=== PATIENT | female | born 2000 | race Caucasian/White ===

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

== ENCOUNTER → 2021-01-27 | Outpatient (REF) | payer OTHER, MEDICAID | LOC: M SFHCWAGY 12:39 | PROVIDERS: ATTEND Nurse Practitioner Women's Health | DX: N93.0 Postcoital and contact bleeding (principal); Z11.3 Encounter for screening for infections with a predominantly sexual mode of transmission ==

== ENCOUNTER → 2021-04-07 | Outpatient (REF) | payer OTHER, MEDICAID ==
[~2021-04-07] MED LIST changes: +ARIP10TA32 PO; -ARIP1TAB PO; -ARIP1TAB2 PO; +ARIP1TAB43 PO
[2021-04-07 18:39] LABS: APPEARANCE, URINE HAZY (CLEAR); BACTERIA, URINE AUTO 1+ (NEGATIVE); BILIRUBIN, URINE AUTO NEGATIVE (NEGATIVE); BLOOD, URINE BLOOD 1+ (NEGATIVE); COLOR, URINE YELLOW (YELLOW); GLUCOSE, URINE (UA) AUTO NEGATIVE (NEGATIVE); KETONE, URINE AUTO NEGATIVE (NEGATIVE); LEUKOCYTE ESTERASE, URINE AUTO 1+ (NEGATIVE); MUCUS, URINE SMALL (NEGATIVE); NITRITE, URINE AUTO NEGATIVE (NEGATIVE); PROTEIN, URINE AUTO NEGATIVE (NEGATIVE); RBC, URINE AUTO 4 /HPF (0-3); SQUAMOUS EPITHELIAL CELL UR AU 3 /HPF (0-6); UROBILINOGEN, URINE AUTO 0.2 mg/dL (0.0-2.0); WBC, URINE AUTO 66 /HPF (0-3)
== END ==
LOC: M LAB REF 16:59
PROVIDERS: ATTEND Physician Assistant
DX: N39.0 Urinary tract infection, site not specified (principal)

== ENCOUNTER → 2021-05-14 | Outpatient (CLI) | payer OTHER, MEDICAID ==
--- NOTE | 2021-05-14 11:13 | REP ---
INDICATION: CHEST PAIN, UNSPECIFIED. COMPARISON: Comparison study July 03, 2018. TECHNIQUE: Two views.. FINDINGS: The lungs are well inflated and free of infiltrate. The pleural angles are sharp. The heart size is normal. Pulmonary vasculature is not increased. No significant bony abnormality is seen. IMPRESSION: Negative chest x-ray. <Electronically signed by Constantin Hopper > 05/14/21 [id number]
[2021-05-14 12:15] LABS: BASO % 0.6 % (0.0-1.0); EOS % 0.8 % (0.0-3.0); HEMATOCRIT 38.5 % (36.0-47.0); HEMOGLOBIN 12.3 g/dl (12.0-15.5); LYMPH # 1.8 10^3/uL (1.5-5.0); LYMPH % 34.9 % (24.0-44.0); MEAN CORPUSCULAR HEMOGLOBIN 28.7 pg (27.0-33.0); MEAN CORPUSCULAR HGB CONC 31.9 g/dl (32.0-36.5); MEAN CORPUSCULAR VOLUME 89.7 fl (80.0-96.0); MONO # 0.5 10^3/uL (0.0-0.8); MONO % 8.9 % (2.0-8.0); NEUTROPHILS # 2.8 10^3/uL (1.5-8.5); NEUTROPHILS % 54.6 % (36.0-66.0); PLATELET COUNT, AUTOMATED 286 10^3/uL (150-450); RED BLOOD COUNT 4.29 10^6/uL (4.00-5.40); WHITE BLOOD COUNT 5.1 10^3/uL (4.0-10.0)
[2021-05-14 12:48] LABS: ALT/SGPT 16 U/L (12-78); BILIRUBIN,TOTAL 0.2 MG/DL (0.2-1.0); BLOOD UREA NITROGEN 11 MG/DL (7-18); CALCIUM LEVEL 9.6 MG/DL (8.5-10.1); CARBON DIOXIDE LEVEL 28 MEQ/L (21-32); CHLORIDE LEVEL 108 MEQ/L (98-107); CREATININE FOR GFR 0.82 MG/DL (0.55-1.30); FERRITIN 6 NG/ML (8-252); FREE T4 0.93 NG/DL (0.78-1.33); GLUCOSE, FASTING 90 MG/DL (70-100); IRON (FE) 42 UG/DL (50-170); PERCENT SATURATION 10.6 % (13.2-45.0); SODIUM LEVEL 140 MEQ/L (136-145); TOTAL IRON BINDING CAPACITY 395 UG/DL (250-450); TOTAL PROTEIN 7.4 GM/DL (6.4-8.2)
== END ==
LOC: M RAD 10:46
PROVIDERS: ATTEND Physician Assistant
DX: R07.9 Chest pain, unspecified (principal)

== ENCOUNTER → 2021-06-04 | Outpatient (CLI) | payer OTHER ==
[~2021-06-04] MED LIST changes: +METHACHOLINE KIT (J7674) INH ONE
--- NOTE | 2021-06-04 10:20 | PFTRPT ---
Site: [facility], [address] [place], [address] ID: [id number] Name: RADHA CAMACHO Visit Date: 06/04/2021 Second ID: [id number] Referring Doctor: Apollo Jj Reviewing Doctor: Franklin Vega MD Multi Purpose Machine Operator: Tenisha Oliva RRT Age: 20 : 2000 Sex: Female Race: Height: 63.00 Inches Weight: 102.00 Lbs BSA: 1.45 Order IDs: [id number] Requested Test(s): <RESP-PFT.METH CHAL> Diagnosis: R06.02, R07.9 of albuterol for post bronchodilator. ALBUTEROL NEB GIVEN FOR POST BRONCHODILATOR. Review Status: Not Reviewed Pre-Bronch Post-Bronch Pred Actual %Pred Actual %Chng SPIROMETRY FVC (L) 3.66 2.46 67 2.65 7 FEV1 (L) 3.23 2.25 69 2.46 9 FEV1/FVC (%) 87 92 105 93 1 FEF 25% (L/sec) 5.84 3.02 51 3.33 10 FEF 50% (L/sec) 4.80 2.65 55 2.76 4 FEF 75% (L/sec) 2.14 2.15 100 2.14 FEF 25-75% (L/sec) 3.70 2.59 69 2.69 3 FEF Max (L/sec) 6.66 3.11 46 3.78 21 FIVC (L) 1.84 1.62 -12 FIF 50% (L/sec) 3.94 1.32 33 2.34 77 FIF Max (L/sec) 1.68 2.53 50 Expiratory Time (sec) 6.68 6.76 1 Back Extrap Vol (L) 0.04 0.05 25 Time To FEFmax (sec) 0.121 0.093 -23
== END ==
LOC: M CARPUL 09:07
PROVIDERS: ATTEND Physician Assistant
DX: R06.02 Shortness of breath (principal); R07.9 Chest pain, unspecified
CPT/HCPCS: 94070; 95070; J7674

== ENCOUNTER 2021-07-23 11:28 | Emergency (ER) | payer OTHER ==
[~2021-07-23] VITALS: Ht 157.5 cm; Wt 49.6 kg
[~2021-07-23 11:28] MED LIST changes: -METHACHOLINE KIT (J7674) INH ONE
--- OUTSIDE RECORDS SUMMARY | 2021-07-23 11:38 | CCD | Continuity of Care Document ---
Author Author Melonie MEADE MD Organization [place] [address] Phone [phone] Care Team Providers Care Assisted Living Coordinator Name Role Phone Delvin Huang M.D. AUTM [phone] [facility] [phone] Obstetrics & Gynecology @ [facility] AUT Problems Active Problems Provider Date Weight decreased WILLIAM Robert Onset: 05/18/2017 Anorexia nervosa, restricting type WILLIAM Robert Onset : 05/18/2017 Generalized anxiety disorder Ragini Meade MD Onset: 10/2017 Insomnia Ragini Meade MD Onset: 02/20/2018 Moderate recurrent major depression Ragini Meade MD Onse t: 02/20/2018 Acne Ragini Meade MD Onset: 03/07/2018 Epigastric pain Ragini Meade MD Onset: 11/01/2018 Gastroesophageal reflux disease Ragini Meade MD Onset: 0 05/05/2020 Dysmenorrhea Ragini Meade MD Onset: 05/14/2020 Morales's esophagus Onset: Anxiety state Ragini Meade MD Onset: 07/12/2021 Social History Type Date Description Comments Sex Unknown Cigarette Use No Smokers In The Home Tobacco Use Start: Unknown Patient has never smoked Smoking Status Reviewed: 04/07/21 Patient has never smoked Guns in Home No Smoke Alarms Yes Smoke Alarms Carbon Monoxide Detector: Yes Allergies and adverse reactions Active Allergies Criticality Reaction | Severity Comments Date NKDA Unable to assess criticality 11/28/2019 Inactive Allergies NKDA Unable to assess criticality 01/28/2010 Amoxicillin Unable to assess criticality urticaria 10/24/2019 Medications Active Medications SIG Qnty Indications Ordering Provide r Date Arnuity Ellipta 100mcg/Act Aerosol 2 PUFFs oncce daily 1units J45.909 Ragini Meade MD 06/15/2021 Ventolin HFA 108(90Base) mcg/Act A erosol 2 puffs inhaled every 4-6 hours as needed 8gm J45.909 Ernestine Meade MD 06/11/2021 Ferrous Sulfate 325(65Fe) mg Table ts take 1 tabs by mouth twice a day x 3 months 60tabs Ragini Meade MD 05/14/[address] 1 by mouth bid po qd x1 month 60caps K21.9 Ragini Meade MD 03/01/2021 Multivitamin Unknown Abilify 10mg Tablets 1 tab po q day Unknown Buspirone HCL 10mg Tablets 1 tab po bid Unknown Lamictal 100mg Tablets 1 Tab PO Q Day Unknown Propranolol HCL 20mg Tablets Unknown Lamotrigine 25mg Tablets Unknown Haloperidol 0.5mg Tablets Unknown Duloxetine HCL 20mg Caps DR Part Unknown History Medications Asmanex Twisthaler 30 Metered Doses 220mcg/Inh Aerosol 1 puff daily in the evening x 30 days 1units J45.909 Teja Gómez MD 06/11/2021 - 06/15/2021 Sulfamethoxazole/Trimethoprim DS 800-160mg Tablets take 1 tablet by mouth every 12 hours x 5 days 10tabs Ragini Meade MD 04/08/2021 - 06/08/2021 Immunizations CPT Code Status Date Vaccine Reaction Lot # [id number] Given 03/01/2021 Bexsero Meningoc occal Recombinant, Serogroup B, 2 Dose Schedule [id number] 10465 Given 03/01/2021 Gardasil 9-HPV 9 Valent 3 Dose Sched ule Im [id number] 48562 Given 11/28/2019 Gardasil 9-HPV, 3 Dose Schedule Im [id number] 13374 Given 11/28/2019 Bexsero Meningoc occal Recombinant, Serogroup B, 2 Dose Schedule [id number] 03097 Given 11/15/2018 [facility] Meningococcal Conj (Menveo) [id number] 00154 Given 07/18/2017 TB Intradermal Test 07/20/20 17 at 12:04 pm: 0 mm, Magdi Tucker, RN [id number] 15088 Given 03/05/2013 Menactra-Meningococcal Conjugate Vac cine Intramuscular [id number] 36073 Given 03/05/2013 Bgol-Zrfyir-2Nkb & Older [id number] 05613 Given 01/28/2010 Varicella Immunization 11 99y 74446 Given 05/29/2007 Hep A Vaccine-Vaqta, Intramuscular, 2 [place] [address] Given 04/25/2006 Poliomyelitis Immunization 29609 Given 04/25/2006 MMR Virus Immunization 37249 Given 04/25/2006 DTaP-Daptacel Immunization 53050 Given 04/25/2006 Hep A Vaccine-Vaqta, Intramuscular, 2 [place] [address] Given 12/03/2003 Prevnar(Pneumoco ccal Conjugate Vaccine,Polyvalent For Children) 69999 Given 12/06/2002 Poliomyelitis Immunization 17774 Given 12/06/2002 DTaP-Daptacel Immunization 40083 Given 12/06/2002 Prevnar(Pneumoco ccal Conjugate Vaccine, Polyvalent For Children) 29975 Given 12/06/2002 Haemophilus Infl uenza b Vaccine (Hib) Conjugate(4Dose Schedule 74850 Given 09/04/2002 MMR Virus Immunization 31633 Given 09/04/2002 Hepatitis B-Leonardo mbivax -Pediatric/Adolescent Dosage(3 Dose Sched) 13742 Given 09/04/2002 Varicella Immunization 40889 Given 06/04/2002 TB Intradermal Test 40317 Given 03/04/2002 Haemophilus Infl uenza b Vaccine (Hib) Conjugate(4Dose Schedule 72370 Given 03/04/2002 Prevnar(Pneumoco ccal Conjugate Vaccine, Polyvalent For Children) 32507 Given 03/04/2002 DTaP-Daptacel Immunization 93228 Given 2001 Hepatitis B-Leonardo mbivax -Pediatric/Adolescent Dosage(3 Dose Sched) 96712 Given 2001 Poliomyelitis Immunization 48631 Given 2001 DTaP-Daptacel Immunization 04493 Given 2001 Haemophilus Infl uenza b Vaccine (Hib) Conjugate(4Dose Schedule 63460 Given 2001 Hepatitis B And Haemophilusinfluenza B Vaccine, For Intramuscular 80347 Given 2001 Poliomyelitis Immunization 02402 Given 2001 DTaP-Daptacel Immunization 76720 Given 2001 Prevnar(Pneumoco ccal Conjugate Vaccine, Polyvalent For Children) 70533 Refused 11/28/2019 [facility] Flulaval 22004 Refused 11/15/2018 Bexsero Meningoc occal Recombinant, Serogroup B, 2 Dose Schedule 43801 Refused 11/15/2018 Gardasil 9-HPV, 3 [place] [address] Refused 11/15/2018 [facility] Flulaval Vital Signs Date Vital Result Comment 07/12/2021 1:25pm Height 61.81 inches 5'1.81" Height Percentile 16 % Height in cm's 157 cm Weight 107.00 lb Weight 48.535 kg Weight Percentile 11th BMI (Body Mass Index) 19.7 kg/m2 Body Mass Index Percentile 24 % Body Temperature 97.2 F Heart Rate 86 /min Respiratory Rate 16 /min O2 % BldC Oximetry 99 % BP Systolic 100 mmHg BP Diastolic 72 mmHg 06/11/2021 3:07pm Height 61.61 inches 5'1.61" Height Percentile 15 % Height in cm's 156.5 cm Weight 110.50 lb Weight 50.123 kg Weight Percentile 16th BMI (Body Mass Index) 20.5 kg/m2 Body Mass Index Percentile 34 % Body Temperature 98.4 F Heart Rate 78 /min Respiratory Rate 16 /min O2 % BldC Oximetry 97 % BP Systolic 118 mmHg BP Diastolic 74 mmHg Results Test Acquired Date Facility Test Result H/L Range Note CBC With Differential 05/14/[address] [address] [phone] White Blood Count 5.1 10 Normal 4.0-10.0 1 Red Blood Count 4.29 10 Normal 4.00-5.40 Hemoglobin 12.3 g/dL Normal 12.0-15.5 Hematocrit 38.5 % Normal 36.0-47.0 Mean Corpuscular Volume 89.7 fl Normal 80.0-96.0 Mean Corpuscular Hemoglobin 28.7 pg Normal 27.0-33.0 Mean Corpuscular HGB Conc 31.9 g/dL Low 32.0-36.5 Red Cell Distribution Width 13.7 % Normal 11.5-14.5 Platelet Count, Automated 286 10 Normal 150-450 Neutrophils % 54.6 % Normal 36.0-66.0 Lymph % 34.9 % Normal 24.0-44.0 [place] % 8.9 % High 2.0-8.0 Eos % 0.8 % Normal 0.0-3.0 Baso % 0.6 % Normal 0.0-1.0 Immature Granulocyte % 0.2 % Normal 0-3.0 Nucleated Red Blood Cell % 0.0 % Normal 0-0 Neutrophils # 2.8 10 Normal 1.5-8.5 Lymph # 1.8 10 Normal 1.5-5.0 [place] # 0.5 10 Normal 0.0-0.8 Eos # 0.0 10 Normal 0.0-0.5 Baso # 0.0 10 Normal 0.0-0.2 Comprehensive Metabolic Profil 05/14/[address] [address] [phone] Glucose, Fasting 90 mg/dL Normal 70-100 Blood Urea Nitrogen 11 mg/dL Normal 7-18 Creatinine For GFR 0.82 mg/dL Normal 0.55-1.30 Sodium Level 140 mEq/L Normal 136-145 Potassium Serum 4.0 mEq/L Normal 3.5-5.1 Chloride Level 108 mEq/L High 98-107 Carbon Dioxide Level 28 mEq/L Normal 21-32 Anion Gap 4 mEq/L Low 8-16 Calcium Level 9.6 mg/dL Normal 8.5-10.1 Ast/Sgot 17 U/L Normal 7-37 Alt/SGPT 16 U/L Normal 12-78 Alkaline Phosphatase 77 U/L Normal 45-117 Bilirubin,Total 0.2 mg/dL Normal 0.2-1.0 Total Protein 7.4 GM/DL Normal 6.4-8.2 Albumin 4.0 GM/DL Normal 3.2-5.2 Albumin/Globulin Ratio 1.2 Normal 1.2-2.2 Laboratory test finding 05/14/[address] [address] [phone] C Reactive Protein Quantitativ 0.30 mg/dL Normal 0 .00-0.30 Total Iron Binding Capacit 05/14/[address] [address] [phone] Iron (Fe) 42 g/dL Low 50-170 Total Iron Binding Capacity 395 g/dL Normal 250-450 Percent Saturation 10.6 % Low 13.2-45.0 Laboratory test finding 05/14/[address] [address] [phone] Ferritin 6 NG/ML Low 8-252 FT4&TSH Panel 05/14/2021 [facility] nter [address] [place] [address] [phone] Thyroid Stimulating Hormone 1.590 uIU/ML Normal 0. 463-3.98 Free T4 0.93 ng/dL Normal 0.78-1.33 Laboratory test finding 04/07/2021 [facility] Urine Test Beta HCG NEGATIVE Ua Routine 04/07/2021 [facility] nter [address] [place] [address] [phone] Appearance, Urine HAZY Normal Clear Color, Urine YELLOW Normal Yellow PH,Urine 5.0 units Normal 5.0-9.0 Specific [place] Urine Auto 1.010 Normal 1.002-1.035 Protein, Urine Auto NEGATIVE mg/dL Normal Negative Glucose, Urine (Ua) Auto NEGATIVE mg/dL Normal Negative Ketone, Urine Auto NEGATIVE mg/dL Normal Negative Urobilinogen, Urine Auto 0.2 mg/dL Normal 0.0-2.0 Bilirubin, Urine Auto NEGATIVE Normal Negative Nitrite, Urine Auto NEGATIVE Normal Negative Leukocyte Esterase, Urine Auto 1+ High Negative Blood, Urine Blood 1+ High Negative WBC, Urine Auto 66 /HPF High 0-3 RBC, Urine Auto 4 /HPF High 0-3 Bacteria, Urine Auto 1+ High Negative Squamous Epithelial Cell Ur AU 3 /HPF Normal 0-6 Mucus, Urine SMALL Normal Negative Hyaline Cast, Urine Auto 0 /LPF Normal 0-1 Laboratory test finding 04/07/[address] [address] [phone] Urine Culture FULL REPORT IN L <SEE NOTE> Normal 2 Urinalysis W/O Microscopy Auto 04/07/2021 [facility] Ua Leukocytes small Ua Nitrite n Ua Urobilinogen n Ua Protein n Ua PH 5.0 Ua Blood trace Ua Specific [place] 1.010 Ua Ketones n Ua Bilirubin n Ua Glucose n 1 See triage. AMT 2 FULL REPORT IN LAB NOTES (eC W and Medent). SPECIMEN APPEARS CONTAMINATED Procedures Date Code Description Status 07/12/2021 13301 Office/Outpatient Established Mo d MDM 30-39 Min Completed 06/11/2021 89133 Office/Outpatient Established Mo d MDM 30-39 Min Completed 05/14/2021 67081 Office/Outpatient Established Mo d MDM 30-39 Min Completed 04/07/2021 60577 Office/Outpatient Established Lo w MDM 20-29 Min Completed 03/01/2021 65499 Preventive Visit Est 18-39 Yrs C ompleted 03/01/2021 21552 Screening Test Of Visual Acuity, Quantitative, Bilateral Completed 03/01/2021 80755 Admin Patient Focused Health Ris k Assessment Instrument Completed 03/01/2021 08372 Brief Emotional/Beha v Assessment W/ Scoring Doc Per Standard Inst Completed 03/01/2021 53549 Brief Emotional/Beha v Assessment W/ Scoring Doc Per Standard Inst Completed 03/01/2021 26463 Pure Tone Audiometry, Air Comple garrett Medical Devices Description No Information Available Encounters Type Date Location Provider Dx Diagnosis Office Visit 07/12/2021 1:20p [facility] MD J45.909 Unspecified asthma, uncompli cated R07.9 Chest pain, unspecified F41.9 Anxiety disorder, unspecifie d Office Visit 06/11/2021 3:00p [facility] RPA-C J45.909 Unspecified asthma, uncompli cated E61.1 Iron deficiency Office Visit 05/14/2021 8:40a [facility] RPA-C R07.9 Chest pain, unspecified R06.02 Shortness of breath R00.2 Palpitations M54.6 Pain in thoracic spine Office Visit 04/07/2021 1:10p [facility] PA N39.0 Urinary tract infection, sit e not specified K59.00 Constipation, unspecified Office Visit 03/01/2021 11:20a [facility] PNP Z00.01 Encounter for general adult medical exam w abnormal findings K21.9 Gastro-esophageal reflux dis ease without esophagitis F33.1 Major depressive disorder, r ecurrent, moderate F50.01 Anorexia nervosa, restrictin g type K22.719 Morales's esophagus with dys plasia, unspecified Z23 Encounter for immunization Z00.121 Encounter for routine child health exam w abnormal findings Assessments Date Code Description Provider 07/12/2021 J45.909 Unspecified asthma, uncomplicate d Ragini Meade MD 07/12/2021 R07.9 Chest pain, unspecified Ernestine Meade MD 07/12/2021 F41.9 Anxiety disorder, unspecified [facility] Meade MD 06/11/2021 J45.909 Unspecified asthma, uncomplicate d Apollo Jj, [facility] 06/11/2021 E61.1 Iron deficiency Apollo Jj, [facility] 05/14/2021 R07.9 Chest pain, unspecified Apollo tracey, [facility] 05/14/2021 R06.02 Shortness of breath Apollo Jj, [facility] 05/14/2021 R00.2 Palpitations Apollo Jj, [facility] 05/14/2021 M54.6 Pain in thoracic spine Apollo machado, [facility] 04/07/2021 N39.0 Urinary tract infection, site no t specified NARGIS Hayes 04/07/2021 K59.00 Constipation, unspecified NARGIS River 03/01/2021 Z00.01 Encounter for genera l adult medical examination with abnormal findings WILLIAM Robert 03/01/2021 K21.9 Gastro-esophageal reflux disease without esophagitis WILLIAM Robert 03/01/2021 F33.1 Major depressive disorder, recur rent, moderate WILLIAM Robert 03/01/2021 F50.01 Anorexia nervosa, restricting ty pe WILLIAM Robert 03/01/2021 K22.719 Morales's esophagus with dysplas ia, unspecified WILLIAM Robert 03/01/2021 Z23 Encounter for immunization WILLIAM Michael 03/01/2021 Z00.121 Encounter for routin e child health examination with abnormal findings WILLIAM Robert Plan of Treatment Future Appointment(s):* 08/10/2021 1:20 pm - Ragini Meade MD at [facility] Functional Status Description No Information Available Mental Status Description No Information Available Referrals Description No Information Available
--- OUTSIDE RECORDS SUMMARY | 2021-07-23 11:38 | CCD | Continuity of Care Document ---
Author Author Melonie MEADE MD Organization [place] [address] Phone [phone] Care Team Providers Care Mail Handler Sorter Name Role Phone Delvin Huang M.D. AUTM [phone] [facility] Women's [facility] And Breast - Obstetrics & Gynecol [facility] AUTM [phone] Obstetrics & Gynecology @ [facility] AUT [phone] Problems Active Problems Provider Date Weight decreased [...] Code Status Date Vaccine Reaction Lot # [id number] Given 03/01/2021 Bexsero Meningoc occal Recombinant, Serogroup B, 2 Dose Schedule [id number] 91758 Given 03/01/2021 Gardasil 9-HPV 9 Valent 3 Dose Sched ule Im [id number] 70125 Given 11/28/2019 Gardasil 9-HPV, 3 Dose Schedule Im [id number] 99863 Given 11/28/2019 Bexsero Meningoc occal Recombinant, Serogroup B, 2 Dose Schedule [id number] 95248 Given 11/15/2018 [facility] Meningococcal Conj (Menveo) [id number] 92474 Given 07/18/2017 TB Intradermal Test 07/20/20 17 at 12:04 pm: 0 mm, Magdi Tucker, RN [id number] 92770 Given 03/05/2013 Menactra-Meningococcal Conjugate Vac cine Intramuscular [id number] 60705 Given 03/05/2013 Lcyt-Iwsxhx-8Ioc & Older [id number] 12479 Given 01/28/2010 Varicella Immunization 11 99y 16516 Given 05/29/2007 Hep A Vaccine-Vaqta, Intramuscular, 2 [place] [address] Given 04/25/2006 Poliomyelitis Immunization 26130 Given 04/25/2006 MMR Virus Immunization 12096 Given 04/25/2006 DTaP-Daptacel Immunization 64650 Given 04/25/2006 Hep A Vaccine-Vaqta, Intramuscular, 2 [place] [address] Given 12/03/2003 Prevnar(Pneumoco ccal Conjugate Vaccine,Polyvalent For Children) 54948 Given 12/06/2002 Poliomyelitis Immunization 19734 Given 12/06/2002 DTaP-Daptacel Immunization 00296 Given 12/06/2002 Prevnar(Pneumoco ccal Conjugate Vaccine, Polyvalent For Children) 65969 Given 12/06/2002 Haemophilus Infl uenza b Vaccine (Hib) Conjugate(4Dose Schedule 80695 Given 09/04/2002 MMR Virus Immunization 17680 Given 09/04/2002 Hepatitis B-Leonardo mbivax -Pediatric/Adolescent Dosage(3 Dose Sched) 71785 Given 09/04/2002 Varicella Immunization 08853 Given 06/04/2002 TB Intradermal Test 82525 Given 03/04/2002 Haemophilus Infl uenza b Vaccine (Hib) Conjugate(4Dose Schedule 67251 Given 03/04/2002 Prevnar(Pneumoco ccal Conjugate Vaccine, Polyvalent For Children) 10312 Given 03/04/2002 DTaP-Daptacel Immunization 61365 Given 2001 Hepatitis B-Leonardo mbivax -Pediatric/Adolescent Dosage(3 Dose Sched) 34528 Given 2001 Poliomyelitis Immunization 76119 Given 2001 DTaP-Daptacel Immunization 25571 Given 2001 Haemophilus Infl uenza b Vaccine (Hib) Conjugate(4Dose Schedule 56359 Given 2001 Hepatitis B And Haemophilusinfluenza B Vaccine, For Intramuscular 26515 Given 2001 Poliomyelitis Immunization 40148 Given 2001 DTaP-Daptacel Immunization 36297 Given 2001 Prevnar(Pneumoco ccal Conjugate Vaccine, Polyvalent For Children) 26821 Refused 11/28/2019 [facility] Flulaval 76396 Refused 11/15/2018 Bexsero Meningoc occal Recombinant, Serogroup B, 2 Dose Schedule 22196 Refused 11/15/2018 Gardasil 9-HPV, 3 [place] [address] Refused 11/15/2018 [facility] Flulaval Vital Signs Date Vital Result Comment [...] H/L Range Note CBC With Differential 05/14/[address] [address] [phone] White Blood Count 5.1 10 Normal 4.0-10.0 [...] 36.0-66.0 Lymph % 34.9 % Normal 24.0-44.0 [place] % 8.9 % High 2.0-8.0 Eos % 0.8 % Normal 0.0-3.0 Baso % 0.6 % Normal 0.0-1.0 Immature Granulocyte % 0.2 % Normal 0-3.0 Nucleated Red Blood Cell % 0.0 % Normal 0-0 Neutrophils # 2.8 10 Normal 1.5-8.5 Lymph # 1.8 10 Normal 1.5-5.0 [place] # 0.5 10 Normal 0.0-0.8 Eos # 0.0 10 Normal 0.0-0.5 Baso # 0.0 10 Normal 0.0-0.2 Comprehensive Metabolic Profil 05/14/[address] [address] [phone] Glucose, Fasting 90 mg/dL Normal 70-100 Blood [...] 1.2 Normal 1.2-2.2 Laboratory test finding 05/14/[address] [address] [phone] C Reactive Protein Quantitativ 0.30 mg/dL Normal 0 .00-0.30 Total Iron Binding Capacit 05/14/[address] [address] [phone] Iron (Fe) 42 g/dL Low 50-170 Total Iron Binding Capacity 395 g/dL Normal 250-450 Percent Saturation 10.6 % Low 13.2-45.0 Laboratory test finding 05/14/[address] [address] [phone] Ferritin 6 NG/ML Low 8-252 FT4&TSH Panel 05/14/2021 [facility] nter [address] [place] [address] [phone] Thyroid Stimulating Hormone 1.590 uIU/ML Normal 0. 463-3.98 Free T4 0.93 ng/dL Normal 0.78-1.33 Laboratory test finding 04/07/2021 [facility] Urine Test Beta HCG NEGATIVE Ua Routine 04/07/2021 [facility] nter [address] [place] [address] [phone] Appearance, Urine HAZY Normal Clear Color, Urine YELLOW Normal Yellow PH,Urine 5.0 units Normal 5.0-9.0 Specific [place] Urine Auto 1.010 Normal 1.002-1.035 Protein, Urine [...] /LPF Normal 0-1 Laboratory test finding 04/07/[address] [address] [phone] Urine Culture FULL REPORT IN L <SEE NOTE> Normal 2 Urinalysis W/O Microscopy Auto 04/07/2021 [facility] Ua Leukocytes small Ua Nitrite n Ua Urobilinogen n Ua Protein n Ua PH 5.0 Ua Blood trace Ua Specific [place] 1.010 Ua Ketones n Ua Bilirubin n Ua Glucose n 1 See triage. AMT 2 FULL REPORT IN LAB NOTES (eC W and Medent). SPECIMEN APPEARS CONTAMINATED Procedures Date Code Description Status 07/12/2021 32185 Office/Outpatient Established Mo d MDM 30-39 Min Completed 06/11/2021 92317 Office/Outpatient Established Mo d MDM 30-39 Min Completed 05/14/2021 14480 Office/Outpatient Established Mo d MDM 30-39 Min Completed 04/07/2021 82397 Office/Outpatient Established Lo w MDM 20-29 Min Completed 03/01/2021 88727 Preventive Visit Est 18-39 Yrs C ompleted 03/01/2021 63083 Screening Test Of Visual Acuity, Quantitative, Bilateral Completed 03/01/2021 95985 Admin Patient Focused Health Ris k Assessment Instrument Completed 03/01/2021 99126 Brief Emotional/Beha v Assessment W/ Scoring Doc Per Standard Inst Completed 03/01/2021 35579 Brief Emotional/Beha v Assessment W/ Scoring Doc Per Standard Inst Completed 03/01/2021 78706 Pure Tone Audiometry, Air Comple garrett Medical [...] J45.909 Unspecified asthma, uncomplicate d Apollo Jj, [facility] 06/11/2021 E61.1 Iron deficiency Apollo Jj, [facility] 05/14/2021 R07.9 Chest pain, unspecified Apollo tracey, [facility] 05/14/2021 R06.02 Shortness of breath Apollo Jj, [facility] 05/14/2021 R00.2 Palpitations Apollo Jj, [facility] 05/14/2021 M54.6 Pain in thoracic spine Apollo machado, [facility] 04/07/2021 N39.0 Urinary tract infection, site no t specified NARGIS Hayes 04/07/2021 K59.00 Constipation, unspecified NAGRIS [place] 03/01/2021 Z00.01 Encounter for genera l [...] - Ragini Meade MD at [facility] Functional Status Description No Information Available Mental Status Description No Information Available Referrals Description No Information Available
--- OUTSIDE RECORDS SUMMARY | 2021-07-23 11:38 | CCD | Continuity of Care Document ---
Author Author Melonie MEADE MD Organization Unknown Address [place] [address] Phone [phone] Care Team Providers Care Accounting Analyst Name Role Phone Delvin Huang M.D. AUTM [phone] [facility] Women's [facility] And Breast - Obstetrics & Gynecol [facility] AUTM [phone] Obstetrics & Gynecology @ [facility] AUT Problems Active Problems Provider Date Weight decreased WILLIAM Robert Onset: 05/18/2017 Anorexia nervosa, restricting type WILLIAM Robert Onset : 05/18/2017 Generalized anxiety disorder Ragini Meade MD Onset: 10/2017 Insomnia Ragini Meade MD Onset: 02/20/2018 Moderate recurrent major depression Ragini Meade MD Onse t: 02/20/2018 Acne Ragini Meade MD Onset: 03/07/2018 Epigastric pain Ragini Maede MD Onset: 11/01/2018 Gastroesophageal reflux disease Ragini [...] Code Status Date Vaccine Reaction Lot # 23722 Given 03/01/2021 Bexsero Meningoc occal Recombinant, Serogroup B, 2 Dose Schedule [id number] 09738 Given 03/01/2021 Gardasil 9-HPV 9 Valent 3 Dose Sched ule Im [id number] 13304 Given 11/28/2019 Gardasil 9-HPV, 3 Dose Schedule Im [id number] 21616 Given 11/28/2019 Bexsero Meningoc occal Recombinant, Serogroup B, 2 Dose Schedule [id number] 01309 Given 11/15/2018 [facility] Meningococcal Conj (Menveo) [id number] 64217 Given 07/18/2017 TB Intradermal Test 07/20/20 17 at 12:04 pm: 0 mm, Magdi Tucker, RN [id number] 21093 Given 03/05/2013 Menactra-Meningococcal Conjugate Vac cine Intramuscular [id number] 52584 Given 03/05/2013 Ldnh-Crbddz-8Vde & Older [id number] 23312 Given 01/28/2010 Varicella Immunization 11 99y 26894 Given 05/29/2007 Hep A Vaccine-Vaqta, Intramuscular, 2 [place] [address] Given 04/25/2006 Poliomyelitis Immunization 86076 Given 04/25/2006 MMR Virus Immunization 09353 Given 04/25/2006 DTaP-Daptacel Immunization 78238 Given 04/25/2006 Hep A Vaccine-Vaqta, Intramuscular, 2 [place] [address] Given 12/03/2003 Prevnar(Pneumoco ccal Conjugate Vaccine,Polyvalent For Children) 16723 Given 12/06/2002 Poliomyelitis Immunization 32282 Given 12/06/2002 DTaP-Daptacel Immunization 44939 Given 12/06/2002 Prevnar(Pneumoco ccal Conjugate Vaccine, Polyvalent For Children) 86249 Given 12/06/2002 Haemophilus Infl uenza b Vaccine (Hib) Conjugate(4Dose Schedule 62817 Given 09/04/2002 MMR Virus Immunization 55058 Given 09/04/2002 Hepatitis B-Leonardo mbivax -Pediatric/Adolescent Dosage(3 Dose Sched) 34026 Given 09/04/2002 Varicella Immunization 29115 Given 06/04/2002 TB Intradermal Test 83640 Given 03/04/2002 Haemophilus Infl uenza b Vaccine (Hib) Conjugate(4Dose Schedule 73593 Given 03/04/2002 Prevnar(Pneumoco ccal Conjugate Vaccine, Polyvalent For Children) 96279 Given 03/04/2002 DTaP-Daptacel Immunization 72355 Given 2001 Hepatitis B-Leonardo mbivax -Pediatric/Adolescent Dosage(3 Dose Sched) 60376 Given 2001 Poliomyelitis Immunization 67839 Given 2001 DTaP-Daptacel Immunization 78775 Given 2001 Haemophilus Infl uenza b Vaccine (Hib) Conjugate(4Dose Schedule 79133 Given 2001 Hepatitis B And Haemophilusinfluenza B Vaccine, For Intramuscular 56088 Given 2001 Poliomyelitis Immunization 60613 Given 2001 DTaP-Daptacel Immunization 04842 Given 2001 Prevnar(Pneumoco ccal Conjugate Vaccine, Polyvalent For Children) 22808 Refused 11/28/2019 [facility] Flulaval 55412 Refused 11/15/2018 Bexsero Meningoc occal Recombinant, Serogroup B, 2 Dose Schedule 20777 Refused 11/15/2018 Gardasil 9-HPV, 3 [place] [address] Refused 11/15/2018 [facility] Flulaval Vital Signs Date Vital Result Comment [...] H/L Range Note CBC With Differential 05/14/[address] [address] [phone] White Blood Count 5.1 10 Normal 4.0-10.0 [...] 36.0-66.0 Lymph % 34.9 % Normal 24.0-44.0 [place] % 8.9 % High 2.0-8.0 Eos % 0.8 % Normal 0.0-3.0 Baso % 0.6 % Normal 0.0-1.0 Immature Granulocyte % 0.2 % Normal 0-3.0 Nucleated Red Blood Cell % 0.0 % Normal 0-0 Neutrophils # 2.8 10 Normal 1.5-8.5 Lymph # 1.8 10 Normal 1.5-5.0 [place] # 0.5 10 Normal 0.0-0.8 Eos # 0.0 10 Normal 0.0-0.5 Baso # 0.0 10 Normal 0.0-0.2 Comprehensive Metabolic Profil 05/14/[address] [address] [phone] Glucose, Fasting 90 mg/dL Normal 70-100 Blood [...] 1.2 Normal 1.2-2.2 Laboratory test finding 05/14/[address] [address] [phone] C Reactive Protein Quantitativ 0.30 mg/dL Normal 0 .00-0.30 Total Iron Binding Capacit 05/14/[address] [address] [phone] Iron (Fe) 42 g/dL Low 50-170 Total Iron Binding Capacity 395 g/dL Normal 250-450 Percent Saturation 10.6 % Low 13.2-45.0 Laboratory test finding 05/14/[address] [address] [phone] Ferritin 6 NG/ML Low 8-252 FT4&TSH Panel 05/14/2021 [facility] nter [address] [place] [address] [phone] Thyroid Stimulating Hormone 1.590 uIU/ML Normal 0. 463-3.98 Free T4 0.93 ng/dL Normal 0.78-1.33 Laboratory test finding 04/07/2021 [facility] Urine Test Beta HCG NEGATIVE Ua Routine 04/07/2021 [facility] nter [address] [place] [address] [phone] Appearance, Urine HAZY Normal Clear Color, Urine YELLOW Normal Yellow PH,Urine 5.0 units Normal 5.0-9.0 Specific [place] Urine Auto 1.010 Normal 1.002-1.035 Protein, Urine [...] /LPF Normal 0-1 Laboratory test finding 04/07/[address] [address] [phone] Urine Culture FULL REPORT IN L <SEE NOTE> Normal 2 Urinalysis W/O Microscopy Auto 04/07/2021 [facility] Ua Leukocytes small Ua Nitrite n Ua Urobilinogen n Ua Protein n Ua PH 5.0 Ua Blood trace Ua Specific [place] 1.010 Ua Ketones n Ua Bilirubin n Ua Glucose n 1 See triage. AMT 2 FULL REPORT IN LAB NOTES (eC W and Medent). SPECIMEN APPEARS CONTAMINATED Procedures Date Code Description Status 07/12/2021 41681 Office/Outpatient Established Mo d MDM 30-39 Min Completed 06/11/2021 85607 Office/Outpatient Established Mo d MDM 30-39 Min Completed 05/14/2021 62879 Office/Outpatient Established Mo d MDM 30-39 Min Completed 04/07/2021 64266 Office/Outpatient Established Lo w MDM 20-29 Min Completed 03/01/2021 94759 Preventive Visit Est 18-39 Yrs C ompleted 03/01/2021 07810 Screening Test Of Visual Acuity, Quantitative, Bilateral Completed 03/01/2021 83924 Admin Patient Focused Health Ris k Assessment Instrument Completed 03/01/2021 00278 Brief Emotional/Beha v Assessment W/ Scoring Doc Per Standard Inst Completed 03/01/2021 46789 Brief Emotional/Beha v Assessment W/ Scoring Doc Per Standard Inst Completed 03/01/2021 03289 Pure Tone Audiometry, Air Comple garrett Medical [...] asthma, uncomplicate d Apollo Jj, [facility] 06/11/2021 E61.1 Iron deficiency Apollo Jj, [facility] 05/14/2021 R07.9 Chest pain, unspecified Apollo tracey, [facility] 05/14/2021 R06.02 Shortness of breath Apollo Jj, [facility] 05/14/2021 R00.2 Palpitations Apollo Jj, [facility] 05/14/2021 M54.6 Pain in thoracic spine Apollo machado, [facility] 04/07/2021 N39.0 Urinary tract infection, site [...] - Ragini [facility] MD at [facility] Functional Status Description No Information Available Mental Status Description No Information Available Referrals Description No Information Available
--- OUTSIDE RECORDS SUMMARY | 2021-07-23 11:38 | CCD ---
Author Author Melonie Smith Organization Unknown Address [address] [place] [address] Phone Care Team Providers Care Outsole Beveler Name Role Phone Svetlana Smith PCP Allergies, Adverse Reactions, Alerts No Data in Section Problem List Concept Problem Description Status Start Date Created Date Resolv ed Date Snomed Code F50.01 Anorexia Nervosa, Restricting type Active 07/14 F41.1 Generalized Anxiety Disorder Active 07/14/2021 F33.1 Major Depressive Disorder, Recurrent episode, Moderate Active 07/14/2021 F43.9 Unspecified Trauma- and Stressor-Related Disorder Active 07/14/2021 Medications Rx Norm Medication Route Route Concept Start Date Stop Date Dosage Eric quency Duration Formula Strength Dosage Form Dosage Form Code Dosage Description Medication Id Account Npid Author First Name Author Last Name Taxonomy Code Taxonomy Desc Phone Number [id number] propranolol by mouth [id number] 01/14/2021 twice a day 10 mg t ablet 98551 608077 [id number] Svetlana Smith [id number] Nurse Practitioner [phone] 146302 lamotrigine by mouth [id number] 06/03/2021 once a day 25 mg ta blet 52643 176011 [id number] Svetlana Smith [id number] Nurse Practitioner [phone] 580803 aripiprazole by mouth [id number] 07/05/2021 07/13/2021 once a day 30 5 mg tablet 78769 926002 [id number] Svetlana Smith [id number] Nurse Oracio johnson [phone] [id number] Latuda by mouth [id number] 07/13/2021 07/13/2021 at bedtime 30 20 m g tablet 52175 843337 [id number] Svetlana Smith [id number] Nurse Mahogany hoyt [phone] [id number] Latuda by mouth [id number] 07/13/2021 08/12/2021 at bedtime 30 20 m g tablet 98632 241956 [id number] Svetlana Smith [id number] Nurse Pra ctitioner [id number] Social History Social History Element Description Concept Effective Date Smoking Status Unknown if ever smoked [id number] Immunizations No Data in Section Vital Signs No Data in Section Procedures Date Concept Id Description Targeted Site Concept Targeted Site Concept Type 07/13/2021 13419 E/M Level 3 - Established Patient CPT Patient has no history of implantable de vices Encounters Encounter Start Date End Date Encounter Type Description Diagnosis Di agnosis Desc Location Author First Name Author Last Name Npid Taxonomy Cod e Taxonomy Desc Phone Number Location Addr1 Location Addr2 Location [facility] Location [facility] Location [facility] [id number] 07/13/2021 07/13/2021 22864 E/M Level 3 - Established Pa tient F50.01 Anorexia nervosa, restricting type [facility] Svetlana [phone] Nurse Practitioner [phone] [address] [address] Plan of Treatment No Data in Section Lab Results No Data in Section Instructions No Data in Section Functional Cognitive Status No Data in Section Insurance Providers Insurance Id Policy Effective Date Policy Thru Date Service Route Ryan flores [id number] 2019 [place]ERMA[place] - MEDICA ID MANAGED
--- OUTSIDE RECORDS SUMMARY | 2021-07-23 11:38 | CCD | Continuity of Care Document ---
Author Author Melonie MEADE MD Organization [place] [address] Phone [phone] Care Team Providers Care President Name Role Phone Delvin Huang M.D. AUTM [phone] [facility] And Breast - Obstetrics & Gynecol [facility] AUTM [phone] Obstetrics & Gynecology @ [facility] AUT [phone] Problems Active Problems Provider Date Weight decreased [...] Code Status Date Vaccine Reaction Lot # [id number] Given 03/01/2021 Bexsero Meningoc occal Recombinant, Serogroup B, 2 Dose Schedule [id number] 69006 Given 03/01/2021 Gardasil 9-HPV 9 Valent 3 Dose Sched ule Im [id number] 29574 Given 11/28/2019 Gardasil 9-HPV, 3 Dose Schedule Im [id number] 56944 Given 11/28/2019 Bexsero Meningoc occal Recombinant, Serogroup B, 2 Dose Schedule [id number] 09120 Given 11/15/2018 [facility] Meningococcal Conj (Menveo) [id number] 10302 Given 07/18/2017 TB Intradermal Test 07/20/20 17 at 12:04 pm: 0 mm, Magdi Tucker, RN [id number] 25162 Given 03/05/2013 Menactra-Meningococcal Conjugate Vac cine Intramuscular [id number] 66325 Given 03/05/2013 Rspi-Bxndgg-0Tfp & Older [id number] 28642 Given 01/28/2010 Varicella Immunization 11 99y 40734 Given 05/29/2007 Hep A Vaccine-Vaqta, Intramuscular, 2 [place] [address] Given 04/25/2006 Poliomyelitis Immunization 85715 Given 04/25/2006 MMR Virus Immunization 44627 Given 04/25/2006 DTaP-Daptacel Immunization 71528 Given 04/25/2006 Hep A Vaccine-Vaqta, Intramuscular, 2 [place] [address] Given 12/03/2003 Prevnar(Pneumoco ccal Conjugate Vaccine,Polyvalent For Children) 79714 Given 12/06/2002 Poliomyelitis Immunization 34550 Given 12/06/2002 DTaP-Daptacel Immunization 50826 Given 12/06/2002 Prevnar(Pneumoco ccal Conjugate Vaccine, Polyvalent For Children) 95892 Given 12/06/2002 Haemophilus Infl uenza b Vaccine (Hib) Conjugate(4Dose Schedule 88700 Given 09/04/2002 MMR Virus Immunization 66788 Given 09/04/2002 Hepatitis B-Leonardo mbivax -Pediatric/Adolescent Dosage(3 Dose Sched) 23331 Given 09/04/2002 Varicella Immunization 69783 Given 06/04/2002 TB Intradermal Test 17034 Given 03/04/2002 Haemophilus Infl uenza b Vaccine (Hib) Conjugate(4Dose Schedule 91678 Given 03/04/2002 Prevnar(Pneumoco ccal Conjugate Vaccine, Polyvalent For Children) 47357 Given 03/04/2002 DTaP-Daptacel Immunization 13090 Given 2001 Hepatitis B-Leonardo mbivax -Pediatric/Adolescent Dosage(3 Dose Sched) 35434 Given 2001 Poliomyelitis Immunization 32090 Given 2001 DTaP-Daptacel Immunization 92271 Given 2001 Haemophilus Infl uenza b Vaccine (Hib) Conjugate(4Dose Schedule 54008 Given 2001 Hepatitis B And Haemophilusinfluenza B Vaccine, For Intramuscular 27116 Given 2001 Poliomyelitis Immunization 07746 Given 2001 DTaP-Daptacel Immunization 29505 Given 2001 Prevnar(Pneumoco ccal Conjugate Vaccine, Polyvalent For Children) 49776 Refused 11/28/2019 [facility] Flulaval 46395 Refused 11/15/2018 Bexsero Meningoc occal Recombinant, Serogroup B, 2 Dose Schedule 86106 Refused 11/15/2018 Gardasil 9-HPV, 3 [place] [address] Refused 11/15/2018 [facility] Flulaval Vital Signs Date Vital Result [...] H/L Range Note CBC With Differential 05/14/[address] [address] [phone] White Blood Count 5.1 10 Normal 4.0-10.0 [...] 36.0-66.0 Lymph % 34.9 % Normal 24.0-44.0 [place] % 8.9 % High 2.0-8.0 Eos % 0.8 % Normal 0.0-3.0 Baso % 0.6 % Normal 0.0-1.0 Immature Granulocyte % 0.2 % Normal 0-3.0 Nucleated Red Blood Cell % 0.0 % Normal 0-0 Neutrophils # 2.8 10 Normal 1.5-8.5 Lymph # 1.8 10 Normal 1.5-5.0 [place] # 0.5 10 Normal 0.0-0.8 Eos # 0.0 10 Normal 0.0-0.5 Baso # 0.0 10 Normal 0.0-0.2 Comprehensive Metabolic Profil 05/14/[address] [address] [phone] Glucose, Fasting 90 mg/dL Normal 70-100 Blood [...] 1.2 Normal 1.2-2.2 Laboratory test finding 05/14/[address] [address] [phone] C Reactive Protein Quantitativ 0.30 mg/dL Normal 0 .00-0.30 Total Iron Binding Capacit 05/14/[address] [address] [phone] Iron (Fe) 42 g/dL Low 50-170 Total Iron Binding Capacity 395 g/dL Normal 250-450 Percent Saturation 10.6 % Low 13.2-45.0 Laboratory test finding 05/14/[address] [address] [phone] Ferritin 6 NG/ML Low 8-252 FT4&TSH Panel 05/14/2021 [facility] nter [address] [place] [address] [phone] Thyroid Stimulating Hormone 1.590 uIU/ML Normal 0. 463-3.98 Free T4 0.93 ng/dL Normal 0.78-1.33 Laboratory test finding 04/07/2021 [facility] Urine Test Beta HCG NEGATIVE Ua Routine 04/07/2021 [facility] nter [address] [place] [address] [phone] Appearance, Urine HAZY Normal Clear Color, Urine YELLOW Normal Yellow PH,Urine 5.0 units Normal 5.0-9.0 Specific Alpha Urine Auto 1.010 Normal 1.002-1.035 Protein, Urine [...] /LPF Normal 0-1 Laboratory test finding 04/07/[address] [address] [phone] Urine Culture FULL REPORT IN L <SEE NOTE> Normal 2 Urinalysis W/O Microscopy Auto 04/07/2021 [facility] Ua Leukocytes small Ua Nitrite n Ua Urobilinogen n Ua Protein n Ua PH 5.0 Ua Blood trace Ua Specific Alpha 1.010 Ua Ketones n Ua Bilirubin n Ua Glucose n 1 See triage. AMT 2 FULL REPORT IN LAB NOTES (eC W and Medent). SPECIMEN APPEARS CONTAMINATED Procedures Date Code Description Status 07/12/2021 57567 Office/Outpatient Established Mo d MDM 30-39 Min Completed 06/11/2021 39167 Office/Outpatient Established Mo d MDM 30-39 Min Completed 05/14/2021 42847 Office/Outpatient Established Mo d MDM 30-39 Min Completed 04/07/2021 74449 Office/Outpatient Established Lo w MDM 20-29 Min Completed 03/01/2021 15534 Preventive Visit Est 18-39 Yrs C ompleted 03/01/2021 68103 Screening Test Of Visual Acuity, Quantitative, Bilateral Completed 03/01/2021 13413 Admin Patient Focused Health Ris k Assessment Instrument Completed 03/01/2021 65601 Brief Emotional/Beha v Assessment W/ Scoring Doc Per Standard Inst Completed 03/01/2021 16654 Brief Emotional/Beha v Assessment W/ Scoring Doc Per Standard Inst Completed 03/01/2021 78226 Pure Tone Audiometry, Air Comple garrett Medical [...] asthma, uncomplicate d Apollo Jj, [facility] 06/11/2021 E61.1 Iron deficiency Apollo Jj, [facility] 05/14/2021 R07.9 Chest pain, unspecified Apollo tracey, [facility] 05/14/2021 R06.02 Shortness of breath Apollo Jj, [facility] 05/14/2021 R00.2 Palpitations Apollo Jj, [facility] 05/14/2021 M54.6 Pain in thoracic spine Apollo machado, [facility] 04/07/2021 N39.0 Urinary tract infection, site [...] - Ragini Meade MD at [facility] Functional Status Description No Information Available Mental Status Description No Information Available Referrals Description No Information Available
--- OUTSIDE RECORDS SUMMARY | 2021-07-23 11:38 | CCD ---
Author Author Melonie Barney Organization Unknown Address [address] [place] [address] Phone Care Team Providers Care Distribution Superintendent Name Role Phone Merna Barney PCP Allergies, Adverse Reactions, Alerts No Data in Section Problem List Concept Problem Description Status Start Date Created Date Resolv ed Date Snomed Code F50.01 Anorexia Nervosa, Restricting type Active 07/13 F41.1 Generalized Anxiety Disorder Active 07/13/2021 F33.1 Major Depressive Disorder, Recurrent episode, Moderate Active 07/13/2021 F43.9 Unspecified Trauma- and Stressor-Related Disorder Active 07/13/2021 Medications Rx Norm Medication Route Route Concept Start Date Stop Date Dosage Eric quency Duration Formula Strength Dosage Form Dosage Form Code Dosage Description Medication Id Account Npid Author First Name Author Last Name Taxonomy Code Taxonomy Desc Phone Number [phone] propranolol by mouth [id number] 01/14/2021 twice a day 10 mg t ablet 63378 [phone] Svetlana Smith [id number] Nurse Practitioner [phone] lamotrigine by mouth [id number] 06/03/2021 once a day 25 mg ta blet 64818 112827 [id number] Svetlana Smith [id number] Nurse Practitioner [phone] 230967 aripiprazole by mouth [id number] 07/05/2021 07/13/2021 once a day 30 5 mg tablet 81334 015767 [id number] Svetlana Smith [id number] Nurse Oracio johnson [phone] [id number] Latuda by mouth [id number] 07/13/2021 07/13/2021 at bedtime 30 20 m g tablet 94573 951151 [id number] Svetlana Smith [id number] Nurse Mahogany hoyt [phone] 4836350 Latuda by mouth [id number] 07/13/2021 08/12/2021 at bedtime 30 20 m g tablet 46843 842366 [id number] Svetlana Smith [id number] Nurse Pra ctitioner [id number] Social History Social History Element Description Concept Effective Date Smoking Status Unknown if ever smoked [id number] Immunizations No Data in Section Vital Signs No Data in Section Procedures Date Concept Id Description Targeted Site Concept Targeted Site Concept Type 07/13/2021 17928 Extended Individual Psychotherapy - 45 min CPT Patient has no history of implantable de vices Encounters Encounter Start Date End Date Encounter Type Description Diagnosis Di agnosis Desc Location Author First Name Author Last Name Npid Taxonomy Cod e Taxonomy Desc Phone Number Location Addr1 Location Addr2 Location City Location [facility] Location [facility] [id number] 07/13/2021 07/13/2021 91213 Extended Individual Psych otherapy - 45 min F50.01 Anorexia nervosa, restricting type [facility] Merna [id number] Electrical System Specialist [phone] [address] [address] Plan of Treatment No Data in Section Lab Results No Data in Section Instructions No Data in Section Insurance Providers Insurance Id Policy Effective Date Policy Thru Date Company N mark [id number] 2019 [employer] - MEDICA ID MANAGED
--- OUTSIDE RECORDS SUMMARY | 2021-07-23 11:38 | CCD ---
Author Author Melonie Barney Organization Unknown Address [address] [place] [address] Phone Care Team Providers Care Self Propelled Mining Machine Operator Name Role Phone Ector Merna PCP Allergies, Adverse Reactions, Alerts No Data in Section Problem List Concept Problem Description Status Start Date Created Date Resolv ed Date Snomed Code F50.01 Anorexia Nervosa, Restricting type Active 07/22 F41.1 Generalized Anxiety Disorder Active 07/22/2021 F33.1 Major Depressive Disorder, Recurrent episode, Moderate Active 07/22/2021 F43.9 Unspecified Trauma- and Stressor-Related Disorder Active 07/22/2021 Medications Rx Norm Medication Route Route Concept Start Date Stop Date Dosage Eric quency Duration Formula Strength Dosage Form Dosage Form Code Dosage Description Medication Id Account Npid Author First Name Author Last Name Taxonomy Code Taxonomy Desc Phone Number [phone] propranolol by mouth [id number] 01/14/2021 twice a day 10 mg t ablet 82631 893139 [phone] Svetlana Smith [id number] Nurse Practitioner [phone] lamotrigine by mouth S45108 06/03/2021 once a day 25 mg ta blet 61632 927378 [phone] Svetlana Smith [id number] Nurse Practitioner [phone] 6820807 Latuda by mouth [id number] 07/13/2021 08/12/2021 at bedtime 30 20 m g tablet 92297 576015 [id number] Svetlana Luis [id number] Nurse Pra ctitioner [id number] Social History Social History Element Description Concept Effective Date Smoking Status Unknown if ever smoked [id number] Immunizations No Data in Section Vital Signs No Data in Section Procedures Date Concept Id Description Targeted Site Concept Targeted Site Concept Type 07/20/2021 02221 Brief Individual Psychotherapy - 30 min CPT Patient has no history of implantable de vices Encounters Encounter Start Date End Date Encounter Type Description Diagnosis Di agnosis Desc Location Author First Name Author Last Name Npid Taxonomy Cod e Taxonomy Desc Phone Number Location Addr1 Location Addr2 Location [facility] Location Sta te Location [facility] [id number] 07/20/2021 07/20/2021 12190 Brief Individual Psychoth erapy - 30 min F50.01 Anorexia nervosa, restricting type [facility] [id number] Early Head Start Director [phone] [address] [address] Plan of Treatment No Data in Section Lab Results No Data in Section Instructions No Data in Section Insurance Providers Insurance Id Policy Effective Date Policy Thru Date Independa N mark [id number] 2019 [place] - MEDICA ID MANAGED
--- OUTSIDE RECORDS SUMMARY | 2021-07-23 11:38 | CCD | Continuity of Care Document ---
Author Author Melonie MEADE MD Organization [place] [address] Phone [phone] Care Team Providers Care Special Trackwork Blacksmith Name Role Phone Delvin Huang M.D. AUTM [phone] [facility] And Breast - Obstetrics & Gynecol [facility] AUTM [phone] Obstetrics & Gynecology @ [facility] AUT Problems Active Problems Provider Date [...] Code Status Date Vaccine Reaction Lot # [id number] Given 03/01/2021 Bexsero Meningoc occal Recombinant, Serogroup B, 2 Dose Schedule [id number] 49157 Given 03/01/2021 Gardasil 9-HPV 9 Valent 3 Dose Sched ule Im [id number] 67226 Given 11/28/2019 Gardasil 9-HPV, 3 Dose Schedule Im [id number] 46957 Given 11/28/2019 Bexsero Meningoc occal Recombinant, Serogroup B, 2 Dose Schedule [id number] 14937 Given 11/15/2018 [facility] Meningococcal Conj (Menveo) [id number] 86810 Given 07/18/2017 TB Intradermal Test 07/20/20 17 at 12:04 pm: 0 mm, Magdi Tucker, RN [id number] 98155 Given 03/05/2013 Menactra-Meningococcal Conjugate Vac cine Intramuscular [id number] 53596 Given 03/05/2013 Izmp-Gkstsm-8Ele & Older [id number] 34554 Given 01/28/2010 Varicella Immunization 11 99y 37189 Given 05/29/2007 Hep A Vaccine-Vaqta, Intramuscular, 2 [place] [address] Given 04/25/2006 Poliomyelitis Immunization 27487 Given 04/25/2006 MMR Virus Immunization 80944 Given 04/25/2006 DTaP-Daptacel Immunization 85643 Given 04/25/2006 Hep A Vaccine-Vaqta, Intramuscular, 2 [place] [address] Given 12/03/2003 Prevnar(Pneumoco ccal Conjugate Vaccine,Polyvalent For Children) 72804 Given 12/06/2002 Poliomyelitis Immunization 22575 Given 12/06/2002 DTaP-Daptacel Immunization 46473 Given 12/06/2002 Prevnar(Pneumoco ccal Conjugate Vaccine, Polyvalent For Children) 80794 Given 12/06/2002 Haemophilus Infl uenza b Vaccine (Hib) Conjugate(4Dose Schedule 84456 Given 09/04/2002 MMR Virus Immunization 93170 Given 09/04/2002 Hepatitis B-Leonardo mbivax -Pediatric/Adolescent Dosage(3 Dose Sched) 49569 Given 09/04/2002 Varicella Immunization 16786 Given 06/04/2002 TB Intradermal Test 47974 Given 03/04/2002 Haemophilus Infl uenza b Vaccine (Hib) Conjugate(4Dose Schedule 45998 Given 03/04/2002 Prevnar(Pneumoco ccal Conjugate Vaccine, Polyvalent For Children) 08856 Given 03/04/2002 DTaP-Daptacel Immunization 98641 Given 2001 Hepatitis B-Leonardo mbivax -Pediatric/Adolescent Dosage(3 Dose Sched) 43899 Given 2001 Poliomyelitis Immunization 25343 Given 2001 DTaP-Daptacel Immunization 00401 Given 2001 Haemophilus Infl uenza b Vaccine (Hib) Conjugate(4Dose Schedule 64263 Given 2001 Hepatitis B And Haemophilusinfluenza B Vaccine, For Intramuscular 21353 Given 2001 Poliomyelitis Immunization 78258 Given 2001 DTaP-Daptacel Immunization 23745 Given 2001 Prevnar(Pneumoco ccal Conjugate Vaccine, Polyvalent For Children) 76672 Refused 11/28/2019 [facility] Flulaval 10411 Refused 11/15/2018 Bexsero Meningoc occal Recombinant, Serogroup B, 2 Dose Schedule 67827 Refused 11/15/2018 Gardasil 9-HPV, 3 [place] [address] Refused 11/15/2018 [facility] Flulaval Vital Signs Date Vital Result [...] H/L Range Note CBC With Differential 05/14/[address] [address] [phone] White Blood Count 5.1 10 Normal 4.0-10.0 [...] 36.0-66.0 Lymph % 34.9 % Normal 24.0-44.0 [place] % 8.9 % High 2.0-8.0 Eos % 0.8 % Normal 0.0-3.0 Baso % 0.6 % Normal 0.0-1.0 Immature Granulocyte % 0.2 % Normal 0-3.0 Nucleated Red Blood Cell % 0.0 % Normal 0-0 Neutrophils # 2.8 10 Normal 1.5-8.5 Lymph # 1.8 10 Normal 1.5-5.0 [place] # 0.5 10 Normal 0.0-0.8 Eos # 0.0 10 Normal 0.0-0.5 Baso # 0.0 10 Normal 0.0-0.2 Comprehensive Metabolic Profil 05/14/[address] [address] [phone] Glucose, Fasting 90 mg/dL Normal 70-100 Blood [...] 1.2 Normal 1.2-2.2 Laboratory test finding 05/14/[address] [address] [phone] C Reactive Protein Quantitativ 0.30 mg/dL Normal 0 .00-0.30 Total Iron Binding Capacit 05/14/[address] [address] [phone] Iron (Fe) 42 g/dL Low 50-170 Total Iron Binding Capacity 395 g/dL Normal 250-450 Percent Saturation 10.6 % Low 13.2-45.0 Laboratory test finding 05/14/[address] [address] [phone] Ferritin 6 NG/ML Low 8-252 FT4&TSH Panel 05/14/2021 [facility] nter [address] [place] [address] [phone] Thyroid Stimulating Hormone 1.590 uIU/ML Normal 0. 463-3.98 Free T4 0.93 ng/dL Normal 0.78-1.33 Laboratory test finding 04/07/2021 [facility] Urine Test Beta HCG NEGATIVE Ua Routine 04/07/2021 [facility] nter [address] [place] [address] [phone] Appearance, Urine HAZY Normal Clear Color, Urine YELLOW Normal Yellow PH,Urine 5.0 units Normal 5.0-9.0 Specific [place] Urine Auto 1.010 Normal 1.002-1.035 Protein, Urine [...] /LPF Normal 0-1 Laboratory test finding 04/07/[address] [address] [phone] Urine Culture FULL REPORT IN L <SEE NOTE> Normal 2 Urinalysis W/O Microscopy Auto 04/07/2021 [facility] Ua Leukocytes small Ua Nitrite n Ua Urobilinogen n Ua Protein n Ua PH 5.0 Ua Blood trace Ua Specific [place] 1.010 Ua Ketones n Ua Bilirubin n Ua Glucose n 1 See triage. AMT 2 FULL REPORT IN LAB NOTES (eC W and Medent). SPECIMEN APPEARS CONTAMINATED Procedures Date Code Description Status 07/12/2021 67095 Office/Outpatient Established Mo d MDM 30-39 Min Completed 06/11/2021 02394 Office/Outpatient Established Mo d MDM 30-39 Min Completed 05/14/2021 48241 Office/Outpatient Established Mo d MDM 30-39 Min Completed 04/07/2021 76241 Office/Outpatient Established Lo w MDM 20-29 Min Completed 03/01/2021 50336 Preventive Visit Est 18-39 Yrs C ompleted 03/01/2021 11728 Screening Test Of Visual Acuity, Quantitative, Bilateral Completed 03/01/2021 76685 Admin Patient Focused Health Ris k Assessment Instrument Completed 03/01/2021 49253 Brief Emotional/Beha v Assessment W/ Scoring Doc Per Standard Inst Completed 03/01/2021 63978 Brief Emotional/Beha v Assessment W/ Scoring Doc Per Standard Inst Completed 03/01/2021 51914 Pure Tone Audiometry, Air Comple garrett Medical [...] J45.909 Unspecified asthma, uncomplicate d Apollo Jj, [facility] 06/11/2021 E61.1 Iron deficiency Apollo Jj, [facility] 05/14/2021 R07.9 Chest pain, unspecified Apollo tracey, [facility] 05/14/2021 R06.02 Shortness of breath Apollo Jj, [facility] 05/14/2021 R00.2 Palpitations Apollo Jj, [facility] 05/14/2021 M54.6 Pain in thoracic spine Apollo machado, [facility] 04/07/2021 N39.0 Urinary tract infection, site [...] - Ragini Meade MD at [facility] Functional Status Description No Information Available Mental Status Description No Information Available Referrals Description No Information Available
--- OUTSIDE RECORDS SUMMARY | 2021-07-23 11:39 | CCD | Continuity of Care Document ---
Author Melonie Sewell [facility] [place] [address] Phone [phone] Care Team Providers Care Clinical Therapist Name Role Phone Delvin Huang M.D. AUTM [phone] [facility] And Breast - Obstetrics & Gynecol [facility] [place] AUTM [phone] Obstetrics & Gynecology @ [facility] AUTM [phone] Problems Active Problems Provider Date Weight decreased WILLIAM Robert Onset: 05/18/2017 Anorexia nervosa, restricting type WILLIAM Robert Onset : 05/18/2017 Generalized anxiety disorder Ragini García MD Onset: 10/2017 Insomnia Ragini García MD Onset: 02/20/2018 Moderate recurrent major depression Ragini García MD Onse t: 02/20/2018 Acne Ragini García MD Onset: 03/07/2018 Epigastric pain Ragini García MD Onset: 11/01/2018 Gastroesophageal reflux disease Ragini García MD Onset: 0 05/05/2020 Dysmenorrhea Ragini García MD Onset: 05/14/2020 Morales's esophagus Onset: Social History Type Date Description Comments Sex [...] SIG Qnty Indications Ordering Provide r Date Asmanex Twisthaler 30 Metered Doses 220mcg/Inh Aerosol 1 puff daily in the evening x 30 days 1units J45.909 Ragini García MD 06/11/2021 Ventolin HFA 108(90Base) mcg/Act A erosol 2 puffs inhaled every 4-6 hours as needed 8gm J45.909 Ernestine García MD 06/11/2021 Ferrous Sulfate 325(65Fe) mg Table ts take 1 tabs by mouth twice a day x 3 months 60tabs Ragini García MD 05/14/[address] 1 by mouth bid po qd x1 month 60caps K21.9 Ragini García MD 03/01/2021 Multivitamin Unknown Abilify 10mg Tablets 1 tab po q day Unknown Buspirone HCL 10mg Tablets 1 tab po bid Unknown Lamictal 100mg Tablets 1 Tab PO Q Day Unknown Propranolol HCL 20mg Tablets Unknown Lamotrigine 25mg Tablets Unknown Haloperidol 0.5mg Tablets Unknown Duloxetine HCL 20mg Caps DR Part Unknown History Medications Sulfamethoxazole/Trimethoprim DS 800-160mg Tablets take 1 tablet by mouth every 12 hours x 5 days 10tabs Ragini García MD 04/08/2021 - 06/08/2021 Immunizations CPT Code Status Date Vaccine Reaction Lot # [id number] Given 03/01/2021 Bexsero Meningoc occal Recombinant, Serogroup B, 2 Dose Schedule [id number] 31691 Given 03/01/2021 Gardasil 9-HPV 9 Valent 3 Dose Sched ule Im [id number] 06079 Given 11/28/2019 Gardasil 9-HPV, 3 Dose Schedule Im [id number] 76491 Given 11/28/2019 Bexsero Meningoc occal Recombinant, Serogroup B, 2 Dose Schedule [id number] 31109 Given 11/15/2018 VFC Meningococcal Conj (Menveo) [id number] 02165 Given 07/18/2017 TB Intradermal Test 07/20/20 17 at 12:04 pm: 0 mmMagdi, RN [id number] 25769 Given 03/05/2013 Menactra-Meningococcal Conjugate Vac cine Intramuscular [id number] 93865 Given 03/05/2013 Kcpr-Azisuz-2Mak & Older [id number] 23237 Given 01/28/2010 Varicella Immunization 11 99y 82370 Given 05/29/2007 Hep A Vaccine-Vaqta, Intramuscular, 2 [place] [address] Given 04/25/2006 Poliomyelitis Immunization 73558 Given 04/25/2006 MMR Virus Immunization 34733 Given 04/25/2006 DTaP-Daptacel Immunization 13780 Given 04/25/2006 Hep A Vaccine-Vaqta, Intramuscular, 2 [place] [address] Given 12/03/2003 Prevnar(Pneumoco ccal Conjugate Vaccine,Polyvalent For Children) 59856 Given 12/06/2002 Poliomyelitis Immunization 38801 Given 12/06/2002 DTaP-Daptacel Immunization 80741 Given 12/06/2002 Prevnar(Pneumoco ccal Conjugate Vaccine, Polyvalent For Children) 73874 Given 12/06/2002 Haemophilus Infl uenza b Vaccine (Hib) Conjugate(4Dose Schedule 95811 Given 09/04/2002 MMR Virus Immunization 06964 Given 09/04/2002 Hepatitis B-Leonardo mbivax -Pediatric/Adolescent Dosage(3 Dose Sched) 55198 Given 09/04/2002 Varicella Immunization 16867 Given 06/04/2002 TB Intradermal Test 39583 Given 03/04/2002 Haemophilus Infl uenza b Vaccine (Hib) Conjugate(4Dose Schedule 34952 Given 03/04/2002 Prevnar(Pneumoco ccal Conjugate Vaccine, Polyvalent For Children) 22518 Given 03/04/2002 DTaP-Daptacel Immunization 41227 Given 2001 Hepatitis B-Leonardo mbivax -Pediatric/Adolescent Dosage(3 Dose Sched) 68819 Given 2001 Poliomyelitis Immunization 35838 Given 2001 DTaP-Daptacel Immunization 12727 Given 2001 Haemophilus Infl uenza b Vaccine (Hib) Conjugate(4Dose Schedule 52537 Given 2001 Hepatitis B And Haemophilusinfluenza B Vaccine, For Intramuscular 12826 Given 2001 Poliomyelitis Immunization 39387 Given 2001 DTaP-Daptacel Immunization 35177 Given 2001 Prevnar(Pneumoco ccal Conjugate Vaccine, Polyvalent For Children) 44708 Refused 11/28/2019 [facility] Flulaval 29506 Refused 11/15/2018 Bexsero Meningoc occal Recombinant, Serogroup B, 2 Dose Schedule 47157 Refused 11/15/2018 Gardasil 9-HPV, 3 [place] [address] Refused 11/15/2018 [facility] Flulaval Vital Signs Date Vital Result Comment 06/11/2021 3:07pm Height 61.61 inches 5'1.61" Height Percentile 15 % Height in cm's 156.5 cm Weight 110.50 lb Weight 50.123 kg Weight Percentile 16th BMI (Body Mass Index) 20.5 kg/m2 Body Mass Index Percentile 34 % Body Temperature 98.4 F Heart Rate 78 /min Respiratory Rate 16 /min O2 % BldC Oximetry 97 % BP Systolic 118 mmHg BP Diastolic 74 mmHg 05/14/2021 8:54am Height 61.61 inches 5'1.61" Height Percentile 15 % Height in cm's 156.5 cm Weight 109.00 lb Weight 49.442 kg Weight Percentile 14th BMI (Body Mass Index) 20.2 kg/m2 Body Mass Index Percentile 31 % Body Temperature 97.9 F Heart Rate 77 /min Respiratory Rate 16 /min O2 % BldC Oximetry 99 % BP Systolic 106 mmHg BP Diastolic 68 mmHg Results Test Acquired Date Facility Test Result H/L Range Note CBC With Differential 05/14/2021 [place] [id number] [phone] White Blood Count 5.1 10 Normal 4.0-10.0 [...] 36.0-66.0 Lymph % 34.9 % Normal 24.0-44.0 Brule % 8.9 % High 2.0-8.0 Eos % 0.8 % Normal 0.0-3.0 Baso % 0.6 % Normal 0.0-1.0 Immature Granulocyte % 0.2 % Normal 0-3.0 Nucleated Red Blood Cell % 0.0 % Normal 0-0 Neutrophils # 2.8 10 Normal 1.5-8.5 Lymph # 1.8 10 Normal 1.5-5.0 Brule # 0.5 10 Normal 0.0-0.8 Eos # 0.0 10 Normal 0.0-0.5 Baso # 0.0 10 Normal 0.0-0.2 Comprehensive Metabolic Profil 05/14/[address] [address] [phone] Glucose, Fasting 90 mg/dL Normal 70-100 Blood [...] 1.2 Normal 1.2-2.2 Laboratory test finding 05/14/[address] [address] [phone] C Reactive Protein Quantitativ 0.30 mg/dL Normal 0 .00-0.30 Total Iron Binding Capacit 05/14/[address] [id number] [phone] Iron (Fe) 42 g/dL Low 50-170 Total Iron Binding Capacity 395 g/dL Normal 250-450 Percent Saturation 10.6 % Low 13.2-45.0 Laboratory test finding 05/14/2021 [facility] [address] [place] [address] [phone] Ferritin 6 NG/ML Low 8-252 FT4&TSH Panel 05/14/2021 [facility] nt [address] [place] [address] [phone] Thyroid Stimulating Hormone 1.590 uIU/ML Normal 0. 463-3.98 Free T4 0.93 ng/dL Normal 0.78-1.33 Laboratory test finding 04/07/2021 [facility] Urine Test Beta HCG NEGATIVE Ua Routine 04/07/[address] [address] [phone] Appearance, Urine HAZY Normal Clear Color, Urine YELLOW Normal Yellow PH,Urine 5.0 units Normal 5.0-9.0 Specific [place] Urine Auto 1.010 Normal 1.002-1.035 Protein, Urine [...] /LPF Normal 0-1 Laboratory test finding 04/07/[address] [address] [phone] Urine Culture FULL REPORT IN L <SEE NOTE> Normal 2 Urinalysis W/O Microscopy Auto 04/07/2021 [facility] Ua Leukocytes small Ua Nitrite n Ua Urobilinogen n Ua Protein n Ua PH 5.0 Ua Blood trace Ua Specific [place] 1.010 Ua Ketones n Ua Bilirubin n Ua Glucose n 1 See triage. AMT 2 FULL REPORT IN LAB NOTES (eC W and Medent). SPECIMEN APPEARS CONTAMINATED Procedures Date Code Description Status 06/11/2021 54820 Office/Outpatient Established Lo w MDM 20-29 Min Completed 05/14/2021 13389 Office/Outpatient Established Mo d MDM 30-39 Min Completed 04/07/2021 04705 Office/Outpatient Established Lo w MDM 20-29 Min Completed 03/01/2021 72359 Preventive Visit Est 18-39 Yrs C ompleted 03/01/2021 10920 Screening Test Of Visual Acuity, Quantitative, Bilateral Completed 03/01/2021 72570 Admin Patient Focused Health Ris k Assessment Instrument Completed 03/01/2021 78664 Brief Emotional/Beha v Assessment W/ Scoring Doc Per Standard Inst Completed 03/01/2021 84125 Brief Emotional/Beha v Assessment W/ Scoring Doc Per Standard Inst Completed 03/01/2021 99110 Pure Tone Audiometry, Air Comple garrett Medical Devices Description No Information Available Encounters Type Date Location Provider Dx Diagnosis Office Visit 06/11/2021 3:00p [facility] J45.909 Unspecified asthma, uncompli cated E61.1 Iron deficiency Office Visit 05/14/2021 8:40a [facility] R07.9 Chest pain, unspecified R06.02 Shortness of breath R00.2 Palpitations M54.6 Pain in thoracic spine Office Visit 04/07/2021 1:10p [facility] PA N39.0 Urinary tract infection, sit e not specified K59.00 Constipation, unspecified Office Visit 03/01/2021 11:20a [facility] PNP Z00.01 Encounter for general adult medical exam w abnormal findings K21.9 Gastro-esophageal reflux dis ease without esophagitis F33.1 Major depressive disorder, r ecurrent, moderate F50.01 Anorexia nervosa, restrictin g type K22.719 Morales's esophagus with dys plasia, unspecified Z23 Encounter for immunization Z00.121 Encounter for routine child health exam w abnormal findings Assessments Date Code Description Provider 06/11/2021 J45.909 Unspecified asthma, uncomplicate d [facility] 06/11/2021 E61.1 Iron deficiency [facility]urlars, [facility] 05/14/2021 R07.9 Chest pain, unspecified Apollo Johanna uro, [facility] 05/14/2021 R06.02 Shortness of breath [facility] Parviz, [facility] 05/14/2021 R00.2 Palpitations Apollo Turo, [facility] 05/14/2021 M54.6 Pain in thoracic spine Apollo machado [facility] 04/07/2021 N39.0 Urinary tract infection, site no t specified NARGIS Hayes 04/07/2021 K59.00 Constipation, unspecified Rebecc NARGIS Smith 03/01/2021 Z00.01 Encounter for genera l adult [...] WILLIAM Robert Plan of Treatment Future Appointment(s):* 07/13/2021 3:00 pm - Ragini Garc[facility] MD at [facility] Functional Status Description No Information Available Mental Status Description No Information Available Referrals Description No Information Available
--- OUTSIDE RECORDS SUMMARY | 2021-07-23 11:39 | CCD | Continuity of Care Document ---
Author Author Melonie MEADE MD Organization Unknown [place] [address] Phone [phone] Care Team Providers Care Crochet Beader Name Role Phone Delvin Huang M.D. AUTM [phone] [facility] And Breast - [facility]stetrics [facility] [facility] [place]M [phone] Obstetrics & Gynecology @ [facility] AUT Problems Active Problems Provider Date [...] Code Status Date Vaccine Reaction Lot # [id number] Given 03/01/2021 Bexsero Meningoc occal Recombinant, Serogroup B, 2 Dose Schedule [id number] 97856 Given 03/01/2021 Gardasil 9-HPV 9 Valent 3 Dose Sched ule Im [id number] 02772 Given 11/28/2019 Gardasil 9-HPV, 3 Dose Schedule Im [id number] 41193 Given 11/28/2019 Bexsero Meningoc occal Recombinant, Serogroup B, 2 Dose Schedule [id number] 23071 Given 11/15/2018 [facility] Meningococcal Conj (Menveo) [id number] 70532 Given 07/18/2017 TB Intradermal Test 07/20/20 17 at 12:04 pm: 0 mm, Magdi Tucker, RN [id number] 67949 Given 03/05/2013 Menactra-Meningococcal Conjugate Vac cine Intramuscular [id number] 28105 Given 03/05/2013 Alrk-Uhhcai-0Mst & Older [id number] 19709 Given 01/28/2010 Varicella Immunization 11 99y 188[address] Given 05/29/2007 Hep A Vaccine-Vaqta, Intramuscular, 2 [place] [address] Given 04/25/2006 Poliomyelitis Immunization 01323 Given 04/25/2006 MMR Virus Immunization 93146 Given 04/25/2006 DTaP-Daptacel Immunization 92341 Given 04/25/2006 Hep A Vaccine-Vaqta, Intramuscular, 2 [place] [address] Given 12/03/2003 Prevnar(Pneumoco ccal Conjugate Vaccine,Polyvalent For Children) 26964 Given 12/06/2002 Poliomyelitis Immunization 51747 Given 12/06/2002 DTaP-Daptacel Immunization 24954 Given 12/06/2002 Prevnar(Pneumoco ccal Conjugate Vaccine, Polyvalent For Children) 51939 Given 12/06/2002 Haemophilus Infl uenza b Vaccine (Hib) Conjugate(4Dose Schedule 77912 Given 09/04/2002 MMR Virus Immunization 45011 Given 09/04/2002 Hepatitis B-Leonardo mbivax -Pediatric/Adolescent Dosage(3 Dose Sched) 18922 Given 09/04/2002 Varicella Immunization 45749 Given 06/04/2002 TB Intradermal Test 64742 Given 03/04/2002 Haemophilus Infl uenza b Vaccine (Hib) Conjugate(4Dose Schedule 52600 Given 03/04/2002 Prevnar(Pneumoco ccal Conjugate Vaccine, Polyvalent For Children) 46302 Given 03/04/2002 DTaP-Daptacel Immunization 51695 Given 2001 Hepatitis B-Leonardo mbivax -Pediatric/Adolescent Dosage(3 Dose Sched) 55659 Given 2001 Poliomyelitis Immunization 26217 Given 2001 DTaP-Daptacel Immunization 45251 Given 2001 Haemophilus Infl uenza b Vaccine (Hib) Conjugate(4Dose Schedule 37253 Given 2001 Hepatitis B And Haemophilusinfluenza B Vaccine, For Intramuscular 34950 Given 2001 Poliomyelitis Immunization 68027 Given 2001 DTaP-Daptacel Immunization 18369 Given 2001 Prevnar(Pneumoco ccal Conjugate Vaccine, Polyvalent For Children) 83156 Refused 11/28/2019 [facility] Flulaval 56060 Refused 11/15/2018 Bexsero Meningoc occal Recombinant, Serogroup B, 2 Dose Schedule 93451 Refused 11/15/2018 Gardasil 9-HPV, 3 [place] [address] Refused 11/15/2018 [facility] Flulaval Vital Signs Date Vital [...] H/L Range Note CBC With Differential 05/14/[address] [address] [phone] White Blood Count 5.1 10 Normal 4.0-10.0 [...] 36.0-66.0 Lymph % 34.9 % Normal 24.0-44.0 Power % 8.9 % High 2.0-8.0 Eos % 0.8 % Normal 0.0-3.0 Baso % 0.6 % Normal 0.0-1.0 Immature Granulocyte % 0.2 % Normal 0-3.0 Nucleated Red Blood Cell % 0.0 % Normal 0-0 Neutrophils # 2.8 10 Normal 1.5-8.5 Lymph # 1.8 10 Normal 1.5-5.0 Power # 0.5 10 Normal 0.0-0.8 Eos # 0.0 10 Normal 0.0-0.5 Baso # 0.0 10 Normal 0.0-0.2 Comprehensive Metabolic Profil 05/14/[address] [address] [phone] Glucose, Fasting 90 mg/dL Normal 70-100 Blood [...] 1.2 Normal 1.2-2.2 Laboratory test finding 05/14/[address] [address] [phone] C Reactive Protein Quantitativ 0.30 mg/dL Normal 0 .00-0.30 Total Iron Binding Capacit 05/14/[address] [address] [phone] Iron (Fe) 42 g/dL Low 50-170 Total Iron Binding Capacity 395 g/dL Normal 250-450 Percent Saturation 10.6 % Low 13.2-45.0 Laboratory test finding 05/14/[address] [address] [phone] Ferritin 6 NG/ML Low 8-252 FT4&TSH Panel 05/14/2021 [facility] nter [address] [place] [address] [phone] Thyroid Stimulating Hormone 1.590 uIU/ML Normal 0. 463-3.98 Free T4 0.93 ng/dL Normal 0.78-1.33 Laboratory test finding 04/07/2021 [facility] Urine Test Beta HCG NEGATIVE Ua Routine 04/07/2021 [facility] nter [address] [place] [address] [phone] Appearance, Urine HAZY Normal Clear Color, Urine YELLOW Normal Yellow PH,Urine 5.0 units Normal 5.0-9.0 Specific [place] Urine Auto 1.010 Normal 1.002-1.035 Protein, Urine [...] /LPF Normal 0-1 Laboratory test finding 04/07/[address] [address] [phone] Urine Culture FULL REPORT IN L <SEE NOTE> Normal 2 Urinalysis W/O Microscopy Auto 04/07/2021 [facility] Ua Leukocytes small Ua Nitrite n Ua Urobilinogen n Ua Protein n Ua PH 5.0 Ua Blood trace Ua Specific [place] 1.010 Ua Ketones n Ua Bilirubin n Ua Glucose n 1 See triage. AMT 2 FULL REPORT IN LAB NOTES (eC W and Medent). SPECIMEN APPEARS CONTAMINATED Procedures Date Code Description Status 07/12/2021 52833 Office/Outpatient Established Mo d MDM 30-39 Min Completed 06/11/2021 99851 Office/Outpatient Established Mo d MDM 30-39 Min Completed 05/14/2021 33990 Office/Outpatient Established Mo d MDM 30-39 Min Completed 04/07/2021 55113 Office/Outpatient Established Lo w MDM 20-29 Min Completed 03/01/2021 84989 Preventive Visit Est 18-39 Yrs C ompleted 03/01/2021 94842 Screening Test Of Visual Acuity, Quantitative, Bilateral Completed 03/01/2021 84842 Admin Patient Focused Health Ris k Assessment Instrument Completed 03/01/2021 32578 Brief Emotional/Beha v Assessment W/ Scoring Doc Per Standard Inst Completed 03/01/2021 74424 Brief Emotional/Beha v Assessment W/ Scoring Doc Per Standard Inst Completed 03/01/2021 76386 Pure Tone Audiometry, Air Comple garrett Medical [...] J45.909 Unspecified asthma, uncomplicate d Apollo Jj, [facility] 06/11/2021 E61.1 Iron deficiency Apollo Jj, [facility] 05/14/2021 R07.9 Chest pain, unspecified Apollo tracey, [facility] 05/14/2021 R06.02 Shortness of breath Apollo Jj, [facility] 05/14/2021 R00.2 Palpitations Apollo Jj, [facility] 05/14/2021 M54.6 Pain in thoracic spine Apollo machado, [facility] 04/07/2021 N39.0 Urinary tract infection, site [...] - Ragini Meade MD at [facility] Functional Status Description No Information Available Mental Status Description No Information Available Referrals Description No Information Available
--- OUTSIDE RECORDS SUMMARY | 2021-07-23 11:39 | CCD | Continuity of Care Document ---
Author Melonie Sewell [facility] [place] [address] Phone [phone] Care Team Providers Care Manager Retail Name Role Phone Delvin Huang M.D. AUTM [phone] [facility] Women's Wellness And Breast - Obstetrics & Gynecol [facility] [place] AUTM [phone] Obstetrics & Gynecology @ [facility] AUTM Problems Active Problems Provider Date Weight decreased [...] Code Status Date Vaccine Reaction Lot # [id number] Given 03/01/2021 Bexsero Meningoc occal Recombinant, Serogroup B, 2 Dose Schedule [id number] 75891 Given 03/01/2021 Gardasil 9-HPV 9 Valent 3 Dose Sched ule Im [id number] 24732 Given 11/28/2019 Gardasil 9-HPV, 3 Dose Schedule Im [id number] 46106 Given 11/28/2019 Bexsero Meningoc occal Recombinant, Serogroup B, 2 Dose Schedule [id number] 69140 Given 11/15/2018 VFC Meningococcal Conj (Menveo) [id number] 94499 Given 07/18/2017 TB Intradermal Test 07/20/20 17 at 12:04 pm: 0 mmMagdi, RN [id number] 91232 Given 03/05/2013 Menactra-Meningococcal Conjugate Vac cine Intramuscular [id number] 50509 Given 03/05/2013 Atrk-Znxayy-9Pws & Older [id number] 46642 Given 01/28/2010 Varicella Immunization 11 99y 68572 Given 05/29/2007 Hep A Vaccine-Vaqta, Intramuscular, 2 [place] [address] Given 04/25/2006 Poliomyelitis Immunization 83696 Given 04/25/2006 MMR Virus Immunization 80397 Given 04/25/2006 DTaP-Daptacel Immunization 49961 Given 04/25/2006 Hep A Vaccine-Vaqta, Intramuscular, 2 [place] [address] Given 12/03/2003 Prevnar(Pneumoco ccal Conjugate Vaccine,Polyvalent For Children) 04002 Given 12/06/2002 Poliomyelitis Immunization 56914 Given 12/06/2002 DTaP-Daptacel Immunization 52347 Given 12/06/2002 Prevnar(Pneumoco ccal Conjugate Vaccine, Polyvalent For Children) 50515 Given 12/06/2002 Haemophilus Infl uenza b Vaccine (Hib) Conjugate(4Dose Schedule 87028 Given 09/04/2002 MMR Virus Immunization 18599 Given 09/04/2002 Hepatitis B-Leonardo mbivax -Pediatric/Adolescent Dosage(3 Dose Sched) 97581 Given 09/04/2002 Varicella Immunization 95287 Given 06/04/2002 TB Intradermal Test 39853 Given 03/04/2002 Haemophilus Infl uenza b Vaccine (Hib) Conjugate(4Dose Schedule 07050 Given 03/04/2002 Prevnar(Pneumoco ccal Conjugate Vaccine, Polyvalent For Children) 18326 Given 03/04/2002 DTaP-Daptacel Immunization 06135 Given 2001 Hepatitis B-Leonardo mbivax -Pediatric/Adolescent Dosage(3 Dose Sched) 92050 Given 2001 Poliomyelitis Immunization 05955 Given 2001 DTaP-Daptacel Immunization 89402 Given 2001 Haemophilus Infl uenza b Vaccine (Hib) Conjugate(4Dose Schedule 58608 Given 2001 Hepatitis B And Haemophilusinfluenza B Vaccine, For Intramuscular 44844 Given 2001 Poliomyelitis Immunization 86553 Given 2001 DTaP-Daptacel Immunization 41752 Given 2001 Prevnar(Pneumoco ccal Conjugate Vaccine, Polyvalent For Children) 24311 Refused 11/28/2019 [facility] Flulaval 39423 Refused 11/15/2018 Bexsero Meningoc occal Recombinant, Serogroup B, 2 Dose Schedule 23891 Refused 11/15/2018 Gardasil 9-HPV, 3 [place] [address] Refused 11/15/2018 [facility] Flulaval Vital Signs Date Vital Result [...] H/L Range Note CBC With Differential 05/14/2021 [place] [id number] [phone] White Blood Count 5.1 10 Normal 4.0-10.0 [...] 36.0-66.0 Lymph % 34.9 % Normal 24.0-44.0 [place] % 8.9 % High 2.0-8.0 Eos % 0.8 % Normal 0.0-3.0 Baso % 0.6 % Normal 0.0-1.0 Immature Granulocyte % 0.2 % Normal 0-3.0 Nucleated Red Blood Cell % 0.0 % Normal 0-0 Neutrophils # 2.8 10 Normal 1.5-8.5 Lymph # 1.8 10 Normal 1.5-5.0 [place] # 0.5 10 Normal 0.0-0.8 Eos # 0.0 10 Normal 0.0-0.5 Baso # 0.0 10 Normal 0.0-0.2 Comprehensive Metabolic Profil 05/14/[address] [address] [phone] Glucose, Fasting 90 mg/dL Normal 70-100 Blood [...] 1.2 Normal 1.2-2.2 Laboratory test finding 05/14/[address] [address] [phone] C Reactive Protein Quantitativ 0.30 mg/dL Normal 0 .00-0.30 Total Iron Binding Capacit 05/14/[address] [id number] [phone] Iron (Fe) 42 g/dL Low 50-170 Total Iron Binding Capacity 395 g/dL Normal 250-450 Percent Saturation 10.6 % Low 13.2-45.0 Laboratory test finding 05/14/2021 [facility] [address] [place] [address] [phone] Ferritin 6 NG/ML Low 8-252 FT4&TSH Panel 05/14/2021 [facility] nt [address] [place] [address] [phone] Thyroid Stimulating Hormone 1.590 uIU/ML Normal 0. 463-3.98 Free T4 0.93 ng/dL Normal 0.78-1.33 Laboratory test finding 04/07/2021 [facility] Urine Test Beta HCG NEGATIVE Ua Routine 04/07/[address] [address] [phone] Appearance, Urine HAZY Normal Clear Color, Urine YELLOW Normal Yellow PH,Urine 5.0 units Normal 5.0-9.0 Specific [place] Urine Auto 1.010 Normal 1.002-1.035 Protein, Urine [...] /LPF Normal 0-1 Laboratory test finding 04/07/[address] [address] [phone] Urine Culture FULL REPORT IN L <SEE NOTE> Normal 2 Urinalysis W/O Microscopy Auto 04/07/2021 [facility] Ua Leukocytes small Ua Nitrite n Ua Urobilinogen n Ua Protein n Ua PH 5.0 Ua Blood trace Ua Specific [place] 1.010 Ua Ketones n Ua Bilirubin n Ua Glucose n 1 See triage. AMT 2 FULL REPORT IN LAB NOTES (eC W and Medent). SPECIMEN APPEARS CONTAMINATED Procedures Date Code Description Status 06/11/2021 97233 Office/Outpatient Established Lo w MDM 20-29 Min Completed 05/14/2021 27747 Office/Outpatient Established Mo d MDM 30-39 Min Completed 04/07/2021 31242 Office/Outpatient Established Lo w MDM 20-29 Min Completed 03/01/2021 87117 Preventive Visit Est 18-39 Yrs C ompleted 03/01/2021 80284 Screening Test Of Visual Acuity, Quantitative, Bilateral Completed 03/01/2021 73949 Admin Patient Focused Health Ris k Assessment Instrument Completed 03/01/2021 73139 Brief Emotional/Beha v Assessment W/ Scoring Doc Per Standard Inst Completed 03/01/2021 22350 Brief Emotional/Beha v Assessment W/ Scoring Doc Per Standard Inst Completed 03/01/2021 08969 Pure Tone Audiometry, Air Comple garrett Medical Devices Description No Information Available Encounters Type Date Location Provider Dx Diagnosis Office Visit 06/11/2021 3:00p [facility] J45.909 Unspecified asthma, uncompli cated E61.1 Iron deficiency Office Visit 05/14/2021 8:40a [facility] R07.9 Chest pain, unspecified R06.02 Shortness of breath R00.2 Palpitations M54.6 Pain in thoracic spine Office Visit 04/07/2021 1:10p [facility] N39.0 Urinary tract infection, sit e [...] J45.909 Unspecified asthma, uncomplicate d [facility] 06/11/2021 E61.1 Iron deficiency [facility]urlars[facility] 05/14/2021 R07.9 Chest pain, unspecified Apollo Johanna [facility]ro, [facility] 05/14/2021 R06.02 Shortness of breath [facility] Parviz, [facility] 05/14/2021 R00.2 Palpitations Apollo Turo, [facility] 05/14/2021 M54.6 Pain in thoracic spine Apollo machado [facility] 04/07/2021 N39.0 Urinary tract infection, site no t specified NARGIS Haeys 04/07/2021 K59.00 Constipation, unspecified Rebecc NARGIS Smith [...] - Ragini García MD at [facility] Functional Status Description No Information Available Mental Status Description No Information Available Referrals Description No Information Available
--- OUTSIDE RECORDS SUMMARY | 2021-07-23 11:39 | CCD | Continuity of Care Document ---
Author Author Melonie MEADE MD Organization [place] [address] Phone [phone] Care Team Providers Care Smoking Tobacco Packer Hand Name Role Phone Delvin Huang M.D. AUTM [phone] [facility] Women's [facility] And Breast - Obstetrics & Gynecol [facility] AUTM [phone] Obstetrics & Gynecology @ [facility] AUT Problems Active Problems Provider Date Weight [...] Code Status Date Vaccine Reaction Lot # [id number] Given 03/01/2021 Bexsero Meningoc occal Recombinant, Serogroup B, 2 Dose Schedule [id number] 73096 Given 03/01/2021 Gardasil 9-HPV 9 Valent 3 Dose Sched ule Im [id number] 91106 Given 11/28/2019 Gardasil 9-HPV, 3 Dose Schedule Im [id number] 78358 Given 11/28/2019 Bexsero Meningoc occal Recombinant, Serogroup B, 2 Dose Schedule [id number] 33855 Given 11/15/2018 [facility] Meningococcal Conj (Menveo) [id number] 44811 Given 07/18/2017 TB Intradermal Test 07/20/20 17 at 12:04 pm: 0 mm, Magdi Tucker, RN [id number] 16715 Given 03/05/2013 Menactra-Meningococcal Conjugate Vac cine Intramuscular [id number] 67899 Given 03/05/2013 Zngm-Eqwmkq-4Woc & Older [id number] 30806 Given 01/28/2010 Varicella Immunization 11 99y 91432 Given 05/29/2007 Hep A Vaccine-Vaqta, Intramuscular, 2 [place] [address] Given 04/25/2006 Poliomyelitis Immunization 10224 Given 04/25/2006 MMR Virus Immunization 31952 Given 04/25/2006 DTaP-Daptacel Immunization 80246 Given 04/25/2006 Hep A Vaccine-Vaqta, Intramuscular, 2 [place] [address] Given 12/03/2003 Prevnar(Pneumoco ccal Conjugate Vaccine,Polyvalent For Children) 36909 Given 12/06/2002 Poliomyelitis Immunization 75709 Given 12/06/2002 DTaP-Daptacel Immunization 04205 Given 12/06/2002 Prevnar(Pneumoco ccal Conjugate Vaccine, Polyvalent For Children) 81753 Given 12/06/2002 Haemophilus Infl uenza b Vaccine (Hib) Conjugate(4Dose Schedule 49371 Given 09/04/2002 MMR Virus Immunization 15291 Given 09/04/2002 Hepatitis B-Leonardo mbivax -Pediatric/Adolescent Dosage(3 Dose Sched) 35062 Given 09/04/2002 Varicella Immunization 11718 Given 06/04/2002 TB Intradermal Test 36361 Given 03/04/2002 Haemophilus Infl uenza b Vaccine (Hib) Conjugate(4Dose Schedule 67485 Given 03/04/2002 Prevnar(Pneumoco ccal Conjugate Vaccine, Polyvalent For Children) 81982 Given 03/04/2002 DTaP-Daptacel Immunization 25800 Given 2001 Hepatitis B-Leonardo mbivax -Pediatric/Adolescent Dosage(3 Dose Sched) 81353 Given 2001 Poliomyelitis Immunization 50028 Given 2001 DTaP-Daptacel Immunization 18406 Given 2001 Haemophilus Infl uenza b Vaccine (Hib) Conjugate(4Dose Schedule 07644 Given 2001 Hepatitis B And Haemophilusinfluenza B Vaccine, For Intramuscular 91397 Given 2001 Poliomyelitis Immunization 86769 Given 2001 DTaP-Daptacel Immunization 58647 Given 2001 Prevnar(Pneumoco ccal Conjugate Vaccine, Polyvalent For Children) 88973 Refused 11/28/2019 [facility] Flulaval 77779 Refused 11/15/2018 Bexsero Meningoc occal Recombinant, Serogroup B, 2 Dose Schedule 63409 Refused 11/15/2018 Gardasil 9-HPV, 3 [place] [address] Refused 11/15/2018 [facility] Flulaval Vital Signs Date Vital Result [...] H/L Range Note CBC With Differential 05/14/[address] [address] [phone] White Blood Count 5.1 10 Normal 4.0-10.0 [...] 36.0-66.0 Lymph % 34.9 % Normal 24.0-44.0 [place] % 8.9 % High 2.0-8.0 Eos % 0.8 % Normal 0.0-3.0 Baso % 0.6 % Normal 0.0-1.0 Immature Granulocyte % 0.2 % Normal 0-3.0 Nucleated Red Blood Cell % 0.0 % Normal 0-0 Neutrophils # 2.8 10 Normal 1.5-8.5 Lymph # 1.8 10 Normal 1.5-5.0 [place] # 0.5 10 Normal 0.0-0.8 Eos # 0.0 10 Normal 0.0-0.5 Baso # 0.0 10 Normal 0.0-0.2 Comprehensive Metabolic Profil 05/14/[address] [address] [phone] Glucose, Fasting 90 mg/dL Normal 70-100 Blood [...] 1.2 Normal 1.2-2.2 Laboratory test finding 05/14/[address] [address] [phone] C Reactive Protein Quantitativ 0.30 mg/dL Normal 0 .00-0.30 Total Iron Binding Capacit 05/14/[address] [address] [phone] Iron (Fe) 42 g/dL Low 50-170 Total Iron Binding Capacity 395 g/dL Normal 250-450 Percent Saturation 10.6 % Low 13.2-45.0 Laboratory test finding 05/14/[address] [address] [phone] Ferritin 6 NG/ML Low 8-252 FT4&TSH Panel 05/14/2021 [facility] nter [address] [place] [address] [phone] Thyroid Stimulating Hormone 1.590 uIU/ML Normal 0. 463-3.98 Free T4 0.93 ng/dL Normal 0.78-1.33 Laboratory test finding 04/07/2021 [facility] Urine Test Beta HCG NEGATIVE Ua Routine 04/07/2021 [facility] nter [address] [place] [address] [phone] Appearance, Urine HAZY Normal Clear Color, Urine YELLOW Normal Yellow PH,Urine 5.0 units Normal 5.0-9.0 Specific [place] Urine Auto 1.010 Normal 1.002-1.035 Protein, Urine [...] /LPF Normal 0-1 Laboratory test finding 04/07/[address] [address] [phone] Urine Culture FULL REPORT IN L <SEE NOTE> Normal 2 Urinalysis W/O Microscopy Auto 04/07/2021 [facility] Ua Leukocytes small Ua Nitrite n Ua Urobilinogen n Ua Protein n Ua PH 5.0 Ua Blood trace Ua Specific [place] 1.010 Ua Ketones n Ua Bilirubin n Ua Glucose n 1 See triage. AMT 2 FULL REPORT IN LAB NOTES (eC W and Medent). SPECIMEN APPEARS CONTAMINATED Procedures Date Code Description Status 07/12/2021 78884 Office/Outpatient Established Mo d MDM 30-39 Min Completed 06/11/2021 80505 Office/Outpatient Established Mo d MDM 30-39 Min Completed 05/14/2021 68498 Office/Outpatient Established Mo d MDM 30-39 Min Completed 04/07/2021 86737 Office/Outpatient Established Lo w MDM 20-29 Min Completed 03/01/2021 74714 Preventive Visit Est 18-39 Yrs C ompleted 03/01/2021 22546 Screening Test Of Visual Acuity, Quantitative, Bilateral Completed 03/01/2021 00640 Admin Patient Focused Health Ris k Assessment Instrument Completed 03/01/2021 00031 Brief Emotional/Beha v Assessment W/ Scoring Doc Per Standard Inst Completed 03/01/2021 45969 Brief Emotional/Beha v Assessment W/ Scoring Doc Per Standard Inst Completed 03/01/2021 42839 Pure Tone Audiometry, Air Comple garrett Medical [...] J45.909 Unspecified asthma, uncomplicate d Apollo Jj, [facility] 06/11/2021 E61.1 Iron deficiency Apollo Jj, [facility] 05/14/2021 R07.9 Chest pain, unspecified Apollo tracey, [facility] 05/14/2021 R06.02 Shortness of breath Apollo Jj, [facility] 05/14/2021 R00.2 Palpitations Apollo Jj, [facility] 05/14/2021 M54.6 Pain in thoracic spine Apollo machado, [facility] 04/07/2021 N39.0 Urinary tract infection, site [...] Morales's esophagus with dysplas ia, unspecified WILLIAM Robetr 03/01/2021 Z23 Encounter for immunization WILLIAM Michael 03/01/2021 Z00.121 Encounter for routin e child health examination with abnormal findings WILLIAM Robert Plan of Treatment Future Appointment(s):* 08/10/2021 1:20 pm - Ragini Meade MD at [facility] Functional Status Description No Information Available Mental Status Description No Information Available Referrals Description No Information Available
--- OUTSIDE RECORDS SUMMARY | 2021-07-23 11:39 | CCD | Continuity of Care Document ---
Author Melonie Sewell [facility] [place] [address] Phone [phone] Care Team Providers Care Magnetic Tape Winder Name Role Phone Delvin Huang M.D. AUTM [phone] [facility] Women's Wellness And Breast - Obstetrics & Gynecol [facility] AUTM [phone] Obstetrics & Gynecology @ [facility] AUTM Problems Active Problems Provider Date Weight [...] Code Status Date Vaccine Reaction Lot # [id number] Given 03/01/2021 Bexsero Meningoc occal Recombinant, Serogroup B, 2 Dose Schedule [id number] 83437 Given 03/01/2021 Gardasil 9-HPV 9 Valent 3 Dose Sched ule Im [id number] 09474 Given 11/28/2019 Gardasil 9-HPV, 3 Dose Schedule Im [id number] 58247 Given 11/28/2019 Bexsero Meningoc occal Recombinant, Serogroup B, 2 Dose Schedule [id number] 32598 Given 11/15/2018 VFC Meningococcal Conj (Menveo) [id number] 15122 Given 07/18/2017 TB Intradermal Test 07/20/20 17 at 12:04 pm: 0 mmMagdi, RN [id number] 94388 Given 03/05/2013 Menactra-Meningococcal Conjugate Vac cine Intramuscular [id number] 32541 Given 03/05/2013 Huxx-Xzwknu-1Apv & Older [id number] 77647 Given 01/28/2010 Varicella Immunization 11 99y 57268 Given 05/29/2007 Hep A Vaccine-Vaqta, Intramuscular, 2 [place] [address] Given 04/25/2006 Poliomyelitis Immunization 34538 Given 04/25/2006 MMR Virus Immunization 02095 Given 04/25/2006 DTaP-Daptacel Immunization 47722 Given 04/25/2006 Hep A Vaccine-Vaqta, Intramuscular, 2 [place] [address] Given 12/03/2003 Prevnar(Pneumoco ccal Conjugate Vaccine,Polyvalent For Children) 20557 Given 12/06/2002 Poliomyelitis Immunization 96730 Given 12/06/2002 DTaP-Daptacel Immunization 19069 Given 12/06/2002 Prevnar(Pneumoco ccal Conjugate Vaccine, Polyvalent For Children) 89166 Given 12/06/2002 Haemophilus Infl uenza b Vaccine (Hib) Conjugate(4Dose Schedule 44235 Given 09/04/2002 MMR Virus Immunization 19490 Given 09/04/2002 Hepatitis B-Leonardo mbivax -Pediatric/Adolescent Dosage(3 Dose Sched) 17092 Given 09/04/2002 Varicella Immunization 88963 Given 06/04/2002 TB Intradermal Test 51645 Given 03/04/2002 Haemophilus Infl uenza b Vaccine (Hib) Conjugate(4Dose Schedule 93267 Given 03/04/2002 Prevnar(Pneumoco ccal Conjugate Vaccine, Polyvalent For Children) 38777 Given 03/04/2002 DTaP-Daptacel Immunization 34623 Given 2001 Hepatitis B-Leonardo mbivax -Pediatric/Adolescent Dosage(3 Dose Sched) 55652 Given 2001 Poliomyelitis Immunization 49090 Given 2001 DTaP-Daptacel Immunization 81655 Given 2001 Haemophilus Infl uenza b Vaccine (Hib) Conjugate(4Dose Schedule 16017 Given 2001 Hepatitis B And Haemophilusinfluenza B Vaccine, For Intramuscular 45963 Given 2001 Poliomyelitis Immunization 72130 Given 2001 DTaP-Daptacel Immunization 95587 Given 2001 Prevnar(Pneumoco ccal Conjugate Vaccine, Polyvalent For Children) 68207 Refused 11/28/2019 [facility] Flulaval 43193 Refused 11/15/2018 Bexsero Meningoc occal Recombinant, Serogroup B, 2 Dose Schedule 24170 Refused 11/15/2018 Gardasil 9-HPV, 3 [place] [address] Refused 11/15/2018 [facility] Flulaval Vital Signs Date Vital Result [...] H/L Range Note CBC With Differential 05/14/2021 [place] [id number] [phone] White Blood Count 5.1 10 Normal 4.0-10.0 [...] 36.0-66.0 Lymph % 34.9 % Normal 24.0-44.0 [place] % 8.9 % High 2.0-8.0 Eos % 0.8 % Normal 0.0-3.0 Baso % 0.6 % Normal 0.0-1.0 Immature Granulocyte % 0.2 % Normal 0-3.0 Nucleated Red Blood Cell % 0.0 % Normal 0-0 Neutrophils # 2.8 10 Normal 1.5-8.5 Lymph # 1.8 10 Normal 1.5-5.0 [place] # 0.5 10 Normal 0.0-0.8 Eos # 0.0 10 Normal 0.0-0.5 Baso # 0.0 10 Normal 0.0-0.2 Comprehensive Metabolic Profil 05/14/[address] [address] [phone] Glucose, Fasting 90 mg/dL Normal 70-100 Blood [...] 1.2 Normal 1.2-2.2 Laboratory test finding 05/14/[address] [address] [phone] C Reactive Protein Quantitativ 0.30 mg/dL Normal 0 .00-0.30 Total Iron Binding Capacit 05/14/[address] 1392951 [phone] Iron (Fe) 42 g/dL Low 50-170 Total Iron Binding Capacity 395 g/dL Normal 250-450 Percent Saturation 10.6 % Low 13.2-45.0 Laboratory test finding 05/14/2021 [facility] [address] [place] [address] [phone] Ferritin 6 NG/ML Low 8-252 FT4&TSH Panel 05/14/2021 [facility] nt [address] [place] [address] [phone] Thyroid Stimulating Hormone 1.590 uIU/ML Normal 0. 463-3.98 Free T4 0.93 ng/dL Normal 0.78-1.33 Laboratory test finding 04/07/2021 [facility] Urine Test Beta HCG NEGATIVE Ua Routine 04/07/[address] [address] [phone] Appearance, Urine HAZY Normal Clear Color, Urine YELLOW Normal Yellow PH,Urine 5.0 units Normal 5.0-9.0 Specific [place] Urine Auto 1.010 Normal 1.002-1.035 Protein, Urine [...] /LPF Normal 0-1 Laboratory test finding 04/07/[address] [address] [phone] Urine Culture FULL REPORT IN L <SEE NOTE> Normal 2 Urinalysis W/O Microscopy Auto 04/07/2021 [facility] Ua Leukocytes small Ua Nitrite n Ua Urobilinogen n Ua Protein n Ua PH 5.0 Ua Blood trace Ua Specific [place] 1.010 Ua Ketones n Ua Bilirubin n Ua Glucose n 1 See triage. AMT 2 FULL REPORT IN LAB NOTES (eC W and Medent). SPECIMEN APPEARS CONTAMINATED Procedures Date Code Description Status 06/11/2021 34846 Office/Outpatient Established Lo w MDM 20-29 Min Completed 05/14/2021 06091 Office/Outpatient Established Mo d MDM 30-39 Min Completed 04/07/2021 92458 Office/Outpatient Established Lo w MDM 20-29 Min Completed 03/01/2021 85865 Preventive Visit Est 18-39 Yrs C ompleted 03/01/2021 40290 Screening Test Of Visual Acuity, Quantitative, Bilateral Completed 03/01/2021 72251 Admin Patient Focused Health Ris k Assessment Instrument Completed 03/01/2021 68386 Brief Emotional/Beha v Assessment W/ Scoring Doc Per Standard Inst Completed 03/01/2021 81757 Brief Emotional/Beha v Assessment W/ Scoring Doc Per Standard Inst Completed 03/01/2021 09590 Pure Tone Audiometry, Air Comple garrett Medical [...] J45.909 Unspecified asthma, uncomplicate d Apollo Parviz, [facility] 06/11/2021 E61.1 Iron deficiency [facility] Turlars, [facility] 05/14/2021 R07.9 Chest pain, unspecified Apollo Johanna uro, [facility] 05/14/2021 R06.02 Shortness of breath Apollo Parviz, [facility] 05/14/2021 R00.2 Palpitations Apollo Turo, [facility] 05/14/2021 M54.6 Pain in thoracic spine Apollo machado [facility] 04/07/2021 N39.0 Urinary tract infection, site no [...] - Ragini García MD at [facility] Functional Status Description No Information Available Mental Status Description No Information Available Referrals Description No Information Available
--- OUTSIDE RECORDS SUMMARY | 2021-07-23 11:39 | CCD | Continuity of Care Document ---
Author Melonie Sewell [facility] [place] [address] Phone [phone] Care Team Providers Care Tariff Counsel Name Role Phone Delvin Huang M.D. AUTM [phone] [facility] Breast - [place] [facility] [place]M [phone] Obstetrics & Gynecology @ [facility] AUTM Problems Active Problems Provider Date [...] Code Status Date Vaccine Reaction Lot # 25616 Given 03/01/2021 Bexsero Meningoc occal Recombinant, Serogroup B, 2 Dose Schedule [id number] 67075 Given 03/01/2021 Gardasil 9-HPV 9 Valent 3 Dose Sched ule Im [id number] 08292 Given 11/28/2019 Gardasil 9-HPV, 3 Dose Schedule Im [id number] 57965 Given 11/28/2019 Bexsero Meningoc occal Recombinant, Serogroup B, 2 Dose Schedule [id number] 59047 Given 11/15/2018 VFC Meningococcal Conj (Menveo) [id number] 25510 Given 07/18/2017 TB Intradermal Test 07/20/20 17 at 12:04 pm: 0 mmMagdi, RN [id number] 28418 Given 03/05/2013 Menactra-Meningococcal Conjugate Vac cine Intramuscular [id number] 68384 Given 03/05/2013 Xcbj-Yuwltp-7Sfb & Older [id number] 38722 Given 01/28/2010 Varicella Immunization 11 99y 08410 Given 05/29/2007 Hep A Vaccine-Vaqta, Intramuscular, 2 [place] [address] Given 04/25/2006 Poliomyelitis Immunization 99983 Given 04/25/2006 MMR Virus Immunization 62440 Given 04/25/2006 DTaP-Daptacel Immunization 64968 Given 04/25/2006 Hep A Vaccine-Vaqta, Intramuscular, 2 [place] [address] Given 12/03/2003 Prevnar(Pneumoco ccal Conjugate Vaccine,Polyvalent For Children) 38077 Given 12/06/2002 Poliomyelitis Immunization 98389 Given 12/06/2002 DTaP-Daptacel Immunization 75131 Given 12/06/2002 Prevnar(Pneumoco ccal Conjugate Vaccine, Polyvalent For Children) 96441 Given 12/06/2002 Haemophilus Infl uenza b Vaccine (Hib) Conjugate(4Dose Schedule 17030 Given 09/04/2002 MMR Virus Immunization 87600 Given 09/04/2002 Hepatitis B-Leonardo mbivax -Pediatric/Adolescent Dosage(3 Dose Sched) 84093 Given 09/04/2002 Varicella Immunization 20229 Given 06/04/2002 TB Intradermal Test 67258 Given 03/04/2002 Haemophilus Infl uenza b Vaccine (Hib) Conjugate(4Dose Schedule 53917 Given 03/04/2002 Prevnar(Pneumoco ccal Conjugate Vaccine, Polyvalent For Children) 53467 Given 03/04/2002 DTaP-Daptacel Immunization 79235 Given 2001 Hepatitis B-Leonardo mbivax -Pediatric/Adolescent Dosage(3 Dose Sched) 53487 Given 2001 Poliomyelitis Immunization 61220 Given 2001 DTaP-Daptacel Immunization 27035 Given 2001 Haemophilus Infl uenza b Vaccine (Hib) Conjugate(4Dose Schedule 77303 Given 2001 Hepatitis B And Haemophilusinfluenza B Vaccine, For Intramuscular 07758 Given 2001 Poliomyelitis Immunization 91294 Given 2001 DTaP-Daptacel Immunization 66708 Given 2001 Prevnar(Pneumoco ccal Conjugate Vaccine, Polyvalent For Children) 12639 Refused 11/28/2019 [facility] Flulaval 17258 Refused 11/15/2018 Bexsero Meningoc occal Recombinant, Serogroup B, 2 Dose Schedule 83255 Refused 11/15/2018 Gardasil 9-HPV, 3 [place] [address] Refused 11/15/2018 [facility] Flulaval Vital Signs Date Vital Result [...] H/L Range Note CBC With Differential 05/14/2021 [place] [id number] [phone] White Blood Count 5.1 10 Normal 4.0-10.0 [...] 36.0-66.0 Lymph % 34.9 % Normal 24.0-44.0 [place] % 8.9 % High 2.0-8.0 Eos % 0.8 % Normal 0.0-3.0 Baso % 0.6 % Normal 0.0-1.0 Immature Granulocyte % 0.2 % Normal 0-3.0 Nucleated Red Blood Cell % 0.0 % Normal 0-0 Neutrophils # 2.8 10 Normal 1.5-8.5 Lymph # 1.8 10 Normal 1.5-5.0 [place] # 0.5 10 Normal 0.0-0.8 Eos # 0.0 10 Normal 0.0-0.5 Baso # 0.0 10 Normal 0.0-0.2 Comprehensive Metabolic Profil 05/14/[address] [address] [phone] Glucose, Fasting 90 mg/dL Normal 70-100 Blood [...] 1.2 Normal 1.2-2.2 Laboratory test finding 05/14/[address] [address] [phone] C Reactive Protein Quantitativ 0.30 mg/dL Normal 0 .00-0.30 Total Iron Binding Capacit 05/14/[address] [id number] [phone] Iron (Fe) 42 g/dL Low 50-170 Total Iron Binding Capacity 395 g/dL Normal 250-450 Percent Saturation 10.6 % Low 13.2-45.0 Laboratory test finding 05/14/2021 [facility] [address] [place] [address] [phone] Ferritin 6 NG/ML Low 8-252 FT4&TSH Panel 05/14/2021 [facility] nt [address] [place] [address] [phone] Thyroid Stimulating Hormone 1.590 uIU/ML Normal 0. 463-3.98 Free T4 0.93 ng/dL Normal 0.78-1.33 Laboratory test finding 04/07/2021 [facility] Urine Test Beta HCG NEGATIVE Ua Routine 04/07/[address] [address] [phone] Appearance, Urine HAZY Normal Clear Color, Urine YELLOW Normal Yellow PH,Urine 5.0 units Normal 5.0-9.0 Specific [place] Urine Auto 1.010 Normal 1.002-1.035 Protein, Urine [...] /LPF Normal 0-1 Laboratory test finding 04/07/[address] [address] [phone] Urine Culture FULL REPORT IN L <SEE NOTE> Normal 2 Urinalysis W/O Microscopy Auto 04/07/2021 [facility] Ua Leukocytes small Ua Nitrite n Ua Urobilinogen n Ua Protein n Ua PH 5.0 Ua Blood trace Ua Specific [place] 1.010 Ua Ketones n Ua Bilirubin n Ua Glucose n 1 See triage. AMT 2 FULL REPORT IN LAB NOTES (eC W and Medent). SPECIMEN APPEARS CONTAMINATED Procedures Date Code Description Status 06/11/2021 62999 Office/Outpatient Established Lo w MDM 20-29 Min Completed 05/14/2021 06822 Office/Outpatient Established Mo d MDM 30-39 Min Completed 04/07/2021 99584 Office/Outpatient Established Lo w MDM 20-29 Min Completed 03/01/2021 99103 Preventive Visit Est 18-39 Yrs C ompleted 03/01/2021 50826 Screening Test Of Visual Acuity, Quantitative, Bilateral Completed 03/01/2021 66647 Admin Patient Focused Health Ris k Assessment Instrument Completed 03/01/2021 37207 Brief Emotional/Beha v Assessment W/ Scoring Doc Per Standard Inst Completed 03/01/2021 75754 Brief Emotional/Beha v Assessment W/ Scoring Doc Per Standard Inst Completed 03/01/2021 02391 Pure Tone Audiometry, Air Comple garrett Medical [...] J45.909 Unspecified asthma, uncomplicate d Apollo Parviz, [facility] 06/11/2021 E61.1 Iron deficiency [facility]urlars, [facility] 05/14/2021 R07.9 Chest pain, unspecified Apollo Johanna uro, [facility] 05/14/2021 R06.02 Shortness of breath Apollo Parviz, [facility] 05/14/2021 R00.2 Palpitations Apollo Turo, [facility] 05/14/2021 M54.6 Pain in thoracic spine Apollo machado [facility] 04/07/2021 N39.0 Urinary tract infection, site no [...] - Ragini García MD at [facility] Functional Status Description No Information Available Mental Status Description No Information Available Referrals Description No Information Available
--- OUTSIDE RECORDS SUMMARY | 2021-07-23 11:39 | CCD | Continuity of Care Document ---
Author Melonie Sewell [facility] Organization [place] [address] Phone [phone] Care Team Providers Care Physical Fitness Teacher Name Role Phone Delvin Huang M.D. AUTM [phone] [facility] Women's Wellness And Breast - Obstetrics & Gynecol [facility] [place] AUTM [phone] Obstetrics & Gynecology @ [facility] AUTM Problems Active Problems Provider Date Weight [...] Ellipta 100mcg/Act Aerosol 2 PUFFs oncce daily 30units J45.909 Teja Gómez MD 06/15/2021 Ventolin HFA 108(90Base) mcg/Act A [...] Code Status Date Vaccine Reaction Lot # 31813 Given 03/01/2021 Bexsero Meningoc occal Recombinant, Serogroup B, 2 Dose Schedule [id number] 02685 Given 03/01/2021 Gardasil 9-HPV 9 Valent 3 Dose Sched ule Im [id number] 92574 Given 11/28/2019 Gardasil 9-HPV, 3 Dose Schedule Im [id number] 17591 Given 11/28/2019 Bexsero Meningoc occal Recombinant, Serogroup B, 2 Dose Schedule [id number] 05433 Given 11/15/2018 [facility] Meningococcal Conj (Menveo) [id number] 67917 Given 07/18/2017 TB Intradermal Test 07/20/20 17 at 12:04 pm: 0 mm, Magdi Tucker, RN [id number] 87971 Given 03/05/2013 Menactra-Meningococcal Conjugate Vac cine Intramuscular [id number] 27513 Given 03/05/2013 Csyj-Ztqsgy-8Dsl & Older [id number] 03783 Given 01/28/2010 Varicella Immunization 11 99y 95079 Given 05/29/2007 Hep A Vaccine-Vaqta, Intramuscular, 2 [place] [address] Given 04/25/2006 Poliomyelitis Immunization 02122 Given 04/25/2006 MMR Virus Immunization 37575 Given 04/25/2006 DTaP-Daptacel Immunization 54394 Given 04/25/2006 Hep A Vaccine-Vaqta, Intramuscular, 2 [place] [address] Given 12/03/2003 Prevnar(Pneumoco ccal Conjugate Vaccine,Polyvalent For Children) 68298 Given 12/06/2002 Poliomyelitis Immunization 24308 Given 12/06/2002 DTaP-Daptacel Immunization 54338 Given 12/06/2002 Prevnar(Pneumoco ccal Conjugate Vaccine, Polyvalent For Children) 00254 Given 12/06/2002 Haemophilus Infl uenza b Vaccine (Hib) Conjugate(4Dose Schedule 47647 Given 09/04/2002 MMR Virus Immunization 53654 Given 09/04/2002 Hepatitis B-Leonardo mbivax -Pediatric/Adolescent Dosage(3 Dose Sched) 08791 Given 09/04/2002 Varicella Immunization 45503 Given 06/04/2002 TB Intradermal Test 47811 Given 03/04/2002 Haemophilus Infl uenza b Vaccine (Hib) Conjugate(4Dose Schedule 80205 Given 03/04/2002 Prevnar(Pneumoco ccal Conjugate Vaccine, Polyvalent For Children) 19518 Given 03/04/2002 DTaP-Daptacel Immunization 83632 Given 2001 Hepatitis B-Leonardo mbivax -Pediatric/Adolescent Dosage(3 Dose Sched) 87935 Given 2001 Poliomyelitis Immunization 12756 Given 2001 DTaP-Daptacel Immunization 25066 Given 2001 Haemophilus Infl uenza b Vaccine (Hib) Conjugate(4Dose Schedule 33300 Given 2001 Hepatitis B And Haemophilusinfluenza B Vaccine, For Intramuscular 47536 Given 2001 Poliomyelitis Immunization 54490 Given 2001 DTaP-Daptacel Immunization 97521 Given 2001 Prevnar(Pneumoco ccal Conjugate Vaccine, Polyvalent For Children) 50795 Refused 11/28/2019 [facility] Flulaval 16349 Refused 11/15/2018 Bexsero Meningoc occal Recombinant, Serogroup B, 2 Dose Schedule 32900 Refused 11/15/2018 Gardasil 9-HPV, 3 [place] [address] Refused 11/15/2018 [facility] Flulaval Vital Signs Date Vital Result [...] H/L Range Note CBC With Differential 05/14/[address] [address] [phone] White Blood Count 5.1 10 Normal 4.0-10.0 [...] 36.0-66.0 Lymph % 34.9 % Normal 24.0-44.0 [place] % 8.9 % High 2.0-8.0 Eos % 0.8 % Normal 0.0-3.0 Baso % 0.6 % Normal 0.0-1.0 Immature Granulocyte % 0.2 % Normal 0-3.0 Nucleated Red Blood Cell % 0.0 % Normal 0-0 Neutrophils # 2.8 10 Normal 1.5-8.5 Lymph # 1.8 10 Normal 1.5-5.0 [place] # 0.5 10 Normal 0.0-0.8 Eos # 0.0 10 Normal 0.0-0.5 Baso # 0.0 10 Normal 0.0-0.2 Comprehensive Metabolic Profil 05/14/[address] [address] [phone] Glucose, Fasting 90 mg/dL Normal 70-100 Blood [...] 1.2 Normal 1.2-2.2 Laboratory test finding 05/14/[address] [address] [phone] C Reactive Protein Quantitativ 0.30 mg/dL Normal 0 .00-0.30 Total Iron Binding Capacit 05/14/[address] [address] [phone] Iron (Fe) 42 g/dL Low 50-170 Total Iron Binding Capacity 395 g/dL Normal 250-450 Percent Saturation 10.6 % Low 13.2-45.0 Laboratory test finding 05/14/[address] [address] [phone] Ferritin 6 NG/ML Low 8-252 FT4&TSH Panel 05/14/2021 [facility] nter [address] [place] [address] [phone] Thyroid Stimulating Hormone 1.590 uIU/ML Normal 0. 463-3.98 Free T4 0.93 ng/dL Normal 0.78-1.33 Laboratory test finding 04/07/2021 [facility] Urine Test Beta HCG NEGATIVE Ua Routine 04/07/2021 [facility] nter [address] [place] [address] [phone] Appearance, Urine HAZY Normal Clear Color, Urine YELLOW Normal Yellow PH,Urine 5.0 units Normal 5.0-9.0 Specific [place] Urine Auto 1.010 Normal 1.002-1.035 Protein, Urine [...] /LPF Normal 0-1 Laboratory test finding 04/07/[address] [address] [phone] Urine Culture FULL REPORT IN L <SEE NOTE> Normal 2 Urinalysis W/O Microscopy Auto 04/07/2021 [facility] Ua Leukocytes small Ua Nitrite n Ua Urobilinogen n Ua Protein n Ua PH 5.0 Ua Blood trace Ua Specific [place] 1.010 Ua Ketones n Ua Bilirubin n Ua Glucose n 1 See triage. AMT 2 FULL REPORT IN LAB NOTES (eC W and Medent). SPECIMEN APPEARS CONTAMINATED Procedures Date Code Description Status 06/11/2021 88858 Office/Outpatient Established Mo d MDM 30-39 Min Completed 05/14/2021 52787 Office/Outpatient Established Mo d MDM 30-39 Min Completed 04/07/2021 94487 Office/Outpatient Established Lo w MDM 20-29 Min Completed 03/01/2021 78590 Preventive Visit Est 18-39 Yrs C ompleted 03/01/2021 36128 Screening Test Of Visual Acuity, Quantitative, Bilateral Completed 03/01/2021 91606 Admin Patient Focused Health Ris k Assessment Instrument Completed 03/01/2021 74563 Brief Emotional/Beha v Assessment W/ Scoring Doc Per Standard Inst Completed 03/01/2021 27141 Brief Emotional/Beha v Assessment W/ Scoring Doc Per Standard Inst Completed 03/01/2021 36708 Pure Tone Audiometry, Air Comple garrett Medical Devices Description No Information Available Encounters Type Date Location Provider Dx Diagnosis Office Visit 06/11/2021 [facility] [...] d [facility], [facility] 06/11/2021 E61.1 Iron deficiency Apollo Jj, [facility] 05/14/2021 R07.9 Chest pain, unspecified Apollo tracey, [facility] 05/14/2021 R06.02 Shortness of breath Apollo Jj, [facility] 05/14/2021 R00.2 Palpitations [facility] Jj, [facility] 05/14/2021 M54.6 Pain in thoracic spine Apollo machado, [facility] 04/07/2021 N39.0 Urinary tract infection, site no t specified NARGIS Hayes 04/07/2021 K59.00 Constipation, unspecified Rebecc NARGIS Smith 03/01/2021 Z00.01 Encounter for genera l adult medical examination with abnormal findings WILLIAM Robert 03/01/2021 K21.9 Gastro-esophageal reflux disease without esophagitis WILLIAM Robert 03/01/2021 F33.1 Major depressive disorder, recur rent, moderate Gill Lang, WILLIAM 03/01/2021 F50.01 Anorexia nervosa, restricting ty pe WILLIAM Robert 03/01/2021 K22.719 Morales's esophagus with dysplas ia, unspecified WILLIAM Robert 03/01/2021 Z23 Encounter for immunization WILLIAM Michael 03/01/2021 Z00.121 Encounter for routin e child health examination with abnormal findings WILLIAM Robert Plan of Treatment Future Appointment(s):* 07/13/2021 3:00 pm - Ragini García MD at [facility] Functional Status Description No Information Available Mental Status Description No Information Available Referrals Description No Information Available
--- OUTSIDE RECORDS SUMMARY | 2021-07-23 11:39 | CCD | Continuity of Care Document ---
Author Melonie Sewell [facility] [place] [address] Phone [phone] Care Team Providers Care Drug Room Clerk Name Role Phone Delvin Huang M.D. AUTM [phone] [facility] Women's Wellness And Breast - [place]st[place]s & [place] [facility] [place]M [phone] Obstetrics & Gynecology @ [facility] AUTM [phone] Problems Active Problems Provider Date Weight decreased [...] Code Status Date Vaccine Reaction Lot # 63235 Given 03/01/2021 Bexsero Meningoc occal Recombinant, Serogroup B, 2 Dose Schedule [id number] 72666 Given 03/01/2021 Gardasil 9-HPV 9 Valent 3 Dose Sched ule Im [id number] 98660 Given 11/28/2019 Gardasil 9-HPV, 3 Dose Schedule Im [id number] 82521 Given 11/28/2019 Bexsero Meningoc occal Recombinant, Serogroup B, 2 Dose Schedule [id number] 45311 Given 11/15/2018 VFC Meningococcal Conj (Menveo) [id number] 01642 Given 07/18/2017 TB Intradermal Test 07/20/20 17 at 12:04 pm: 0 mmMagdi, RN [id number] 01809 Given 03/05/2013 Menactra-Meningococcal Conjugate Vac cine Intramuscular [id number] 37411 Given 03/05/2013 Icpj-Xikxxb-8Dqs & Older [id number] 63971 Given 01/28/2010 Varicella Immunization 11 99y 88445 Given 05/29/2007 Hep A Vaccine-Vaqta, Intramuscular, 2 [place] [address] Given 04/25/2006 Poliomyelitis Immunization 27672 Given 04/25/2006 MMR Virus Immunization 58314 Given 04/25/2006 DTaP-Daptacel Immunization 63632 Given 04/25/2006 Hep A Vaccine-Vaqta, Intramuscular, 2 [place] [address] Given 12/03/2003 Prevnar(Pneumoco ccal Conjugate Vaccine,Polyvalent For Children) 69996 Given 12/06/2002 Poliomyelitis Immunization 00571 Given 12/06/2002 DTaP-Daptacel Immunization 78610 Given 12/06/2002 Prevnar(Pneumoco ccal Conjugate Vaccine, Polyvalent For Children) 07426 Given 12/06/2002 Haemophilus Infl uenza b Vaccine (Hib) Conjugate(4Dose Schedule 54016 Given 09/04/2002 MMR Virus Immunization 98189 Given 09/04/2002 Hepatitis B-Leonardo mbivax -Pediatric/Adolescent Dosage(3 Dose Sched) 10836 Given 09/04/2002 Varicella Immunization 76980 Given 06/04/2002 TB Intradermal Test 41345 Given 03/04/2002 Haemophilus Infl uenza b Vaccine (Hib) Conjugate(4Dose Schedule 17516 Given 03/04/2002 Prevnar(Pneumoco ccal Conjugate Vaccine, Polyvalent For Children) 01619 Given 03/04/2002 DTaP-Daptacel Immunization 78720 Given 2001 Hepatitis B-Leonardo mbivax -Pediatric/Adolescent Dosage(3 Dose Sched) 68063 Given 2001 Poliomyelitis Immunization 73963 Given 2001 DTaP-Daptacel Immunization 18196 Given 2001 Haemophilus Infl uenza b Vaccine (Hib) Conjugate(4Dose Schedule 35239 Given 2001 Hepatitis B And Haemophilusinfluenza B Vaccine, For Intramuscular 55255 Given 2001 Poliomyelitis Immunization 48364 Given 2001 DTaP-Daptacel Immunization 87098 Given 2001 Prevnar(Pneumoco ccal Conjugate Vaccine, Polyvalent For Children) 25434 Refused 11/28/2019 [facility] Flulaval 19614 Refused 11/15/2018 Bexsero Meningoc occal Recombinant, Serogroup B, 2 Dose Schedule 11738 Refused 11/15/2018 Gardasil 9-HPV, 3 [place] [address] Refused 11/15/2018 [facility] Flulaval Vital Signs Date Vital [...] H/L Range Note CBC With Differential 05/14/2021 [place] [id number] [phone] White Blood Count 5.1 10 Normal 4.0-10.0 [...] 36.0-66.0 Lymph % 34.9 % Normal 24.0-44.0 [place] % 8.9 % High 2.0-8.0 Eos % 0.8 % Normal 0.0-3.0 Baso % 0.6 % Normal 0.0-1.0 Immature Granulocyte % 0.2 % Normal 0-3.0 Nucleated Red Blood Cell % 0.0 % Normal 0-0 Neutrophils # 2.8 10 Normal 1.5-8.5 Lymph # 1.8 10 Normal 1.5-5.0 [place] # 0.5 10 Normal 0.0-0.8 Eos # 0.0 10 Normal 0.0-0.5 Baso # 0.0 10 Normal 0.0-0.2 Comprehensive Metabolic Profil 05/14/[address] [address] [phone] Glucose, Fasting 90 mg/dL Normal 70-100 Blood [...] 1.2 Normal 1.2-2.2 Laboratory test finding 05/14/[address] [address] [phone] C Reactive Protein Quantitativ 0.30 mg/dL Normal 0 .00-0.30 Total Iron Binding Capacit 05/14/[address] 4505979 [phone] Iron (Fe) 42 g/dL Low 50-170 Total Iron Binding Capacity 395 g/dL Normal 250-450 Percent Saturation 10.6 % Low 13.2-45.0 Laboratory test finding 05/14/2021 [facility] [address] [place] [address] [phone] Ferritin 6 NG/ML Low 8-252 FT4&TSH Panel 05/14/2021 [facility] nt [address] [place] [address] [phone] Thyroid Stimulating Hormone 1.590 uIU/ML Normal 0. 463-3.98 Free T4 0.93 ng/dL Normal 0.78-1.33 Laboratory test finding 04/07/2021 [facility] Urine Test Beta HCG NEGATIVE Ua Routine 04/07/[address] [address] [phone] Appearance, Urine HAZY Normal Clear Color, Urine YELLOW Normal Yellow PH,Urine 5.0 units Normal 5.0-9.0 Specific [place] Urine Auto 1.010 Normal 1.002-1.035 Protein, Urine [...] /LPF Normal 0-1 Laboratory test finding 04/07/[address] [address] [phone] Urine Culture FULL REPORT IN L <SEE NOTE> Normal 2 Urinalysis W/O Microscopy Auto 04/07/2021 [facility] Ua Leukocytes small Ua Nitrite n Ua Urobilinogen n Ua Protein n Ua PH 5.0 Ua Blood trace Ua Specific [place] 1.010 Ua Ketones n Ua Bilirubin n Ua Glucose n 1 See triage. AMT 2 FULL REPORT IN LAB NOTES (eC W and Medent). SPECIMEN APPEARS CONTAMINATED Procedures Date Code Description Status 06/11/2021 55904 Office/Outpatient Established Lo w MDM 20-29 Min Completed 05/14/2021 56997 Office/Outpatient Established Mo d MDM 30-39 Min Completed 04/07/2021 17200 Office/Outpatient Established Lo w MDM 20-29 Min Completed 03/01/2021 46167 Preventive Visit Est 18-39 Yrs C ompleted 03/01/2021 02131 Screening Test Of Visual Acuity, Quantitative, Bilateral Completed 03/01/2021 59974 Admin Patient Focused Health Ris k Assessment Instrument Completed 03/01/2021 51078 Brief Emotional/Beha v Assessment W/ Scoring Doc Per Standard Inst Completed 03/01/2021 97671 Brief Emotional/Beha v Assessment W/ Scoring Doc Per Standard Inst Completed 03/01/2021 48731 Pure Tone Audiometry, Air Comple garrett Medical [...] asthma, uncomplicate d Apollo Parviz, [facility] 06/11/2021 E61.1 Iron deficiency [facility] Turlars, [facility] 05/14/2021 R07.9 Chest pain, unspecified Apollo Johanna uro, [facility] 05/14/2021 R06.02 Shortness of breath Apollo Parviz, [facility] 05/14/2021 R00.2 Palpitations Apollo Turo, [facility] 05/14/2021 M54.6 Pain in thoracic spine Apollo machado [facility] 04/07/2021 N39.0 Urinary tract infection, site [...] - Ragini García MD at [facility] Functional Status Description No Information Available Mental Status Description No Information Available Referrals Description No Information Available
--- OUTSIDE RECORDS SUMMARY | 2021-07-23 11:39 | CCD ---
Author Author Melonie Barney Organization Unknown Address [address] [place] [address] Phone Care Team Providers Care Group Activities Aide Name Role Phone Merna Barney PCP Allergies, Adverse Reactions, Alerts No Data in Section Problem List Concept Problem Description Status Start Date Created Date Resolv ed Date Snomed Code F50.01 Anorexia Nervosa, Restricting type Active 06/04 F41.1 Generalized Anxiety Disorder Active 06/04/2021 F33.1 Major Depressive Disorder, Recurrent episode, Moderate Active 06/04/2021 F43.9 Unspecified Trauma- and Stressor-Related Disorder Active 06/04/2021 Medications Rx Norm Medication Route Route Concept Start Date Stop Date Dosage Eric quency Duration Formula Strength Dosage Form Dosage Form Code Dosage Description Medication Id Account Npid Author First Name Author Last Name Taxonomy Code Taxonomy Desc Phone Number [phone] lamotrigine by mouth [id number] 01/05/2021 once a day 25 mg ta blet 38821 [phone] Svetlana Smith [id number] Nurse Practitioner [phone] propranolol by mouth W12789 01/14/2021 twice a day 10 mg t ablet 00370 167725 [phone] Svetlana Smith [id number] Nurse Practitioner [phone] [id number] aripiprazole by mouth [id number] 03/31/2021 06/18/2021 once a day 30 10 mg tablet 29106 487243 [id number] Svetlana Smith [id number] Nurse Oracio johnson [phone] olanzapine by mouth [id number] 05/20/2021 07/19/2021 at bedtime 30 2.5 mg tablet 47498 424732 [id number] Svetlana Smith [id number] Nurse Oracio johnson [id number] Social History Social History Element Description Concept Effective Date Smoking Status Unknown if ever smoked [id number] Immunizations No Data in Section Vital Signs No Data in Section Procedures Date Concept Id Description Targeted Site Concept Targeted Site Concept Type 06/03/2021 42014 Extended Individual Psychotherapy - 45 min CPT Patient has no history of implantable de vices Encounters Encounter Start Date End Date Encounter Type Description Diagnosis Di agnosis Desc Location Author First Name Author Last Name Npid Taxonomy Cod e Taxonomy Desc Phone Number Location Addr1 Location Addr2 [address] [facility] Location Sta te Location [facility] [id number] 06/03/2021 06/03/2021 04197 Extended Individual Psych otherapy - 45 min F50.01 Anorexia nervosa, restricting type [facility] [id number] Mortgage Loan Computation Clerk [id number] [address] [address] Plan of Treatment No Data in Section Lab Results No Data in Section Instructions No Data in Section Insurance Providers Insurance Id Policy Effective Date Policy Thru Date Company N mark [id number] 2019 [place] - MEDICA ID MANAGED
--- OUTSIDE RECORDS SUMMARY | 2021-07-23 11:39 | CCD ---
Author Author Melonie Smith Organization Unknown Address [address] [place] [address] Phone Care Team Providers Care Brine Mixer Operator Name Role Phone Svetlana Smith PCP Allergies, [...] Name Taxonomy Code Taxonomy Desc Phone Number [phone] lamotrigine by mouth [id number] 01/05/2021 once a day 25 mg ta blet 30012 [phone] Svetlana Smith [id number] Nurse Practitioner [phone] propranolol by mouth [id number] 01/14/2021 twice a day 10 mg t ablet 17070 216014 [phone] Svetlana Smith [id number] Nurse Practitioner [phone] aripiprazole by mouth [id number] 03/31/2021 06/18/2021 once a day 30 10 mg tablet 14501 708408 [phone] Svetlana Smith [id number] Nurse Oracio johnson [phone] 617101 olanzapine by mouth [id number] 05/20/2021 07/19/2021 at bedtime 30 2.5 mg tablet 04944 659140 [phone] Svetlana Smith [id number] Nurse Oracio johnson [phone] Social History Social History Element Description Concept Effective Date Smoking Status Unknown if ever smoked [id number] Immunizations No Data in Section Vital Signs No Data in Section Procedures Date Concept Id Description Targeted Site Concept Targeted Site Concept Type 06/03/2021 06531 E/M Level 3 - Established Patient CPT Patient has no history of implantable de vices Encounters Encounter Start Date End Date Encounter Type Description Diagnosis Di agnosis Desc Location Author First Name Author Last Name Npid Taxonomy Cod e Taxonomy Desc Phone Number Location Addr1 Location Addr2 Location [facility] Location Sta te Location [facility] [id number] 06/03/2021 06/03/2021 18160 E/M Level 3 - Established Pa tient F50.01 Anorexia nervosa, restricting type [facility] Svetlana [phone] [id number] Nurse Practitioner [phone] [address] [address] Plan of Treatment No Data in Section Lab Results No Data in Section Instructions No Data in Section Functional Cognitive Status No Data in Section Insurance Providers Insurance Id Policy Effective Date Policy Thru Date MDdatacor Ryan flores [id number] 2019 [place] - MEDICA ID MANAGED
--- OUTSIDE RECORDS SUMMARY | 2021-07-23 11:40 | CCD ---
Author Author Melonie Barney Organization Unknown Address [address] [place] [address] Phone Care Team Providers Care Glass Technician Name Role Phone Merna Barney PCP Allergies, Adverse Reactions, Alerts No Data in Section Problem List Concept Problem Description Status Start Date Created Date Resolv ed Date Snomed Code F50.01 Anorexia Nervosa, Restricting type Active 05/21 F41.1 Generalized Anxiety Disorder Active 05/21/2021 F33.1 Major Depressive Disorder, Recurrent episode, Moderate Active 05/21/2021 F43.9 Unspecified Trauma- and Stressor-Related Disorder Active 05/21/2021 Medications Rx Norm Medication Route Route Concept Start Date Stop Date Dosage Eric quency Duration Formula Strength Dosage Form Dosage Form Code Dosage Description Medication Id Account Npid Author First Name Author Last Name Taxonomy Code Taxonomy Desc Phone Number [phone] lamotrigine by mouth [id number] 01/05/2021 once a day 25 mg ta blet 98359 [phone] Svetlana Smith [id number] Nurse Practitioner [phone] propranolol by mouth G92084 01/14/2021 twice a day 10 mg t ablet 26122 706344 [id number] Svetlana Smith [id number] Nurse Practitioner [phone] olanzapine by mouth P63710 05/20/2021 at bedtime 30 2.5 mg ta blet 92742 742577 [id number] Svetlana Smith [id number] Nurse Practitioner [phone] 797109 aripiprazole by mouth [id number] 03/31/2021 06/18/2021 once a day 30 10 mg tablet 27526 [id number] [id number] Svetlana Smith [id number] Nurse Oracio johnson [id number] Social History Social History Element Description Concept Effective Date Smoking Status Unknown if ever smoked [id number] Immunizations No Data in Section Vital Signs No Data in Section Procedures Date Concept Id Description Targeted Site Concept Targeted Site Concept Type 05/20/2021 83605 Extended Individual Psychotherapy - 45 min CPT Patient has no history of implantable de vices Encounters Encounter Start Date End Date Encounter Type Description Diagnosis Di agnosis Desc Location Author First Name Author Last Name Npid Taxonomy Cod e Taxonomy Desc Phone Number Location Addr1 Location Addr2 Location [facility] Location [facility] Location [facility] [id number] 05/20/2021 05/20/2021 16428 Extended Individual Psych otherapy - 45 min F50.01 Anorexia nervosa, restricting type [facility] Merna [id number] [id number] Leisure Studies Professor [phone] [address] [address] Plan of Treatment No Data in Section Lab Results No Data in Section Instructions No Data in Section Insurance Providers Insurance Id Policy Effective Date Policy Thru Date Company N mark [id number] 2019 J[employer]MAINE - MEDICA ID MANAGED
--- OUTSIDE RECORDS SUMMARY | 2021-07-23 11:40 | CCD | Continuity of Care Document ---
Author Melonie Sewell [facility] Organization [place] [address] Phone [phone] Care Team Providers Care Fishing Gear Mechanic Name Role Phone Delvin Huang M.D. AUTM [phone] [facility] Women's Wellness And Breast - Obstetrics & Gynecol [facility] AUTM [phone] Obstetrics & Gynecology @ [facility] AUTM [phone] Problems Active Problems Provider Date Weight decreased [...] 05/05/2020 Dysmenorrhea Ragini García MD Onset: 05/14/2020 Moraels's esophagus Onset: Social History Type Date Description Comments Sex Unknown Cigarette Use No Smokers In The Home Tobacco Use Start: Unknown Patient has never smoked Smoking Status Reviewed: 04/07/21 Patient has never smoked Guns in Home No Smoke Alarms Yes Smoke Alarms Carbon Monoxide Detector: Yes Allergies, Adverse Reactions, Alerts Active Allergies Criticality Reaction | Severity Comments Date NKDA Unable to assess criticality 11/28/2019 Inactive Allergies NKDA Unable to assess criticality 01/28/2010 Amoxicillin Unable to assess criticality urticaria 10/24/2019 Medications Active Medications SIG Qnty Indications Ordering Provide r Date Sulfamethoxazole/Trimethoprim DS 800-160mg Tablets take 1 tablet by mouth every 12 hours x 5 days 10tabs Ragini García MD 04/08/[address] 1 by mouth bid po qd x1 month 60caps K21.9 Ragini García MD 03/01/2021 Multivitamin Unknown Abilify 10mg Tablets 1 tab po q day Unknown Buspirone HCL 10mg Tablets 1 tab po bid Unknown Lamictal 100mg Tablets 1 Tab PO Q Day Unknown Propranolol HCL 20mg Tablets Unknown Immunizations CPT Code Status Date Vaccine Reaction Lot # [id number] Given 03/01/2021 Bexsero Meningoc occal Recombinant, Serogroup B, 2 Dose Schedule [id number] 28639 Given 03/01/2021 Gardasil 9-HPV 9 Valent 3 Dose Sched ule Im [id number] 64744 Given 11/28/2019 Gardasil 9-HPV, 3 Dose Schedule Im [id number] 78467 Given 11/28/2019 Bexsero Meningoc occal Recombinant, Serogroup B, 2 Dose Schedule [id number] 31299 Given 11/15/2018 VFC Meningococcal Conj (Menveo) [id number] 11026 Given 07/18/2017 TB Intradermal Test 07/20/20 17 at 12:04 pm: 0 mm, Magdi Tucker RN [id number] 01479 Given 03/05/2013 Menactra-Meningococcal Conjugate Vac cine Intramuscular [id number] 00653 Given 03/05/2013 [id number] & Older [id number] 32020 Given 01/28/2010 Varicella Immunization 11 99y 20731 Given 05/29/2007 Hep A Vaccine-Vaqta, Intramuscular, 2 [place] [address] Given 04/25/2006 Poliomyelitis Immunization 69541 Given 04/25/2006 MMR Virus Immunization 94701 Given 04/25/2006 DTaP-Daptacel Immunization 34002 Given 04/25/2006 Hep A Vaccine-Vaqta, Intramuscular, 2 [place] [address] Given 12/03/2003 Prevnar(Pneumoco ccal Conjugate Vaccine,Polyvalent For Children) 75672 Given 12/06/2002 Poliomyelitis Immunization 48712 Given 12/06/2002 DTaP-Daptacel Immunization 66080 Given 12/06/2002 Prevnar(Pneumoco ccal Conjugate Vaccine, Polyvalent For Children) 18799 Given 12/06/2002 Haemophilus Infl uenza b Vaccine (Hib) Conjugate(4Dose Schedule 32180 Given 09/04/2002 MMR Virus Immunization 88719 Given 09/04/2002 Hepatitis B-Leonardo mbivax -Pediatric/Adolescent Dosage(3 Dose Sched) 68996 Given 09/04/2002 Varicella Immunization 27180 Given 06/04/2002 TB Intradermal Test 31249 Given 03/04/2002 Haemophilus Infl uenza b Vaccine (Hib) Conjugate(4Dose Schedule 60703 Given 03/04/2002 Prevnar(Pneumoco ccal Conjugate Vaccine, Polyvalent For Children) 64919 Given 03/04/2002 DTaP-Daptacel Immunization 58044 Given 2001 Hepatitis B-Leonardo mbivax -Pediatric/Adolescent Dosage(3 Dose Sched) 95991 Given 2001 Poliomyelitis Immunization 55608 Given 2001 DTaP-Daptacel Immunization 12965 Given 2001 Haemophilus Infl uenza b Vaccine (Hib) Conjugate(4Dose Schedule 03021 Given 2001 Hepatitis B And Haemophilusinfluenza B Vaccine, For Intramuscular 53901 Given 2001 Poliomyelitis Immunization 99003 Given 2001 DTaP-Daptacel Immunization 09034 Given 2001 Prevnar(Pneumoco ccal Conjugate Vaccine, Polyvalent For Children) 82886 Refused 11/28/2019 [facility] Flulaval 79785 Refused 11/15/2018 Bexsero Meningoc occal Recombinant, Serogroup B, 2 Dose Schedule 43979 Refused 11/15/2018 Gardasil 9-HPV, 3 [place] [address] Refused 11/15/2018 [facility] Flulaval Vital Signs Date Vital Result Comment 05/14/2021 8:54am Height 61.61 inches 5'1.61" Height Percentile 15 % Height in cm's 156.5 cm Weight 109.00 lb Weight 49.442 kg Weight Percentile 14th BMI (Body Mass Index) 20.2 kg/m2 Body Mass Index Percentile 31 % Body Temperature 97.9 F Heart Rate 77 /min Respiratory Rate 16 /min O2 % BldC Oximetry 99 % BP Systolic 106 mmHg BP Diastolic 68 mmHg 04/07/2021 1:25pm Height 62.99 inches 5'2.99" Height Percentile 30 % Height in cm's 160 cm Weight 106.00 lb Weight 48.082 kg Weight Percentile 10th BMI (Body Mass Index) 18.8 kg/m2 Body Mass Index Percentile 13 % Body Temperature 98.9 F Heart Rate 91 /min Respiratory Rate 18 /min O2 % BldC Oximetry 100 % BP Systolic 108 mmHg BP Diastolic 66 mmHg Results Test Acquired Date Facility Test Result H/L Range Note Laboratory test finding 04/07/2021 [facility] Urine Test Beta HCG NEGATIVE Ua Routine 04/07/2021 [facility] nter [address] [place] [address] [phone] Appearance, Urine HAZY Normal Clear Color, Urine YELLOW Normal Yellow PH,Urine 5.0 units Normal 5.0-9.0 Specific [place] Urine Auto 1.010 Normal 1.002-1.035 Protein, Urine [...] /LPF Normal 0-1 Laboratory test finding 04/07/2021 [facility] [address] [place] [address] [phone] Urine Culture FULL REPORT IN L <SEE NOTE> Normal 1 Urinalysis W/O Microscopy Auto 04/07/2021 [facility] Ua Leukocytes small Ua Nitrite n Ua Urobilinogen n Ua Protein n Ua PH 5.0 Ua Blood trace Ua Specific [place] 1.010 Ua Ketones n Ua Bilirubin n Ua Glucose n 1 FULL REPORT IN LAB NOTES (eC W and Medent). SPECIMEN APPEARS CONTAMINATED Procedures Date Code Description Status 04/07/2021 14858 Office/Outpatient Established Lo w MDM 20-29 Min Completed 03/01/2021 96810 Preventive Visit Est 18-39 Yrs C ompleted 03/01/2021 47681 Screening Test Of Visual Acuity, Quantitative, Bilateral Completed 03/01/2021 19102 Admin Patient Focused Health Ris k Assessment Instrument Completed 03/01/2021 70153 Brief Emotional/Beha v Assessment W/ Scoring Doc Per Standard Inst Completed 03/01/2021 27410 Brief Emotional/Beha v Assessment W/ Scoring Doc Per Standard Inst Completed 03/01/2021 02828 Pure Tone Audiometry, Air Comple garrett Medical Devices Description No Information Available Encounters Type Date Location Provider Dx Diagnosis Office Visit 04/07/2021 [facility] [...] abnormal findings Assessments Date Code Description Provider 05/14/2021 R07.9 Chest pain, unspecified Apollo T alexy RPA-C 05/14/2021 R06.02 Shortness of breath Apollo Jj RPA-C 04/07/2021 N39.0 Urinary tract infection, site no [...] abnormal findings WILLIAM Robert Plan of Treatment 05/14/2021 - Apollo Jj, RPA-C* R07.9 Chest pain, unspecified* New Labs:* CBC With Differential, Ordered: 05/14/21 * Comprehensive Metabolic Profil, Ordered: 05/14/21 * High Sensitivity C-Reactive Protein, Ordered: 05/14/21 * Total Iron Binding Capacit, Ordered: 05/14/21 * Ferritin, Ordered: 05/14/21 * FT4&TSH Panel, Ordered: 05/14/21 * New Xrays:* Chest, 2 Views, Ordered: 05/14/21 * R06.02 Shortness of breath Functional Status Description No Information Available Mental Status Description No Information Available Referrals Description No Information Available
--- OUTSIDE RECORDS SUMMARY | 2021-07-23 11:40 | CCD | Continuity of Care Document ---
Author Melonie Sewell [facility] [place] [address] Phone [phone] Care Team Providers Care Business Process Analyst Name Role Phone Delvin Huang M.D. AUTM [phone] [facility] Women's Wellness And Breast - Obstetrics & Gynecol [facility] AUTM [phone] Obstetrics & Gynecology @ [facility] AUTM Problems Active Problems Provider Date [...] SIG Qnty Indications Ordering Provide r Date Ferrous Sulfate 325(65Fe) mg Table ts take 1 tabs by mouth twice a day x 3 months 60tabs Ragini García MD 05/14/2021 Sulfamethoxazole/Trimethoprim DS 800-160mg Tablets take 1 tablet [...] Code Status Date Vaccine Reaction Lot # 11065 Given 03/01/2021 Bexsero Meningoc occal Recombinant, Serogroup B, 2 Dose Schedule [id number] 57780 Given 03/01/2021 Gardasil 9-HPV 9 Valent 3 Dose Sched ule Im [id number] 01037 Given 11/28/2019 Gardasil 9-HPV, 3 Dose Schedule Im [id number] 42503 Given 11/28/2019 Bexsero Meningoc occal Recombinant, Serogroup B, 2 Dose Schedule [id number] 92580 Given 11/15/2018 VFC Meningococcal Conj (Menveo) [id number] 30037 Given 07/18/2017 TB Intradermal Test 07/20/20 17 at 12:04 pm: 0 mm, Magdi Tucker, RN [id number] 52475 Given 03/05/2013 Menactra-Meningococcal Conjugate Vac cine Intramuscular [id number] 72398 Given 03/05/2013 Tswz-Irndpf-6Vxj & Older [id number] 62487 Given 01/28/2010 Varicella Immunization 11 99y 45824 Given 05/29/2007 Hep A Vaccine-Vaqta, Intramuscular, 2 [place] [address] Given 04/25/2006 Poliomyelitis Immunization 75037 Given 04/25/2006 MMR Virus Immunization 70942 Given 04/25/2006 DTaP-Daptacel Immunization 90266 Given 04/25/2006 Hep A Vaccine-Vaqta, Intramuscular, 2 [place] [address] Given 12/03/2003 Prevnar(Pneumoco ccal Conjugate Vaccine,Polyvalent For Children) 47062 Given 12/06/2002 Poliomyelitis Immunization 07023 Given 12/06/2002 DTaP-Daptacel Immunization 14742 Given 12/06/2002 Prevnar(Pneumoco ccal Conjugate Vaccine, Polyvalent For Children) 24442 Given 12/06/2002 Haemophilus Infl uenza b Vaccine (Hib) Conjugate(4Dose Schedule 45625 Given 09/04/2002 MMR Virus Immunization 56899 Given 09/04/2002 Hepatitis B-Leonardo mbivax -Pediatric/Adolescent Dosage(3 Dose Sched) 76917 Given 09/04/2002 Varicella Immunization 62296 Given 06/04/2002 TB Intradermal Test 47749 Given 03/04/2002 Haemophilus Infl uenza b Vaccine (Hib) Conjugate(4Dose Schedule 28955 Given 03/04/2002 Prevnar(Pneumoco ccal Conjugate Vaccine, Polyvalent For Children) 93227 Given 03/04/2002 DTaP-Daptacel Immunization 06910 Given 2001 Hepatitis B-Leonardo mbivax -Pediatric/Adolescent Dosage(3 Dose Sched) 80196 Given 2001 Poliomyelitis Immunization 14958 Given 2001 DTaP-Daptacel Immunization 52227 Given 2001 Haemophilus Infl uenza b Vaccine (Hib) Conjugate(4Dose Schedule 95135 Given 2001 Hepatitis B And Haemophilusinfluenza B Vaccine, For Intramuscular 14026 Given 2001 Poliomyelitis Immunization 32788 Given 2001 DTaP-Daptacel Immunization 54387 Given 2001 Prevnar(Pneumoco ccal Conjugate Vaccine, Polyvalent For Children) 85626 Refused 11/28/2019 [facility] Flulaval 57575 Refused 11/15/2018 Bexsero Meningoc occal Recombinant, Serogroup B, 2 Dose Schedule 44000 Refused 11/15/2018 Gardasil 9-HPV, [address] [place] [address] Refused 11/15/2018 [facility] Flulaval Vital Signs Date Vital [...] H/L Range Note CBC With Differential 05/14/2021 [place] [id number] [phone] White Blood Count 5.1 10 Normal 4.0-10.0 [...] 36.0-66.0 Lymph % 34.9 % Normal 24.0-44.0 [place] % 8.9 % High 2.0-8.0 Eos % 0.8 % Normal 0.0-3.0 Baso % 0.6 % Normal 0.0-1.0 Immature Granulocyte % 0.2 % Normal 0-3.0 Nucleated Red Blood Cell % 0.0 % Normal 0-0 Neutrophils # 2.8 10 Normal 1.5-8.5 Lymph # 1.8 10 Normal 1.5-5.0 [place] # 0.5 10 Normal 0.0-0.8 Eos # 0.0 10 Normal 0.0-0.5 Baso # 0.0 10 Normal 0.0-0.2 Comprehensive Metabolic Profil 05/14/2021 [facility] [address] [place] [address] [phone] Glucose, Fasting 90 mg/dL Normal 70-100 Blood [...] 1.2 Normal 1.2-2.2 Laboratory test finding 05/14/2021 [facility] [address] [place] [address] [phone] C Reactive Protein Quantitativ 0.30 mg/dL Normal 0 .00-0.30 Total Iron Binding Capacit 05/14/[address] [address] [phone] Iron (Fe) 42 g/dL Low 50-170 Total Iron Binding Capacity 395 g/dL Normal 250-450 Percent Saturation 10.6 % Low 13.2-45.0 Laboratory test finding 05/14/2021 [facility] [address] [place] [address] [phone] Ferritin 6 NG/ML Low 8-252 FT4&TSH Panel 05/14/2021 [facility] nter [address] [place] [address] [phone] Thyroid Stimulating Hormone 1.590 uIU/ML Normal 0. 463-3.98 Free T4 0.93 ng/dL Normal 0.78-1.33 Laboratory test finding 04/07/2021 [facility] Urine Test Beta HCG NEGATIVE Ua Routine 04/07/2021 [facility] nter [address] [place] [address] [phone] Appearance, Urine HAZY Normal Clear Color, Urine YELLOW Normal Yellow PH,Urine 5.0 units Normal 5.0-9.0 Specific [place] Urine Auto 1.010 Normal 1.002-1.035 Protein, Urine [...] /LPF Normal 0-1 Laboratory test finding 04/07/2021 [facility] [address] [place] [address] [phone] Urine Culture FULL REPORT IN L <SEE NOTE> Normal 2 Urinalysis W/O Microscopy Auto 04/07/2021 [facility] Ua Leukocytes small Ua Nitrite n Ua Urobilinogen n Ua Protein n Ua PH 5.0 Ua Blood trace Ua Specific [place] 1.010 Ua Ketones n Ua Bilirubin n Ua Glucose n 1 See triage. AMT 2 FULL REPORT IN LAB NOTES (eC W and Medent). SPECIMEN APPEARS CONTAMINATED Procedures Date Code Description Status 05/14/2021 11019 Office/Outpatient Established Mo d MDM 30-39 Min Completed 04/07/2021 91516 Office/Outpatient Established Lo w MDM 20-29 Min Completed 03/01/2021 55530 Preventive Visit Est 18-39 Yrs C ompleted 03/01/2021 01448 Screening Test Of Visual Acuity, Quantitative, Bilateral Completed 03/01/2021 17735 Admin Patient Focused Health Ris k Assessment Instrument Completed 03/01/2021 06068 Brief Emotional/Beha v Assessment W/ Scoring Doc Per Standard Inst Completed 03/01/2021 12328 Brief Emotional/Beha v Assessment W/ Scoring Doc Per Standard Inst Completed 03/01/2021 00374 Pure Tone Audiometry, Air Comple garrett Medical Devices Description No Information Available Encounters Type Date Location Provider Dx Diagnosis Office Visit 05/14/2021 8:40a [facility] RPA-C R07.9 Chest pain, unspecified R06.02 Shortness [...] Description Provider 05/14/2021 R07.9 Chest pain, unspecified SOFIA HernándezC 05/14/2021 R06.02 Shortness of breath SETH Chong 05/14/2021 R00.2 Palpitations TONI ChongC 05/14/2021 M54.6 Pain in thoracic spine SOFIA SandovalC 04/07/2021 N39.0 Urinary tract infection, site no [...] abnormal findings WILLIAM Robert Plan of Treatment No Information Available Functional Status Description No Information Available Mental Status Description No Information Available Referrals Description No Information Available
--- OUTSIDE RECORDS SUMMARY | 2021-07-23 11:40 | CCD ---
Author Author Melonie Barney Organization Unknown Address [address] [place] [address] Phone Care Team Providers Care Racing Secretary And Handicapper Name Role Phone Ector Merna PCP Allergies, Adverse Reactions, Alerts No Data in Section Problem List Concept Problem Description Status Start Date Created Date Resolv ed Date Snomed Code F50.01 Anorexia Nervosa, Restricting type Active 05/07 F41.1 Generalized Anxiety Disorder Active 05/07/2021 F33.1 Major Depressive Disorder, Recurrent episode, Moderate Active 05/07/2021 F43.9 Unspecified Trauma- and Stressor-Related Disorder Active 05/07/2021 Medications Rx Norm Medication Route Route Concept Start Date Stop Date Dosage Eric quency Duration Formula Strength Dosage Form Dosage Form Code Dosage Description Medication Id Account Npid Author First Name Author Last Name Taxonomy Code Taxonomy Desc Phone Number [id number] lamotrigine by mouth [id number] 01/05/2021 once a day 25 mg ta blet [id number] [phone] Svetlana Smith [id number] Nurse Practitioner [phone] [id number] propranolol by mouth [id number] 01/14/2021 twice a day 10 mg t ablet [id number] [phone] Svetlana Smith [id number] Nurse Practitioner [phone] [id number] aripiprazole by mouth [id number] 03/31/2021 05/21/2021 once a day 30 10 mg tablet 11675 [id number] [phone] Svetlana Smith [id number] Nurse Oracio johnson [id number] Social History Social History Element Description Concept Effective Date Smoking Status Unknown if ever smoked [id number] Immunizations No Data in Section Vital Signs No Data in Section Procedures Date Concept Id Description Targeted Site Concept Targeted Site Concept Type 05/06/2021 25026 Extended Individual Psychotherapy - 45 min CPT Patient has no history of implantable de vices Encounters Encounter Start Date End Date Encounter Type Description Diagnosis Di agnosis Desc Location Author First Name Author Last Name Npid Taxonomy Cod e Taxonomy Desc Phone Number Location Addr1 Location Addr2 Location [facility] Location Sta te Location [facility] [id number] 05/06/2021 05/06/2021 [id number] Extended Individual Psych otherapy - 45 min F50.01 Anorexia nervosa, restricting type [facility] Merna [phone] [id number] Clinical Nutritionist [phone] [address] [address] Plan of Treatment No Data in Section Lab Results No Data in Section Instructions No Data in Section Insurance Providers Insurance Id Policy Effective Date Policy Thru Date Company N mark [id number] 2019 [employer] - MEDICA ID MANAGED
--- OUTSIDE RECORDS SUMMARY | 2021-07-23 11:41 | CCD ---
Author Author [facility] Organization [facility] Address Unknown Phone Unavailable Care Team Providers Care Transition Of Care Specialist Name Role Phone Ted Phillips DO Unavailable Unavailable Sun, Ted DO Unavailable Unavailable Sun, Ted DO Unavailable Unavailable Sun, Ted DO Unavailable Unavailable Sun, Ted DO Unavailable Unavailable Sun, Ted DO Unavailable Unavailable Sun, Ted DO Unavailable Unavailable Sun, Ted DO Unavailable Unavailable Sun, Ted DO Unavailable Unavailable Sun, Ted DO Unavailable Unavailable Sun, Ted DO Unavailable Unavailable Sun, Ted DO Unavailable Unavailable Sun, Ted DO Unavailable Unavailable Sun, Ted DO Unavailable Unavailable Sun, Ted DO Unavailable Unavailable Sun, Ted DO Unavailable Unavailable Sun, Ted DO Unavailable Unavailable Sun, Ted DO Unavailable Unavailable Sun, Ted DO Unavailable Unavailable Sun, Ted DO Unavailable Unavailable Sun, Ted DO Unavailable Unavailable Sun, Ted DO Unavailable Unavailable Sun, Ted DO Unavailable Unavailable Sun, Ted DO Unavailable Unavailable Sun, Ted DO Unavailable Unavailable Sun, Ted DO Unavailable Unavailable Sun, Ted DO Unavailable Unavailable Sun, Ted DO Unavailable Unavailable Sun, Ted DO Unavailable Unavailable Sun, Ted DO Unavailable Unavailable Sun, Ted DO Unavailable Unavailable Sun, Ted DO Unavailable Unavailable Sun, Ted DO Unavailable Unavailable Sun, Ted DO Unavailable Unavailable Sun, Ted DO Unavailable Unavailable Sun, Ted DO Unavailable Unavailable Sun, Ted DO Unavailable Unavailable Sun, Ted DO Unavailable Unavailable Sun, Ted DO Unavailable Unavailable Sun, Ted DO Unavailable Unavailable Sun, Ted DO Unavailable Unavailable Sun, Ted DO Unavailable Unavailable Sun, Ted DO Unavailable Unavailable Sun, Ted DO Unavailable Unavailable Sun, Ted DO Unavailable Unavailable Sun, Ted DO Unavailable Unavailable Sun, Ted DO Unavailable Unavailable Sun, Ted DO Unavailable Unavailable Sun, Ted DO Unavailable Unavailable Sun, Ted DO Unavailable Unavailable Sun, Ted DO Unavailable Unavailable Sun, Ted DO Unavailable Unavailable Sun, Ted DO Unavailable Unavailable Sun, Ted DO Unavailable Unavailable Sun, Ted DO Unavailable Unavailable Sun, Ted DO Unavailable Unavailable Sun, Ted DO Unavailable Unavailable Sun, Ted DO Unavailable Unavailable Sun, Ted DO Unavailable Unavailable Sun, Ted DO Unavailable Unavailable Sun, Ted DO Unavailable Unavailable Sun, Ted DO Unavailable Unavailable Sun, Ted DO Unavailable Unavailable Sun, Ted DO Unavailable Unavailable Sun, Ted DO Unavailable Unavailable Sun, Ted DO Unavailable Unavailable LAROCK, J LATISHA PLANT ECOLOGIST Unavailable Unavailable LAROCK, J LATISHA PLANT ECOLOGIST Unavailable Unavailable LAROCK, J LATISHA PLANT ECOLOGIST Unavailable Unavailable LAROCK, J LATISHA PLANT ECOLOGIST Unavailable Unavailable LAROCK, J LATISHA PLANT ECOLOGIST Unavailable Unavailable LAROCK, J LATISHA PLANT ECOLOGIST Unavailable Unavailable LAROCK, J LATISHA PLANT ECOLOGIST Unavailable Unavailable LAROCK, J LATISHA PLANT ECOLOGIST Unavailable Unavailable LAROCK, J LATISHA PLANT ECOLOGIST Unavailable Unavailable LAROCK, J LATISHA PLANT ECOLOGIST Unavailable Unavailable LAROCK, J LATISHA PLANT ECOLOGIST Unavailable Unavailable LAROCK, J LATISHA PLANT ECOLOGIST Unavailable Unavailable LAROCK, J LATISHA PLANT ECOLOGIST Unavailable Unavailable LAROCK, J LATISHA PLANT ECOLOGIST Unavailable Unavailable LAROCK, J LATISHA PLANT ECOLOGIST Unavailable Unavailable LAROCK, J LATISHA PLANT ECOLOGIST Unavailable Unavailable LAROCK, J LATISHA PLANT ECOLOGIST Unavailable Unavailable LAROCK, J LATISHA PLANT ECOLOGIST Unavailable Unavailable LAROCK, J LATISHA PLANT ECOLOGIST Unavailable Unavailable LAROCK, J LATISHA PLANT ECOLOGIST Unavailable Unavailable LAROCK, J LATISHA PLANT ECOLOGIST Unavailable Unavailable LAROCK, J LATISHA PLANT ECOLOGIST Unavailable Unavailable China García MD Unavailable Unavailable China García MD Unavailable Unavailable China García MD Unavailable Unavailable China García MD Unavailable Unavailable China García MD Unavailable Unavailable China García MD Unavailable Unavailable China García MD Unavailable Unavailable China García MD Unavailable Unavailable China García MD Unavailable Unavailable China García MD Unavailable Unavailable China García MD Unavailable Unavailable China García MD Unavailable Unavailable China García MD Unavailable Unavailable China García MD Unavailable Unavailable China García MD Unavailable Unavailable China García MD Unavailable Unavailable China García MD Unavailable Unavailable GarcíaChina corey MD Unavailable Unavailable GarcíaChina corey MD Unavailable Unavailable GarcíaChina corey MD Unavailable Unavailable GarcíaChina corey MD Unavailable Unavailable GarcíaChina corey MD Unavailable Unavailable GarcíaChina corey MD Unavailable Unavailable GarcíaChina corey MD Unavailable Unavailable GarcíaChina corey MD Unavailable Unavailable GarcíaChina corey MD Unavailable Unavailable GarcíaChina corey MD Unavailable Unavailable GarcíaChina corey MD Unavailable Unavailable GarcíaChina corey MD Unavailable Unavailable GarcíaChina corey MD Unavailable Unavailable GarcíaChina corey MD Unavailable Unavailable GarcíaChina corey MD Unavailable Unavailable GarcíaChina corey MD Unavailable Unavailable García, China Eid MD Unavailable Unavailable GarcíaChina corey MD Unavailable Unavailable GarcíaChina corey MD Unavailable Unavailable GarcíaChina corey MD Unavailable Unavailable GarcíaChina corey MD Unavailable Unavailable GarcíaChina corey MD Unavailable Unavailable GarcíaChina corey MD Unavailable Unavailable GarcíaChina corey MD Unavailable Unavailable China García MD Unavailable Unavailable China García MD Unavailable Unavailable GarcíaChina corey MD Unavailable Unavailable China García MD Unavailable Unavailable LANI, L KOURTNEY PA Unavailable Unavailable LANI, L KOURTNEY PA Unavailable Unavailable LANI, L KOURTNEY PA Unavailable Unavailable LANI, L KOURTNEY PA Unavailable Unavailable LANI, L KOURTNEY PA Unavailable Unavailable LANI, L KOURTNEY PA Unavailable Unavailable LANI, L KOURTNEY PA Unavailable Unavailable LANI, L KOURTNEY PA Unavailable Unavailable LANI, L KOURTNEY PA Unavailable Unavailable LANI, L KOURTNEY PA Unavailable Unavailable LANI, L KOURTNEY PA Unavailable Unavailable LANI, L KOURTNEY PA Unavailable Unavailable LANI, L KOURTNEY PA Unavailable Unavailable LANI, L KOURTNEY PA Unavailable Unavailable LANI, L KOURTNEY PA Unavailable Unavailable LANI, L KOURTNEY PA Unavailable Unavailable LANI, L KOURTNEY PA Unavailable Unavailable LANI, L KOURTNEY PA Unavailable Unavailable LUIS, H OC PLANT ECOLOGIST Unavailable Unavailable LUIS, H OC PLANT ECOLOGIST Unavailable Unavailable LUIS, H OC PLANT ECOLOGIST Unavailable Unavailable LUIS, H OC PLANT ECOLOGIST Unavailable Unavailable LUIS, H OC PLANT ECOLOGIST Unavailable Unavailable LUIS, H OC PLANT ECOLOGIST Unavailable Unavailable LUIS, H OC PLANT ECOLOGIST Unavailable Unavailable LUIS, H OC PLANT ECOLOGIST Unavailable Unavailable LUIS, H OC PLANT ECOLOGIST Unavailable Unavailable Turo, M Apollo RPA-C Unavailable Unavailable Turo, M Apollo RPA-C Unavailable Unavailable Turo, M Apollo RPA-C Unavailable Unavailable Turo, M Apollo RPA-C Unavailable Unavailable Turo, M Apollo RPA-C Unavailable Unavailable Turo, M Apollo RPA-C Unavailable Unavailable Turo, M Apollo RPA-C Unavailable Unavailable Turo, M Apollo RPA-C Unavailable Unavailable Turo, M Apollo RPA-C Unavailable Unavailable Turo, M Apollo RPA-C Unavailable Unavailable Turo, M Apollo RPA-C Unavailable Unavailable Turo, M Apollo RPA-C Unavailable Unavailable Turo, M Apollo RPA-C Unavailable Unavailable Turo, M Apollo RPA-C Unavailable Unavailable Turo, M Apollo RPA-C Unavailable Unavailable Turo, M Apollo RPA-C Unavailable Unavailable Turo, M Apollo RPA-C Unavailable Unavailable Turo, M Apollo RPA-C Unavailable Unavailable Turo, M Apollo RPA-C Unavailable Unavailable Turo, M Apollo RPA-C Unavailable Unavailable Turo, M Apollo RPA-C Unavailable Unavailable Turo, M Apollo RPA-C Unavailable Unavailable Turo, M Apollo RPA-C Unavailable Unavailable Turo, M Apollo RPA-C Unavailable Unavailable Turo, M Apollo RPA-C Unavailable Unavailable Turo, M Apollo RPA-C Unavailable Unavailable Turo, M Apollo RPA-C Unavailable Unavailable Merna Barney Unavailable Yaw CHURCH MD Unavailable Unavailable Yaw CHURCH MD Unavailable Unavailable Yaw CHURCH MD Unavailable Unavailable Yaw CHURCH MD Unavailable Unavailable Yaw CHURCH MD Unavailable Unavailable Yaw CHURCH MD Unavailable Unavailable Yaw CHURCH MD Unavailable Unavailable Yaw CHURCH MD Unavailable Unavailable Yaw CHURCH MD Unavailable Unavailable Yaw CHURCH MD Unavailable Unavailable Yaw CHURCH MD Unavailable Unavailable Yaw CHURCH MD Unavailable Unavailable Yaw CHURCH MD Unavailable Unavailable Yaw CHURCH MD Unavailable Unavailable Yaw CHURCH MD Unavailable Unavailable Yaw CHURCH MD Unavailable Unavailable Yaw CHURCH MD Unavailable Unavailable Yaw CHURCH MD Unavailable Unavailable Yaw CHURCH MD Unavailable Unavailable Yaw CHURCH MD Unavailable Unavailable Yaw CHURCH MD Unavailable Unavailable Yaw CHURCH MD Unavailable Unavailable Yaw CHURCH MD Unavailable Unavailable Yaw CHURCH MD Unavailable Unavailable Yaw CHURCH MD Unavailable Unavailable Yaw CHURCH MD Unavailable Unavailable Yaw CHURCH MD Unavailable Unavailable Yaw CHURCH MD Unavailable Unavailable Yaw CHURCH MD Unavailable Unavailable Yaw CHURCH MD Unavailable Unavailable Yaw CHURCH MD Unavailable Unavailable Yaw CHURCH MD Unavailable Unavailable Yaw CHURCH MD Unavailable Unavailable Lang, Gill PLANT ECOLOGIST Unavailable Unavailable Lang, Gill PLANT ECOLOGIST Unavailable Unavailable Lang, Gill PLANT ECOLOGIST Unavailable Unavailable Lang, Gill PLANT ECOLOGIST Unavailable Unavailable Lang, Gill PLANT ECOLOGIST Unavailable Unavailable Lang, Gill PLANT ECOLOGIST Unavailable Unavailable Lang, Gill PLANT ECOLOGIST Unavailable Unavailable Lang, Gill PLANT ECOLOGIST Unavailable Unavailable Lang, Gill PLANT ECOLOGIST Unavailable Unavailable Lang, Gill PLANT ECOLOGIST Unavailable Unavailable Lang, Gill PLANT ECOLOGIST Unavailable Unavailable Lang, Gill PLANT ECOLOGIST Unavailable Unavailable Lang, Gill PLANT ECOLOGIST Unavailable Unavailable Lang, Gill PLANT ECOLOGIST Unavailable Unavailable Lang, Gill PLANT ECOLOGIST Unavailable Unavailable Lang, Gill PLANT ECOLOGIST Unavailable Unavailable Lang, Gill PLANT ECOLOGIST Unavailable Unavailable Lang, Gill PLANT ECOLOGIST Unavailable Unavailable Lang, Gill PLANT ECOLOGIST Unavailable Unavailable Lang, Gill PLANT ECOLOGIST Unavailable Unavailable Lang, Gill PLANT ECOLOGIST Unavailable Unavailable Lang, Gill PLANT ECOLOGIST Unavailable Unavailable Lang, Gill PLANT ECOLOGIST Unavailable Unavailable Lang, Gill PLANT ECOLOGIST Unavailable Unavailable Lang, Gill PLANT ECOLOGIST Unavailable Unavailable Lang, Gill PLANT ECOLOGIST Unavailable Unavailable Yaw Rendon PMH-PLANT ECOLOGIST Unavailable Unavailable Yaw Rendon PMH-PLANT ECOLOGIST Unavailable Unavailable Yaw Rendon PMH-PLANT ECOLOGIST Unavailable Unavailable Yaw Rendon PMH-PLANT ECOLOGIST Unavailable Unavailable Yaw Rendon PMH-PLANT ECOLOGIST Unavailable Unavailable Yaw Rendon PMH-PLANT ECOLOGIST Unavailable Unavailable Justice, Yaw Cuellar PMH-PLANT ECOLOGIST Unavailable Unavailable Justice, Yaw Cuellar PMH-PLANT ECOLOGIST Unavailable Unavailable Justiec, Yaw Cuellar PMH-PLANT ECOLOGIST Unavailable Unavailable Justice, Yaw Cuellar PMH-PLANT ECOLOGIST Unavailable Unavailable Re-disclosure Warning The records that [...] is protected by Article 27-F of the [place] Public [employer] law. If you continue you may have access to information: Regarding HIV / AIDS; Provided by facilities licensed or operated by the [employer] Office of Mental Health; or Provided by the [employer] Office for People With Developmental Disabilities. If such information is present, then the following [employer] mandated warning applies: This information has been [...] law may result in a fine or mcfp sentence or both. A general authorization for the release of medical or other information is NOT sufficient authorization for further disc losure. Allergies and Adverse Reactions Type Description Substance Reaction Status Data Source(s ) Propensity to adverse reactions NO KNOWN ALLERGIES NO KNOWN ALLERGIES [facility] Family History Family Member Name Family Member Gender Family Member Status Date o f Status Description Data Source(s) Unknown Unknown Problem [facility] [place]ters Encounter Providers Location Date Indications Data Source(s ) Attender: Merna Barney 07/22/2021 12:00:00 AM EST [facility] ([facility]) Brief Individual Psychotherapy - 30 min Attender: Merna longoria [facility] 07/20/2021 04:45:00 AM EST - 07/20/2021 04:45:00 AM EST [facility] ([facility]) Outpatient Attender: OC TUTTLE NP [facility] oliva 07/13/2021 04:30:00 AM EST - 07/13/2021 04:30:00 AM EST [facility] ([facility]) Extended Individual Psychotherapy - 45 min Attender: Merna Barney [facility] 07/13/2021 03:30:00 AM EST - 07/13/2021 03:30:00 AM EST [facility] ([facility]) Attender: Merna Barney 07/13/2021 12:00:00 AM EST [facility] ([facility]) Attender: OC TUTTLE NP 07/13/2021 12:00:00 AM EST [facility] ([facility]) Outpatient Attender: Ragini García MD [employer] [facility] 07/12/2021 12:20:00 PM EST [facility] ([employer] [facility]) Outpatient Attender: Apollo [facility] 06/11/2021 03:00:00 PM EDT [facility] ([employer] [facility]) Attender: Merna Barney 06/04/2021 12:00:00 AM EDT [facility] ([facility]) Outpatient Attender: OC TUTTLE NP [facility] 06/03/2021 05:00:00 AM EDT - 06/03/2021 05:00:00 AM EDT [facility] ([facility]) Extended Individual Psychotherapy - 45 min Attender: Merna Barney [facility] 06/03/2021 04:00:00 AM EDT - 06/03/2021 04:00:00 AM EDT [facility] ([facility]) Attender: OC TUTTLE NP 06/03/2021 12:00:00 AM EDT [facility] ([facility]) Attender: Merna Barney 05/21/2021 12:00:00 AM EDT [facility] ([facility]) Extended Individual Psychotherapy - 45 min Attender: Merna Barney [facility] 05/20/2021 04:00:00 AM EDT - 05/20/2021 04:00:00 AM EDT [facility] ([facility]) Outpatient Attender: Apollo ANN [facility] 05/14/2021 08:40:00 AM EDT [facility] ([employer] [facility]) Attender: Merna Barney 05/07/2021 12:00:00 AM EDT [facility] ([facility]) Outpatient Attender: Ted Phillips DOAdmitter: Ted Phillips DO ES1-S J.EU 05/06/2021 10:52:25 AM EDT [facility] Extended Individual Psychotherapy - 45 min Attender: Merna Barney [facility] 05/06/2021 04:00:00 AM EDT - 05/06/2021 04:00:00 AM EDT [facility] ([facility]) Extended Individual Psychotherapy - 45 min Attender: Merna Barney [facility] 04/22/2021 04:00:00 AM EDT - 04/22/2021 04:00:00 AM EDT [facility] ([facility]) Attender: Merna Barney 04/22/2021 12:00:00 AM EDT [facility] ([facility]) Unknown [address] [facility] [address] 04/15/2021 12:00:00 AM EDT eCW1 (Critical [facility] hospital) Extended Individual Psychotherapy - 45 min Attender: Merna Barney [facility] 04/12/2021 02:00:00 AM EDT - 04/12/2021 02:00:00 AM EDT [facility] ([facility]) Attender: Merna Barney 04/12/2021 12:00:00 AM EDT [facility] ([facility]) Outpatient Attender: EDITH De Los Santos/Eufemia/Kashif ibarra/Reina 04/09/2021 01:30:00 PM EDT [facility] ([facility] Outpatient Attender: KOURTNEY BARILLAS [facility] 04/07/2021 01:10:00 PM EDT [facility] ([facility]) Extended Individual Psychotherapy - 45 min Attender: Merna Barney [facility] 04/05/2021 02:00:00 AM EDT - 04/05/2021 02:00:00 AM EDT [facility] ([facility]) Attender: Meran Bareny 04/05/2021 12:00:00 AM EDT [facility] ([facility]) Outpatient Attender: OC TUTTLE NP [facility] Mian baptiste 03/31/2021 04:00:00 AM EDT - 03/31/2021 04:00:00 AM EDT [facility] ([facility]) Attender: OC TUTTLE NP 03/31/2021 12:00:00 AM EDT [facility] ([facility]) Extended Individual Psychotherapy - 45 min Att[facility]: [facility] 03/29/2021 02:00:00 AM EDT - 03/29/2021 02:00:00 AM EDT [facility] ([facility]) Attender: Merna Barney 03/29/2021 12:00:00 AM EDT [facility] ([facility]) Outpatient Attender: OC TUTTLE NP [facility] Mian baptiste 03/16/2021 02:00:00 AM EDT - 03/16/2021 02:00:00 AM EDT [facility] ([facility]) Attender: OC TUTTLE NP 03/16/2021 12:00:00 AM EDT [facility] ([facility]) Attender: Merna Barney 03/09/2021 12:00:00 AM EDT [facility] ([facility]) Extended Individual Psychotherapy - 45 min Attender: Merna Barney [facility] 03/08/2021 02:00:00 AM EDT - 03/08/2021 02:00:00 AM EDT [facility] ([facility]) Outpatient Attender: Gill Lang NP [facility] 03/01/2021 11:20:00 AM EDT [facility] ([employer] [facility]) Extended Individual Psychotherapy - 45 min Attender: Merna Barney [facility] 03/01/2021 02:00:00 AM EDT - 03/01/2021 02:00:00 AM EDT [facility] ([facility]) Attender: Merna Barney 03/01/2021 12:00:00 AM EDT [facility] ([facility]) Outpatient Attender: LATISHA WEBBER NP 08/2020 05:15:22 PM EDT - 02/18/2021 05:37:20 PM EDT [facility] ([facility] ) Extended Individual Psychotherapy - 45 min Attender: Merna Barney [facility] 02/15/2021 02:00:00 AM EDT - 02/15/2021 02:00:00 AM EDT [facility] ([facility]) Attender: Merna Barney 02/15/2021 12:00:00 AM EDT [facility] ([facility]) Attender: Merna Barney 02/02/2021 12:00:00 AM EDT [facility] ([facility]) Extended Individual Psychotherapy - 45 min Attender: Merna Barney [facility] 02/01/2021 01:45:00 AM EDT - 02/01/2021 01:45:00 AM EDT [facility] ([facility]) Outpatient [address] [facility] [address] 01/27/2021 12:00:00 AM EDT eC1 (Critical access hospital) Outpatient Attender: Alisa LOPEZ [facility] 01/14/2021 11:00:00 AM EDT - 01/14/2021 11:00:00 AM EDT [facility] ([facility]) Attender: Alisa LOPEZ 01/14/2021 12: 00:00 AM EDT [facility] ([facility]) Extended Individual Psychotherapy - 45 min Attender: Merna Barney [facility] 01/11/2021 02:00:00 AM EDT - 01/11/2021 02:00:00 AM EDT [facility] ([facility]) Attender: Merna Barney 01/11/2021 12:00:00 AM EDT [facility] ([facility]) Attender: Merna Barney 01/05/2021 12:00:00 AM EDT [facility] ([facility]) Extended Individual Psychotherapy - 45 min Attender: Merna Barney [facility] 01/04/2021 02:00:00 AM EDT - 01/04/2021 02:00:00 AM EDT [facility] ([facility]) Attender: Merna Barney 12/29/2020 12:00:00 AM EDT [facility] ([facility]) Extended Individual Psychotherapy - 45 min Attender: Merna [facility] 12/28/2020 02:00:00 AM EDT - 12/28/2020 02:00:00 AM EDT [facility] ([facility]) Outpatient [address] [facility] [address] 12/24/2020 12:00:00 AM EDT eCW1 (Critical access hospital) Outpatient Attender: Alisa LOPEZ [facility] 12/10/2020 11:00:00 AM EDT - 12/10/2020 11:00:00 AM EDT [facility] ([facility]) Attender: Alisa LOPEZ 12/10/2020 12: 00:00 AM EDT [facility] ([facility]) Extended Individual Psychotherapy - 45 min Attender: Merna Ector [facility] 11/30/2020 01:00:00 AM EDT - 11/30/2020 01:00:00 AM EDT [facility] ([facility]) Attender: Merna Barney 11/30/2020 12:00:00 AM EDT [facility] ([facility]) Extended Individual Psychotherapy - 45 min Attender: Merna Ector [facility] 11/23/2020 01:00:00 AM EDT - 11/23/2020 01:00:00 AM EDT [facility] ([facility]) Attender: Merna Barney 11/23/2020 12:00:00 AM EDT [facility] ([facility]) ([facility]) [facility] Procedure [address] [place] [address] 11/19/2020 12:00:00 AM EDT eC1 ([facility]) Attender: Merna Barney 11/18/2020 12:00:00 AM EDT [facility] ([facility]) Extended Individual Psychotherapy - 45 min Attender: Merna Barney [facility] 11/17/2020 11:45:00 AM EDT - 11/17/2020 11:45:00 AM EDT [facility] ([facility]) Extended Individual Psychotherapy - 45 min Attender: Merna Barney [facility] 11/10/2020 11:00:00 AM EDT - 11/10/2020 11:00:00 AM EDT [facility] ([facility]) Outpatient Attender: Alisa Rendon [facility] Rickey [facility] 11/10/2020 01:30:00 AM EDT - 11/10/2020 01:30:00 AM EDT [facility] ([facility]) Attender: Alisa LOPEZ 11/10/2020 12: 00:00 AM EDT [facility] ([facility]) Attender: Merna Barney 11/10/2020 12:00:00 AM EDT [facility] ([facility]) Outpatient [address] [facility] [address] 11/03/2020 12:00:00 AM EDT eCW1 (Critical access hospital) Attender: Merna Barney 10/28/2020 12:00:00 AM EST [facility] ([facility]) Extended Individual Psychotherapy - 45 min Attender: Merna Barney [facility] 10/27/2020 11:00:00 AM EST - 10/27/2020 11:00:00 AM EST [facility] ([facility]) Extended Individual Psychotherapy - 45 min Attender: Merna Barney [facility] 10/19/2020 01:00:00 AM EST - 10/19/2020 01:00:00 AM EST [facility] ([facility]) Attender: Merna Barney 10/19/2020 12:00:00 AM EST [facility] ([facility]) Extended Individual Psychotherapy - 45 min Attender: Merna Barney [facility] 10/14/2020 01:00:00 AM EST - 10/14/2020 01:00:00 AM EST [facility] ([facility]) Attender: Merna Barney 10/14/2020 12:00:00 AM EST [facility] ([facility]) [facility] 10/12/2020 11:00:00 AM EST - 10/12/2020 11:00:00 AM EST [facility] ([facility]) Attender: Alisa DIXONJULIANO 10/12/2020 12: 00:00 AM EST [facility] ([facility]) Extended Individual Psychotherapy - 45 min Attender: Merna Barney [facility] 10/07/2020 12:00:00 PM EST - 10/07/2020 12:00:00 PM EST [facility] ([facility]) Attender: Merna Barney 10/07/2020 12:00:00 AM EST [facility] ([facility]) Extended Individual Psychotherapy - 45 min Attender: Merna Barney [facility] 09/30/2020 01:00:00 AM EST - 09/30/2020 01:00:00 AM EST [facility] ([facility]) Attender: Merna Barney 09/30/2020 12:00:00 AM EST [facility] ([facility]) Attender: Merna Barney 09/25/2020 12:00:00 AM EST [facility] ([facility]) Extended Individual Psychotherapy - 45 min Attender: Merna Barney [facility] 09/23/2020 12:00:00 PM EST - 09/23/2020 12:00:00 PM EST [facility] ([facility]) Extended Individual Psychotherapy - 45 min Attender: Merna Barney [facility] 09/02/2020 12:00:00 PM EST - 09/02/2020 12:00:00 PM EST [facility] ([facility]) Outpatient Attender: Alisa Rendon [facility] 09/02/2020 11:30:00 AM EST - 09/02/2020 11:30:00 AM EST [facility] ([facility]) Attender: Merna Barney 09/02/2020 12:00:00 AM EST [facility] ([facility]) Attender: Alisa DIXONJULIANO 09/02/2020 12: 00:00 AM EST [facility] ([facility]) Extended Individual Psychotherapy - 45 min Attender: Merna Barney [facility] 08/26/2020 12:00:00 PM EST - 08/26/2020 12:00:00 PM EST [facility] ([facility]) Attender: Merna Barney 08/26/2020 12:00:00 AM EST [facility] ([facility]) Attender: Merna Barney 08/20/2020 12:00:00 AM EST [facility] ([facility]) Extended Individual Psychotherapy - 45 min Attender: Merna Barney [facility] 08/19/2020 12:00:00 PM EST - 08/19/2020 12:00:00 PM EST [facility] ([facility]) Extended Individual Psychotherapy - 45 min Attender: Merna Barney [facility] 08/05/2020 12:00:00 PM EST - 08/05/2020 12:00:00 PM EST [facility] ([facility]) Attender: Merna Barney 08/05/2020 12:00:00 AM EST [facility] ([facility]) Extended Individual Psychotherapy - 45 min Attender: Merna Barney [facility] 07/30/2020 11:00:00 AM EST - 07/30/2020 11:00:00 AM EST [facility] ([facility]) Attender: Merna Barney 07/30/2020 12:00:00 AM EST [facility] ([facility]) Extended Individual Psychotherapy - 45 min Attender: Merna Barney [facility] 07/01/2020 12:00:00 PM EST - 07/01/2020 12:00:00 PM EST [facility] ([facility]) Attender: Merna Barney 07/01/2020 12:00:00 AM EST [facility] ([facility]) Extended Individual Psychotherapy - 45 min Attender: Merna Barney [facility] 06/23/2020 11:00:00 AM EST - 06/23/2020 11:00:00 AM EST [facility] ([facility]) Attender: Merna Barney 06/23/2020 12:00:00 AM EST [facility] ([facility]) Outpatient Attender: Alisa Rendon [facility] 06/22/2020 01:30:00 AM EST - 06/22/2020 01:30:00 AM EST [facility] ([facility]) Attender: Alisa LOPEZ 06/22/2020 12: 00:00 AM EST [facility] ([facility]) TEMPMHCTelemed 30" Psychotherapy Attender: Merna Barney [facility] 06/18/2020 10:00:00 AM EDT - 06/18/2020 10:00:00 AM EDT [facility] ([facility]) Attender: Merna Barney 06/18/2020 12:00:00 AM EDT [facility] ([facility]) Attender: Merna Barney 06/04/2020 12:00:00 AM EDT [facility] ([facility]) Extended Individual Psychotherapy - 45 min Attender: Merna Barney [facility] 06/03/2020 12:15:00 PM EDT - 06/03/2020 12:15:00 PM EDT [facility] ([facility]) Extended Individual Psychotherapy - 45 min Attender: Merna Barney [facility] 05/27/2020 02:00:00 AM EDT - 05/27/2020 02:00:00 AM EDT [facility] ([facility]) Attender: Merna Barney 05/27/2020 12:00:00 AM EDT [facility] ([facility]) Outpatient Attender: Alisa Rendon [facility] 05/26/2020 03:00:00 AM EDT - 05/26/2020 03:00:00 AM EDT [facility] ([facility]) Attender: Alisa DIXONJULIANO 05/26/2020 12: 00:00 AM EDT [facility] ([facility]) Functional Status Immunizations Vaccine Date Status Description Data Source(s) HPV9 03/01/2021 12:12:00 PM EDT completed [facility] ([facility]) meningococcal B, OMV 03/01/2021 12:11:00 PM EDT completed [facility] ([facility]) meningococcal B, OMV 03/01/2021 08:12:00 AM EDT completed [facility] ([facility]) HPV9 03/01/2021 08:11:00 AM EDT completed [facility] ([facility]) COVID-19 VACC, MRNA(PFIZER)/PF 01/26/2021 12:00:00 AM EDT completed [facility] COVID-19 VACCINE Pfizer 01/26/2021 12:00:00 AM EDT completed [facility] Vaccine Series Complete: YESThis Data wa s Submitted to [facility] Via [employer]. COVID-19 VACC, MRNA(Associated Content)/PF 01/05/2021 12:00:00 AM EDT completed [facility] COVID-19 VACCINE Pfizer 01/05/2021 12:00:00 AM EDT completed [facility] Vaccine Series Complete: NOThis Data was Submitted to [facility] [employer]. Medications Medication Brand Name Start Date Product Form Dose Route Admi nistrative Instructions Pharmacy Instructions Status Indications Reaction Description Data Source(s) Lurasidone Hydrochloride 20 MG Oral Tablet [Latuda] Latuda 07/13/2021 12:00:00 AM EST 20 mg by mouth completed <td ID="MedicationRxNorm_5">9783623</td><td ID="MedicationMedication_5">Latuda</td><td ID="MedicationRoute_5">by mouth</td><td ID="MedicationRouteConcept_5">J38100</td><td ID="MedicationStartDate_5">07/13/2021</td><td ID="MedicationStopDate_5">08/12/2021</td><td ID="MedicationDosageFrequency_5">at bedtime</td><td ID="MedicationDuration_5">30</td><td ID="MedicationFormulaStrength_5">20 mg</td><td ID="MedicationDosageForm_5">tablet</td><td ID="MedicationDosageFormCode_5"></td><td ID="MedicationDosageDescription_5"></td><td ID="MedicationMedicationId_5">[id number]</td><td ID="MedicationAccount_5">[id number]</td><td ID="MedicationNpid_5">[id number]</td><td ID="MedicationAuthorFirstName_5">Oc</td><td ID="MedicationAuthorLastName_5">Luis</td><td ID="MedicationTaxonomyCode_5">[id number]</td><td ID="MedicationTaxonomyDesc_5">Nurse Practitioner</td><td ID="MedicationPhoneNumber_5">[phone]</td> [facility] ([facility]) Lurasidone Hydrochloride 20 MG Oral Tablet [Latuda] Latuda 07/13/2021 12:00:00 AM EST 20 mg by mouth completed <td ID="MedicationRxNorm_3">3953458</td><td ID="MedicationMedication_3">Latuda</td><td ID="MedicationRoute_3">by mouth</td><td ID="MedicationRouteConcept_3">K45322</td><td ID="MedicationStartDate_3">07/13/2021</td><td ID="MedicationStopDate_3">08/12/2021</td><td ID="MedicationDosageFrequency_3">at bedtime</td><td ID="MedicationDuration_3">30</td><td ID="MedicationFormulaStrength_3">20 mg</td><td ID="MedicationDosageForm_3">tablet</td><td ID="MedicationDosageFormCode_3"></td><td ID="MedicationDosageDescription_3"></td><td ID="MedicationMedicationId_3">[id number]</td><td ID="MedicationAccount_3">[id number]</td><td ID="MedicationNpid_3">[id number]</td><td ID="MedicationAuthorFirstName_3">Oc</td><td ID="MedicationAuthorLastName_3">Luis</td><td ID="MedicationTaxonomyCode_3">[id number]</td><td ID="MedicationTaxonomyDesc_3">Nurse Practitioner</td><td ID="MedicationPhoneNumber_3">[phone]</td> [facility] ([facility]) Lurasidone Hydrochloride 20 MG Oral Tablet [Latuda] Latuda 07/13/2021 12:00:00 AM EST 20 mg by mouth completed <td ID="MedicationRxNorm_4">1915125</td><td ID="MedicationMedication_4">Latuda</td><td ID="MedicationRoute_4">by mouth</td><td ID="MedicationRouteConcept_4">M28882</td><td ID="MedicationStartDate_4">07/13/2021</td><td ID="MedicationStopDate_4">07/13/2021</td><td ID="MedicationDosageFrequency_4">at bedtime</td><td ID="MedicationDuration_4">30</td><td ID="MedicationFormulaStrength_4">20 mg</td><td ID="MedicationDosageForm_4">tablet</td><td ID="MedicationDosageFormCode_4"></td><td ID="MedicationDosageDescription_4"></td><td ID="MedicationMedicationId_4">[id number]</td><td ID="MedicationAccount_4">[id number]</td><td ID="MedicationNpid_4">[id number]</td><td ID="MedicationAuthorFirstName_4">Oc</td><td ID="MedicationAuthorLastName_4">Luis</td><td ID="MedicationTaxonomyCode_4">[id number]</td><td ID="MedicationTaxonomyDesc_4">Nurse Practitioner</td><td ID="MedicationPhoneNumber_4">[phone]</td> [facility] ([facility]) aripiprazole 5 MG Oral Tablet aripiprazole 07/05/2021 12:00:00 AM EST 5 mg by mouth completed <td ID="Medica tionRxNorm_3">815549</td><td ID="MedicationMedication_3">aripiprazole</td><td ID="MedicationRoute_3">by mouth</td><td ID="MedicationRouteConcept_3">S56767</td><td ID="MedicationStartDate_3">07/05/2021</td><td ID="MedicationStopDate_3">07/13/2021</td><td ID="MedicationDosageFrequency_3">once a day</td><td ID="MedicationDuration_3">30</td><td ID="MedicationFormulaStrength_3">5 mg</td><td ID="MedicationDosageForm_3">tablet</td><td ID="MedicationDosageFormCode_3"></td><td ID="MedicationDosageDescription_3"></td><td ID="MedicationMedicationId_3">[id number]</td><td ID="MedicationAccount_3">[id number]</td><td ID="MedicationNpid_3">[id number]</td><td ID="MedicationAuthorFirstName_3">Oc</td><td ID="MedicationAuthorLastName_3">Luis</td><td ID="MedicationTaxonomyCode_3">[id number]</td><td ID="MedicationTaxonomyDesc_3">Nurse Practitioner</td><td ID="MedicationPhoneNumber_3">[phone]</td> [facility] ([facility]) 14 ACTUAT fluticasone furoate 0.1 MG/ACTUAT Dry Powder Inhaler [Arnuity] Arnuity Ellipta 06/15/2021 12:00:00 AM EDT RESPIRATORY active [facility] ([facility]) 30 ACTUAT mometasone furoate 0.2 MG/ACTUAT Dry Powder Inhaler [Asmanex] Asmanex Twisthaler 30 Metered Doses 06/11/2021 12:00:00 AM EDT RESPI RATORY completed [facility] ([facility] 200 ACTUAT Albuterol 0.09 MG/ACTUAT Metered Dose Inhal er [Ventolin] Ventolin HFA 06/11/2021 12:00:00 AM EDT RESPIRATORY active [facility] ([facility]) lamotrigine 25 MG Oral Tablet lamotrigine 06/03/2021 12:00:00 AM EDT 25 mg by mouth completed <td ID="Medica tionRxNorm_2">798178</td><td ID="MedicationMedication_2">lamotrigine</td><td ID="MedicationRoute_2">by mouth</td><td ID="MedicationRouteConcept_2">K41210</td><td ID="MedicationStartDate_2">06/03/2021</td><td ID="MedicationStopDate_2"></td><td ID="MedicationDosageFrequency_2">once a day</td><td ID="MedicationDuration_2"></td><td ID="MedicationFormulaStrength_2">25 mg</td><td ID="MedicationDosageForm_2">tablet</td><td ID="MedicationDosageFormCode_2"></td><td ID="MedicationDosageDescription_2"></td><td ID="MedicationMedicationId_2">[id number]</td><td ID="MedicationAccount_2">[id number]</td><td ID="MedicationNpid_2">[id number]</td><td ID="MedicationAuthorFirstName_2">Oc</td><td ID="MedicationAuthorLastName_2">Luis</td><td ID="MedicationTaxonomyCode_2">[id number]</td><td ID="MedicationTaxonomyDesc_2">Nurse Practitioner</td><td ID="MedicationPhoneNumber_2">[phone]</td> [facility] ([facility]) olanzapine 2.5 MG Oral Tablet olanzapine 05/20/2021 12:00:00 AM EDT 2.5 mg by mouth completed <td ID="Medica tionRxNorm_4">187833</td><td ID="MedicationMedication_4">olanzapine</td><td ID="MedicationRoute_4">by mouth</td><td ID="MedicationRouteConcept_4">C37507</td><td ID="MedicationStartDate_4">05/20/2021</td><td ID="MedicationStopDate_4">07/19/2021</td><td ID="MedicationDosageFrequency_4">at bedtime</td><td ID="MedicationDuration_4">30</td><td ID="MedicationFormulaStrength_4">2.5 mg</td><td ID="MedicationDosageForm_4">tablet</td><td ID="MedicationDosageFormCode_4"></td><td ID="MedicationDosageDescription_4"></td><td ID="MedicationMedicationId_4">[id number]</td><td ID="MedicationAccount_4">[id number]</td><td ID="MedicationNpid_4">[id number]</td><td ID="MedicationAuthorFirstName_4">Oc</td><td ID="MedicationAuthorLastName_4">Luis</td><td ID="MedicationTaxonomyCode_4">[id number]</td><td ID="MedicationTaxonomyDesc_4">Nurse Practitioner</td><td ID="MedicationPhoneNumber_4">[phone]</td> [facility] ([facility]) olanzapine 2.5 MG Oral Tablet olanzapine 05/20/2021 12:00:00 AM EDT 2.5 mg by mouth completed <td ID="Medica tionRxNorm_3">359761</td><td ID="MedicationMedication_3">olanzapine</td><td ID="MedicationRoute_3">by mouth</td><td ID="MedicationRouteConcept_3">R82678</td><td ID="MedicationStartDate_3">05/20/2021</td><td ID="MedicationStopDate_3"></td><td ID="MedicationDosageFrequency_3">at bedtime</td><td ID="MedicationDuration_3">30</td><td ID="MedicationFormulaStrength_3">2.5 mg</td><td ID="MedicationDosageForm_3">tablet</td><td ID="MedicationDosageFormCode_3"></td><td ID="MedicationDosageDescription_3"></td><td ID="MedicationMedicationId_3">[id number]</td><td ID="MedicationAccount_3">[id number]</td><td ID="MedicationNpid_3">[id number]</td><td ID="MedicationAuthorFirstName_3">Oc</td><td ID="MedicationAuthorLastName_3">Luis</td><td ID="MedicationTaxonomyCode_3">[id number]</td><td ID="MedicationTaxonomyDesc_3">Nurse Practitioner</td><td ID="MedicationPhoneNumber_3">[phone]</td> [facility] ([facility]) ferrous sulfate 325 MG Oral Tablet Ferrous Sulfate 05/14/2021 12:00 :00 AM EDT ORAL active [facility] ([facility]) Sulfamethoxazole 800 MG / Trimethoprim 160 MG Oral Tab let Sulfamethoxazole/Trimethoprim DS 04/08/2021 12:00:00 AM EDT ORAL completed [facility] ([facility]) aripiprazole 10 MG Oral Tablet aripiprazole 03/31/2021 12:00:00 AM ED T 10 mg by mouth completed <td ID="Medica tionRxNorm_4">249235</td><td ID="MedicationMedication_4">aripiprazole</td><td ID="MedicationRoute_4">by mouth</td><td ID="MedicationRouteConcept_4">N34752</td><td ID="MedicationStartDate_4">03/31/2021</td><td ID="MedicationStopDate_4">06/18/2021</td><td ID="MedicationDosageFrequency_4">once a day</td><td ID="MedicationDuration_4">30</td><td ID="MedicationFormulaStrength_4">10 mg</td><td ID="MedicationDosageForm_4">tablet</td><td ID="MedicationDosageFormCode_4"></td><td ID="MedicationDosageDescription_4"></td><td ID="MedicationMedicationId_4">[id number]</td><td ID="MedicationAccount_4">[id number]</td><td ID="MedicationNpid_4">[id number]</td><td ID="MedicationAuthorFirstName_4">Oc</td><td ID="MedicationAuthorLastName_4">Luis</td><td ID="MedicationTaxonomyCode_4">[id number]</td><td ID="MedicationTaxonomyDesc_4">Nurse Practitioner</td><td ID="MedicationPhoneNumber_4">[phone]</td> [facility]) aripiprazole 15 MG Oral Tablet aripiprazole 03/16/2021 12:00:00 AM ED T 15 mg by mouth completed <td ID="Medica tionRxNorm_5">346665</td><td ID="MedicationMedication_5">aripiprazole</td><td ID="MedicationRoute_5">by mouth</td><td ID="MedicationRouteConcept_5">C98493</td><td ID="MedicationStartDate_5">03/16/2021</td><td ID="MedicationStopDate_5">04/15/2021</td><td ID="MedicationDosageFrequency_5">once a day</td><td ID="MedicationDuration_5">30</td><td ID="MedicationFormulaStrength_5">15 mg</td><td ID="MedicationDosageForm_5">tablet</td><td ID="MedicationDosageFormCode_5"></td><td ID="MedicationDosageDescription_5"></td><td ID="MedicationMedicationId_5">[id number]</td><td ID="MedicationAccount_5">[id number]</td><td ID="MedicationNpid_5">[id number]</td><td ID="MedicationAuthorFirstName_5">Oc</td><td ID="MedicationAuthorLastName_5">Luis</td><td ID="MedicationTaxonomyCode_5">[id number]</td><td ID="MedicationTaxonomyDesc_5">Nurse Practitioner</td><td ID="MedicationPhoneNumber_5">[phone]</td> [facility] ([facility]) Omeprazole 20 MG Delayed Release Oral Capsule Omeprazole 03/01/2021 12:00:00 AM EDT ORAL active [facility] ([facility]) Propranolol Hydrochloride 10 MG Oral Tablet propranolol 01/14/2021 12:00:00 AM EDT 10 mg by mouth completed <td ID="MedicationRxNorm_1">493874</td><td ID="MedicationMedication_1">propranolol</td><td ID="MedicationRoute_1">by mouth</td><td ID="MedicationRouteConcept_1">Z15914</td><td ID="MedicationStartDate_1">01/14/2021</td><td ID="MedicationStopDate_1"></td><td ID="MedicationDosageFrequency_1">twice a day</td><td ID="MedicationDuration_1"></td><td ID="MedicationFormulaStrength_1">10 mg</td><td ID="MedicationDosageForm_1">tablet</td><td ID="MedicationDosageFormCode_1"></td><td ID="MedicationDosageDescription_1"></td><td ID="MedicationMedicationId_1">[id number]</td><td ID="MedicationAccount_1">[id number]</td><td ID="MedicationNpid_1">[id number]</td><td ID="MedicationAuthorFirstName_1">Oc</td><td ID="MedicationAuthorLastName_1">Luis</td><td ID="MedicationTaxonomyCode_1">[id number]</td><td ID="MedicationTaxonomyDesc_1">Nurse Practitioner</td><td ID="MedicationPhoneNumber_1">[phone]</td> [facility] ([facility]) Propranolol Hydrochloride 10 MG Oral Tablet propranolol 01/14/2021 12:00:00 AM EDT 10 mg by mouth completed <td ID="MedicationRxNorm_3">349756</td><td ID="MedicationMedication_3">propranolol</td><td ID="MedicationRoute_3">by mouth</td><td ID="MedicationRouteConcept_3">L40463</td><td ID="MedicationStartDate_3">01/14/2021</td><td ID="MedicationStopDate_3"></td><td ID="MedicationDosageFrequency_3">twice a day</td><td ID="MedicationDuration_3"></td><td ID="MedicationFormulaStrength_3">10 mg</td><td ID="MedicationDosageForm_3">tablet</td><td ID="MedicationDosageFormCode_3"></td><td ID="MedicationDosageDescription_3"></td><td ID="MedicationMedicationId_3">[id number]</td><td ID="MedicationAccount_3">[id number]</td><td ID="MedicationNpid_3">[id number]</td><td ID="MedicationAuthorFirstName_3">Alisa</td><td ID="MedicationAuthorLastName_3">Justice</td><td ID="MedicationTaxonomyCode_3">[id number]</td><td ID="MedicationTaxonomyDesc_3">Psychiatric/Mental Health</td><td ID="MedicationPhoneNumber_3">[phone]</td> [facility] ([facility]) Propranolol Hydrochloride 10 MG Oral Tablet propranolol 01/14/2021 12:00:00 AM EDT 10 mg by mouth completed <td ID="MedicationRxNorm_2">455540</td><td ID="MedicationMedication_2">propranolol</td><td ID="MedicationRoute_2">by mouth</td><td ID="MedicationRouteConcept_2">O56373</td><td ID="MedicationStartDate_2">01/14/2021</td><td ID="MedicationStopDate_2"></td><td ID="MedicationDosageFrequency_2">twice a day</td><td ID="MedicationDuration_2"></td><td ID="MedicationFormulaStrength_2">10 mg</td><td ID="MedicationDosageForm_2">tablet</td><td ID="MedicationDosageFormCode_2"></td><td ID="MedicationDosageDescription_2"></td><td ID="MedicationMedicationId_2">86603</td><td ID="MedicationAccount_2">[id number]</td><td ID="MedicationNpid_2">[id number]</td><td ID="MedicationAuthorFirstName_2">Oc</td><td ID="MedicationAuthorLastName_2">Luis</td><td ID="MedicationTaxonomyCode_2">[id number]</td><td ID="MedicationTaxonomyDesc_2">Nurse Practitioner</td><td ID="MedicationPhoneNumber_2">[phone]</td> [facility] ([facility]) lamotrigine 25 MG Oral Tablet lamotrigine 01/05/2021 12:00:00 AM EDT 25 mg by mouth completed <td ID="Medica tionRxNorm_1">519263</td><td ID="MedicationMedication_1">lamotrigine</td><td ID="MedicationRoute_1">by mouth</td><td ID="MedicationRouteConcept_1">M90145</td><td ID="MedicationStartDate_1">01/05/2021</td><td ID="MedicationStopDate_1"></td><td ID="MedicationDosageFrequency_1">once a day</td><td ID="MedicationDuration_1"></td><td ID="MedicationFormulaStrength_1">25 mg</td><td ID="MedicationDosageForm_1">tablet</td><td ID="MedicationDosageFormCode_1"></td><td ID="MedicationDosageDescription_1"></td><td ID="MedicationMedicationId_1">66356</td><td ID="MedicationAccount_1">[id number]</td><td ID="MedicationNpid_1">[id number]</td><td ID="MedicationAuthorFirstName_1">Oc</td><td ID="MedicationAuthorLastName_1">Luis</td><td ID="MedicationTaxonomyCode_1">[id number]</td><td ID="MedicationTaxonomyDesc_1">Nurse Practitioner</td><td ID="MedicationPhoneNumber_1">[phone]</td> [facility] ([facility]) lamotrigine 25 MG Oral Tablet lamotrigine 01/05/2021 12:00:00 AM EDT 25 mg by mouth completed <td ID="Medica tionRxNorm_3">513578</td><td ID="MedicationMedication_3">lamotrigine</td><td ID="MedicationRoute_3">by mouth</td><td ID="MedicationRouteConcept_3">D93473</td><td ID="MedicationStartDate_3">01/05/2021</td><td ID="MedicationStopDate_3"></td><td ID="MedicationDosageFrequency_3">once a day</td><td ID="MedicationDuration_3"></td><td ID="MedicationFormulaStrength_3">25 mg</td><td ID="MedicationDosageForm_3">tablet</td><td ID="MedicationDosageFormCode_3"></td><td ID="MedicationDosageDescription_3"></td><td ID="MedicationMedicationId_3">72052</td><td ID="MedicationAccount_3">[id number]</td><td ID="MedicationNpid_3">[id number]</td><td ID="MedicationAuthorFirstName_3">Alisa</td><td ID="MedicationAuthorLastName_3">Justice</td><td ID="MedicationTaxonomyCode_3">[id number]</td><td ID="MedicationTaxonomyDesc_3">Psychiatric/Mental Health</td><td ID="MedicationPhoneNumber_3">[phone]</td> [facility] ([facility]) Hydroxyzine Hydrochloride 10 MG Oral Tablet hydroxyzine HCl 07/22/2020 12:00:00 AM EST 10 mg by mouth completed <td ID="MedicationRxNorm_3">705432</td><td ID="MedicationMedication_3">hydroxyzine HCl</td><td ID="MedicationRoute_3">by mouth</td><td ID="MedicationRouteConcept_3">Z51521</td><td ID="MedicationStartDate_3">07/22/2020</td><td ID="MedicationStopDate_3"></td><td ID="MedicationDosageFrequency_3">three times a day</td><td ID="MedicationDuration_3"></td><td ID="MedicationFormulaStrength_3">10 mg</td><td ID="MedicationDosageForm_3">tablet</td><td ID="MedicationDosageFormCode_3"></td><td ID="MedicationDosageDescription_3">as needed</td><td ID="MedicationMedicationId_3">11794</td><td ID="MedicationAccount_3">[id number]</td><td ID="MedicationNpid_3">[id number]</td><td ID="MedicationAuthorFirstName_3">Alisa</td><td ID="MedicationAuthorLastName_3">[place]</td><td ID="MedicationTaxonomyCode_3">[id number]</td><td ID="MedicationTaxonomyDesc_3">Psychiatric/Mental Health</td><td ID="MedicationPhoneNumber_3">[phone]</td> [facility] ([facility]) Hydroxyzine Hydrochloride 10 MG Oral Tablet hydroxyzine HCl 07/22/2020 12:00:00 AM EST 10 mg by mouth completed <td ID="MedicationRxNorm_2">087924</td><td ID="MedicationMedication_2">hydroxyzine HCl</td><td ID="MedicationRoute_2">by mouth</td><td ID="MedicationRouteConcept_2">J43231</td><td ID="MedicationStartDate_2">07/22/2020</td><td ID="MedicationStopDate_2"></td><td ID="MedicationDosageFrequency_2">three times a day</td><td ID="MedicationDuration_2"></td><td ID="MedicationFormulaStrength_2">10 mg</td><td ID="MedicationDosageForm_2">tablet</td><td ID="MedicationDosageFormCode_2"></td><td ID="MedicationDosageDescription_2">as needed</td><td ID="MedicationMedicationId_2">08362</td><td ID="MedicationAccount_2">[id number]</td><td ID="MedicationNpid_2">[id number]</td><td ID="MedicationAuthorFirstName_2">Alisa</td><td ID="MedicationAuthorLastName_2">Justice</td><td ID="MedicationTaxonomyCode_2">[id number]</td><td ID="MedicationTaxonomyDesc_2">Psychiatric/Mental Health</td><td ID="MedicationPhoneNumber_2">[phone]</td> [facility] ([facility]) Omeprazole 40 MG Delayed Release Oral Capsule Omeprazole 07/20/2020 12:00:00 AM EST active [facility] ([facility] ) Hydroxyzine Hydrochloride 10 MG Oral Tablet hydroxyzine HCl 06/22/2020 12:00:00 AM EST 10 mg by mouth completed <td ID="MedicationRxNorm_4">189645</td><td ID="MedicationMedication_4">hydroxyzine HCl</td><td ID="MedicationRoute_4">by mouth</td><td ID="MedicationRouteConcept_4">K85302</td><td ID="MedicationStartDate_4">06/22/2020</td><td ID="MedicationStopDate_4"></td><td ID="MedicationDosageFrequency_4">twice a day</td><td ID="MedicationDuration_4"></td><td ID="MedicationFormulaStrength_4">10 mg</td><td ID="MedicationDosageForm_4">tablet</td><td ID="MedicationDosageFormCode_4"></td><td ID="MedicationDosageDescription_4">as needed</td><td ID="MedicationMedicationId_4">[id number]</td><td ID="MedicationAccount_4">[id number]</td><td ID="MedicationNpid_4">[id number]</td><td ID="MedicationAuthorFirstName_4">Alisa</td><td ID="MedicationAuthorLastName_4">[place]</td><td ID="MedicationTaxonomyCode_4">[id number]</td><td ID="MedicationTaxonomyDesc_4">Psychiatric/Mental Health</td><td ID="MedicationPhoneNumber_4">[phone]</td> [facility] ([facility]) lamotrigine 25 MG Oral Tablet lamotrigine 05/26/2020 12:00:00 AM EDT 25 mg by mouth completed <td ID="Medica tionRxNorm_5">809874</td><td ID="MedicationMedication_5">lamotrigine</td><td ID="MedicationRoute_5">by mouth</td><td ID="MedicationRouteConcept_5">S67319</td><td ID="MedicationStartDate_5">05/26/2020</td><td ID="MedicationStopDate_5">06/22/2020</td><td ID="MedicationDosageFrequency_5">once a day</td><td ID="MedicationDuration_5"></td><td ID="MedicationFormulaStrength_5">25 mg</td><td ID="MedicationDosageForm_5">tablet</td><td ID="MedicationDosageFormCode_5"></td><td ID="MedicationDosageDescription_5"></td><td ID="MedicationMedicationId_5">[id number]</td><td ID="MedicationAccount_5">[id number]</td><td ID="MedicationNpid_5">[id number]</td><td ID="MedicationAuthorFirstName_5">Alisa</td><td ID="MedicationAuthorLastName_5">[place]</td><td ID="MedicationTaxonomyCode_5">[id number]</td><td ID="MedicationTaxonomyDesc_5">Psychiatric/Mental Health</td><td ID="MedicationPhoneNumber_5">[phone]</td> [facility] ([facility]) buspirone hydrochloride 10 MG Oral Tablet buspirone 2019 12:00:00 AM EDT 10 mg by mouth completed <td ID="Medic ationRxNorm_2">520639</td><td ID="MedicationMedication_2">buspirone</td><td ID="MedicationRoute_2">by mouth</td><td ID="MedicationRouteConcept_2">M43145</td><td ID="MedicationStartDate_2">05/26/2020</td><td ID="MedicationStopDate_2"></td><td ID="MedicationDosageFrequency_2">three times a day</td><td ID="MedicationDuration_2"></td><td ID="MedicationFormulaStrength_2">10 mg</td><td ID="MedicationDosageForm_2">tablet</td><td ID="MedicationDosageFormCode_2"></td><td ID="MedicationDosageDescription_2"></td><td ID="MedicationMedicationId_2">[id number]</td><td ID="MedicationAccount_2">[id number]</td><td ID="MedicationNpid_2">[id number]</td><td ID="MedicationAuthorFirstName_2">Alisa</td><td ID="MedicationAuthorLastName_2">[place]</td><td ID="MedicationTaxonomyCode_2">[id number]</td><td ID="MedicationTaxonomyDesc_2">Psychiatric/Mental Health</td><td ID="MedicationPhoneNumber_2">[phone]</td> [facility] ([facility]) buspirone hydrochloride 10 MG Oral Tablet buspirone 2019 12:00:00 AM EDT 10 mg by mouth completed <td ID="Medic ationRxNorm_3">134279</td><td ID="MedicationMedication_3">buspirone</td><td ID="MedicationRoute_3">by mouth</td><td ID="MedicationRouteConcept_3">Q56285</td><td ID="MedicationStartDate_3">05/26/2020</td><td ID="MedicationStopDate_3"></td><td ID="MedicationDosageFrequency_3">three times a day</td><td ID="MedicationDuration_3"></td><td ID="MedicationFormulaStrength_3">10 mg</td><td ID="MedicationDosageForm_3">tablet</td><td ID="MedicationDosageFormCode_3"></td><td ID="MedicationDosageDescription_3"></td><td ID="MedicationMedicationId_3">70696</td><td ID="MedicationAccount_3">[id number]</td><td ID="MedicationNpid_3">[id number]</td><td ID="MedicationAuthorFirstName_3">Alisa</td><td ID="MedicationAuthorLastName_3">[place]</td><td ID="MedicationTaxonomyCode_3">[id number]</td><td ID="MedicationTaxonomyDesc_3">Psychiatric/Mental Health</td><td ID="MedicationPhoneNumber_3">[phone]</td> [facility] ([facility]) buspirone hydrochloride 10 MG Oral Tablet buspirone 2019 12:00:00 AM EDT 10 mg by mouth completed <td ID="Medic ationRxNorm_5">619889</td><td ID="MedicationMedication_5">buspirone</td><td ID="MedicationRoute_5">by mouth</td><td ID="MedicationRouteConcept_5">D50734</td><td ID="MedicationStartDate_5">04/23/2020</td><td ID="MedicationStopDate_5">05/26/2020</td><td ID="MedicationDosageFrequency_5">twice a day</td><td ID="MedicationDuration_5"></td><td ID="MedicationFormulaStrength_5">10 mg</td><td ID="MedicationDosageForm_5">tablet</td><td ID="MedicationDosageFormCode_5"></td><td ID="MedicationDosageDescription_5"></td><td ID="MedicationMedicationId_5">89513</td><td ID="MedicationAccount_5">[id number]</td><td ID="MedicationNpid_5">[id number]</td><td ID="MedicationAuthorFirstName_5">Alisa</td><td ID="MedicationAuthorLastName_5">[place]</td><td ID="MedicationTaxonomyCode_5">[id number]</td><td ID="MedicationTaxonomyDesc_5">Psychiatric/Mental Health</td><td ID="MedicationPhoneNumber_5">[phone]</td> [facility] ([facility]) lamotrigine 100 MG Oral Tablet lamotrigine 03/18/2020 12:00:00 AM EDT 100 mg by mouth completed <td ID="Medica tionRxNorm_4">495376</td><td ID="MedicationMedication_4">lamotrigine</td><td ID="MedicationRoute_4">by mouth</td><td ID="MedicationRouteConcept_4">L11527</td><td ID="MedicationStartDate_4">03/18/2020</td><td ID="MedicationStopDate_4">05/26/2020</td><td ID="MedicationDosageFrequency_4">once a day</td><td ID="MedicationDuration_4"></td><td ID="MedicationFormulaStrength_4">100 mg</td><td ID="MedicationDosageForm_4">tablet</td><td ID="MedicationDosageFormCode_4"></td><td ID="MedicationDosageDescription_4"></td><td ID="MedicationMedicationId_4">17391</td><td ID="MedicationAccount_4">[id number]</td><td ID="MedicationNpid_4">[id number]</td><td ID="MedicationAuthorFirstName_4">Alisa</td><td ID="MedicationAuthorLastName_4">[place]</td><td ID="MedicationTaxonomyCode_4">[id number]</td><td ID="MedicationTaxonomyDesc_4">Psychiatric/Mental Health</td><td ID="MedicationPhoneNumber_4">[phone]</td> [facility] ([facility]) Insurance Providers Payer name Policy type / Coverage type Policy ID Covered republican ID Covered republican's relationship to hedrick Policy Hedrick Plan Information [employer] [id number] [id number] 3.3.227.99.4877.9437.14860 Family Dependent [id number] [employer] [id number] 2.16840.1.31412 3.3.227.99.4877.9437.69387 Family Dependent [id number] [employer] [id number] 2.16840.1.57983 3.3.227.99.4877.9437.93556 Family Dependent [id number] [employer] [id number] 2.16840.1.78219 3.3.227.99.4877.9437.13933 Family Dependent [id number] [employer] [id number] 2.16840.1.91776 3.3.227.99.4877.9437.73087 Family Dependent [id number] [employer] [id number] 2.16840.1.35047 3.3.227.99.4877.9437.69211 Family Dependent [id number] [employer] [id number] 2.16840.1.99321 3.3.227.99.4877.9437.25677 Family Dependent [id number] [employer] [id number] 2.16840.1.40371 3.3.227.99.4877.9437.12595 Family Dependent [id number] [employer] [id number] ..1.00856 3.3.227.99.4877.9437.41512 Family Dependent [id number] [employer] [id number] ..1.66022 3.3.227.99.4877.9437.80905 Family Dependent [id number] [employer] [id number] ..1.89972 3.3.227.99.4877.9437.30944 Family Dependent [id number] [employer] [id number] ..1.57403 3.3.227.99.4877.9437.23606 Family Dependent [id number] [employer] [id number] ..1.99336 3.3.227.99.4877.9437.72155 Family Dependent [id number] [employer] [id number] ..1.34407 3.3.227.99.4877.9437.12102 Family Dependent [id number] [employer] [id number] ..1.64067 3.3.227.99.4877.9437.51834 Family Dependent [id number] [employer] [id number] ..1.82776 3.3.227.99.4877.9437.38107 Family Dependent [id number] [employer] [id number] ..1.66554 3.3.227.99.4877.9437.74753 Family Dependent [id number] [employer] [id number] ..1.55504 3.3.227.99.4877.9437.97719 Family Dependent [id number] [employer] [id number] ..1.85730 3.3.227.99.4877.9437.54128 Family Dependent [id number] [employer] [id number] ..1.69542 3.3.227.99.4877.9437.48474 Family Dependent [id number] [employer] [id number] ..1.12525 3.3.227.99.4877.9437.37632 Family Dependent [id number] [employer] [id number] ..1.94427 3.3.227.99.4877.9437.00960 Family Dependent [id number] [employer] [id number] ..1.89090 3.3.227.99.4877.9437.20737 Family Dependent [id number] [employer] [id number] .1.41089 3.3.227.99.4877.9437.43699 Family Dependent [id number] [employer] [id number] ..1.89909 3.3.227.99.4877.9437.06047 Family Dependent [id number] [employer] [id number] .1.80378 3.3.227.99.4877.9437.04124 Family Dependent [id number] [employer] [id number] .1.92964 3.3.227.99.4877.9437.03003 Family Dependent [id number] [employer] [id number] .1.86364 3.3.227.99.4877.9437.93449 Family Dependent [id number] [employer] [id number] .1.01833 3.3.227.99.4877.9437.47573 Family Dependent [id number] [employer] [id number] .1.318620.3.227.99.4 877.9437.40635 Family Dependent [id number] [employer] [id number] .1.935347.3.227.99.4 877.9437.06737 Family Dependent [id number] [employer] [id number] .1.120971.3.227.99.4 877.9437.11922 Family Dependent [id number] [employer] [id number] .1.172816.3.227.99.4 877.9437.83783 Family Dependent [id number] [employer] [id number] ..998847.3.227.99.4 877.9437.60866 Family Dependent [id number] [employer] [id number] .1.430148.3.227.99.4 877.9437.87281 Family Dependent [id number] [employer] [id number] .1.645755.3.227.99.4 877.9437.66924 Family Dependent [id number] [employer] [id number] .1.583789.3.227.99.4 877.9437.83677 Family Dependent [id number] [employer] [id number] .1.644247.3.227.99.4 877.9437.42490 Family Dependent [id number] [employer] [id number] .1.872795.3.227.99.4 877.9437.44317 Family Dependent [id number] [employer] [id number] .1.481709.3.227.99.4 877.9437.99570 Family Dependent [id number] [employer] [id number] .1.996838.3.227.99.4 877.9437.44584 Family Dependent [id number] [employer] [id number] 10.06.830.1.068936.3.227.99.4 877.9437.03543 Family Dependent [id number] [employer] [id number] 10.06.830.1.366275.3.227.99.4 877.9437.61922 Family Dependent [id number] [employer] [id number] .1.620773.3.227.99.4 877.9437.28991 Family Dependent [id number] [employer] [id number] .1.937846.3.227.99.4 877.9437.58598 Family Dependent [id number] [employer] [id number] .1.237854.3.227.99.4 877.9437.26722 Family Dependent [id number] [employer] [id number] 10.06.830.1.339110.3.227.99.4 877.9437.84827 Family Dependent [id number] [employer] [id number] .1.188551.3.227.99.4 877.9437.46819 Family Dependent [id number] [employer] [id number] .1.168050.3.227.99.4 877.9437.69959 Family Dependent [id number] [employer] [id number] 10.06.830.1.414255.3.227.99.4 877.9437.40768 Family Dependent [id number] [employer] [id number] .1.010997.3.227.99.4 877.9437.03977 Family Dependent [id number] [employer] [id number] .1.945662.3.227.99.4 877.9437.77379 Family Dependent [id number] [employer] [id number] ..746327.3.227.99.4 877.9437.80440 Family Dependent [id number] [employer] [id number] ..007940.3.227.99.4 877.9437.42923 Family Dependent [id number] [employer] [id number] ..763568.3.227.99.4 877.9437.36051 Family Dependent [id number] [employer] [id number] ..485589.3.227.99.4 877.9437.75236 Family Dependent [id number] [employer] [id number] ..759296.3.227.99.4 877.9437.61837 Family Dependent [id number] [employer] [id number] ..290735.3.227.99.4 877.9437.55007 Family Dependent [id number] [employer] [id number] .1.332928.3.227.99.4877.9437.96826 Family Dependent [id number] [employer] Commercial [id number] .1.077990.3.227.99.4877.9437.11250 Family Dependent [id number] [employer] Commercial [id number] .1.021925.3.227.99.4877.9437.37742 Family Dependent [id number] [facility] BC/BS Commercial [id number] 2.0.1.409897.3.227.99.4877.9437.71549 Family Dependent [id number] [facility] BC/BS Commercial [id number] 2.0.1.943037.3.227.99.4877.9437.33662 Family Dependent [id number] [facility] BC/BS Commercial [id number] .0.1.102566.3.227.99.4877.9437.05003 Family Dependent [id number] [facility] BC/BS Commercial [id number] 2.0.1.192789.3.227.99.4877.9437.56630 Family Dependent [id number] [facility] BC/BS Commercial [id number] .0.1.539135.3.227.99.4877.9437.78871 Family Dependent [id number] [facility] BC/BS Commercial [id number] ..1.808019.3.227.99.4877.9437.65763 Family Dependent [id number] [facility] BC/BS Commercial [id number] .0.1.587606.3.227.99.4877.9437.63284 Family Dependent [id number] [facility] BC/BS Commercial [id number] ..1.213122.3.227.99.4877.9437.62374 Family Dependent [id number] [facility] BC/BS Commercial [id number] 2.0.1.867128.3.227.99.4877.9437.92204 Family Dependent [id number] [facility] BC/BS Commercial [id number] .0.1.562581.3.227.99.4877.9437.62933 Family Dependent [id number] [facility]/BS Commercial [id number] .0.1.451049.3.227.99.4877.9437.04703 Family Dependent [id number] [facility] BC/BS Commercial [id number] .0.1.633884.3.227.99.4877.9437.14368 Family Dependent [id number] [facility] BC/BS Commercial [id number] .0.1.164735.3.227.99.4877.9437.38409 Family Dependent [id number] [facility] BC/BS Commercial [id number] ..1.544174.3.227.99.4877.9437.79028 Family Dependent [id number] [facility] BC/BS Commercial [id number] ..1.053541.3.227.99.4877.9437.62644 Family Dependent [id number] [facility]/BS Commercial [id number] .0.1.018094.3.227.99.4877.9437.77847 Family Dependent [id number] [facility]/BS Commercial [id number] .0.1.421487.3.227.99.4877.9437.60275 Family Dependent [id number] [facility] BC/BS Commercial [id number] ..1.299414.3.227.99.4877.9437.63932 Family Dependent [id number] [facility] BC/BS Commercial [id number] .0.1.418529.3.227.99.4877.9437.24937 Family Dependent [id number] [employer] BC/BS Commercial [id number] ..1.893828.3.227.99.4877.9437.15725 Family Dependent [id number] [facility] [id number] ..1.265581.3.227.99.4877.9437.17626 Family Dependent [id number] [facility] [id number] ..1.283936.3.227.99.4877.9437.30654 Family Dependent [id number] BCBS GENERIC C [id number] Child B [id number] [facility] BC/BS Commercial [id number] ..1.008019.3.227.99.4877.9437.29734 Family Dependent [id number] [facility] BC/BS Commercial [id number] ..1.026007.3.227.99.4877.9437.59674 Family Dependent [id number] [facility] BC/BS Commercial [id number] ..1.010125.3.227.99.4877.9437.51120 Family Dependent [id number] [facility] BC/BS Commercial [id number] .1.642612.3.227.99.4877.9437.47090 Family Dependent [id number] [employer] [id number] .1.434133.3.227.99.4877.9437.40278 Self [id number] [employer] [id number] SP [id number] 300 [employer] [id number] SP [id number] [employer] [id number] 10.06.830.1.808016.3.227.99.4877.9437.96450 Self [id number] [employer] I [id number] Self [id number] [employer] [id number] .1.084276.3.227.99.4877.9437.58286 Self [id number] [place] [id number] .1.338576.3.227.99.4877.9437.56242 Self [id number] [employer] [id number] .1.650793.3.227.99.4877.9437.72963 Self [id number] [employer] [id number] ..340508.3.227.99.4877.9437.57059 Self [id number] [employer] [id number] ..624315.3.227.99.4877.9437.01570 Self [id number] [employer] [id number] ..338135.3.227.99.4877.9437.03539 Self [id number] [place] [employer] [id number] ..743183.3.227.99.4877.9437.19434 Self [id number] [place] [employer] [id number] .1.287459.3.227.99.4877.9437.24996 Self [id number] [employer] [id number] .1.723764.3.227.99.4877.9437.74719 Self [id number] [employer] [id number] [employer] [id number] .1.957547.3.227.99.4877.9437.64357 Self [id number] [place] [employer] [id number] .1.667109.3.227.99.4877.9437.89683 Self [id number] [place] MEDICAID [id number] [facility] 7 [id number] [place] [employer] [id number] 10.06.830.1.319982.3.227.99.4877.9437.51699 Self [id number] [place] [employer] [id number] 10.06.830.1.042355.3.227.99.4877.9437.52381 Self [id number] [place] [employer] [id number] 10.06.830.1.796955.3.227.99.4877.9437.02549 Self [id number] [employer] [id number] .1.640560.3.227.99.4877.9437.23899 Self [id number] [employer] [id number] .1.417330.3.227.99.4877.9437.81880 Self [id number] [employer] [id number] .1.518066.3.227.99.4877.9437.12349 Self [id number] [employer] [id number] .1.404984.3.227.99.4877.9437.60220 Self [id number] [employer] [id number] .1.550418.3.227.99.4877.9437.04273 Self [id number] Medicaid-Pcap Medicaid [id number] 2.0.1.767977.3.227.99.4877.9 437.32629 Self [id number] Medicaid-Pcap Medicaid [id number] 2.0.1.715396.3.227.99.4877.9 437.52872 Self [id number] Medicaid-Pcap Medicaid [id number] 2.0.1.062017.3.227.99.4877.9 437.00522 Self [id number] Medicaid-Pcap Medicaid [id number] 2.0.1.177356.3.227.99.4877.9 437.13605 Self [id number] [place] [employer] Health Maintenance Organization (O) [id number] 2.840.1.919910.3.227.99.4877.9437.43717 Self [id number] [facility] Care Health Maintenance Organization (O) [id number] 2.0.1.451837.3.227.99.4877.9437.69336 Self [id number] [facility] Care Health Maintenance Organization (O) [id number] 2.0.1.114204.3.227.99.4877.9437.35184 Self [id number] MEDICAID M [id number] Self [id number] [facility] MEDICAID [id number] K[place] 7 [id number] [place] I [id number] Self [id number] [place] [employer] [id number] Self [id number] [place] [employer] [id number] Self [id number] Medicaid-Pcap Medicaid [id number] 2.0.1.125975.3.227.99. 4877.9437.60893 Family Dependent [id number] Medicaid-Pcap Medicaid [id number] 2.0.1.680175.3.227.99. 4877.9437.67722 Family Dependent [id number] [facility] [id number] SP [id number] Medicaid-Pcap Medicaid [id number] 2.0.1.833921.3.227.99. 4877.9437.27297 Family Dependent [id number] [facility] P [id number] S [id number] Medicaid-Pcap Medicaid [id number] 2.0.1.827486.3.227.99. 4877.9437.68118 Family Dependent [id number] Medicaid-Pcap Medicaid [id number] 2.0.1.246848.3.227.99. 4877.9437.65912 Family Dependent [id number] Medicaid-Pcap Medicaid [id number] 2.16840.1.249906.3.227.99. 4877.9437.57771 Family Dependent [id number] Medicaid-Pcap Medicaid [id number] 2.16840.1.462323.3.227.99. 4877.9437.63800 Family Dependent [id number] Medicaid-Pcap Medicaid [id number] 2.840.1.031369.3.227.99. 4877.9437.10999 Family Dependent [id number] Medicaid-Pcap Medicaid [id number] 2.840.1.443368.3.227.99. 4877.9437.38984 Family Dependent [id number] Medicaid-Pcap Medicaid [id number] 2.840.1.673678.3.227.99. 4877.9437.27918 Family Dependent [id number] Medicaid-Pcap Medicaid [id number] 2.840.1.049683.3.227.99. 4877.9437.06520 Family Dependent [id number] Medicaid-Pcap Medicaid [id number] 2.840.1.005936.3.227.99. 4877.9437.54840 Family Dependent [id number] [facility] 280/780 [id number] [id number] Medicaid-Pcap Medicaid [id number] 2.840.1.709439.3.227.99. 4877.9437.78292 Family Dependent [id number] Medicaid-Pcap Medicaid [id number] 2.840.1.460917.3.227.99. 4877.9437.28291 Family Dependent [id number] Medicaid-Pcap Medicaid [id number] 2.840.1.591023.3.227.99. 4877.9437.91145 Family Dependent [id number] MEDICAID [id number] [employer] BCBS B [id number] C B [id number] Medicaid-Pcap Medicaid [id number]. [id number] Family Dependent [id number] Medicaid-Pcap Medicaid [id number]. [id number] Family Dependent [id number] Medicaid-Pcap Medicaid [id number]. [id number] Family Dependent [id number] EMEDNY [id number] SP [id number] BCBS/Blue Card Commercial [id number] Family Dependent [id number] Medicaid-Pcap Medicaid [id number]. [id number] Family Dependent [id number] Medicaid-Pcap Medicaid [id number] [id number]. [id number] Family Dependent [id number] Medicaid-Pcap Medicaid [id number] 2.840.1.884364.3.227.99. [id number] Family Dependent [id number] Medicaid-Pcap Medicaid [id number] 2.840.1.214321.3.227.99. [id number] Family Dependent [id number] Medicaid-Pcap Medicaid [id number] 2.840.1.157003.3.227.99. [id number] Family Dependent [id number] Medicaid-Pcap Medicaid [id number] 2.840.1.780434.3.227.99. [id number] Family Dependent [id number] [facility] MEDICAID [id number] [place] 280/780 [id number] Medicaid-Pcap Medicaid [id number]. [id number] Family Dependent [id number] [place] MEDICAID PI PI Medicaid-Pcap Medicaid [id number]. [id number] Family Dependent [id number] [facility] 280/780 [id number] [id number] [facility] Community Plan Health Maintenance Organization (HMO) [id number] Self Medicaid-Pcap Medicaid [id number] Family Dependent [id number] SELF PAY ONLY [id number] [id number] Medicaid-Pcap Medicaid [id number] Family Dependent [id number] Medicaid-Pcap Medicaid 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 Condition 07/22/2021 12:00:00 AM EST [facility] ( e [facility]) F33.1 Major depressive disorder, recurrent, mo derate Major Depressive Disorder, Recurrent episode, Moderate Condition 07/22/2021 12:00:00 AM EST [facility] ([facility]) F41.1 Generalized anxiety disorder Generalized Anxiety Disor idalia Condition 07/22/2021 12:00:00 AM EST [facility] ([facility]) F50.01 Anorexia nervosa, restricting type Anorexia Nerv ty, Restricting type Condition 07/22/2021 12:00:00 AM EST [facility] ([facility]) F41.9 Anxiety state Anxiety state Problem 07/12/2021 12:00:00 AM EST [facility] ([facility]) F32.9 Major depressive disorder, single episod e, unspecified Unspecified depressive Disorder Condition 03/09/2021 12:00:00 AM EDT [facility] ([facility]) F41.9 Anxiety disorder, unspecified Unspecified Anxiety Diso rder Condition 03/09/2021 12:00:00 AM EDT [facility] ([facility]) N93.0 [id number] Postcoital bleeding Problem 01/27/2021 12:00 :00 AM EDT [email or web address] ([facility]) Surgeries/Procedures Procedure Description Date Indications Data Source(s) Brief Individual Psychotherapy - 30 min 07/22/2021 12:00:00 AM EST - 07/22/2021 12:00:00 AM EST [facility] ([facility]) Brief Individual Psychotherapy - 30 min 07/20/2021 12: 00:00 AM EST [facility] ([facility]) OFFICE OUTPATIENT VISIT 15 MINUTES 07/13 12:00:00 AM EST - 07/13/2021 12:00:00 AM EST [facility] ([facility]) OFFICE OUTPATIENT VISIT 15 MINUTES 07/13/2021 12:00:00 AM EST [facility] ([facility]) Extended Individual Psychotherapy - 45 min 07/13/2021 12:00:00 AM EST - 07/13/2021 12:00:00 AM EST [facility] ([facility]) Extended Individual Psychotherapy - 45 min 12:00:00 AM EST [facility] ([facility]) OFFICE OUTPATIENT VISIT 25 MINUTES 07/12/2021 12:00:00 AM EST [facility] ([facility]) OFFICE OUTPATIENT VISIT 25 MINUTES 06/11/2021 12:00:00 AM EDT [facility] ([facility]) OFFICE OUTPATIENT VISIT 15 MINUTES 06/11/2021 12:00:00 AM EDT [facility] ([facility]) Extended Individual Psychotherapy - 45 min 06/04/2021 12:00:00 AM EDT - 06/04/2021 12:00:00 AM EDT [facility] ([facility]) OFFICE OUTPATIENT VISIT 15 MINUTES 06/03 12:00:00 AM EDT - 06/03/2021 12:00:00 AM EDT [facility] ([facility]) OFFICE OUTPATIENT VISIT 15 MINUTES 06/03/2021 12:00:00 AM EDT [facility] ([facility]) Extended Individual Psychotherapy - 45 min 12:00:00 AM EDT [facility] ([facility]) Extended Individual Psychotherapy - 45 min 05/21/2021 12:00:00 AM EDT - 05/21/2021 12:00:00 AM EDT [facility] ([facility]) Extended Individual Psychotherapy - 45 min 12:00:00 AM EDT [facility] ([facility]) OFFICE OUTPATIENT VISIT 25 MINUTES 05/14/2021 12:00:00 AM EDT MED[facility] ([facility]) Extended Individual Psychotherapy - 45 min 05/07/2021 12:00:00 AM EDT - 05/07/2021 12:00:00 AM EDT [facility] ([facility]) Extended Individual Psychotherapy - 45 min 12:00:00 AM EDT [facility] ([facility]) Extended Individual Psychotherapy - 45 min 04/22/2021 12:00:00 AM EDT - 04/22/2021 12:00:00 AM EDT [facility] ([facility]) Extended Individual Psychotherapy - 45 min 12:00:00 AM EDT [facility] ([facility]) Extended Individual Psychotherapy - 45 min 04/12/2021 12:00:00 AM EDT - 04/12/2021 12:00:00 AM EDT [facility] ([facility]) Extended Individual Psychotherapy - 45 min 12:00:00 AM EDT [facility] ([facility]) OFFICE OUTPATIENT VISIT 25 MINUTES 04/09/2021 12:00:00 AM EDT [facility] ([facility], ) OFFICE OUTPATIENT VISIT 15 MINUTES 04/07/2021 12:00:00 AM EDT [facility] ([facility]) Extended Individual Psychotherapy - 45 min 04/05/2021 12:00:00 AM EDT - 04/05/2021 12:00:00 AM EDT [facility] ([facility]) Extended Individual Psychotherapy - 45 min 12:00:00 AM EDT [facility] ([facility]) OFFICE OUTPATIENT VISIT 15 MINUTES 03/31 12:00:00 AM EDT - 03/31/2021 12:00:00 AM EDT [facility] ([facility]) OFFICE OUTPATIENT VISIT 15 MINUTES 03/31/2021 12:00:00 AM EDT [facility] ([facility]) Extended Individual Psychotherapy - 45 min 03/29/2021 12:00:00 AM EDT - 03/29/2021 12:00:00 AM EDT [facility] ([facility]) Extended Individual Psychotherapy - 45 min 12:00:00 AM EDT [facility] ([facility]) OFFICE OUTPATIENT VISIT 15 MINUTES 03/16 12:00:00 AM EDT - 03/16/2021 12:00:00 AM EDT [facility] ([facility]) OFFICE OUTPATIENT VISIT 15 MINUTES 03/16/2021 12:00:00 AM EDT [facility] ([facility]) Extended Individual Psychotherapy - 45 min 03/09/2021 12:00:00 AM EDT - 03/09/2021 12:00:00 AM EDT [facility] ([facility]) Extended Individual Psychotherapy - 45 min 12:00:00 AM EDT [facility] ([facility]) PURE TONE AUDIOMETRY AIR ONLY 03/01/2021 12:00:00 AM E DT MEDENT ([facility]) Brief Emotional/Behav Assessment W/ Scoring Doc Per Standard Inst 03/01/2021 12:00:00 AM EDT [facility] ([facility]) Brief Emotional/Behav Assessment W/ Scoring Doc Per Standard Inst 03/01/2021 12:00:00 AM EDT [facility] ([facility]) Admin Patient Focused Health Risk Assessment Instrument 03/01/2021 12:00:00 AM EDT [facility] ([facility]) SCREENING TEST VISUAL ACUITY QUANTITATIVE BILAT 2020 12:00:00 AM EDT [facility] ([facility]) PERIODIC PREVENTIVE MED EST PATIENT 18-39 YRS 03/01/20 12:00:00 AM EDT [facility] ([facility]) Extended Individual Psychotherapy - 45 min 03/01/2021 12:00:00 AM EDT - 03/01/2021 12:00:00 AM EDT [facility] ([facility]) Extended Individual Psychotherapy - 45 min 12:00:00 AM EDT [facility] ([facility]) Extended Individual Psychotherapy - 45 min 02/15/2021 12:00:00 AM EDT - 02/15/2021 12:00:00 AM EDT [facility] ([facility]) Extended Individual Psychotherapy - 45 min 12:00:00 AM EDT [facility] ([facility]) Extended Individual Psychotherapy - 45 min 02/02/2021 12:00:00 AM EDT - 02/02/2021 12:00:00 AM EDT [facility] ([facility]) Extended Individual Psychotherapy - 45 min 12:00:00 AM EDT [facility] ([facility]) OFFICE OUTPATIENT VISIT 25 MINUTES 01/14 12:00:00 AM EDT - 01/14/2021 12:00:00 AM EDT [facility] ([facility]) OFFICE OUTPATIENT VISIT 25 MINUTES 01/14/2021 12:00:00 AM EDT [facility] ([facility]) Extended Individual Psychotherapy - 45 min 01/11/2021 12:00:00 AM EDT - 01/11/2021 12:00:00 AM EDT [facility] ([facility]) Extended Individual Psychotherapy - 45 min 12:00:00 AM EDT [facility] ([facility]) Extended Individual Psychotherapy - 45 min 01/05/2021 12:00:00 AM EDT - 01/05/2021 12:00:00 AM EDT [facility] ([facility]) Extended Individual Psychotherapy - 45 min 12:00:00 AM EDT [facility] ([facility]) Extended Individual Psychotherapy - 45 min 12/29/2020 12:00:00 AM EDT - 12/29/2020 12:00:00 AM EDT [facility] ([facility]) Extended Individual Psychotherapy - 45 min 12:00:00 AM EDT [facility] ([facility]) OFFICE OUTPATIENT VISIT 15 MINUTES 12/10 12:00:00 AM EDT - 12/10/2020 12:00:00 AM EDT [facility] ([facility]) OFFICE OUTPATIENT VISIT 15 MINUTES 12/10/2020 12:00:00 AM EDT [facility] ([facility]) Extended Individual Psychotherapy - 45 min 11/30/2020 12:00:00 AM EDT - 11/30/2020 12:00:00 AM EDT [facility] ([facility]) Extended Individual Psychotherapy - 45 min 12:00:00 AM EDT [facility] ([facility]) Extended Individual Psychotherapy - 45 min 11/23/2020 12:00:00 AM EDT - 11/23/2020 12:00:00 AM EDT [facility] ([facility]) Extended Individual Psychotherapy - 45 min 12:00:00 AM EDT [facility] ([facility]) Extended Individual Psychotherapy - 45 min 11/18/2020 12:00:00 AM EDT - 11/18/2020 12:00:00 AM EDT [facility] ([facility]) Extended Individual Psychotherapy - 45 min 12:00:00 AM EDT [facility] ([facility]) MHC Telemed E/M Lvl 3--Est pt 11/10/2020 12:00:00 AM EDT - 11/10/2020 12:00:00 AM EDT [facility] ([facility]) Telemed A/O 30" 11/10/2020 12:00:00 AM EDT [facility] ([facility]) MHC Telemed E/M Lvl 3--Est pt 11/10/2020 12:00:00 AM E DT [facility] ([facility]) Extended Individual Psychotherapy - 45 min 11/10/2020 12:00:00 AM EDT - 11/10/2020 12:00:00 AM EDT [facility] ([facility]) Extended Individual Psychotherapy - 45 min 12:00:00 AM EDT [facility] ([facility]) Extended Individual Psychotherapy - 45 min 10/28/2020 12:00:00 AM EST - 10/28/2020 12:00:00 AM EST [facility] ([facility]) Extended Individual Psychotherapy - 45 min 12:00:00 AM EST [facility] ([facility]) Extended Individual Psychotherapy - 45 min 10/19/2020 12:00:00 AM EST - 10/19/2020 12:00:00 AM EST [facility] ([facility]) Extended Individual Psychotherapy - 45 min 12:00:00 AM EST [facility] ([facility]) Extended Individual Psychotherapy - 45 min 10/14/2020 12:00:00 AM EST - 10/14/2020 12:00:00 AM EST [facility] ([facility]) Extended Individual Psychotherapy - 45 min 12:00:00 AM EST [facility] ([facility]) MHC Telemed E/M Lvl 3--Est pt 10/12/2020 12:00:00 AM EST - 10/12/2020 12:00:00 AM EST [facility] ([facility]) Telemed A/O 30" 10/12/2020 12:00:00 AM EST [facility] ([facility]) [facility] Lvl 3--Est pt 10/12/2020 12:00:[address] [facility] ([facility]) Extended Individual Psychotherapy - 45 min 10/07/2020 12:00:00 AM EST - 10/07/2020 12:00:00 AM EST [facility] ([facility]) Extended Individual Psychotherapy - 45 min 12:00:00 AM EST [facility] ([facility]) Extended Individual Psychotherapy - 45 min 09/30/2020 12:00:00 AM EST - 09/30/2020 12:00:00 AM EST [facility] ([facility]) Extended Individual Psychotherapy - 45 min 12:00:00 AM EST [facility] ([facility]) Extended Individual Psychotherapy - 45 min 09/25/2020 12:00:00 AM EST - 09/25/2020 12:00:00 AM EST [facility] ([facility]) Extended Individual Psychotherapy - 45 min 12:00:00 AM EST [facility] ([facility]) Extended Individual Psychotherapy - 45 min 09/02/2020 12:00:00 AM EST - 09/02/2020 12:00:00 AM EST [facility] ([facility]) Extended Individual Psychotherapy - 45 min 12:00:00 AM EST [facility] ([facility]) OFFICE OUTPATIENT VISIT 15 MINUTES 09/02 12:00:00 AM EST - 09/02/2020 12:00:00 AM EST [facility] ([facility]) Psychotherapy ADD ON - 30 Minutes 09/02/2020 12:00:00 AM EST [facility] ([facility]) OFFICE OUTPATIENT VISIT 15 MINUTES 09/02/2020 12:00:00 AM EST [facility] ([facility]) Extended Individual Psychotherapy - 45 min 08/26/2020 12:00:00 AM EST - 08/26/2020 12:00:00 AM EST [facility] ([facility]) Extended Individual Psychotherapy - 45 min 1 12:00:00 AM EST [facility] ([facility]) Extended Individual Psychotherapy - 45 min 08/20/2020 12:00:00 AM EST - 08/20/2020 12:00:00 AM EST [facility] ([facility]) Extended Individual Psychotherapy - 45 min 0 12:00:00 AM EST [facility] ([facility]) Extended Individual Psychotherapy - 45 min 08/05/2020 12:00:00 AM EST - 08/05/2020 12:00:00 AM EST [facility] ([facility]) Extended Individual Psychotherapy - 45 min 0 12:00:00 AM EST [facility] ([facility]) Extended Individual Psychotherapy - 45 min 07/30/2020 12:00:00 AM EST - 07/30/2020 12:00:00 AM EST [facility] ([facility]) Extended Individual Psychotherapy - 45 min 0 12:00:00 AM EST [facility] ([facility]) Extended Individual Psychotherapy - 45 min 07/01/2020 12:00:00 AM EST - 07/01/2020 12:00:00 AM EST [facility] ([facility]) Extended Individual Psychotherapy - 45 min 0 12:00:00 AM EST [facility] ([facility]) Extended Individual Psychotherapy - 45 min 06/23/2020 12:00:00 AM EST - 06/23/2020 12:00:00 AM EST [facility] ([facility]) Extended Individual Psychotherapy - 45 min 0 12:00:00 AM EST [facility] ([facility]) [facility] [place] E/M Lvl 3--Est pt 06/22/2020 12:00:00 AM EST - 06/22/2020 12:00:00 AM EST [facility] ([facility]) Telemed A/O 30" 06/22/2020 12:00:00 AM EST [facility] ([facility]) MHC Telemed E/M Lvl 3--Est pt 06/22/2020 12:00:[address] [facility] ([facility]) TEMPMHCTelemed 30" Psychotherapy 020 12:00:00 AM EDT - 06/18/2020 12:00:00 AM EDT [facility] ([facility]) TEMPMHCTelemed 30" Psychotherapy 06/18/2020 12:00:00 A M EDT [facility] ([facility]) Extended Individual Psychotherapy - 45 min 06/04/2020 12:00:00 AM EDT - 06/04/2020 12:00:00 AM EDT [facility] ([facility]) Extended Individual Psychotherapy - 45 min 0 12:00:00 AM EDT [facility] ([facility]) Extended Individual Psychotherapy - 45 min 05/27/2020 12:00:00 AM EDT - 05/27/2020 12:00:00 AM EDT [facility] ([facility]) Extended Individual Psychotherapy - 45 min 0 12:00:00 AM EDT [facility] ([facility]) MHC Telemed E/M Lvl 3--Est pt 05/26/2020 12:00:00 AM EDT - 05/26/2020 12:00:00 AM EDT [facility] ([facility]) Telemed A/O 30" 05/26/2020 12:00:00 AM EDT [facility] ([facility]) MHC Telemed E/M Lvl 3--Est pt 05/26/2020 12:00:00 AM E DT [facility] ([facility]) Results ID Date Data Source [id number] 05/14/2021 11:41:00 AM EDT [facility] ([facility]) Name Value Range Interpretation Code Description Data Mariangel rce(s) Supporting Document(s) Blood Urea Nitrogen 11 mg/dL 7-18 MEDEN T ([facility]) See triage. AMT Glucose, Fasting 90 mg/dL 70-100 [facility] ([facility] See triage. AMT Potassium Serum 4.0 meq/L 3.5-5.1 [facility] ( [facility]) See triage. AMT Creatinine For GFR 0.82 mg/dL 0.55-1.30 [facility] ([facility]) See triage. AMT Sodium Level 140 meq/L 136-145 [facility] ([facility]) See triage. AMT Anion Gap 4 meq/L 8-16 [facility] ([facility]) See triage. AMT Carbon Dioxide Level 28 meq/L 21-32 MEDE NT ([facility]) See triage. AMT Chloride Level 108 meq/L 98-107 [facility] ([facility]) See triage. AMT Ast/Sgot 17 U/L 7-37 [facility] ([facility]) See triage. AMT Calcium Level 9.6 mg/dL 8.5-10.1 [facility] ([facility]) See triage. AMT Alt/SGPT 16 U/L 12-78 [facility] ([facility]) See triage. AMT Bilirubin,Total 0.2 mg/dL 0.2-1.0 [facility] See [facility]. AMT Alkaline Phosphatase 77 U/L 45-117 MEDE NT ([facility]) See triage. AMT Albumin 4.0 GM/DL 3.2-5.2 [facility] ([facility]) See triage. AMT Total Protein 7.4 GM/DL 6.4-8.2 [facility] ([facility]) See triage. AMT Albumin/Globulin Ratio 1.2 1.2-2.2 [place] [facility]ENT ([facility]) See triage. AMT ID Date Data Source [id number] 05/14/2021 11:41:00 AM EDT MED[facility] ([facility]) Name Value Range Interpretation Code Description Data Mariangel rce(s) Supporting Document(s) White Blood Count 5.1 10 4.0-10.0 [facility] ([facility]) See triage. AMT Red Blood Count 4.29 10 4.00-5.40 [facility] ([facility]) See triage. AMT Hematocrit 38.5 % 36.0-47.0 [facility] See [facility]. AMT Hemoglobin 12.3 g/dL 12.0-15.5 [facility] ([facility]) See triage. AMT Mean Corpuscular Hemoglobin 28.7 pg 27.0-33.0 [facility] ([facility]) See triage. AMT Mean Corpuscular Volume 89.7 fl 80.0-96.0 M EDENT ([facility]) See triage. AMT Platelet Count, Automated 286 10 150-450 [facility] ([facility]) See triage. AMT Mean Corpuscular HGB Conc 31.9 g/dL 32.0-36.5 [facility] ([facility]) See triage. AMT Red Cell Distribution Width 13.7 % 11.5-14.5 [facility] ([facility]) See triage. AMT Neutrophils % 54.6 % 36.0-66.0 [facility] ([facility]) See triage. AMT Lymph % 34.9 % 24.0-44.0 [facility] ([facility]) See triage. AMT Eos % 0.8 % 0.0-3.0 [facility] ([facility]) See triage. AMT Borden % 8.9 % 2.0-8.0 [facility] ([facility]) See triage. AMT Baso % 0.6 % 0.0-1.0 [facility] ([facility]) See triage. AMT Nucleated Red Blood Cell % 0.0 % 0-0 [facility] ([facility]) See triage. AMT Immature Granulocyte % 0.2 % 0-3.0 [place] DENT ([facility]) See triage. AMT Neutrophils # 2.8 10 1.5-8.5 [facility] ([facility]) See triage. AMT Lymph # 1.8 10 1.5-5.0 [facility]. AMT Borden # 0.5 10 0.0-0.8 [facility] ([facility]) See triage. AMT Eos # 0.0 10 0.0-0.5 [facility] ([facility]) See triage. AMT Baso # 0.0 10 0.0-0.2 [facility] ([facility]) See triage. AMT ID Date Data Source [id number] 05/14/2021 11:41:00 AM EDT [facility] ([facility]) Name Value Range Interpretation Code Description Data Mariangel rce(s) Supporting Document(s) Free T4 0.93 ng/dL 0.78-1.33 [facility] See [facility]. AMT Thyroid Stimulating Hormone 1.590 uIU/ML 0.463-3.98 [facility] ([facility]) See triage. AMT ID Date Data Source [id number] 05/14/2021 11:41:00 AM EDT [facility] ([facility]) Name Value Range Interpretation Code Description Data Mariangel rce(s) Supporting Document(s) Ferritin [Mass/volume] in Serum or Plasma 6 ng/mL 8-252 [facility] ([facility]) See triage. AMT ID Date Data Source [id number] 05/14/2021 11:41:00 AM EDT [facility] ([facility] Name Value Range Interpretation Code Description Data Mariangel rce(s) Supporting Document(s) Total Iron Binding Capacity 395 ug/dL 250-450 [facility] ([facility]) See triage. AMT Iron (Fe) 42 ug/dL 50-170 [facility] ([facility]) See triage. AMT Percent Saturation 10.6 % 13.2-45.0 [facility] ([facility]) See triage. AMT ID Date Data Source [id number] 05/14/2021 11:41:00 AM EDT [facility] ([facility]) Name Value Range Interpretation Code Description Data Mariangel rce(s) Supporting Document(s) C reactive protein [Mass/volume] in Serum or Plasma by High sensitivity method 0.30 mg/dL 0.00-0.30 MED[facility] ([facility]) See triage. AMT ID Date Data Source [id number] 04/07/2021 01:46:00 PM EDT [facility] ([facility]) Name Value Range Interpretation Code Description Data Mariangel rce(s) Supporting Document(s) Choriogonadotropin.beta subunit ( test) [Pres ence] in Urine Laboratory test result [facility] ([facility]) ID Date Data Source [id number] 04/07/2021 01:35:00 PM EDT [facility] ([facility]) Name Value Range Interpretation Code Description Data Mariangel rce(s) Supporting Document(s) Bacteria identified in Urine by Culture Laboratory test result [facility] ([facility]) FULL REPORT IN LAB NOTES (eCW and [facility] ). SPECIMEN APPEARS CONTAMINATED ID Date Data Source [id number] 04/07/2021 01:35:00 PM EDT [facility] ([facility]) Name Value Range Interpretation Code Description Data Mariangel rce(s) Supporting Document(s) Color, Urine Laboratory test result [facility] ([facility]) Appearance, Urine Laboratory test result [facility] ([facility]) Specific [place] Urine Auto 1.010 1.002-1.035 [facility] ([facility]) PH,Urine 5.0 units 5.0-9.0 MED[facility] ([facility]) Protein, Urine Auto Laboratory test result [facility] ([facility]) Glucose, Urine (Ua) Auto Laboratory test result [facility] ([facility]) Urobilinogen, Urine Auto 0.2 mg/dL 0.0-2.0 [facility] ([facility]) Ketone, Urine Auto Laboratory test result [facility] ([facility]) Nitrite, Urine Auto Laboratory test result [facility] ([facility]) Bilirubin, Urine Auto Laboratory test result [facility] ([facility]) Leukocyte Esterase, Urine Auto Laboratory test result [facility] ([facility]) WBC, Urine Auto 66 /HPF 0-3 [facility] [place] Blood, Urine Blood Laboratory test result [facility] ([facility]) Bacteria, Urine Auto Laboratory test result [facility] ([facility]) RBC, Urine Auto 4 /HPF 0-3 [facility] [place] Squamous Epithelial Cell Ur AU 3 /HPF 0-6 [facility] ([facility]) Hyaline Cast, Urine Auto 0 /LPF 0-1 [facility] ([facility]) Mucus, Urine Laboratory test result [facility] ([facility]) ID Date Data Source [id number] 04/07/2021 01:25:00 PM EDT [facility] ([facility]) Name Value Range Interpretation Code Description Data Mariangel rce(s) Supporting Document(s) Nitrite [Presence] in Urine by Test strip Laboratory test result [facility] ([facility]) Leukocytes [#/volume] in Urine by Manual count Laboratory test result [facility] ([facility]) pH of Urine by Test strip 5.0 MEDE NT ([facility]) Protein [Presence] in Urine by Test strip Laboratory test result [facility] ([facility]) Urobilinogen [Mass/volume] in Urine by Test strip Laboratory test res ult [facility] ([facility]) Blood [Presence] in Urine by Visual Laboratory test result [facility] ([facility]) Specific gravity of Urine 1.010 [facility] ([facility]) Ketones [Presence] in Urine by Test strip Laboratory test result [facility] ([facility]) Bilirubin.total [Presence] in Urine by Test strip Laboratory test res ult [facility] ([facility]) Glucose [Presence] in Urine Laboratory test result [facility] ([facility]) ID Date Data Source [id number] 09/16/2020 12:00:00 PM EST [facility] Name Value Range Interpretation Code Description Data Mariangel rce(s) Supporting Document(s) SARS coronavirus 2 RNA Not Detected [facility] [place] This lab was ordered by [facility] and reported by [facility]. ID Date Data Source [id number] 08/27/2020 12:00:00 PM EST [facility] Name Value Range Interpretation Code Description Data Mariangel rce(s) Supporting Document(s) SARS coronavirus 2 RNA Not Detected [facility] [place] This lab was ordered by [facility] and reported by [facility]. Procedure Social History Code Duration Value Status Description Data Source(s ) Smoking 07/22/2021 12:00:00 AM EST Unknown if ever smoked comp leted Unknown if ever smoked [facility] Sm[facility] 07/13/2021 12:00:00 AM EST Unknown if ever smoked comp leted Unknown if ever smoked [facility] ([facility]) Smoking 06/04/2021 12:00:00 AM EDT Unknown if ever smoked comp leted Unknown if ever smoked [facility] ([facility]) Smoking 06/03/2021 12:00:00 AM EDT Unknown if ever smoked comp leted Unknown if ever smoked [facility] ([facility]) Smoking 05/21/2021 12:00:00 AM EDT Unknown if ever smoked comp leted Unknown if ever smoked [facility] ([facility]) Smoking 05/07/2021 12:00:00 AM EDT Unknown if ever smoked comp leted Unknown if ever smoked [facility] ([facility]) Smoking 04/22/2021 12:00:00 AM EDT Unknown if ever smoked comp leted Unknown if ever smoked [facility] ([facility]) Smoking 04/12/2021 12:00:00 AM EDT Unknown if ever smoked comp leted Unknown if ever smoked [facility] ([facility]) Smoking 04/07/2021 12:00:00 AM EDT Patient has never smoked co mpleted Patient has never smoked [facility] ([facility]) Smoking 04/05/2021 12:00:00 AM EDT Unknown if ever smoked comp leted Unknown if ever smoked [facility] ([facility]) Smoking 03/31/2021 12:00:00 AM EDT Unknown if ever smoked comp leted Unknown if ever smoked [facility] ([facility]) Smoking 03/29/2021 12:00:00 AM EDT Unknown if ever smoked comp leted Unknown if ever smoked [facility] ([facility]) Smoking 03/16/2021 12:00:00 AM EDT Unknown if ever smoked comp leted Unknown if ever smoked [facility] ([facility]) Smoking 03/09/2021 12:00:00 AM EDT Unknown if ever smoked comp leted Unknown if ever smoked [facility] ([facility]) Smoking 03/01/2021 12:00:00 AM EDT Unknown if ever smoked comp leted Unknown if ever smoked [facility] ([facility]) Smoking 02/15/2021 12:00:00 AM EDT Unknown if ever smoked comp leted Unknown if ever smoked [facility] ([facility]) Smoking 02/02/2021 12:00:00 AM EDT Unknown if ever smoked comp leted Unknown if ever smoked [facility] ([facility]) Smoking 01/27/2021 12:00:00 AM EDT Never Smoker completed Never S moker eCW1 ([facility]) Smoking 01/27/2021 12:00:00 AM EDT Never Smoker completed Never S moker eCW1 ([facility]) Smoking 01/14/2021 12:00:00 AM EDT Unknown if ever smoked comp leted Unknown if ever smoked [facility] ([facility]) Smoking 01/11/2021 12:00:00 AM EDT Unknown if ever smoked comp leted Unknown if ever smoked [facility] ([facility]) Smoking 01/05/2021 12:00:00 AM EDT Unknown if ever smoked comp leted Unknown if ever smoked [facility] ([facility]) Smoking 12/29/2020 12:00:00 AM EDT Unknown if ever smoked comp leted Unknown if ever smoked [facility] ([facility]) Smoking 12/24/2020 12:00:00 AM EDT Never Smoker completed Never S moker eCW1 ([facility]) Smoking 12/10/2020 12:00:00 AM EDT Unknown if ever smoked comp leted Unknown if ever smoked [facility] ([facility]) Smoking 11/30/2020 12:00:00 AM EDT Unknown if ever smoked comp leted Unknown if ever smoked [facility] ([facility]) Smoking 11/23/2020 12:00:00 AM EDT Unknown if ever smoked comp leted Unknown if ever smoked [facility] ([facility]) Smoking 11/19/2020 12:00:00 AM EDT Never Smoker completed Never S gilbertoker eCW1 ([facility]) Smoking 11/18/2020 12:00:00 AM EDT Unknown if ever smoked comp leted Unknown if ever smoked [facility] ([facility]) Smoking 11/10/2020 12:00:00 AM EDT Unknown if ever smoked comp leted Unknown if ever smoked [facility] ([facility]) Smoking 11/03/2020 12:00:00 AM EDT Never Smoker completed Never S jose eCW1 ([facility]) Smoking 10/28/2020 12:00:00 AM EST Unknown if ever smoked comp leted Unknown if ever smoked [facility] ([facility]) Smoking 10/19/2020 12:00:00 AM EST Unknown if ever smoked comp leted Unknown if ever smoked [facility] ([facility]) Smoking 10/14/2020 12:00:00 AM EST Unknown if ever smoked comp leted Unknown if ever smoked [facility] ([facility]) Smoking 10/12/2020 12:00:00 AM EST Unknown if ever smoked comp leted Unknown if ever smoked [facility] ([facility]) Smoking 10/07/2020 12:00:00 AM EST Unknown if ever smoked comp leted Unknown if ever smoked [facility] ([facility]) Smoking 09/30/2020 12:00:00 AM EST Unknown if ever smoked comp leted Unknown if ever smoked [facility] ([facility]) Smoking 09/25/2020 12:00:00 AM EST Unknown if ever smoked comp leted Unknown if ever smoked [facility] ([facility]) Smoking 09/02/2020 12:00:00 AM EST Unknown if ever smoked comp leted Unknown if ever smoked [facility] ([facility]) Smoking 08/26/2020 12:00:00 AM EST Unknown if ever smoked comp leted Unknown if ever smoked [facility] ([facility]) Smoking 08/20/2020 12:00:00 AM EST Unknown if ever smoked comp leted Unknown if ever smoked [facility] ([facility]) Smoking 08/05/2020 12:00:00 AM EST Unknown if ever smoked comp leted Unknown if ever smoked [facility] ([facility]) Smoking 07/30/2020 12:00:00 AM EST Unknown if ever smoked comp leted Unknown if ever smoked [facility] ([facility]) Smoking 07/01/2020 12:00:00 AM EST Unknown if ever smoked comp leted Unknown if ever smoked [facility] ([facility]) Smoking 06/23/2020 12:00:00 AM EST Unknown if ever smoked comp leted Unknown if ever smoked [facility] ([facility]) Smoking 06/22/2020 12:00:00 AM EST Unknown if ever smoked comp leted Unknown if ever smoked [facility] ([facility]) Smoking 06/18/2020 12:00:00 AM EDT Unknown if ever smoked comp leted Unknown if ever smoked [facility] ([facility]) Smoking 06/04/2020 12:00:00 AM EDT Unknown if ever smoked comp leted Unknown if ever smoked [facility] ([facility]) Smoking 05/27/2020 12:00:00 AM EDT Unknown if ever smoked comp leted Unknown if ever smoked [facility] ([facility]) Smoking 05/26/2020 12:00:00 AM EDT Unknown if ever smoked comp leted Unknown if ever smoked [facility] ([facility] [place] [facility]) Vital Signs ID Date Data Source UNK Name Value Range Interpretation Code Description Data Source(s) Body height 61.81 [in_i] 61.81 [in_i] [facility] ([facility] 5'1.81" Body height [Percentile] 16 % 16 % [facility] ([facility]) Body height 157 cm 157 cm [facility] ([facility]) Body weight 107.00 [lb_av] 107.00 [lb_av] [facility] T ([facility]) Body mass index (BMI) [Ratio] 19.7 kg/m2 19.7 k g/m2 [facility] ([facility]) Body mass index (BMI) [Percentile] 24 % 2 4 % [facility] ([facility]) Body temperature 97.2 [degF] 97.2 [degF] [facility] ([facility]) Heart rate 86 /min 86 /min [facility] ([facility]) Respiratory rate 16 /min 16 /min [facility] Oxygen saturation in Arterial blood by Pulse oximetry 99 % 99 % [facility] ([facility]) Systolic blood pressure 100 mm[Hg] 100 mm[Hg] M [facility]ENT ([facility]) Diastolic blood pressure 72 mm[Hg] 72 mm[Hg] [facility] ([facility]) Body weight 48.535 kg 48.535 kg [facility] ([facility]) Heart rate 78 /min 78 /min [facility] ([facility]) Respiratory rate 16 /min 16 /min [facility] ( [facility]) Oxygen saturation in Arterial blood by Pulse oximetry 97 % 97 % [facility] ([facility]) Systolic blood pressure 118 mm[Hg] 118 mm[Hg] M [facility]ENT ([facility]) Diastolic blood pressure 74 mm[Hg] 74 mm[Hg] [facility] ([facility]) Body height 61.61 [in_i] 61.61 [in_i] [facility] ([facility]) '" Body height [Percentile] 15 % 15 % [facility] Body height 156.5 cm 156.5 cm [facility] ([facility]) Body weight 110.50 [lb_av] 110.50 [lb_av] [facility] T ([facility]) Body weight 50.123 kg 50.123 kg [facility] ([facility]) Body mass index (BMI) [Ratio] 20.5 kg/m2 20.5 k g/m2 [facility] ([facility]) Body mass index (BMI) [Percentile] 34 % 3 4 % [facility] ([facility]) Body temperature 98.4 [degF] 98.4 [degF] [facility] ([facility]) Diastolic blood pressure 68 mm[Hg] 68 mm[Hg] [facility] ([facility]) Body temperature 97.9 [degF] 97.9 [degF] [facility] ([facility]) Heart rate 77 /min 77 /min [facility] ([facility]) Respiratory rate 16 /min 16 /min [facility] ( [facility]) Oxygen saturation in Arterial blood by Pulse oximetry 99 % 99 % [facility] ([facility]) Systolic blood pressure 106 mm[Hg] 106 mm[Hg] M [facility] ([facility]) Body weight 109.00 [lb_av] 109.00 [lb_av] [facility] T ([facility]) Body weight 49.442 kg 49.442 kg [facility] ([facility]) Body mass index (BMI) [Ratio] 20.2 kg/m2 20.2 k g/m2 [facility] ([facility]) Body mass index (BMI) [Percentile] 31 % 3 1 % [facility] ([facility]) Body height 61.61 [in_i] 61.61 [in_i] [facility] ([facility]) 5" Body height [Percentile] 15 % 15 % [facility] ([facility]) Body height 156.5 cm 156.5 cm [facility] ([facility]) Body weight 51.257 kg 51.257 kg [facility] ([facility]) Body height [Percentile] 18 % 18 % [facility] ([facility]) Body surface area Derived from formula 1.50 m2 1.50 m2 [facility] ([facility]) Systolic blood pressure 112 mm[Hg] 112 mm[Hg] M [facility] ([facility]) Diastolic blood pressure 58 mm[Hg] 58 mm[Hg] [facility] ([facility]) Body height 62 [in_i] 62 [in_i] [facility] ([facility]) 5'2" Body weight 113.00 [lb_av] 113.00 [lb_av] [facility] T ([facility]) Body mass index (BMI) [Ratio] 20.7 kg/m2 20.7 k g/m2 [facility] ([facility]) [place] body weight 110 [lb_av] 110 [lb_av] [facility] T ([facility]) Heart rate 91 /min 91 /min [facility] Body weight 48.082 kg 48.082 kg [facility] ([facility]) Body mass index (BMI) [Ratio] 18.8 kg/m2 18.8 k g/m2 [facility] ([facility]) Body mass index (BMI) [Percentile] 13 % 1 3 % [facility] ([facility]) Body temperature 98.9 [degF] 98.9 [degF] [facility] ([facility]) Respiratory rate 18 /min 18 /min [facility] ( [facility]) Oxygen saturation in Arterial blood by Pulse oximetry 100 % 100 % [facility] ([facility]) Systolic blood pressure 108 mm[Hg] 108 mm[Hg] [facility] Diastolic blood pressure 66 mm[Hg] 66 mm[Hg] [facility] ([facility]) Body height 62.99 [in_i] 62.99 [in_i] [facility] ([facility]) 5'2.99" Body height [Percentile] 30 % 30 % [facility] ([facility]) Body height 160 cm 160 cm [facility] ([facility]) Body weight 106.00 [lb_av] 106.00 [lb_av] [facility] T ([facility]) Body weight 46.267 kg 46.267 kg [facility] ([facility]) Body mass index (BMI) [Ratio] 18.1 kg/m2 18.1 k g/m2 [facility] ([facility]) Body mass index (BMI) [Percentile] 7 % 7 % [facility] ([facility]) Heart rate 78 /min 78 /min [facility] ([facility]) Respiratory rate 16 /min 16 /min [facility] ( [facility]) Oxygen saturation in Arterial blood by Pulse oximetry 99 % 99 % [facility] ([facility]) Systolic blood pressure 102 mm[Hg] 102 mm[Hg] M EDENT ([facility]) Diastolic blood pressure 64 mm[Hg] 64 mm[Hg] [facility] ([facility]) Body height 62.99 [in_i] 62.99 [in_i] [facility] ([facility]) 5'2.99" Body height [Percentile] 31 % 31 % [facility] ([facility]) Body height 160 cm 160 cm [facility] ([facility]) Body weight 102.00 [lb_av] 102.00 [lb_av] MEDEN T ([facility]) checked x2 Body weight 112 [lb_av] 112 [lb_av] eCW1 ([facility]) Body weight 50.8 kg 50.8 kg eCW1 ([facility]) Body height 62 [in_i] 62 [in_i] eCW1 ([facility]) Body mass index (BMI) [Ratio] 20.48 kg/m2 20.48 kg/m2 [facility] ([facility]) Systolic blood pressure 108 mm[Hg] 108 mm[Hg] e CW1 ([facility]) Diastolic blood pressure 62 mm[Hg] 62 mm[Hg] eCW1 ([facility]) Body height 0.00 in Normal (applies to non-numeric resu lts) 0.00 in [facility] ([facility]) Body weight Measured 0.00 lbs Normal (applies to n on-numeric results) 0.00 lbs [facility] ([facility]) Body mass index (BMI) [Ratio] 0.00 kg/m2 No rmal (applies to non-numeric results) 0.00 kg[facility] Systolic blood pressure 107 mm[Hg] Normal (applies t o non-numeric results) 107 mm[Hg] [facility] ([facility]) Diastolic blood pressure 65 mm[Hg] Normal (applies to non-numeric results) 65 mm[Hg] [facility] ([facility]) Body height --lying 76 min Normal (applies to non-nume aris results) 76 min [facility] ([facility]) Body weight 113 [lb_av] 113 [lb_av] eCW1 ([facility]) Body weight 51.26 kg 51.26 kg [facility] ([facility]) Body height 62 [in_i] 62 [in_i] eCW1 ([facility]) Body mass index (BMI) [Ratio] 20.67 kg/m2 20.67 kg/m2 W1 ([facility]) Systolic blood pressure 116 mm[Hg] 116 mm[Hg] e CW1 ([facility]) Diastolic blood pressure 70 mm[Hg] 70 mm[Hg] eCW1 ([facility]) Body height 0.00 in Normal (applies to non-numeric resu lts) 0.00 in [facility] ([facility]) Body weight Measured 0.00 lbs Normal (applies to n on-numeric results) 0.00 lbs [facility]) Body mass index (BMI) [Ratio] 0.00 kg/m2 No rmal (applies to non-numeric results) 0.00 kg/m2 [facility] ([facility]) Systolic blood pressure 0 mm[Hg] Normal (applies t o non-numeric results) 0 mm[Hg] [facility] ([facility]) Diastolic blood pressure 0 mm[Hg] Normal (applies to non-numeric results) 0 mm[Hg] [facility] ([facility]) Body weight 113 [lb_av] 113 [lb_av] eCW1 ([facility]) Body weight 51.26 kg 51.26 kg eCW1 ([facility]) Body height 62 [in_i] 62 [in_i] eCW1 ([facility]) Body mass index (BMI) [Ratio] 20.67 kg/m2 20.67 kg/m2 eCW1 ([facility]) Systolic blood pressure 117 mm[Hg] 117 mm[Hg] e CW1 ([facility]) Diastolic blood pressure 73 mm[Hg] 73 mm[Hg] eCW1 ([facility]) Body height 0.00 in Normal (applies to non-numeric resu lts) 0.00 in [facility] ([facility]) Body weight Measured 0.00 lbs Normal (applies to n on-numeric results) 0.00 lbs [facility] ([facility]) Body mass index (BMI) [Ratio] 0.00 kg/m2 No rmal (applies to non-numeric results) 0.00 kg/m2 [facility] ([facility]) Systolic blood pressure 0 mm[Hg] Normal (applies t o non-numeric results) 0 mm[Hg] [facility] Diastolic blood pressure 0 mm[Hg] Normal (applies to non-numeric results) 0 mm[Hg] [facility] ([facility]) Diastolic blood pressure 64 mm[Hg] 64 mm[Hg] eCW1 ([facility]) Systolic blood pressure 116 mm[Hg] 116 mm[Hg] e CW1 ([facility]) Body mass index (BMI) [Ratio] 21.76 kg/m2 21.76 kg/m2 eCW1 ([facility]) Body height 62 [in_i] 62 [in_i] eCW1 ([facility]) Body weight 53.98 kg 53.98 kg eCW1 ([facility]) Body weight 119 [lb_av] 119 [lb_av] eCW1 ([facility]) Body height 0.00 in Normal (applies to non-numeric resu lts) 0.00 in [facility] Body weight Measured 0.00 lbs Normal (applies to n on-numeric results) 0.00 lbs [facility] ([facility]) Body mass index (BMI) [Ratio] 0.00 kg/m2 No rmal (applies to non-numeric results) 0.00 kg/m2 [facility] ([facility]) Systolic blood pressure 0 mm[Hg] Normal (applies t o non-numeric results) 0 mm[Hg] [facility]) Diastolic blood pressure 0 mm[Hg] Normal (applies to non-numeric results) 0 mm[Hg] [facility] ([facility]) Body height 0.00 in Normal (applies to non-numeric resu lts) 0.00 in [facility] ([facility]) Body weight Measured 0.00 lbs Normal (applies to n on-numeric results) 0.00 lbs [facility] ([facility]) Body mass index (BMI) [Ratio] 0.00 kg/m2 No rmal (applies to non-numeric results) 0.00 kg/m2 [facility] ([facility]) Systolic blood pressure 0 mm[Hg] Normal (applies t o non-numeric results) 0 mm[Hg] [facility] ([facility]) Diastolic blood pressure 0 mm[Hg] Normal (applies to non-numeric results) 0 mm[Hg] [facility] ([facility]) Diastolic blood pressure 60 mm[Hg] 60 mm[Hg] [facility] ([facility]) Body height 62 [in_i] 62 [in_i] [facility] ([facility]) 5'2" Body weight 110.00 [lb_av] 110.00 [lb_av] MEDEN T ([facility]) Systolic blood pressure 112 mm[Hg] 112 mm[Hg] M EDENT ([facility]) Body mass index (BMI) [Ratio] 20.1 kg/m2 20.1 k g/m2 [facility]) [place] body weight 110 [lb_av] 110 [lb_av] [facility] T ([facility]) Body weight 49.896 kg 49.896 kg [facility] ([facility]) Body height [Percentile] 19 % 19 % [facility] ([facility]) Body surface area Derived from formula 1.48 m2 1.48 m2 [facility] ([facility]) Body height 0.00 in Normal (applies to non-numeric resu lts) 0.00 in [facility] ([facility]) Body weight Measured 0.00 lbs Normal (applies to n on-numeric results) 0.00 lbs [facility] ([facility]) Body mass index (BMI) [Ratio] 0.00 kg/m2 No rmal (applies to non-numeric results) 0.00 kg/m2 [facility] ([facility]) Systolic blood pressure 0 mm[Hg] Normal (applies t o non-numeric results) 0 mm[Hg] [facility] ([facility]) Diastolic blood pressure 0 mm[Hg] Normal (applies to non-numeric results) 0 mm[Hg] [facility] ([facility]) Body height 0.00 in Normal (applies to non-numeric resu lts) 0.00 in [facility] ([facility]) Body weight Measured 0.00 lbs Normal (applies to n on-numeric results) 0.00 lbs [facility] ([facility]) Body mass index (BMI) [Ratio] 0.00 kg/m2 No rmal (applies to non-numeric results) 0.00 kg/m2 [facility] ([facility]) Systolic blood pressure 0 mm[Hg] Normal (applies t o non-numeric results) 0 mm[Hg] [facility] ([facility]) Diastolic blood pressure 0 mm[Hg] Normal (applies to non-numeric results) 0 mm[Hg] [facility] ([facility])
[2021-07-23] MEDS ORDERED: ONDANSETRON 4 MG ORAL DISINTEGRATING TAB PO ONE (16:50)
[2021-07-23 17:59] LABS: BASO % 0.5 % (0.0-1.0); EOS # 0.7 10^3/uL (0.0-0.5); EOS % 8.6 % (0.0-3.0); HEMATOCRIT 42.6 % (36.0-47.0); LYMPH # 2.3 10^3/uL (1.5-5.0); LYMPH % 29.7 % (24.0-44.0); MEAN CORPUSCULAR HEMOGLOBIN 29.4 pg (27.0-33.0); MEAN CORPUSCULAR HGB CONC 32.9 g/dl (32.0-36.5); MEAN CORPUSCULAR VOLUME 89.3 fl (80.0-96.0); MONO # 0.5 10^3/uL (0.0-0.8); MONO % 6.8 % (2.0-8.0); NEUTROPHILS # 4.2 10^3/uL (1.5-8.5); NEUTROPHILS % 54.1 % (36.0-66.0); PLATELET COUNT, AUTOMATED 254 10^3/uL (150-450); RED BLOOD COUNT 4.77 10^6/uL (4.00-5.40); WHITE BLOOD COUNT 7.8 10^3/uL (4.0-10.0)
[2021-07-23 18:24] LABS: ALBUMIN 4.4 GM/DL (3.2-5.2); ALT/SGPT 17 U/L (12-78); BILIRUBIN,DIRECT 0.1 MG/DL (0.0-0.2); BILIRUBIN,TOTAL 0.4 MG/DL (0.2-1.0); BLOOD UREA NITROGEN 11 MG/DL (7-18); CALCIUM LEVEL 9.4 MG/DL (8.5-10.1); CARBON DIOXIDE LEVEL 25 MEQ/L (21-32); CHLORIDE LEVEL 106 MEQ/L (98-107); CREATININE FOR GFR 0.82 MG/DL (0.55-1.30); GLUCOSE, FASTING 79 MG/DL (70-100); POTASSIUM SERUM 3.8 MEQ/L (3.5-5.1); SODIUM LEVEL 139 MEQ/L (136-145); TOTAL PROTEIN 7.6 GM/DL (6.4-8.2)
[2021-07-23] MEDS ORDERED: ONDA4TAB6 PO (18:51)
--- OUTSIDE RECORDS SUMMARY | 2021-07-23 18:54 | CCD ---
Author Author [facility] Organization [facility] Address Unknown Phone Unavailable Care Team Providers Care Cloth Colorer Name Role Phone Ted Phillips DO Unavailable [...] Ted DO Unavailable Unavailable LAROCK, J LATISHA SURGICAL NURSE Unavailable Unavailable LAROCK, J LATISHA SURGICAL NURSE Unavailable Unavailable LAROCK, J LATISHA SURGICAL NURSE Unavailable Unavailable LAROCK, J LATISHA SURGICAL NURSE Unavailable Unavailable LAROCK, J LATISHA SURGICAL NURSE Unavailable Unavailable LAROCK, J LATISHA SURGICAL NURSE Unavailable Unavailable LAROCK, J LATISHA SURGICAL NURSE Unavailable Unavailable LAROCK, J LATISHA SURGICAL NURSE Unavailable Unavailable LAROCK, J LATISHA SURGICAL NURSE Unavailable Unavailable LAROCK, J LATISHA SURGICAL NURSE Unavailable Unavailable LAROCK, J LATISHA SURGICAL NURSE Unavailable Unavailable LAROCK, J LATISHA SURGICAL NURSE Unavailable Unavailable LAROCK, J LATISHA SURGICAL NURSE Unavailable Unavailable LAROCK, J LATISHA SURGICAL NURSE Unavailable Unavailable LAROCK, J LATISHA SURGICAL NURSE Unavailable Unavailable LAROCK, J LATISHA SURGICAL NURSE Unavailable Unavailable LAROCK, J LATISHA SURGICAL NURSE Unavailable Unavailable LAROCK, J LATISHA SURGICAL NURSE Unavailable Unavailable LAROCK, J LATISHA SURGICAL NURSE Unavailable Unavailable LAROCK, J LATISHA SURGICAL NURSE Unavailable Unavailable LAROCK, J LATISHA SURGICAL NURSE Unavailable Unavailable LAROCK, J LATISHA SURGICAL NURSE Unavailable Unavailable China García MD Unavailable Unavailable [...] KOURTNEY PA Unavailable Unavailable LUIS, H OC SURGICAL NURSE Unavailable Unavailable LUIS, H OC SURGICAL NURSE Unavailable Unavailable LUIS, H OC SURGICAL NURSE Unavailable Unavailable LUIS, H OC SURGICAL NURSE Unavailable Unavailable LUIS, H OC SURGICAL NURSE Unavailable Unavailable LUIS, H OC SURGICAL NURSE Unavailable Unavailable LUIS, H OC SURGICAL NURSE Unavailable Unavailable LUIS, H OC SURGICAL NURSE Unavailable Unavailable LUIS, H OC SURGICAL NURSE Unavailable Unavailable Turo, M Apollo RPA-C Unavailable [...] Unavailable Unavailable Yaw CHURCH MD Unavailable Unavailable aYw CHURCH MD Unavailable Unavailable Yaw CHURCH MD Unavailable Unavailable Yaw CHURCH MD Unavailable Unavailable Yaw CHURCH MD Unavailable Unavailable Lang, Gill SURGICAL NURSE Unavailable Unavailable Lang, Gill SURGICAL NURSE Unavailable Unavailable Lang, Gill SURGICAL NURSE Unavailable Unavailable Lang, Gill SURGICAL NURSE Unavailable Unavailable Lang, Gill SURGICAL NURSE Unavailable Unavailable Lang, Gill SURGICAL NURSE Unavailable Unavailable Lang, Gill SURGICAL NURSE Unavailable Unavailable Lang, Gill SURGICAL NURSE Unavailable Unavailable Lang, Gill SURGICAL NURSE Unavailable Unavailable Lang, Gill SURGICAL NURSE Unavailable Unavailable Lang, Gill SURGICAL NURSE Unavailable Unavailable Lang, Gill SURGICAL NURSE Unavailable Unavailable Lang, Gill SURGICAL NURSE Unavailable Unavailable Lang, Gill SURGICAL NURSE Unavailable Unavailable Lang, Gill SURGICAL NURSE Unavailable Unavailable Lang, Gill SURGICAL NURSE Unavailable Unavailable Lang, Gill SURGICAL NURSE Unavailable Unavailable Lang, Gill SURGICAL NURSE Unavailable Unavailable Lang, Gill SURGICAL NURSE Unavailable Unavailable Lang, Gill SURGICAL NURSE Unavailable Unavailable Lang, Gill SURGICAL NURSE Unavailable Unavailable Lang, Gill SURGICAL NURSE Unavailable Unavailable Lang, Gill SURGICAL NURSE Unavailable Unavailable Lang, Gill SURGICAL NURSE Unavailable Unavailable Lang, Gill SURGICAL NURSE Unavailable Unavailable Lang, Gill SURGICAL NURSE Unavailable Unavailable Yaw Rendon PMH-SURGICAL NURSE Unavailable Unavailable Yaw Rendon PMH-SURGICAL NURSE Unavailable Unavailable Yaw Rendon PMH-SURGICAL NURSE Unavailable Unavailable Yaw Rendon PMH-SURGICAL NURSE Unavailable Unavailable Yaw Rendon PMH-SURGICAL NURSE Unavailable Unavailable Yaw Rendon PMH-SURGICAL NURSE Unavailable Unavailable Justice, Yaw Cuellar PMH-SURGICAL NURSE Unavailable Unavailable Justice, Yaw Cuellar PMH-SURGICAL NURSE Unavailable Unavailable Justice, Yaw Cuellar PMH-SURGICAL NURSE Unavailable Unavailable Justice, Yaw Cuellar PMH-SURGICAL NURSE Unavailable Unavailable Re-disclosure Warning The records that [...] is protected by Article 27-F of the [facility] Public Health law. If you continue you may have access to information: Regarding HIV / AIDS; Provided by facilities licensed or operated by the [facility] Office of Mental Health; or Provided by the [facility] Office for People With Developmental Disabilities. If such information is present, then the following [facility] mandated warning applies: This information has [...] law may result in a fine or nursing home sentence or both. A general authorization for the release of medical or other information is NOT sufficient authorization for further disc losure. Allergies and Adverse Reactions Type Description Substance Reaction Status Data Source(s ) Propensity to adverse reactions NO KNOWN ALLERGIES NO KNOWN ALLERGIES [facility] Family History Family Member Name Family Member Gender Family Member Status Date o f Status Description Data Source(s) Unknown Unknown Problem [facility] [place]ters Encounter Providers Location Date Indications Data Source(s ) Attender: Merna Barney 07/22/2021 12:00:00 AM EST [facility]) Brief Individual Psychotherapy - 30 min Attender: Merna longoria [facility] 07/20/2021 04:45:00 AM EST - 07/20/2021 04:45:00 AM EST [facility] ([facility]) Outpatient Attender: OC TUTTLE NP [facility] oliva 07/13/2021 04:30:00 AM EST - 07/13/2021 04:30:00 AM EST [facility] ([facility]) Extended Individual Psychotherapy - 45 min Attender: Merna Barney [facility] 07/13/2021 03:30:00 AM EST - 07/13/2021 03:30:00 AM EST [facility] ([facility]) Attender: Merna Barney 07/13/2021 12:00:00 AM EST [facility] ([facility]) Attender: OC TUTTLE NP 07/13/2021 12:00:00 AM EST [facility] ([facility]) Outpatient Attender: Ragini García MD [employer] [facility] 07/12/2021 12:20:00 PM EST [facility] ([employer] [facility]) Outpatient Attender: Apollo ANN [facility] 06/11/2021 03:00:00 PM EDT [facility] ([employer] [facility]) Attender: Merna Barney 06/04/2021 12:00:00 AM EDT [facility] ([facility]) Outpatient Attender: OC TUTTLE NP [facility] 06/03/2021 05:00:00 AM EDT - 06/03/2021 05:00:00 AM EDT [facility] ([facility]) Extended Individual Psychotherapy - 45 min Attender: Merna Barney [facility] 06/03/2021 04:00:00 AM EDT - 06/03/2021 04:00:00 AM EDT [facility] ([facility]) Attender: OC TUTTLE NP 06/03/2021 12:00:00 AM EDT [facility] ([facility]) Attender: Merna Barney 05/21/2021 12:00:00 AM EDT [facility] ([facility]) Extended Individual Psychotherapy - 45 min Attender: Merna Barney [facility] 05/20/2021 04:00:00 AM EDT - 05/20/2021 04:00:00 AM EDT [facility] ([facility]) Outpatient Attender: Apollo ANN [facility] 05/14/2021 08:40:00 AM EDT [facility] ([employer] [facility]) Attender: Merna Barney 05/07/2021 12:00:00 AM EDT [facility] ([facility]) Outpatient Attender: Ted Phillips DOAdmitter: Ted Phillips DO ES1-S J.EU 05/06/2021 10:52:25 AM EDT [facility] Extended Individual Psychotherapy - 45 min Attender: Merna Barney [facility] 05/06/2021 04:00:00 AM EDT - 05/06/2021 04:00:00 AM EDT [facility] ([facility]) Extended Individual Psychotherapy - 45 min Attender: Merna Barney [facility] 04/22/2021 04:00:00 AM EDT - 04/22/2021 04:00:00 AM EDT [facility] ([facility]) Attender: Merna Barney 04/22/2021 12:00:00 AM EDT [facility] ([facility]) Unknown [address] [facility] [address] 04/15/2021 12:00:00 AM EDT eCW1 ([facility]) Extended Individual Psychotherapy - 45 min Attender: Merna Barney [facility] 04/12/2021 02:00:00 AM EDT - 04/12/2021 02:00:00 AM EDT [facility] ([facility]) Attender: Merna Barney 04/12/2021 12:00:00 AM EDT [facility] ([facility]) Outpatient Attender: EDITH De Los Santos/Eufemia/Kashif ibarra/Reina 04/09/2021 01:30:00 PM EDT [facility] ([facility] Outpatient Attender: KOURTNEY BARILLAS [facility] 04/07/2021 01:10:00 PM EDT [facility] ([facility]) Extended Individual Psychotherapy - 45 min Attender: Merna Barney [facility] 04/05/2021 02:00:00 AM EDT - 04/05/2021 02:00:00 AM EDT [facility] ([facility]) Attender: Merna Barney 04/05/2021 12:00:00 AM EDT [facility] ([facility]) Outpatient Attender: OC TUTTLE NP [facility] Mian baptiste 03/31/2021 04:00:00 AM EDT - 03/31/2021 04:00:00 AM EDT [facility] ([facility]) Attender: OC TUTTLE NP 03/31/2021 12:00:00 AM EDT [facility] ([facility]) Extended Individual Psychotherapy - 45 min [facility] 03/29/2021 02:00:00 AM EDT - 03/29/2021 02:00:00 AM EDT [facility] ([facility]) Attender: Merna Barney 03/29/2021 12:00:00 AM EDT [facility] ([facility]) Outpatient Attender: OC TUTTLE NP [facility] Mian baptiste 03/16/2021 02:00:00 AM EDT - 03/16/2021 02:00:00 AM EDT [facility] ([facility]) Attender: OC TUTTLE NP 03/16/2021 12:00:00 AM EDT [facility] ([facility]) Attender: Merna Barney 03/09/2021 12:00:00 AM EDT [facility] ([facility]) Extended Individual Psychotherapy - 45 min Attender: Merna Barney [facility] 03/08/2021 02:00:00 AM EDT - 03/08/2021 02:00:00 AM EDT [facility] ([facility]) Outpatient Attender: Gill Lang NP [facility] 03/01/2021 11:20:00 AM EDT [facility] ([employer] [facility]) Extended Individual Psychotherapy - 45 min Attender: Merna Barney [facility] 03/01/2021 02:00:00 AM EDT - 03/01/2021 02:00:00 AM EDT [facility] ([facility]) Attender: Merna Barney 03/01/2021 12:00:00 AM EDT [facility] ([facility]) Outpatient Attender: LATISHA WEBBER NP 08/2020 05:15:22 PM EDT - 02/18/2021 05:37:20 PM EDT [facility] ([facility] ) Extended Individual Psychotherapy - 45 min Attender: Merna Barney [facility] 02/15/2021 02:00:00 AM EDT - 02/15/2021 02:00:00 AM EDT [facility] ([facility]) Attender: Merna Barney 02/15/2021 12:00:00 AM EDT [facility] ([facility]) Attender: Merna Barney 02/02/2021 12:00:00 AM EDT [facility] ([facility]) Extended Individual Psychotherapy - 45 min Attender: Merna Barney [facility] 02/01/2021 01:45:00 AM EDT - 02/01/2021 01:45:00 AM EDT [facility] ([facility]) Outpatient [address] [facility] [address] 01/27/2021 12:00:00 AM EDT eC1 ([facility]) Outpatient Attender: Alisa LOPEZ Rickey de[facility] 01/14/2021 11:00:00 AM EDT - 01/14/2021 11:00:00 AM EDT [facility] ([facility]) Attender: Alisa LOPEZ 01/14/2021 12: 00:00 AM EDT [facility] ([facility]) Extended Individual Psychotherapy - 45 min Attender: Merna Barney [facility] 01/11/2021 02:00:00 AM EDT - 01/11/2021 02:00:00 AM EDT [facility] ([facility]) Attender: Merna Barney 01/11/2021 12:00:00 AM EDT [facility] ([facility]) Attender: Merna Barney 01/05/2021 12:00:00 AM EDT [facility] ([facility]) Extended Individual Psychotherapy - 45 min Attender: Merna Barney [facility] 01/04/2021 02:00:00 AM EDT - 01/04/2021 02:00:00 AM EDT [facility] ([facility]) Attender: Merna Barney 12/29/2020 12:00:00 AM EDT [facility] ([facility]) Extended Individual Psychotherapy - 45 min Attender: Merna [facility] 12/28/2020 02:00:00 AM EDT - 12/28/2020 02:00:00 AM EDT [facility] ([facility]) Outpatient [address] [facility] [address] 12/24/2020 12:00:00 AM EDT eCW1 ([facility]) Outpatient Attender: Alisa LOPEZ Rickey dey Longterm 12/10/2020 11:00:00 AM EDT - 12/10/2020 11:00:00 AM EDT [facility] ([facility]) Attender: Alisa LOPEZ 12/10/2020 12: 00:00 AM EDT [facility] ([facility]) Extended Individual Psychotherapy - 45 min Attender: Merna Ector [facility] 11/30/2020 01:00:00 AM EDT - 11/30/2020 01:00:00 AM EDT [facility] ([facility]) Attender: Merna Barney 11/30/2020 12:00:00 AM EDT [facility] ([facility]) Extended Individual Psychotherapy - 45 min Attender: Merna Ector [facility] 11/23/2020 01:00:00 AM EDT - 11/23/2020 01:00:00 AM EDT [facility] ([facility]) Attender: Merna Barney 11/23/2020 12:00:00 AM EDT [facility] ([facility]) ([facility] Procedure [address] [place] [address] 11/19/2020 12:00:00 AM EDT eC1 ([facility]) Attender: Merna Barney 11/18/2020 12:00:00 AM EDT [facility] ([facility]) Extended Individual Psychotherapy - 45 min Attender: Merna Barney [facility] 11/17/2020 11:45:00 AM EDT - 11/17/2020 11:45:00 AM EDT [facility] ([facility]) Extended Individual Psychotherapy - 45 min Attender: Merna Barney [facility] 11/10/2020 11:00:00 AM EDT - 11/10/2020 11:00:00 AM EDT [facility] ([facility]) Outpatient Attender: Alisa Rendon [facility] 11/10/2020 01:30:00 AM EDT - 11/10/2020 01:30:00 AM EDT [facility] ([facility]) Attender: Alisa LOPEZ 11/10/2020 12: 00:00 AM EDT [facility] ([facility]) Attender: Merna Barney 11/10/2020 12:00:00 AM EDT [facility] ([facility]) Outpatient [address] [facility] [address] 11/03/2020 12:00:00 AM EDT eCW1 ([facility]) Attender: Merna Barney 10/28/2020 12:00:00 AM EST [facility] ([facility]) Extended Individual Psychotherapy - 45 min Attender: Merna Barney [facility] 10/27/2020 11:00:00 AM EST - 10/27/2020 11:00:00 AM EST [facility] ([facility]) Extended Individual Psychotherapy - 45 min Attender: Merna Barney [facility] 10/19/2020 01:00:00 AM EST - 10/19/2020 01:00:00 AM EST [facility] ([facility]) Attender: Merna Barney 10/19/2020 12:00:00 AM EST [facility] ([facility]) Extended Individual Psychotherapy - 45 min Attender: Merna Barney [facility] 10/14/2020 01:00:00 AM EST - 10/14/2020 01:00:00 AM EST [facility] ([facility]) Attender: Merna Barney 10/14/2020 12:00:00 AM EST [facility] ([facility]) Outpatient Att[facility]: [facility] 10/12/2020 11:00:00 AM EST - 10/12/2020 11:00:00 AM EST [facility] ([facility]) Attender: Alisa DIXONJULIANO 10/12/2020 12: 00:00 AM EST [facility] ([facility]) Extended Individual Psychotherapy - 45 min Attender: Merna Barney [facility] 10/07/2020 12:00:00 PM EST - 10/07/2020 12:00:00 PM EST [facility] ([facility]) Attender: Merna Barney 10/07/2020 12:00:00 AM EST [facility] ([facility]) Extended Individual Psychotherapy - 45 min Attender: Merna Barney [facility] 09/30/2020 01:00:00 AM EST - 09/30/2020 01:00:00 AM EST [facility] ([facility]) Attender: Merna Barney 09/30/2020 12:00:00 AM EST [facility] ([facility]) Attender: Merna Barney 09/25/2020 12:00:00 AM EST [facility] ([facility]) Extended Individual Psychotherapy - 45 min Attender: Merna Barney [facility] 09/23/2020 12:00:00 PM EST - 09/23/2020 12:00:00 PM EST [facility] ([facility]) Extended Individual Psychotherapy - 45 min Attender: Merna Barney [facility] 09/02/2020 12:00:00 PM EST - 09/02/2020 12:00:00 PM EST [facility] ([facility]) Outpatient Attender: Alisa Rendon [facility] 09/02/2020 11:30:00 AM EST - 09/02/2020 11:30:00 AM EST [facility] ([facility]) Attender: Merna Barney 09/02/2020 12:00:00 AM EST [facility] ([facility]) Attender: Alisa DIXONJULIANO 09/02/2020 12: 00:00 AM EST [facility] ([facility]) Extended Individual Psychotherapy - 45 min Attender: Merna Barney [facility] 08/26/2020 12:00:00 PM EST - 08/26/2020 12:00:00 PM EST [facility] ([facility]) Attender: Merna Barney 08/26/2020 12:00:00 AM EST [facility] ([facility]) Attender: Merna Barney 08/20/2020 12:00:00 AM EST [facility] ([facility]) Extended Individual Psychotherapy - 45 min Attender: Merna Barney [facility] 08/19/2020 12:00:00 PM EST - 08/19/2020 12:00:00 PM EST [facility] ([facility]) Extended Individual Psychotherapy - 45 min Attender: Merna Barney [facility] 08/05/2020 12:00:00 PM EST - 08/05/2020 12:00:00 PM EST [facility] ([facility]) Attender: Merna Barney 08/05/2020 12:00:00 AM EST [facility] ([facility]) Extended Individual Psychotherapy - 45 min Attender: Merna Barney [facility] 07/30/2020 11:00:00 AM EST - 07/30/2020 11:00:00 AM EST [facility] ([facility]) Attender: Merna Barney 07/30/2020 12:00:00 AM EST [facility] ([facility]) Extended Individual Psychotherapy - 45 min Attender: Merna Barney [facility] 07/01/2020 12:00:00 PM EST - 07/01/2020 12:00:00 PM EST [facility] ([facility]) Attender: Merna Barney 07/01/2020 12:00:00 AM EST [facility] ([facility]) Extended Individual Psychotherapy - 45 min Attender: Merna Barney [facility] 06/23/2020 11:00:00 AM EST - 06/23/2020 11:00:00 AM EST [facility] ([facility]) Attender: Merna Barney 06/23/2020 12:00:00 AM EST [facility] ([facility]) Outpatient Attender: Alisa Rendon [facility] 06/22/2020 01:30:00 AM EST - 06/22/2020 01:30:00 AM EST [facility] ([facility]) Attender: Alisa LOPEZ 06/22/2020 12: 00:00 AM EST [facility] ([facility]) TEMPMHCTelemed 30" Psychotherapy Attender: Merna Barney [facility] 06/18/2020 10:00:00 AM EDT - 06/18/2020 10:00:00 AM EDT [facility] ([facility]) Attender: Merna Barney 06/18/2020 12:00:00 AM EDT [facility] ([facility]) Attender: Merna Barney 06/04/2020 12:00:00 AM EDT [facility] ([facility]) Extended Individual Psychotherapy - 45 min Attender: Merna Barney [facility] 06/03/2020 12:15:00 PM EDT - 06/03/2020 12:15:00 PM EDT [facility] ([facility]) Extended Individual Psychotherapy - 45 min Attender: Merna Barney [facility] 05/27/2020 02:00:00 AM EDT - 05/27/2020 02:00:00 AM EDT [facility] ([facility]) Attender: Merna Barney 05/27/2020 12:00:00 AM EDT [facility] ([facility]) Outpatient Attender: Alisa Rendon [facility] 05/26/2020 03:00:00 AM EDT - 05/26/2020 03:00:00 AM EDT [facility] ([facility]) Attender: Alisa DIXONJULIANO 05/26/2020 12: 00:00 AM EDT [facility] ([facility]) Functional Status Immunizations Vaccine Date Status Description Data Source(s) HPV9 03/01/2021 12:12:00 PM EDT completed M EDENT ([facility]) meningococcal B, OMV 03/01/2021 12:11:00 PM EDT completed MEDENT ([facility]) meningococcal B, OMV 03/01/2021 08:12:00 AM EDT completed [facility] ([facility]) HPV9 03/01/2021 08:11:00 AM EDT completed M EDENT ([facility]) COVID-19 VACC, MRNA(PFIZER)/PF 01/26/2021 12:00:00 AM EDT completed [facility] COVID-19 VACCINE Pfizer 01/26/2021 12:00:00 AM EDT completed [facility] Vaccine Series Complete: YESThis Data wa s Submitted to [facility] Via [employer]. COVID-19 VACC, MRNA([employer])/PF 01/05/2021 12:00:00 AM EDT completed [facility] COVID-19 VACCINE Pfizer 01/05/2021 12:00:00 AM EDT completed [facility] Vaccine Series Complete: NOThis Data was Submitted to [facility] [employer]. Medications Medication Brand Name Start Date Product Form Dose Route Admi nistrative Instructions Pharmacy Instructions Status Indications Reaction Description Data Source(s) Lurasidone Hydrochloride 20 MG Oral Tablet [Latuda] Latuda 07/13/2021 12:00:00 AM EST 20 mg by mouth completed <td ID="MedicationRxNorm_5">[id number]</td><td ID="MedicationMedication_5">Latuda</td><td ID="MedicationRoute_5">by mouth</td><td ID="MedicationRouteConcept_5">[id number]</td><td ID="MedicationStartDate_5">07/13/2021</td><td ID="MedicationStopDate_5">08/12/2021</td><td ID="MedicationDosageFrequency_5">at bedtime</td><td ID="MedicationDuration_5">30</td><td ID="MedicationFormulaStrength_5">20 mg</td><td ID="MedicationDosageForm_5">tablet</td><td ID="MedicationDosageFormCode_5"></td><td ID="MedicationDosageDescription_5"></td><td ID="MedicationMedicationId_5">[id number]</td><td ID="MedicationAccount_5">[id number]</td><td ID="MedicationNpid_5">[id number]</td><td ID="MedicationAuthorFirstName_5">Oc</td><td ID="MedicationAuthorLastName_5">Luis</td><td ID="MedicationTaxonomyCode_5">[id number]</td><td ID="MedicationTaxonomyDesc_5">Nurse Practitioner</td><td ID="MedicationPhoneNumber_5">[phone]</td> [facility] ([facility]) Lurasidone Hydrochloride 20 MG Oral Tablet [Latuda] Latuda 07/13/2021 12:00:00 AM EST 20 mg by mouth completed <td ID="MedicationRxNorm_3">[id number]</td><td ID="MedicationMedication_3">Latuda</td><td ID="MedicationRoute_3">by mouth</td><td ID="MedicationRouteConcept_3">M58903</td><td ID="MedicationStartDate_3">07/13/2021</td><td ID="MedicationStopDate_3">08/12/2021</td><td ID="MedicationDosageFrequency_3">at bedtime</td><td ID="MedicationDuration_3">30</td><td ID="MedicationFormulaStrength_3">20 mg</td><td ID="MedicationDosageForm_3">tablet</td><td ID="MedicationDosageFormCode_3"></td><td ID="MedicationDosageDescription_3"></td><td ID="MedicationMedicationId_3">[id number]</td><td ID="MedicationAccount_3">[id number]</td><td ID="MedicationNpid_3">[id number]</td><td ID="MedicationAuthorFirstName_3">Oc</td><td ID="MedicationAuthorLastName_3">Luis</td><td ID="MedicationTaxonomyCode_3">[id number]</td><td ID="MedicationTaxonomyDesc_3">Nurse Practitioner</td><td ID="MedicationPhoneNumber_3">[phone]</td> [facility] ([facility]) Lurasidone Hydrochloride 20 MG Oral Tablet [Latuda] Latuda 07/13/2021 12:00:00 AM EST 20 mg by mouth completed <td ID="MedicationRxNorm_4">3246097</td><td ID="MedicationMedication_4">Latuda</td><td ID="MedicationRoute_4">by mouth</td><td ID="MedicationRouteConcept_4">G02178</td><td ID="MedicationStartDate_4">07/13/2021</td><td ID="MedicationStopDate_4">07/13/2021</td><td ID="MedicationDosageFrequency_4">at bedtime</td><td ID="MedicationDuration_4">30</td><td ID="MedicationFormulaStrength_4">20 mg</td><td ID="MedicationDosageForm_4">tablet</td><td ID="MedicationDosageFormCode_4"></td><td ID="MedicationDosageDescription_4"></td><td ID="MedicationMedicationId_4">[id number]</td><td ID="MedicationAccount_4">[id number]</td><td ID="MedicationNpid_4">[id number]</td><td ID="MedicationAuthorFirstName_4">Oc</td><td ID="MedicationAuthorLastName_4">Luis</td><td ID="MedicationTaxonomyCode_4">[id number]</td><td ID="MedicationTaxonomyDesc_4">Nurse Practitioner</td><td ID="MedicationPhoneNumber_4">[phone]</td> [facility] ([facility]) aripiprazole 5 MG Oral Tablet aripiprazole 07/05/2021 12:00:00 AM EST 5 mg by mouth completed <td ID="Medica tionRxNorm_3">005840</td><td ID="MedicationMedication_3">aripiprazole</td><td ID="MedicationRoute_3">by mouth</td><td ID="MedicationRouteConcept_3">F32387</td><td ID="MedicationStartDate_3">07/05/2021</td><td ID="MedicationStopDate_3">07/13/2021</td><td ID="MedicationDosageFrequency_3">once a day</td><td ID="MedicationDuration_3">30</td><td ID="MedicationFormulaStrength_3">5 mg</td><td ID="MedicationDosageForm_3">tablet</td><td ID="MedicationDosageFormCode_3"></td><td ID="MedicationDosageDescription_3"></td><td ID="MedicationMedicationId_3">[id number]</td><td ID="MedicationAccount_3">[id number]</td><td ID="MedicationNpid_3">[id number]</td><td ID="MedicationAuthorFirstName_3">Oc</td><td ID="MedicationAuthorLastName_3">Luis</td><td ID="MedicationTaxonomyCode_3">[id number]</td><td ID="MedicationTaxonomyDesc_3">Nurse Practitioner</td><td ID="MedicationPhoneNumber_3">[phone]</td> [facility] ([facility]) 14 ACTUAT fluticasone furoate 0.1 MG/ACTUAT Dry Powder Inhaler [Arnuity] Arnuity Ellipta 06/15/2021 12:00:00 AM EDT RESPIRATORY active [facility] ([facility]) 30 ACTUAT mometasone furoate 0.2 MG/ACTUAT Dry Powder Inhaler [Asmanex] Asmanex Twisthaler 30 Metered Doses 06/11/2021 12:00:00 AM EDT RESPI RATORY completed [facility] ([facility] 200 ACTUAT Albuterol 0.09 MG/ACTUAT Metered Dose Inhal er [Ventolin] Ventolin HFA 06/11/2021 12:00:00 AM EDT RESPIRATORY active [facility] ([facility]) lamotrigine 25 MG Oral Tablet lamotrigine 06/03/2021 12:00:00 AM EDT 25 mg by mouth completed <td ID="Medica tionRxNorm_2">997646</td><td ID="MedicationMedication_2">lamotrigine</td><td ID="MedicationRoute_2">by mouth</td><td ID="MedicationRouteConcept_2">D77972</td><td ID="MedicationStartDate_2">06/03/2021</td><td ID="MedicationStopDate_2"></td><td ID="MedicationDosageFrequency_2">once a day</td><td ID="MedicationDuration_2"></td><td ID="MedicationFormulaStrength_2">25 mg</td><td ID="MedicationDosageForm_2">tablet</td><td ID="MedicationDosageFormCode_2"></td><td ID="MedicationDosageDescription_2"></td><td ID="MedicationMedicationId_2">[id number]</td><td ID="MedicationAccount_2">[id number]</td><td ID="MedicationNpid_2">[id number]</td><td ID="MedicationAuthorFirstName_2">Oc</td><td ID="MedicationAuthorLastName_2">Luis</td><td ID="MedicationTaxonomyCode_2">[id number]</td><td ID="MedicationTaxonomyDesc_2">Nurse Practitioner</td><td ID="MedicationPhoneNumber_2">[phone]</td> [facility] ([facility]) olanzapine 2.5 MG Oral Tablet olanzapine 05/20/2021 12:00:00 AM EDT 2.5 mg by mouth completed <td ID="Medica tionRxNorm_4">295735</td><td ID="MedicationMedication_4">olanzapine</td><td ID="MedicationRoute_4">by mouth</td><td ID="MedicationRouteConcept_4">M86509</td><td ID="MedicationStartDate_4">05/20/2021</td><td ID="MedicationStopDate_4">07/19/2021</td><td ID="MedicationDosageFrequency_4">at bedtime</td><td ID="MedicationDuration_4">30</td><td ID="MedicationFormulaStrength_4">2.5 mg</td><td ID="MedicationDosageForm_4">tablet</td><td ID="MedicationDosageFormCode_4"></td><td ID="MedicationDosageDescription_4"></td><td ID="MedicationMedicationId_4">70877</td><td ID="MedicationAccount_4">[id number]</td><td ID="MedicationNpid_4">[id number]</td><td ID="MedicationAuthorFirstName_4">Oc</td><td ID="MedicationAuthorLastName_4">Luis</td><td ID="MedicationTaxonomyCode_4">[id number]</td><td ID="MedicationTaxonomyDesc_4">Nurse Practitioner</td><td ID="MedicationPhoneNumber_4">[phone]</td> [facility] ([facility]) olanzapine 2.5 MG Oral Tablet olanzapine 05/20/2021 12:00:00 AM EDT 2.5 mg by mouth completed <td ID="Medica tionRxNorm_3">987487</td><td ID="MedicationMedication_3">olanzapine</td><td ID="MedicationRoute_3">by mouth</td><td ID="MedicationRouteConcept_3">J14967</td><td ID="MedicationStartDate_3">05/20/2021</td><td ID="MedicationStopDate_3"></td><td ID="MedicationDosageFrequency_3">at bedtime</td><td ID="MedicationDuration_3">30</td><td ID="MedicationFormulaStrength_3">2.5 mg</td><td ID="MedicationDosageForm_3">tablet</td><td ID="MedicationDosageFormCode_3"></td><td ID="MedicationDosageDescription_3"></td><td ID="MedicationMedicationId_3">07510</td><td ID="MedicationAccount_3">[id number]</td><td ID="MedicationNpid_3">[id number]</td><td ID="MedicationAuthorFirstName_3">Oc</td><td ID="MedicationAuthorLastName_3">Luis</td><td ID="MedicationTaxonomyCode_3">[id number]</td><td ID="MedicationTaxonomyDesc_3">Nurse Practitioner</td><td ID="MedicationPhoneNumber_3">[phone]</td> [facility] ([facility]) ferrous sulfate 325 MG Oral Tablet Ferrous Sulfate 05/14/2021 12:00 :00 AM EDT ORAL active [facility] ([facility]) Sulfamethoxazole 800 MG / Trimethoprim 160 MG Oral Tab let Sulfamethoxazole/Trimethoprim DS 04/08/2021 12:00:00 AM EDT ORAL completed [facility] ([facility]) aripiprazole 10 MG Oral Tablet aripiprazole 03/31/2021 12:00:00 AM ED T 10 mg by mouth completed <td ID="Medica tionRxNorm_4">855330</td><td ID="MedicationMedication_4">aripiprazole</td><td ID="MedicationRoute_4">by mouth</td><td ID="MedicationRouteConcept_4">X33055</td><td ID="MedicationStartDate_4">03/31/2021</td><td ID="MedicationStopDate_4">06/18/2021</td><td ID="MedicationDosageFrequency_4">once a day</td><td ID="MedicationDuration_4">30</td><td ID="MedicationFormulaStrength_4">10 mg</td><td ID="MedicationDosageForm_4">tablet</td><td ID="MedicationDosageFormCode_4"></td><td ID="MedicationDosageDescription_4"></td><td ID="MedicationMedicationId_4">24487</td><td ID="MedicationAccount_4">[id number]</td><td ID="MedicationNpid_4">[id number]</td><td ID="MedicationAuthorFirstName_4">Oc</td><td ID="MedicationAuthorLastName_4">Luis</td><td ID="MedicationTaxonomyCode_4">[id number]</td><td ID="MedicationTaxonomyDesc_4">Nurse Practitioner</td><td ID="MedicationPhoneNumber_4">[phone]</td> [facility] ([facility]) aripiprazole 15 MG Oral Tablet aripiprazole 03/16/2021 12:00:00 AM ED T 15 mg by mouth completed <td ID="Medica tionRxNorm_5">038655</td><td ID="MedicationMedication_5">aripiprazole</td><td ID="MedicationRoute_5">by mouth</td><td ID="MedicationRouteConcept_5">A09826</td><td ID="MedicationStartDate_5">03/16/2021</td><td ID="MedicationStopDate_5">04/15/2021</td><td ID="MedicationDosageFrequency_5">once a day</td><td ID="MedicationDuration_5">30</td><td ID="MedicationFormulaStrength_5">15 mg</td><td ID="MedicationDosageForm_5">tablet</td><td ID="MedicationDosageFormCode_5"></td><td ID="MedicationDosageDescription_5"></td><td ID="MedicationMedicationId_5">[id number]</td><td ID="MedicationAccount_5">[id number]</td><td ID="MedicationNpid_5">[id number]</td><td ID="MedicationAuthorFirstName_5">Oc</td><td ID="MedicationAuthorLastName_5">Luis</td><td ID="MedicationTaxonomyCode_5">[id number]</td><td ID="MedicationTaxonomyDesc_5">Nurse Practitioner</td><td ID="MedicationPhoneNumber_5">[phone]</td> [facility] ([facility]) Omeprazole 20 MG Delayed Release Oral Capsule Omeprazole 03/01/2021 12:00:00 AM EDT ORAL active [facility] ([facility]) Propranolol Hydrochloride 10 MG Oral Tablet propranolol 01/14/2021 12:00:00 AM EDT 10 mg by mouth completed <td ID="MedicationRxNorm_1">882741</td><td ID="MedicationMedication_1">propranolol</td><td ID="MedicationRoute_1">by mouth</td><td ID="MedicationRouteConcept_1">P18610</td><td ID="MedicationStartDate_1">01/14/2021</td><td ID="MedicationStopDate_1"></td><td ID="MedicationDosageFrequency_1">twice a day</td><td ID="MedicationDuration_1"></td><td ID="MedicationFormulaStrength_1">10 mg</td><td ID="MedicationDosageForm_1">tablet</td><td ID="MedicationDosageFormCode_1"></td><td ID="MedicationDosageDescription_1"></td><td ID="MedicationMedicationId_1">83777</td><td ID="MedicationAccount_1">[id number]</td><td ID="MedicationNpid_1">[id number]</td><td ID="MedicationAuthorFirstName_1">Oc</td><td ID="MedicationAuthorLastName_1">Luis</td><td ID="MedicationTaxonomyCode_1">[id number]</td><td ID="MedicationTaxonomyDesc_1">Nurse Practitioner</td><td ID="MedicationPhoneNumber_1">[phone]</td> [facility] ([facility]) Propranolol Hydrochloride 10 MG Oral Tablet propranolol 01/14/2021 12:00:00 AM EDT 10 mg by mouth completed <td ID="MedicationRxNorm_3">405405</td><td ID="MedicationMedication_3">propranolol</td><td ID="MedicationRoute_3">by mouth</td><td ID="MedicationRouteConcept_3">J61884</td><td ID="MedicationStartDate_3">01/14/2021</td><td ID="MedicationStopDate_3"></td><td ID="MedicationDosageFrequency_3">twice a day</td><td ID="MedicationDuration_3"></td><td ID="MedicationFormulaStrength_3">10 mg</td><td ID="MedicationDosageForm_3">tablet</td><td ID="MedicationDosageFormCode_3"></td><td ID="MedicationDosageDescription_3"></td><td ID="MedicationMedicationId_3">17269</td><td ID="MedicationAccount_3">[id number]</td><td ID="MedicationNpid_3">[id number]</td><td ID="MedicationAuthorFirstName_3">Alisa</td><td ID="MedicationAuthorLastName_3">Justice</td><td ID="MedicationTaxonomyCode_3">[id number]</td><td ID="MedicationTaxonomyDesc_3">Psychiatric/Mental Health</td><td ID="MedicationPhoneNumber_3">[phone]</td> [facility] ([facility]) Propranolol Hydrochloride 10 MG Oral Tablet propranolol 01/14/2021 12:00:00 AM EDT 10 mg by mouth completed <td ID="MedicationRxNorm_2">917224</td><td ID="MedicationMedication_2">propranolol</td><td ID="MedicationRoute_2">by mouth</td><td ID="MedicationRouteConcept_2">S09396</td><td ID="MedicationStartDate_2">01/14/2021</td><td ID="MedicationStopDate_2"></td><td ID="MedicationDosageFrequency_2">twice a day</td><td ID="MedicationDuration_2"></td><td ID="MedicationFormulaStrength_2">10 mg</td><td ID="MedicationDosageForm_2">tablet</td><td ID="MedicationDosageFormCode_2"></td><td ID="MedicationDosageDescription_2"></td><td ID="MedicationMedicationId_2">57882</td><td ID="MedicationAccount_2">[id number]</td><td ID="MedicationNpid_2">[id number]</td><td ID="MedicationAuthorFirstName_2">Oc</td><td ID="MedicationAuthorLastName_2">Luis</td><td ID="MedicationTaxonomyCode_2">[id number]</td><td ID="MedicationTaxonomyDesc_2">Nurse Practitioner</td><td ID="MedicationPhoneNumber_2">[phone]</td> [facility] ([facility]) lamotrigine 25 MG Oral Tablet lamotrigine 01/05/2021 12:00:00 AM EDT 25 mg by mouth completed <td ID="Medica tionRxNorm_1">496673</td><td ID="MedicationMedication_1">lamotrigine</td><td ID="MedicationRoute_1">by mouth</td><td ID="MedicationRouteConcept_1">K79995</td><td ID="MedicationStartDate_1">01/05/2021</td><td ID="MedicationStopDate_1"></td><td ID="MedicationDosageFrequency_1">once a day</td><td ID="MedicationDuration_1"></td><td ID="MedicationFormulaStrength_1">25 mg</td><td ID="MedicationDosageForm_1">tablet</td><td ID="MedicationDosageFormCode_1"></td><td ID="MedicationDosageDescription_1"></td><td ID="MedicationMedicationId_1">93607</td><td ID="MedicationAccount_1">[id number]</td><td ID="MedicationNpid_1">[id number]</td><td ID="MedicationAuthorFirstName_1">Oc</td><td ID="MedicationAuthorLastName_1">Luis</td><td ID="MedicationTaxonomyCode_1">[id number]</td><td ID="MedicationTaxonomyDesc_1">Nurse Practitioner</td><td ID="MedicationPhoneNumber_1">[phone]</td> [facility] ([facility]) lamotrigine 25 MG Oral Tablet lamotrigine 01/05/2021 12:00:00 AM EDT 25 mg by mouth completed <td ID="Medica tionRxNorm_3">281566</td><td ID="MedicationMedication_3">lamotrigine</td><td ID="MedicationRoute_3">by mouth</td><td ID="MedicationRouteConcept_3">N65193</td><td ID="MedicationStartDate_3">01/05/2021</td><td ID="MedicationStopDate_3"></td><td ID="MedicationDosageFrequency_3">once a day</td><td ID="MedicationDuration_3"></td><td ID="MedicationFormulaStrength_3">25 mg</td><td ID="MedicationDosageForm_3">tablet</td><td ID="MedicationDosageFormCode_3"></td><td ID="MedicationDosageDescription_3"></td><td ID="MedicationMedicationId_3">86913</td><td ID="MedicationAccount_3">[id number]</td><td ID="MedicationNpid_3">[id number]</td><td ID="MedicationAuthorFirstName_3">Alisa</td><td ID="MedicationAuthorLastName_3">Justice</td><td ID="MedicationTaxonomyCode_3">[id number]</td><td ID="MedicationTaxonomyDesc_3">Psychiatric/Mental Health</td><td ID="MedicationPhoneNumber_3">[phone]</td> [facility] ([facility]) Hydroxyzine Hydrochloride 10 MG Oral Tablet hydroxyzine HCl 07/22/2020 12:00:00 AM EST 10 mg by mouth completed <td ID="MedicationRxNorm_3">768538</td><td ID="MedicationMedication_3">hydroxyzine HCl</td><td ID="MedicationRoute_3">by mouth</td><td ID="MedicationRouteConcept_3">L00855</td><td ID="MedicationStartDate_3">07/22/2020</td><td ID="MedicationStopDate_3"></td><td ID="MedicationDosageFrequency_3">three times a day</td><td ID="MedicationDuration_3"></td><td ID="MedicationFormulaStrength_3">10 mg</td><td ID="MedicationDosageForm_3">tablet</td><td ID="MedicationDosageFormCode_3"></td><td ID="MedicationDosageDescription_3">as needed</td><td ID="MedicationMedicationId_3">66784</td><td ID="MedicationAccount_3">[id number]</td><td ID="MedicationNpid_3">[id number]</td><td ID="MedicationAuthorFirstName_3">Alisa</td><td ID="MedicationAuthorLastName_3">[place]</td><td ID="MedicationTaxonomyCode_3">[id number]</td><td ID="MedicationTaxonomyDesc_3">Psychiatric/Mental Health</td><td ID="MedicationPhoneNumber_3">[phone]</td> [facility] ([facility]) Hydroxyzine Hydrochloride 10 MG Oral Tablet hydroxyzine HCl 07/22/2020 12:00:00 AM EST 10 mg by mouth completed <td ID="MedicationRxNorm_2">287273</td><td ID="MedicationMedication_2">hydroxyzine HCl</td><td ID="MedicationRoute_2">by mouth</td><td ID="MedicationRouteConcept_2">R49450</td><td ID="MedicationStartDate_2">07/22/2020</td><td ID="MedicationStopDate_2"></td><td ID="MedicationDosageFrequency_2">three times a day</td><td ID="MedicationDuration_2"></td><td ID="MedicationFormulaStrength_2">10 mg</td><td ID="MedicationDosageForm_2">tablet</td><td ID="MedicationDosageFormCode_2"></td><td ID="MedicationDosageDescription_2">as needed</td><td ID="MedicationMedicationId_2">37008</td><td ID="MedicationAccount_2">[id number]</td><td ID="MedicationNpid_2">[id number]</td><td ID="MedicationAuthorFirstName_2">Alisa</td><td ID="MedicationAuthorLastName_2">Justice</td><td ID="MedicationTaxonomyCode_2">[id number]</td><td ID="MedicationTaxonomyDesc_2">Psychiatric/Mental Health</td><td ID="MedicationPhoneNumber_2">[phone]</td> [facility] ([facility]) Omeprazole 40 MG Delayed Release Oral Capsule Omeprazole 07/20/2020 12:00:00 AM EST active [facility] ([facility] ) Hydroxyzine Hydrochloride 10 MG Oral Tablet hydroxyzine HCl 06/22/2020 12:00:00 AM EST 10 mg by mouth completed <td ID="MedicationRxNorm_4">877732</td><td ID="MedicationMedication_4">hydroxyzine HCl</td><td ID="MedicationRoute_4">by mouth</td><td ID="MedicationRouteConcept_4">I24626</td><td ID="MedicationStartDate_4">06/22/2020</td><td ID="MedicationStopDate_4"></td><td ID="MedicationDosageFrequency_4">twice a day</td><td ID="MedicationDuration_4"></td><td ID="MedicationFormulaStrength_4">10 mg</td><td ID="MedicationDosageForm_4">tablet</td><td ID="MedicationDosageFormCode_4"></td><td ID="MedicationDosageDescription_4">as needed</td><td ID="MedicationMedicationId_4">80795</td><td ID="MedicationAccount_4">[id number]</td><td ID="MedicationNpid_4">[id number]</td><td ID="MedicationAuthorFirstName_4">Alisa</td><td ID="MedicationAuthorLastName_4">[place]</td><td ID="MedicationTaxonomyCode_4">[id number]</td><td ID="MedicationTaxonomyDesc_4">Psychiatric/Mental Health</td><td ID="MedicationPhoneNumber_4">[phone]</td> [facility] ([facility]) lamotrigine 25 MG Oral Tablet lamotrigine 05/26/2020 12:00:00 AM EDT 25 mg by mouth completed <td ID="Medica tionRxNorm_5">066346</td><td ID="MedicationMedication_5">lamotrigine</td><td ID="MedicationRoute_5">by mouth</td><td ID="MedicationRouteConcept_5">S31622</td><td ID="MedicationStartDate_5">05/26/2020</td><td ID="MedicationStopDate_5">06/22/2020</td><td ID="MedicationDosageFrequency_5">once a day</td><td ID="MedicationDuration_5"></td><td ID="MedicationFormulaStrength_5">25 mg</td><td ID="MedicationDosageForm_5">tablet</td><td ID="MedicationDosageFormCode_5"></td><td ID="MedicationDosageDescription_5"></td><td ID="MedicationMedicationId_5">24902</td><td ID="MedicationAccount_5">[id number]</td><td ID="MedicationNpid_5">[id number]</td><td ID="MedicationAuthorFirstName_5">Alisa</td><td ID="MedicationAuthorLastName_5">Justice</td><td ID="MedicationTaxonomyCode_5">[id number]</td><td ID="MedicationTaxonomyDesc_5">Psychiatric/Mental Health</td><td ID="MedicationPhoneNumber_5">[phone]</td> [facility] ([facility]) buspirone hydrochloride 10 MG Oral Tablet buspirone 2019 12:00:00 AM EDT 10 mg by mouth completed <td ID="Medic ationRxNorm_2">533202</td><td ID="MedicationMedication_2">buspirone</td><td ID="MedicationRoute_2">by mouth</td><td ID="MedicationRouteConcept_2">C00313</td><td ID="MedicationStartDate_2">05/26/2020</td><td ID="MedicationStopDate_2"></td><td ID="MedicationDosageFrequency_2">three times a day</td><td ID="MedicationDuration_2"></td><td ID="MedicationFormulaStrength_2">10 mg</td><td ID="MedicationDosageForm_2">tablet</td><td ID="MedicationDosageFormCode_2"></td><td ID="MedicationDosageDescription_2"></td><td ID="MedicationMedicationId_2">85104</td><td ID="MedicationAccount_2">[id number]</td><td ID="MedicationNpid_2">[id number]</td><td ID="MedicationAuthorFirstName_2">Alisa</td><td ID="MedicationAuthorLastName_2">[place]</td><td ID="MedicationTaxonomyCode_2">[id number]</td><td ID="MedicationTaxonomyDesc_2">Psychiatric/Mental Health</td><td ID="MedicationPhoneNumber_2">[phone]</td> [facility] ([facility]) buspirone hydrochloride 10 MG Oral Tablet buspirone 2019 12:00:00 AM EDT 10 mg by mouth completed <td ID="Medic ationRxNorm_3">174511</td><td ID="MedicationMedication_3">buspirone</td><td ID="MedicationRoute_3">by mouth</td><td ID="MedicationRouteConcept_3">J82419</td><td ID="MedicationStartDate_3">05/26/2020</td><td ID="MedicationStopDate_3"></td><td ID="MedicationDosageFrequency_3">three times a day</td><td ID="MedicationDuration_3"></td><td ID="MedicationFormulaStrength_3">10 mg</td><td ID="MedicationDosageForm_3">tablet</td><td ID="MedicationDosageFormCode_3"></td><td ID="MedicationDosageDescription_3"></td><td ID="MedicationMedicationId_3">30638</td><td ID="MedicationAccount_3">[id number]</td><td ID="MedicationNpid_3">[id number]</td><td ID="MedicationAuthorFirstName_3">Alisa</td><td ID="MedicationAuthorLastName_3">Justice</td><td ID="MedicationTaxonomyCode_3">[id number]</td><td ID="MedicationTaxonomyDesc_3">Psychiatric/Mental Health</td><td ID="MedicationPhoneNumber_3">[phone]</td> [facility] ([facility]) buspirone hydrochloride 10 MG Oral Tablet buspirone 2019 12:00:00 AM EDT 10 mg by mouth completed <td ID="Medic ationRxNorm_5">839887</td><td ID="MedicationMedication_5">buspirone</td><td ID="MedicationRoute_5">by mouth</td><td ID="MedicationRouteConcept_5">Q26636</td><td ID="MedicationStartDate_5">04/23/2020</td><td ID="MedicationStopDate_5">05/26/2020</td><td ID="MedicationDosageFrequency_5">twice a day</td><td ID="MedicationDuration_5"></td><td ID="MedicationFormulaStrength_5">10 mg</td><td ID="MedicationDosageForm_5">tablet</td><td ID="MedicationDosageFormCode_5"></td><td ID="MedicationDosageDescription_5"></td><td ID="MedicationMedicationId_5">54895</td><td ID="MedicationAccount_5">[id number]</td><td ID="MedicationNpid_5">[id number]</td><td ID="MedicationAuthorFirstName_5">Alisa</td><td ID="MedicationAuthorLastName_5">Justice</td><td ID="MedicationTaxonomyCode_5">[id number]</td><td ID="MedicationTaxonomyDesc_5">Psychiatric/Mental Health</td><td ID="MedicationPhoneNumber_5">[phone]</td> [facility] ([facility]) lamotrigine 100 MG Oral Tablet lamotrigine 03/18/2020 12:00:00 AM EDT 100 mg by mouth completed <td ID="Medica tionRxNorm_4">460143</td><td ID="MedicationMedication_4">lamotrigine</td><td ID="MedicationRoute_4">by mouth</td><td ID="MedicationRouteConcept_4">U26646</td><td ID="MedicationStartDate_4">03/18/2020</td><td ID="MedicationStopDate_4">05/26/2020</td><td ID="MedicationDosageFrequency_4">once a day</td><td ID="MedicationDuration_4"></td><td ID="MedicationFormulaStrength_4">100 mg</td><td ID="MedicationDosageForm_4">tablet</td><td ID="MedicationDosageFormCode_4"></td><td ID="MedicationDosageDescription_4"></td><td ID="MedicationMedicationId_4">[id number]</td><td ID="MedicationAccount_4">[id number]</td><td ID="MedicationNpid_4">[id number]</td><td ID="MedicationAuthorFirstName_4">Alisa</td><td ID="MedicationAuthorLastName_4">Justice</td><td ID="MedicationTaxonomyCode_4">[id number]</td><td ID="MedicationTaxonomyDesc_4">Psychiatric/Mental Health</td><td ID="MedicationPhoneNumber_4">[phone]</td> [facility] ([facility] Insurance Providers Payer name Policy type / Coverage type Policy ID Covered alliance party ID Covered alliance party's relationship to hedrick Policy Hedrick Plan Information [employer] [place] [employer] [id number] Family Dependent [id number] [employer] [place] [employer] [id number] Family Dependent [id number] [employer] [place] [employer] [id number] Family Dependent [id number] [employer] [place] [employer] [id number] 3.3.227.99.4877.9437.03861 Family Dependent [id number] [facility] [place] [employer] [id number] 2.16840.1.08949 3.3.227.99.4877.9437.92538 Family Dependent [id number] [facility] [place] [employer] [id number] 2.16840.1.45538 3.3.227.99.4877.9437.08982 Family Dependent [id number] [facility] [place] [employer] [id number] 2.16840.1.46040 3.3.227.99.4877.9437.53630 Family Dependent [id number] [facility] [place] [employer] [id number] 2.16840.1.66090 3.3.227.99.4877.9437.49970 Family Dependent [id number] [facility] [place] [employer] [id number] ..1.42930 3.3.227.99.4877.9437.90172 Family Dependent [id number] [facility] [place] [employer] [id number] ..1.02371 3.3.227.99.4877.9437.67885 Family Dependent [id number] [facility] [place] [employer] [id number] ..1.61777 3.3.227.99.4877.9437.67733 Family Dependent [id number] [facility] [place] [employer] [id number] ..1.47635 3.3.227.99.4877.9437.24222 Family Dependent [id number] [facility] [place] [employer] [id number] ..1.90704 3.3.227.99.4877.9437.12946 Family Dependent [id number] [facility] [place] [employer] [id number] ..1.25896 3.3.227.99.4877.9437.45193 Family Dependent [id number] [facility] [place] [employer] [id number] ..1.81647 3.3.227.99.4877.9437.53833 Family Dependent [id number] [facility] [place] [employer] [id number] ..1.14440 3.3.227.99.4877.9437.30712 Family Dependent [id number] [facility] [place] [employer] [id number] ..1.49744 3.3.227.99.4877.9437.24144 Family Dependent [id number] [facility] [place] [employer] [id number] ..1.89738 3.3.227.99.4877.9437.41928 Family Dependent [id number] [facility] [place] [employer] [id number] ..1.63401 3.3.227.99.4877.9437.04043 Family Dependent [id number] [facility] [place] [employer] [id number] ..1.58410 3.3.227.99.4877.9437.22296 Family Dependent [id number] [facility] [place] [employer] [id number] ..1.03879 3.3.227.99.4877.9437.73444 Family Dependent [id number] [facility] [place] [employer] [id number] ..1.30912 3.3.227.99.4877.9437.14618 Family Dependent [id number] [facility] [place] [employer] [id number] ..1.68912 3.3.227.99.4877.9437.90865 Family Dependent [id number] [facility] [place] [employer] [id number] .1.95873 3.3.227.99.4877.9437.93246 Family Dependent [id number] [facility] [place] [employer] [id number] ..1.39007 3.3.227.99.4877.9437.42940 Family Dependent [id number] [facility] [place] [facility] [employer] [id number] .1.17652 3.3.227.99.4877.9437.70501 Family Dependent [id number] [facility] [place] [employer] [id number] .1.86976 3.3.227.99.4877.9437.06804 Family Dependent [id number] [facility] [place] [employer] [id number] .1.96864 3.3.227.99.4877.9437.89515 Family Dependent [id number] [facility] [place] [employer] [id number] .1.13239 3.3.227.99.4877.9437.60113 Family Dependent [id number] [facility] [place] [employer] [id number] .1.627929.3.227.99.4 877.9437.15556 Family Dependent [id number] [facility] [place] [facility] [employer] [id number] .1.682452.3.227.99.4 877.9437.97344 Family Dependent [id number] [facility] [place] [employer] [id number] .1.396003.3.227.99.4 877.9437.51801 Family Dependent [id number] [facility] [place] [facility] [employer] [id number] .1.030185.3.227.99.4 877.9437.48274 Family Dependent [id number] [facility] [place] [facility] [employer] [id number] ..812591.3.227.99.4 877.9437.02987 Family Dependent [id number] [facility] [place] [facility] [employer] [id number] .1.384116.3.227.99.4 877.9437.14747 Family Dependent [id number] [facility] [place] [facility] [employer] [id number] .1.238624.3.227.99.4 877.9437.81185 Family Dependent [id number] [facility] [place] [employer] [id number] .1.381289.3.227.99.4 877.9437.82341 Family Dependent [id number] [facility] [place] [facility] [employer] [id number] .1.189165.3.227.99.4 877.9437.80630 Family Dependent [id number] [facility] [place] [facility] [employer] [id number] .1.905064.3.227.99.4 877.9437.44887 Family Dependent [id number] [facility] [place] [employer] [id number] .1.165912.3.227.99.4 877.9437.99472 Family Dependent [id number] [facility] [place] [employer] [id number] .1.234286.3.227.99.4 877.9437.16365 Family Dependent [id number] [facility] [place] [facility] [employer] [id number] 10.06.830.1.306713.3.227.99.4 877.9437.42121 Family Dependent [id number] [facility] [place] [employer] [employer] [id number] 10.06.830.1.754965.3.227.99.4 877.9437.20996 Family Dependent [id number] [facility] [place] [employer] [id number] .1.791468.3.227.99.4 877.9437.51742 Family Dependent [id number] [facility] [place] [employer] [id number] .1.827471.3.227.99.4 877.9437.25933 Family Dependent [id number] [facility] [place] [employer] [id number] .1.839867.3.227.99.4 877.9437.42675 Family Dependent [id number] [facility] [place] [employer] [id number] 10.06.830.1.563273.3.227.99.4 877.9437.63007 Family Dependent [id number] [facility] [place] [facility] [employer] [id number] .1.435454.3.227.99.4 877.9437.60492 Family Dependent [id number] [facility] [place] [employer] [employer] [id number] .1.716546.3.227.99.4 877.9437.36436 Family Dependent [id number] [facility] [place] [employer] [id number] 10.06.830.1.616024.3.227.99.4 877.9437.57127 Family Dependent [id number] [facility] [place] [employer] [id number] .1.225598.3.227.99.4 877.9437.62635 Family Dependent [id number] [facility] [place] [employer] [id number] .1.233646.3.227.99.4 877.9437.97764 Family Dependent [id number] [facility] [place] [employer] [id number] ..032358.3.227.99.4 877.9437.16477 Family Dependent [id number] [facility] [place] [employer] [id number] ..905909.3.227.99.4 877.9437.78253 Family Dependent [id number] [facility] [place] [employer] [id number] ..794436.3.227.99.4 877.9437.44555 Family Dependent [id number] [facility] [place] [employer] [id number] ..406559.3.227.99.4 877.9437.36354 Family Dependent [id number] [facility] [place] [employer] [id number] ..622125.3.227.99.4 877.9437.18464 Family Dependent [id number] [facility] [place] [employer] [employer] [id number] ..988049.3.227.99.4 877.9437.04878 Family Dependent [id number] [employer] Commercial [id number] .1.211845.3.227.99.4877.9437.69179 Family Dependent [id number] [employer] [id number] .1.247659.3.227.99.4877.9437.74572 Family Dependent [id number] [employer] [id number] .1.255076.3.227.99.4877.9437.50992 Family Dependent [id number] [facility]/BS Commercial [id number] 2.0.1.101641.3.227.99.4877.9437.49746 Family Dependent [id number] [facility] [employer] Commercial [id number] 2.0.1.500506.3.227.99.4877.9437.96819 Family Dependent [id number] [facility] [employer]/BS Commercial [id number] .0.1.272720.3.227.99.4877.9437.99205 Family Dependent [id number] [facility] [employer] Commercial [id number] 2.0.1.753769.3.227.99.4877.9437.15500 Family Dependent [id number] [facility] [employer] Commercial [id number] .0.1.055169.3.227.99.4877.9437.88455 Family Dependent [id number] [facility] [employer] [id number] ..1.874262.3.227.99.4877.9437.45210 Family Dependent [id number] [facility] [employer] [id number] .0.1.537653.3.227.99.4877.9437.80708 Family Dependent [id number] [facility] [employer] Commercial [id number] ..1.384259.3.227.99.4877.9437.28025 Family Dependent [id number] [facility] [employer] Commercial [id number] 2.0.1.972797.3.227.99.4877.9437.98985 Family Dependent [id number] [facility] [employer] Commercial [id number] .0.1.785114.3.227.99.4877.9437.29699 Family Dependent [id number] [facility] Commercial [id number] .0.1.930458.3.227.99.4877.9437.22065 Family Dependent [id number] [facility] [employer] Commercial [id number] .0.1.392977.3.227.99.4877.9437.03534 Family Dependent [id number] [facility] [employer] Commercial [id number] .0.1.644257.3.227.99.4877.9437.32605 Family Dependent [id number] [facility] [employer] Commercial [id number] ..1.440734.3.227.99.4877.9437.66966 Family Dependent [id number] [facility] [employer] Commercial [id number] ..1.919349.3.227.99.4877.9437.68687 Family Dependent [id number] [facility]/BS Commercial [id number] .0.1.624691.3.227.99.4877.9437.50312 Family Dependent [id number] [facility]/BS Commercial [id number] .0.1.429732.3.227.99.4877.9437.98019 Family Dependent [id number] [facility] [employer] Commercial [id number] ..1.664907.3.227.99.4877.9437.94382 Family Dependent [id number] [facility] [employer]/BS Commercial [id number] .0.1.583945.3.227.99.4877.9437.92877 Family Dependent [id number] [employer] Commercial [id number] ..1.209664.3.227.99.4877.9437.59787 Family Dependent [id number] [facility] [id number] ..1.772656.3.227.99.4877.9437.51528 Family Dependent [id number] [facility] Commercial [id number] ..1.722303.3.227.99.4877.9437.84226 Family Dependent [id number] BCBS GENERIC C [id number] Child B [id number] [facility] BC/BS Commercial [id number] ..1.551184.3.227.99.4877.9437.11198 Family Dependent [id number] [facility] [employer] Commercial [id number] ..1.620278.3.227.99.4877.9437.30123 Family Dependent [id number] [facility] [employer] Commercial [id number] ..1.686628.3.227.99.4877.9437.69930 Family Dependent [id number] [facility] [employer] Commercial [id number] .1.126017.3.227.99.4877.9437.92697 Family Dependent [id number] [employer] [id number] .1.330006.3.227.99.4877.9437.42788 Self [id number] [employer] [id number] SP [id number] 300 [employer] [id number] SP [id number] 300 [employer] [id number] 10.06.830.1.244412.3.227.99.4877.9437.19923 Self [id number] [employer] I [id number] Self [id number] [employer] [id number] .1.469807.3.227.99.4877.9437.28231 Self [id number] [employer] [id number] .1.464431.3.227.99.4877.9437.45730 Self [id number] [employer] [id number] .1.411480.3.227.99.4877.9437.16759 Self [id number] [employer] [id number] ..631978.3.227.99.4877.9437.17061 Self [id number] [employer] [id number] ..012443.3.227.99.4877.9437.87519 Self [id number] [employer] [id number] ..617302.3.227.99.4877.9437.98671 Self [id number] [employer] [id number] ..331102.3.227.99.4877.9437.44865 Self [id number] [employer] [id number] .1.442324.3.227.99.4877.9437.32826 Self [id number] [employer] [id number] .1.910335.3.227.99.4877.9437.80209 Self [id number] [employer] [id number] [employer] [id number] .1.530355.3.227.99.4877.9437.89351 Self [id number] [employer] [id number] .1.175130.3.227.99.4877.9437.66354 Self [id number] [place] MEDICAID [id number] [facility] 7 [id number] [employer] [id number] 10.06.830.1.478974.3.227.99.4877.9437.49956 Self [id number] [employer] [id number] 10.06.830.1.704701.3.227.99.4877.9437.65205 Self [id number] [employer] [id number] 10.06.830.1.886703.3.227.99.4877.9437.37614 Self [id number] [employer] [id number] .1.996458.3.227.99.4877.9437.19532 Self [id number] [employer] [id number] .1.712799.3.227.99.4877.9437.68020 Self [id number] [employer] [id number] .1.036947.3.227.99.4877.9437.70296 Self [id number] [employer] [id number] .1.352486.3.227.99.4877.9437.72365 Self [id number] [employer] [id number] .1.156904.3.227.99.4877.9437.34861 Self [id number] Medicaid-Pcap Medicaid [id number] 2.0.1.418525.3.227.99.4877.9 437.88553 Self [id number] Medicaid-Pcap Medicaid [id number] 2.0.1.053675.3.227.99.4877.9 437.12848 Self [id number] Medicaid-Pcap Medicaid [id number] 2.0.1.228947.3.227.99.4877.9 437.38174 Self [id number] Medicaid-Pcap Medicaid [id number] 2.0.1.381082.3.227.99.4877.9 437.57014 Self [id number] [employer] Health Maintenance Organization (O) [id number] 2.840.1.511170.3.227.99.4877.9437.29660 Self [id number] [facility] Care Health Maintenance Organization (O) [id number] 2.0.1.514998.3.227.99.4877.9437.34337 Self [id number] [facility] Care Health Maintenance Organization (O) [id number] 2.0.1.798582.3.227.99.4877.9437.78159 Self [id number] MEDICAID M [id number] Self [id number] [facility] MEDICAID [id number] Kary [id number] [place] I [id number] Self [id number] [employer] [id number] Self [id number] [employer] [id number] Self [id number] Medicaid-Pcap Medicaid [id number] 2.0.1.891710.3.227.99. 4877.9437.57275 Family Dependent [id number] Medicaid-Pcap Medicaid [id number] 2.0.1.560115.3.227.99. 4877.9437.77269 Family [address] [id number] [facility] [id number] SP [id number] Medicaid-Pcap Medicaid [id number] 2.0.1.842089.3.227.99. 4877.9437.36576 Family Dependent [id number] [facility] P [id number] S [id number] Medicaid-Pcap Medicaid [id number] 2.0.1.525107.3.227.99. 4877.9437.84352 Family Dependent [id number] Medicaid-Pcap Medicaid [id number] 2.0.1.970056.3.227.99. 4877.9437.15747 Family Dependent [id number] Medicaid-Pcap Medicaid [id number] 2.16840.1.291131.3.227.99. 4877.9437.85411 Family Dependent [id number] Medicaid-Pcap Medicaid [id number] 2.16840.1.877051.3.227.99. 4877.9437.85536 Family Dependent [id number] Medicaid-Pcap Medicaid [id number] 2.840.1.775622.3.227.99. 4877.9437.93772 Family Dependent [id number] Medicaid-Pcap Medicaid [id number] 2.840.1.241774.3.227.99. 4877.9437.26053 Family Dependent [id number] Medicaid-Pcap Medicaid [id number] 2.840.1.770603.3.227.99. 4877.9437.98310 Family Dependent [id number] Medicaid-Pcap Medicaid [id number] 2.840.1.053765.3.227.99. 4877.9437.29804 Family Dependent [id number] Medicaid-Pcap Medicaid [id number] 2.840.1.416946.3.227.99. 4877.9437.54183 Family Dependent [id number] [facility] 280/780 [id number] [id number] Medicaid-Pcap Medicaid [id number] 2.840.1.466669.3.227.99. 4877.9437.26442 Family Dependent [id number] Medicaid-Pcap Medicaid [id number] 2.840.1.427561.3.227.99. 4877.9437.52775 Family Dependent [id number] Medicaid-Pcap Medicaid [id number] 2.840.1.936802.3.227.99. 4877.9437.85643 Family Dependent [id number] MEDICAID [id number] SP [id number] [employer] B [id number] C B [id number] Medicaid-Pcap Medicaid [id number] 2.16840.1.062881.3.227.99. 4877.9437.99027 Family Dependent [id number] Medicaid-Pcap Medicaid [id number] 2.16840.1.071126.3.227.99. 4877.9437.33322 Family Dependent [id number] Medicaid-Pcap Medicaid [id number] 2.16840.1.165701.3.227.99. 4877.9437.04671 Family Dependent [id number] EMEDNY [id number] SP [id number] BCBS/Blue Card Commercial [id number] 2.840.1.854972.3.227.99.1767.36468.0 Family Dependent [id number] Medicaid-Pcap Medicaid [id number] 2.0.1.615483.3.227.99. 4877.9437.85320 Family Dependent [id number] Medicaid-Pcap Medicaid [id number] 2.840.1.279790.3.227.99. 4877.9437.61871 Family Dependent [id number] Medicaid-Pcap Medicaid [id number] 2.840.1.193274.3.227.99. 4877.9437.63817 Family Dependent [id number] Medicaid-Pcap Medicaid [id number] 2.840.1.628693.3.227.99. 4877.9437.05292 Family Dependent [id number] Medicaid-Pcap Medicaid [id number] 2.840.1.803176.3.227.99. 4877.9437.89851 Family Dependent [id number] Medicaid-Pcap Medicaid [id number] 2.840.1.097327.3.227.99. 4877.9437.30196 Family Dependent [id number] [facility] MEDICAID [id number] SP [id number] Y [employer] [place] 280/780 [id number] FA2 [id number] Medicaid-Pcap Medicaid [id number] 2.840.1.833219.3.227.99. 4877.9437.23797 Family Dependent [id number] [place] MEDICA[employer] PI PI Medicaid-Pcap Medicaid [id number] 2.16.840.1.064772.3.227.99. 4877.9437.99322 Family Dependent [id number] [facility] 280/780 [id number] FA2 [id number] [facility] Community Plan Health Maintenance Organization (HMO) [id number] Self Medicaid-Pcap Medicaid [id number] 2.16.840.1.319148.3.227.99. [id number] Family Dependent [id number] SELF PAY ONLY [id number] FA2 [id number] Medicaid-Pcap Medicaid [id number] 2.16.840.1.661414.3.227.99. [id number] Family Dependent [id number] Medicaid-Pcap Medicaid [id number] 2.16.840.1.766650.3.227.99. [id number] Family Dependent [id number] 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 Condition 07/22/2021 12:00:00 AM EST [facility] ( [facility]) F33.1 Major depressive disorder, recurrent, mo derate Major Depressive Disorder, Recurrent episode, Moderate Condition 07/22/2021 12:00:00 AM EST [facility] ([facility]) F41.1 Generalized anxiety disorder Generalized Anxiety Disor idalia Condition 07/22/2021 12:00:00 AM EST [facility] ([facility]) F50.01 Anorexia nervosa, restricting type Anorexia Nerv ty, Restricting type Condition 07/22/2021 12:00:00 AM EST [facility] ([facility]) F41.9 Anxiety state Anxiety state Problem 07/12/2021 12:00:00 AM EST [facility] ([facility]) F32.9 Major depressive disorder, single episod e, unspecified Unspecified depressive Disorder Condition 03/09/2021 12:00:00 AM EDT [facility] ([facility]) F41.9 Anxiety disorder, unspecified Unspecified Anxiety Diso rder Condition 03/09/2021 12:00:00 AM EDT [facility] ([facility]) N93.0 [id number] Postcoital bleeding Problem 01/27/2021 12:00 :00 AM EDT [facility]geries[facility]Procedures Procedure Description Date Indications Data Source(s) Brief Individual Psychotherapy - 30 min 07/22/2021 12:00:00 AM EST - 07/22/2021 12:00:00 AM EST [facility] ([facility]) Brief Individual Psychotherapy - 30 min 07/20/2021 12: 00:00 AM EST [facility] ([facility]) OFFICE OUTPATIENT VISIT 15 MINUTES 07/13 12:00:00 AM EST - 07/13/2021 12:00:00 AM EST [facility] ([facility]) OFFICE OUTPATIENT VISIT 15 MINUTES 07/13/2021 12:00:00 AM EST [facility] ([facility]) Extended Individual Psychotherapy - 45 min 07/13/2021 12:00:00 AM EST - 07/13/2021 12:00:00 AM EST [facility] ([facility]) Extended Individual Psychotherapy - 45 min 12:00:00 AM EST [facility] ([facility]) OFFICE OUTPATIENT VISIT 25 MINUTES 07/12/2021 12:00:00 AM EST [facility] ([facility]) OFFICE OUTPATIENT VISIT 25 MINUTES 06/11/2021 12:00:00 AM EDT [facility] ([facility]) OFFICE OUTPATIENT VISIT 15 MINUTES 06/11/2021 12:00:00 AM EDT [facility] ([facility]) Extended Individual Psychotherapy - 45 min 06/04/2021 12:00:00 AM EDT - 06/04/2021 12:00:00 AM EDT [facility] ([facility]) OFFICE OUTPATIENT VISIT 15 MINUTES 06/03 12:00:00 AM EDT - 06/03/2021 12:00:00 AM EDT [facility] ([facility]) OFFICE OUTPATIENT VISIT 15 MINUTES 06/03/2021 12:00:00 AM EDT [facility] ([facility]) Extended Individual Psychotherapy - 45 min 12:00:00 AM EDT [facility] ([facility]) Extended Individual Psychotherapy - 45 min 05/21/2021 12:00:00 AM EDT - 05/21/2021 12:00:00 AM EDT [facility] ([facility]) Extended Individual Psychotherapy - 45 min 12:00:00 AM EDT [facility] ([facility]) OFFICE OUTPATIENT VISIT 25 MINUTES 05/14/2021 12:00:00 AM EDT [facility] ([facility]) Extended Individual Psychotherapy - 45 min 05/07/2021 12:00:00 AM EDT - 05/07/2021 12:00:00 AM EDT [facility] ([facility]) Extended Individual Psychotherapy - 45 min 12:00:00 AM EDT [facility] ([facility]) Extended Individual Psychotherapy - 45 min 04/22/2021 12:00:00 AM EDT - 04/22/2021 12:00:00 AM EDT [facility] ([facility]) Extended Individual Psychotherapy - 45 min 12:00:00 AM EDT [facility] ([facility]) Extended Individual Psychotherapy - 45 min 04/12/2021 12:00:00 AM EDT - 04/12/2021 12:00:00 AM EDT [facility] ([facility]) Extended Individual Psychotherapy - 45 min 12:00:00 AM EDT [facility] ([facility]) OFFICE OUTPATIENT VISIT 25 MINUTES 04/09/2021 12:00:00 AM EDT [facility] ([facility], ) OFFICE OUTPATIENT VISIT 15 MINUTES 04/07/2021 12:00:00 AM EDT [facility] ([facility]) Extended Individual Psychotherapy - 45 min 04/05/2021 12:00:00 AM EDT - 04/05/2021 12:00:00 AM EDT [facility] ([facility]) Extended Individual Psychotherapy - 45 min 12:00:00 AM EDT [facility] ([facility]) OFFICE OUTPATIENT VISIT 15 MINUTES 03/31 12:00:00 AM EDT - 03/31/2021 12:00:00 AM EDT [facility] ([facility]) OFFICE OUTPATIENT VISIT 15 MINUTES 03/31/2021 12:00:00 AM EDT [facility] ([facility]) Extended Individual Psychotherapy - 45 min 03/29/2021 12:00:00 AM EDT - 03/29/2021 12:00:00 AM EDT [facility] ([facility]) Extended Individual Psychotherapy - 45 min 12:00:00 AM EDT [facility] ([facility]) OFFICE OUTPATIENT VISIT 15 MINUTES 03/16 12:00:00 AM EDT - 03/16/2021 12:00:00 AM EDT [facility] ([facility]) OFFICE OUTPATIENT VISIT 15 MINUTES 03/16/2021 12:00:00 AM EDT [facility] ([facility]) Extended Individual Psychotherapy - 45 min 03/09/2021 12:00:00 AM EDT - 03/09/2021 12:00:00 AM EDT [facility] ([facility]) Extended Individual Psychotherapy - 45 min 12:00:00 AM EDT [facility] ([facility]) PURE TONE AUDIOMETRY AIR ONLY 03/01/2021 12:00:00 AM E DT [facility] ([facility]) Brief Emotional/Behav Assessment W/ Scoring Doc Per Standard Inst 03/01/2021 12:00:00 AM EDT [facility] ([facility]) Brief Emotional/Behav Assessment W/ Scoring Doc Per Standard Inst 03/01/2021 12:00:00 AM EDT [facility] ([facility]) Admin Patient Focused Health Risk Assessment Instrument 03/01/2021 12:00:00 AM EDT [facility] ([facility]) SCREENING TEST VISUAL ACUITY QUANTITATIVE BILAT 2020 12:00:00 AM EDT [facility] ([facility]) PERIODIC PREVENTIVE MED EST PATIENT 18-39 YRS 03/01/20 12:00:00 AM EDT [facility] ([facility]) Extended Individual Psychotherapy - 45 min 03/01/2021 12:00:00 AM EDT - 03/01/2021 12:00:00 AM EDT [facility] ([facility]) Extended Individual Psychotherapy - 45 min 12:00:00 AM EDT [facility] ([facility]) Extended Individual Psychotherapy - 45 min 02/15/2021 12:00:00 AM EDT - 02/15/2021 12:00:00 AM EDT [facility] ([facility]) Extended Individual Psychotherapy - 45 min 12:00:00 AM EDT [facility] ([facility]) Extended Individual Psychotherapy - 45 min 02/02/2021 12:00:00 AM EDT - 02/02/2021 12:00:00 AM EDT [facility] ([facility]) Extended Individual Psychotherapy - 45 min 12:00:00 AM EDT [facility] ([facility]) OFFICE OUTPATIENT VISIT 25 MINUTES 01/14 12:00:00 AM EDT - 01/14/2021 12:00:00 AM EDT [facility] ([facility]) OFFICE OUTPATIENT VISIT 25 MINUTES 01/14/2021 12:00:00 AM EDT [facility] ([facility]) Extended Individual Psychotherapy - 45 min 01/11/2021 12:00:00 AM EDT - 01/11/2021 12:00:00 AM EDT [facility] ([facility]) Extended Individual Psychotherapy - 45 min 12:00:00 AM EDT [facility] ([facility]) Extended Individual Psychotherapy - 45 min 01/05/2021 12:00:00 AM EDT - 01/05/2021 12:00:00 AM EDT [facility] ([facility]) Extended Individual Psychotherapy - 45 min 12:00:00 AM EDT [facility] ([facility]) Extended Individual Psychotherapy - 45 min 12/29/2020 12:00:00 AM EDT - 12/29/2020 12:00:00 AM EDT [facility] ([facility]) Extended Individual Psychotherapy - 45 min 12:00:00 AM EDT [facility] ([facility]) OFFICE OUTPATIENT VISIT 15 MINUTES 12/10 12:00:00 AM EDT - 12/10/2020 12:00:00 AM EDT [facility] ([facility]) OFFICE OUTPATIENT VISIT 15 MINUTES 12/10/2020 12:00:00 AM EDT [facility] ([facility]) Extended Individual Psychotherapy - 45 min 11/30/2020 12:00:00 AM EDT - 11/30/2020 12:00:00 AM EDT [facility] ([facility]) Extended Individual Psychotherapy - 45 min 12:00:00 AM EDT [facility] ([facility]) Extended Individual Psychotherapy - 45 min 11/23/2020 12:00:00 AM EDT - 11/23/2020 12:00:00 AM EDT [facility] ([facility]) Extended Individual Psychotherapy - 45 min 12:00:00 AM EDT [facility] ([facility]) Extended Individual Psychotherapy - 45 min 11/18/2020 12:00:00 AM EDT - 11/18/2020 12:00:00 AM EDT [facility] ([facility]) Extended Individual Psychotherapy - 45 min 12:00:00 AM EDT [facility] ([facility]) MHC Telemed E/M Lvl 3--Est pt 11/10/2020 12:00:00 AM EDT - 11/10/2020 12:00:00 AM EDT [facility] ([facility]) Telemed A/O 30" 11/10/2020 12:00:00 AM EDT [facility] ([facility]) MHC Telemed E/M Lvl 3--Est pt 11/10/2020 12:00:00 AM E DT [facility] ([facility]) Extended Individual Psychotherapy - 45 min 11/10/2020 12:00:00 AM EDT - 11/10/2020 12:00:00 AM EDT [facility] ([facility]) Extended Individual Psychotherapy - 45 min 12:00:00 AM EDT [facility] ([facility]) Extended Individual Psychotherapy - 45 min 10/28/2020 12:00:00 AM EST - 10/28/2020 12:00:00 AM EST [facility] ([facility]) Extended Individual Psychotherapy - 45 min 12:00:00 AM EST [facility] ([facility]) Extended Individual Psychotherapy - 45 min 10/19/2020 12:00:00 AM EST - 10/19/2020 12:00:00 AM EST [facility] ([facility]) Extended Individual Psychotherapy - 45 min 12:00:00 AM EST [facility] ([facility]) Extended Individual Psychotherapy - 45 min 10/14/2020 12:00:00 AM EST - 10/14/2020 12:00:00 AM EST [facility] ([facility]) Extended Individual Psychotherapy - 45 min 12:00:00 AM EST [facility] ([facility]) MHC Telemed E/M Lvl 3--Est pt 10/12/2020 12:00:00 AM EST - 10/12/2020 12:00:00 AM EST [facility] ([facility]) Telemed A/O 30" 10/12/2020 12:00:00 AM EST [facility] ([facility]) [facility] Telemed E/M Lvl 3--Est pt 10/12/2020 12:00:[address] [facility] ([facility]) Extended Individual Psychotherapy - 45 min 10/07/2020 12:00:00 AM EST - 10/07/2020 12:00:00 AM EST [facility] ([facility]) Extended Individual Psychotherapy - 45 min 12:00:00 AM EST [facility] ([facility]) Extended Individual Psychotherapy - 45 min 09/30/2020 12:00:00 AM EST - 09/30/2020 12:00:00 AM EST [facility] ([facility]) Extended Individual Psychotherapy - 45 min 12:00:00 AM EST [facility] ([facility]) Extended Individual Psychotherapy - 45 min 09/25/2020 12:00:00 AM EST - 09/25/2020 12:00:00 AM EST [facility] ([facility]) Extended Individual Psychotherapy - 45 min 12:00:00 AM EST [facility] ([facility]) Extended Individual Psychotherapy - 45 min 09/02/2020 12:00:00 AM EST - 09/02/2020 12:00:00 AM EST [facility] ([facility]) Extended Individual Psychotherapy - 45 min 12:00:00 AM EST [facility] ([facility]) OFFICE OUTPATIENT VISIT 15 MINUTES 09/02 12:00:00 AM EST - 09/02/2020 12:00:00 AM EST [facility] ([facility]) Psychotherapy ADD ON - 30 Minutes 09/02/2020 12:00:00 AM EST [facility] ([facility]) OFFICE OUTPATIENT VISIT 15 MINUTES 09/02/2020 12:00:00 AM EST [facility] ([facility]) Extended Individual Psychotherapy - 45 min 08/26/2020 12:00:00 AM EST - 08/26/2020 12:00:00 AM EST [facility] ([facility]) Extended Individual Psychotherapy - 45 min 1 12:00:00 AM EST [facility] ([facility]) Extended Individual Psychotherapy - 45 min 08/20/2020 12:00:00 AM EST - 08/20/2020 12:00:00 AM EST [facility] ([facility]) Extended Individual Psychotherapy - 45 min 0 12:00:00 AM EST [facility] ([facility]) Extended Individual Psychotherapy - 45 min 08/05/2020 12:00:00 AM EST - 08/05/2020 12:00:00 AM EST [facility] ([facility]) Extended Individual Psychotherapy - 45 min 0 12:00:00 AM EST [facility] ([facility]) Extended Individual Psychotherapy - 45 min 07/30/2020 12:00:00 AM EST - 07/30/2020 12:00:00 AM EST [facility] ([facility]) Extended Individual Psychotherapy - 45 min 0 12:00:00 AM EST [facility] ([facility]) Extended Individual Psychotherapy - 45 min 07/01/2020 12:00:00 AM EST - 07/01/2020 12:00:00 AM EST [facility] ([facility]) Extended Individual Psychotherapy - 45 min 0 12:00:00 AM EST [facility] ([facility]) Extended Individual Psychotherapy - 45 min 06/23/2020 12:00:00 AM EST - 06/23/2020 12:00:00 AM EST [facility] ([facility]) Extended Individual Psychotherapy - 45 min 0 12:00:00 AM EST [facility] ([facility]) [facility] Telemed E/M Lvl 3--Est pt 06/22/2020 12:00:00 AM EST - 06/22/2020 12:00:00 AM EST [facility] ([facility]) Telemed A/O 30" 06/22/2020 12:00:00 AM EST [facility] ([facility]) MHC Telemed E/M Lvl 3--Est pt 06/22/2020 12:00:[address] [facility] ([facility]) TEMPMHCTelemed 30" Psychotherapy 020 12:00:00 AM EDT - 06/18/2020 12:00:00 AM EDT [facility] ([facility]) TEMPMHCTelemed 30" Psychotherapy 06/18/2020 12:00:00 A M EDT [facility] ([facility]) Extended Individual Psychotherapy - 45 min 06/04/2020 12:00:00 AM EDT - 06/04/2020 12:00:00 AM EDT [facility] ([facility]) Extended Individual Psychotherapy - 45 min 0 12:00:00 AM EDT [facility] ([facility]) Extended Individual Psychotherapy - 45 min 05/27/2020 12:00:00 AM EDT - 05/27/2020 12:00:00 AM EDT [facility] ([facility]) Extended Individual Psychotherapy - 45 min 0 12:00:00 AM EDT [facility] ([facility]) MHC Telemed E/M Lvl 3--Est pt 05/26/2020 12:00:00 AM EDT - 05/26/2020 12:00:00 AM EDT [facility] ([facility]) Telemed A/O 30" 05/26/2020 12:00:00 AM EDT [facility] ([facility]) MHC Telemed E/M Lvl 3--Est pt 05/26/2020 12:00:00 AM E DT [facility] ([facility]) Results ID Date Data Source [id number] 05/14/2021 11:41:00 AM EDT [facility] ([facility]) Name Value Range Interpretation Code Description Data Mariangel rce(s) Supporting Document(s) Blood Urea Nitrogen 11 mg/dL 7-18 MEDEN T ([facility]) See triage. AMT Glucose, Fasting 90 mg/dL 70-100 [facility] See triage. AMT Potassium Serum 4.0 meq/L 3.5-5.1 [facility] ( [facility]) See triage. AMT Creatinine For GFR 0.82 mg/dL 0.55-1.30 [facility] ([facility]) See triage. AMT Sodium Level 140 meq/L 136-145 [facility] ([facility]) See triage. AMT Anion Gap 4 meq/L 8-16 [facility] ([facility]) See triage. AMT Carbon Dioxide Level 28 meq/L 21-32 MEDE NT ([facility]) See triage. AMT Chloride Level 108 meq/L 98-107 [facility] (Pediatr ic [facility]) See triage. AMT Ast/Sgot 17 U/L 7-37 [facility] ([facility]) See triage. AMT Calcium Level 9.6 mg/dL 8.5-10.1 [facility] See triage. AMT Alt/SGPT 16 U/L 12-78 [facility] ([facility] As [facility]) See triage. AMT Bilirubin,Total 0.2 mg/dL 0.2-1.0 [facility] See [facility]. AMT Alkaline Phosphatase 77 U/L 45-117 MEDE NT ([facility]) See triage. AMT Albumin 4.0 GM/DL 3.2-5.2 [facility] ([facility]) See triage. AMT Total Protein 7.4 GM/DL 6.4-8.2 [facility] (Pediatri c [facility]) See triage. AMT Albumin/Globulin Ratio 1.2 1.2-2.2 [place] DENT ([facility]) See triage. AMT ID Date Data Source [id number] 05/14/2021 11:41:00 AM EDT [facility] ([facility]) Name Value Range Interpretation Code Description Data Mariangel rce(s) Supporting Document(s) White Blood Count 5.1 10 4.0-10.0 [facility] ([facility]) See triage. AMT Red Blood Count 4.29 10 4.00-5.40 [facility] (P [facility]) See triage. AMT Hematocrit 38.5 % 36.0-47.0 [facility] See [facility]. AMT Hemoglobin 12.3 g/dL 12.0-15.5 [facility] ([facility]ediatric A [facility]) See triage. AMT Mean Corpuscular Hemoglobin 28.7 pg 27.0-33.0 [facility] ([facility]) See triage. AMT Mean Corpuscular Volume 89.7 fl 80.0-96.0 M EDENT ([facility]) See triage. AMT Platelet Count, Automated 286 10 150-450 [facility] ([facility]) See triage. AMT Mean Corpuscular HGB Conc 31.9 g/dL 32.0-36.5 [facility] ([facility]) See triage. AMT Red Cell Distribution Width 13.7 % 11.5-14.5 [facility] ([facility]) See triage. AMT Neutrophils % 54.6 % 36.0-66.0 [facility] ([facility]) See triage. AMT Lymph % 34.9 % 24.0-44.0 [facility] ([facility]) See triage. AMT Eos % 0.8 % 0.0-3.0 [facility] ([facility]) See triage. AMT [place] % 8.9 % 2.0-8.0 [facility] ([facility]) See triage. AMT Baso % 0.6 % 0.0-1.0 [facility] ([facility] As [facility]) See triage. AMT Nucleated Red Blood Cell % 0.0 % 0-0 [facility] ([facility]) See triage. AMT Immature Granulocyte % 0.2 % 0-3.0 ME DENT ([facility]) See triage. AMT Neutrophils # 2.8 10 1.5-8.5 [facility] ([facility]) See triage. AMT Lymph # 1.8 10 1.5-5.0 [facility]. AMT [place] # 0.5 10 0.0-0.8 [facility] ([facility] As [facility]) See triage. AMT Eos # 0.0 10 0.0-0.5 [facility] ([facility]) See triage. AMT Baso # 0.0 10 0.0-0.2 [facility] ([facility]) See triage. AMT ID Date Data Source [id number] 05/14/2021 11:41:00 AM EDT [facility] ([facility]) Name Value Range Interpretation Code Description Data Mariangel rce(s) Supporting Document(s) Free T4 0.93 ng/dL 0.78-1.33 [facility] See [facility]. AMT Thyroid Stimulating Hormone 1.590 uIU/ML 0.463-3.98 [facility] ([facility]) See triage. AMT ID Date Data Source [id number] 05/14/2021 11:41:00 AM EDT [facility] ([facility]) Name Value Range Interpretation Code Description Data Mariangel rce(s) Supporting Document(s) Ferritin [Mass/volume] in Serum or Plasma 6 ng/mL 8-252 [facility] ([facility]) See triage. AMT ID Date Data Source [id number] 05/14/2021 11:41:00 AM EDT [facility] Name Value Range Interpretation Code Description Data Mariangel rce(s) Supporting Document(s) Total Iron Binding Capacity 395 ug/dL 250-450 [facility] ([facility]) See triage. AMT Iron (Fe) 42 ug/dL 50-170 [facility] ([facility]) See triage. AMT Percent Saturation 10.6 % 13.2-45.0 [facility] ([facility]) See triage. AMT ID Date Data Source [id number] 05/14/2021 11:41:00 AM EDT [facility] ([facility]) Name Value Range Interpretation Code Description Data Mariangel rce(s) Supporting Document(s) C reactive protein [Mass/volume] in Serum or Plasma by High sensitivity method 0.30 mg/dL 0.00-0.30 [facility] ([facility]) See triage. AMT ID Date Data Source [id number] 04/07/2021 01:46:00 PM EDT [facility] ([facility]) Name Value Range Interpretation Code Description Data Mariangel rce(s) Supporting Document(s) Choriogonadotropin.beta subunit ( test) [Pres ence] in Urine Laboratory test result [facility] ([facility]) ID Date Data Source [id number] 04/07/2021 01:35:00 PM EDT [facility] ([facility]) Name Value Range Interpretation Code Description Data Mariangel rce(s) Supporting Document(s) Bacteria identified in Urine by Culture Laboratory test result [facility] ([facility]) FULL REPORT IN LAB NOTES ([facility] and [facility] ). SPECIMEN APPEARS CONTAMINATED ID Date Data Source [id number] 04/07/2021 01:35:00 PM EDT [facility] ([facility]) Name Value Range Interpretation Code Description Data Mariangel rce(s) Supporting Document(s) Color, Urine Laboratory test result [facility] ([facility]) Appearance, Urine Laboratory test result [facility] ([facility]) Specific [place] Urine Auto 1.010 1.002-1.035 [facility] ([facility]) PH,Urine 5.0 units 5.0-9.0 [facility] ([facility]) Protein, Urine Auto Laboratory test result [facility] ([facility]) Glucose, Urine (Ua) Auto Laboratory test result [facility] ([facility]) Urobilinogen, Urine Auto 0.2 mg/dL 0.0-2.0 [facility] ([facility]) Ketone, Urine Auto Laboratory test result [facility] ([facility]) Nitrite, Urine Auto Laboratory test result [facility] ([facility]) Bilirubin, Urine Auto Laboratory test result [facility] ([facility]) Leukocyte Esterase, Urine Auto Laboratory test result [facility] ([facility]) WBC, Urine Auto 66 /HPF 0-3 [facility] [place] Blood, Urine Blood Laboratory test result [facility] ([facility]) Bacteria, Urine Auto Laboratory test result [facility] ([facility]) RBC, Urine Auto 4 /HPF 0-3 [facility] [place] Squamous Epithelial Cell Ur AU 3 /HPF 0-6 [facility] ([facility]) Hyaline Cast, Urine Auto 0 /LPF 0-1 [facility] ([facility]) Mucus, Urine Laboratory test result [facility] ([facility]) ID Date Data Source [id number] 04/07/2021 01:25:00 PM EDT [facility] ([facility]) Name Value Range Interpretation Code Description Data Mariangel rce(s) Supporting Document(s) Nitrite [Presence] in Urine by Test strip Laboratory test result [facility] ([facility]) Leukocytes [#/volume] in Urine by Manual count Laboratory test result [facility] ([facility]) pH of Urine by Test strip 5.0 MEDE NT ([facility]) Protein [Presence] in Urine by Test strip Laboratory test result [facility] ([facility]) Urobilinogen [Mass/volume] in Urine by Test strip Laboratory test res ult [facility] ([facility]) Blood [Presence] in Urine by Visual Laboratory test result [facility] ([facility]) Specific gravity of Urine 1.010 [facility] ([facility]) Ketones [Presence] in Urine by Test strip Laboratory test result [facility] ([facility]) Bilirubin.total [Presence] in Urine by Test strip Laboratory test res ult [facility] ([facility]) Glucose [Presence] in Urine Laboratory test result [facility] ([facility]) ID Date Data Source [id number] 09/16/2020 12:00:00 PM EST [facility] Name Value Range Interpretation Code Description Data Mariangel rce(s) Supporting Document(s) SARS coronavirus 2 RNA Not Detected [facility] [place] This lab was ordered by [facility] and reported by [facility]. ID Date Data Source [id number] 08/27/2020 12:00:00 PM EST [facility] Name Value Range Interpretation Code Description Data Mariangel rce(s) Supporting Document(s) SARS coronavirus 2 RNA Not Detected [facility] [place] This lab was ordered by [facility] and reported by [facility]. Procedure Social History Code Duration Value Status Description Data Source(s ) Smoking 07/22/2021 12:00:00 AM EST Unknown if ever smoked comp leted Unknown if ever smoked [facility] Sm[facility] 07/13/2021 12:00:00 AM EST Unknown if ever smoked comp leted Unknown if ever smoked [facility] ([facility]) Smoking 06/04/2021 12:00:00 AM EDT Unknown if ever smoked comp leted Unknown if ever smoked [facility] ([facility]) Smoking 06/03/2021 12:00:00 AM EDT Unknown if ever smoked comp leted Unknown if ever smoked [facility] ([facility]) Smoking 05/21/2021 12:00:00 AM EDT Unknown if ever smoked comp leted Unknown if ever smoked [facility] ([facility]) Smoking 05/07/2021 12:00:00 AM EDT Unknown if ever smoked comp leted Unknown if ever smoked [facility] ([facility]) Smoking 04/22/2021 12:00:00 AM EDT Unknown if ever smoked comp leted Unknown if ever smoked [facility] ([facility]) Smoking 04/12/2021 12:00:00 AM EDT Unknown if ever smoked comp leted Unknown if ever smoked [facility] ([facility]) Smoking 04/07/2021 12:00:00 AM EDT Patient has never smoked co mpleted Patient has never smoked [facility] ([facility]) Smoking 04/05/2021 12:00:00 AM EDT Unknown if ever smoked comp leted Unknown if ever smoked [facility] ([facility]) Smoking 03/31/2021 12:00:00 AM EDT Unknown if ever smoked comp leted Unknown if ever smoked [facility] ([facility]) Smoking 03/29/2021 12:00:00 AM EDT Unknown if ever smoked comp leted Unknown if ever smoked [facility] ([facility] Smoking 03/16/2021 12:00:00 AM EDT Unknown if ever smoked comp leted Unknown if ever smoked [facility] ([facility]) Smoking 03/09/2021 12:00:00 AM EDT Unknown if ever smoked comp leted Unknown if ever smoked [facility] ([facility]) Smoking 03/01/2021 12:00:00 AM EDT Unknown if ever smoked comp leted Unknown if ever smoked [facility] ([facility]) Smoking 02/15/2021 12:00:00 AM EDT Unknown if ever smoked comp leted Unknown if ever smoked [facility] ([facility]) Smoking 02/02/2021 12:00:00 AM EDT Unknown if ever smoked comp leted Unknown if ever smoked [facility] ([facility]) Smoking 01/27/2021 12:00:00 AM EDT Never Smoker completed Never S moker [facility] Smoking 01/27/2021 12:00:00 AM EDT Never Smoker completed Never S moker [facility] ([facility]) Smoking 01/14/2021 12:00:00 AM EDT Unknown if ever smoked comp leted Unknown if ever smoked [facility] ([facility]) Smoking 01/11/2021 12:00:00 AM EDT Unknown if ever smoked comp leted Unknown if ever smoked [facility] ([facility]) Smoking 01/05/2021 12:00:00 AM EDT Unknown if ever smoked comp leted Unknown if ever smoked [facility] ([facility]) Smoking 12/29/2020 12:00:00 AM EDT Unknown if ever smoked comp leted Unknown if ever smoked [facility] ([facility]) Smoking 12/24/2020 12:00:00 AM EDT Never Smoker completed Never S moker [facility]CW1 ([facility]) Smoking 12/10/2020 12:00:00 AM EDT Unknown if ever smoked comp leted Unknown if ever smoked [facility] ([facility]) Smoking 11/30/2020 12:00:00 AM EDT Unknown if ever smoked comp leted Unknown if ever smoked [facility] ([facility]) Smoking 11/23/2020 12:00:00 AM EDT Unknown if ever smoked comp leted Unknown if ever smoked [facility] ([facility]) Smoking 11/19/2020 12:00:00 AM EDT Never Smoker completed Never S gilbertoker eCW1 ([facility]) Smoking 11/18/2020 12:00:00 AM EDT Unknown if ever smoked comp leted Unknown if ever smoked [facility] ([facility]) Smoking 11/10/2020 12:00:00 AM EDT Unknown if ever smoked comp leted Unknown if ever smoked [facility] ([facility]) Smoking 11/03/2020 12:00:00 AM EDT Never Smoker completed Never S jose eCW1 ([facility]) Smoking 10/28/2020 12:00:00 AM EST Unknown if ever smoked comp leted Unknown if ever smoked [facility] ([facility]) Smoking 10/19/2020 12:00:00 AM EST Unknown if ever smoked comp leted Unknown if ever smoked [facility] ([facility]) Smoking 10/14/2020 12:00:00 AM EST Unknown if ever smoked comp leted Unknown if ever smoked [facility] ([facility]) Smoking 10/12/2020 12:00:00 AM EST Unknown if ever smoked comp leted Unknown if ever smoked [facility] ([facility]) Smoking 10/07/2020 12:00:00 AM EST Unknown if ever smoked comp leted Unknown if ever smoked [facility] ([facility]) Smoking 09/30/2020 12:00:00 AM EST Unknown if ever smoked comp leted Unknown if ever smoked [facility] ([facility]) Smoking 09/25/2020 12:00:00 AM EST Unknown if ever smoked comp leted Unknown if ever smoked [facility] ([facility]) Smoking 09/02/2020 12:00:00 AM EST Unknown if ever smoked comp leted Unknown if ever smoked [facility] ([facility]) Smoking 08/26/2020 12:00:00 AM EST Unknown if ever smoked comp leted Unknown if ever smoked [facility] ([facility]) Smoking 08/20/2020 12:00:00 AM EST Unknown if ever smoked comp leted Unknown if ever smoked [facility] ([facility]) Smoking 08/05/2020 12:00:00 AM EST Unknown if ever smoked comp leted Unknown if ever smoked [facility] ([facility]) Smoking 07/30/2020 12:00:00 AM EST Unknown if ever smoked comp leted Unknown if ever smoked [facility] ([facility]) Smoking 07/01/2020 12:00:00 AM EST Unknown if ever smoked comp leted Unknown if ever smoked [facility] ([facility]) Smoking 06/23/2020 12:00:00 AM EST Unknown if ever smoked comp leted Unknown if ever smoked [facility] ([facility]) Smoking 06/22/2020 12:00:00 AM EST Unknown if ever smoked comp leted Unknown if ever smoked [facility] ([facility]) Smoking 06/18/2020 12:00:00 AM EDT Unknown if ever smoked comp leted Unknown if ever smoked [facility] ([facility]) Smoking 06/04/2020 12:00:00 AM EDT Unknown if ever smoked comp leted Unknown if ever smoked [facility] ([facility]) Smoking 05/27/2020 12:00:00 AM EDT Unknown if ever smoked comp leted Unknown if ever smoked [facility] ([facility]) Smoking 05/26/2020 12:00:00 AM EDT Unknown if ever smoked comp leted Unknown if ever smoked [facility] ([facility]) Vital Signs ID Date Data Source UNK Name Value Range Interpretation Code Description Data Source(s) Body mass index (BMI) [Ratio] 19.7 kg/m2 19.7 k g/m2 [facility] ([facility]) Body height 61.81 [in_i] 61.81 [in_i] [facility] ([facility]) 5'1.81" Body height [Percentile] 16 % 16 % [facility] ([facility]) Body height 157 cm 157 cm [facility] ([facility]) Body weight 107.00 [lb_av] 107.00 [lb_av] [facility] T ([facility]) Body mass index (BMI) [Percentile] 24 % 2 4 % [facility] ([facility]) Body temperature 97.2 [degF] 97.2 [degF] [facility] ([facility]) Heart rate 86 /min 86 /min [facility] ([facility]) [facility] rate 16 [facility]min 16 [facility] Oxygen saturation in Arterial blood by Pulse oximetry 99 % 99 % [facility] Systolic blood pressure 100 mm[Hg] 100 mm[Hg] M [facility] ([facility]) Diastolic blood pressure 72 mm[Hg] 72 mm[Hg] [facility] ([facility]) Body weight 48.535 kg 48.535 kg [facility] ([facility]) Heart rate 78 /min 78 /min [facility] ([facility]) Respiratory rate 16 /min 16 /[facility] Oxygen saturation in Arterial blood by Pulse oximetry 97 % 97 % [facility] ([facility]) Systolic blood pressure 118 mm[Hg] 118 mm[Hg] M [facility] ([facility]) Diastolic blood pressure 74 mm[Hg] 74 mm[Hg] [facility] ([facility]) Body height 61.61 [in_i] 61.61 [in_i] [facility] ([facility]) '" Body height [Percentile] 15 % 15 % [facility] Body height 156.5 cm 156.[address] [facility] Body weight 110.50 [lb_av] 110.50 [lb_av] [facility] T ([facility]) Body weight 50.123 kg [facility].[address] [facility] Body mass index (BMI) [Ratio] 20.5 kg/m2 20.5 k g/m2 [facility] Body mass index (BMI) [Percentile] 34 % 3 4 % [facility] Body temperature 98.4 [degF] 98.4 [degF] [facility] ([facility]) Diastolic blood pressure 68 mm[Hg] 68 mm[Hg] [facility] Body temperature 97.9 [degF] 97.9 [degF] [facility] Heart rate 77 /min 77 /min [facility]) Respiratory rate 16 /min 16 /min [facility] ( [facility]) Oxygen saturation in Arterial blood by Pulse oximetry 99 % 99 % [facility] ([facility]) Systolic blood pressure 106 mm[Hg] 106 mm[Hg] M [facility] ([facility]) Body weight 109.00 [lb_av] 109.00 [lb_av] [facility] ([facility]) Body weight 49.442 kg [facility].[address] [facility] Body mass index (BMI) [Ratio] 20.2 kg/m2 20.2 k g/m2 [facility] ([facility]) Body mass index (BMI) [Percentile] 31 % 3 1 % [facility] Body height 61.61 [in_i] 61.61 [in_i] [facility] ([facility]) 5" Body height [Percentile] 15 % 15 % [facility] ([facility]) Body height 156.5 cm 156.5 cm [facility] ([facility]) Body weight 51.257 kg 51.257 kg [facility] ([facility]) Body height [Percentile] 18 % 18 % [facility] ([facility]) Body surface area Derived from formula 1.50 m2 1.50 m2 [facility] ([facility]) Systolic blood pressure 112 mm[Hg] 112 mm[Hg] M [facility] ([facility]) Diastolic blood pressure 58 mm[Hg] 58 mm[Hg] [facility] ([facility]) Body height 62 [in_i] 62 [in_i] [facility] ([facility]) 5'2" Body weight 113.00 [lb_av] 113.00 [lb_av] [facility] ([facility]) Body mass index (BMI) [Ratio] 20.7 kg/m2 20.7 k g/m2 [facility] ([facility]) [place] body weight 110 [lb_av] 110 [lb_av] [facility] ([facility]) Heart rate 91 /min 91 /min [facility] Body weight 48.082 kg 48.082 kg [facility] ([facility]) Body mass index (BMI) [Ratio] 18.8 kg/m2 18.8 k g/m2 [facility] ([facility]) Body mass index (BMI) [Percentile] 13 % 1 3 % [facility] ([facility]) Body temperature 98.9 [degF] 98.9 [degF] [facility] ([facility]) Respiratory rate 18 /min 18 /min [facility] ( [facility]) Oxygen saturation in Arterial blood by Pulse oximetry 100 % 100 % [facility] ([facility]) Systolic blood pressure 108 mm[Hg] 108 mm[facility]Hg] [facility] Diastolic blood pressure 66 mm[Hg] 66 mm[Hg] [facility] ([facility]) Body height 62.99 [in_i] 62.99 [in_i] [facility] ([facility]) 5'2.99" Body height [Percentile] 30 % 30 % [facility] ([facility]) Body height 160 cm 160 cm [facility] ([facility]) Body weight 106.00 [lb_av] 106.00 [lb_av] [facility] ([facility]) Body weight 46.267 kg 46.267 kg [facility] ([facility]) Heart rate 78 /min 78 /min [facility] ([facility]) Respiratory rate 16 /min 16 /min [facility] ( [facility]) Body mass index (BMI) [Percentile] 7 % 7 % [facility] ([facility]) Body mass index (BMI) [Ratio] 18.1 kg/m2 18.1 k g/m2 [facility] ([facility]) Oxygen saturation in Arterial blood by Pulse oximetry 99 % 99 % [facility] ([facility]) Systolic blood pressure 102 mm[Hg] 102 mm[Hg] M [facility] ([facility]) Diastolic blood pressure 64 mm[Hg] 64 mm[Hg] [facility] ([facility]) Body height 62.99 [in_i] 62.99 [in_i] [facility] ([facility]) 5'2.99" Body height [Percentile] 31 % 31 % [facility] ([facility]) Body height 160 cm 160 cm [facility] ([facility]) Body weight 102.00 [lb_av] 102.00 [lb_av] [facility] T ([facility]) checked x2 Body weight 112 [lb_av] 112 [lb_av] eCW1 ([facility]) Body weight 50.8 kg 50.8 kg eCW1 ([facility]) Body height 62 [in_i] 62 [in_i] eCW1 ([facility]) Body mass index (BMI) [Ratio] 20.48 kg/m2 20.48 kg/m2 [facility] Systolic blood pressure 108 mm[Hg] 108 mm[Hg] e CW1 ([facility]) Diastolic blood pressure 62 mm[Hg] 62 mm[Hg] eCW1 ([facility]) Body height 0.00 in Normal (applies to non-numeric resu lts) 0.00 in [facility] ([facility]) Body weight Measured 0.00 lbs Normal (applies to n on-numeric results) 0.00 lbs [facility] ([facility]) Body mass index (BMI) [Ratio] 0.00 kg/m2 No rmal (applies to non-numeric results) 0.00 kg[facility]) Systolic blood pressure 107 mm[Hg] Normal (applies t o non-numeric results) 107 mm[Hg] [facility] ([facility]) Diastolic blood pressure 65 mm[Hg] Normal (applies to non-numeric results) 65 mm[Hg] [facility] ([facility]) Body height --lying 76 min Normal (applies to non-nume aris results) 76 min [facility] ([facility]) Body weight 113 [lb_av] 113 [lb_av] eCW1 ([facility]) Body weight 51.26 kg 51.26 kg [facility] ([facility]) Body height 62 [in_i] 62 [in_i] eCW1 ([facility]) Body mass index (BMI) [Ratio] 20.67 kg/m2 20.67 kg/m2 [facility] ([facility]) Systolic blood pressure 116 mm[Hg] 116 mm[Hg] e CW1 ([facility]) Diastolic blood pressure 70 mm[Hg] 70 mm[Hg] eCW1 ([facility]) Body height 0.00 in Normal (applies to non-numeric resu lts) 0.00 in [facility] ([facility]) Body weight Measured 0.00 lbs Normal (applies to n on-numeric results) 0.00 lbs [facility] ([facility]) Body mass index (BMI) [Ratio] 0.00 kg/m2 No rmal (applies to non-numeric results) 0.00 kg/m2 [facility] ([facility]) Systolic blood pressure 0 mm[Hg] Normal (applies t o non-numeric results) 0 mm[Hg] [facility] ([facility]) Diastolic blood pressure 0 mm[Hg] Normal (applies to non-numeric results) 0 mm[Hg] [facility] ([facility]) Body weight 113 [lb_av] 113 [lb_av] eCW1 ([facility]) Body weight 51.26 kg 51.26 kg eCW1 ([facility]) Body height 62 [in_i] 62 [in_i] eCW1 ([facility]) Body mass index (BMI) [Ratio] 20.67 kg/m2 20.67 kg/m2 eCW1 ([facility]) Systolic blood pressure 117 mm[Hg] 117 mm[Hg] e CW1 ([facility]) Diastolic blood pressure 73 mm[Hg] 73 mm[Hg] eCW1 ([facility]) Body height 0.00 in Normal (applies to non-numeric resu lts) 0.00 in [facility] ([facility]) Body weight Measured 0.00 lbs Normal (applies to n on-numeric results) 0.00 lbs [facility] ([facility]) Body mass index (BMI) [Ratio] 0.00 kg/m2 No rmal (applies to non-numeric results) 0.00 kg/m2 [facility] ([facility]) Systolic blood pressure 0 mm[Hg] Normal (applies t o non-numeric results) 0 mm[Hg] [facility] Diastolic blood pressure 0 mm[Hg] Normal (applies to non-numeric results) 0 mm[Hg] [facility] ([facility]) Diastolic blood pressure 64 mm[Hg] 64 mm[Hg] eCW1 ([facility]) Systolic blood pressure 116 mm[Hg] 116 mm[Hg] e CW1 ([facility]) Body mass index (BMI) [Ratio] 21.76 kg/m2 21.76 kg/m2 eCW1 ([facility]) Body height 62 [in_i] 62 [in_i] eCW1 ([facility]) Body weight 53.98 kg 53.98 kg eCW1 ([facility]) Body weight 119 [lb_av] 119 [lb_av] eCW1 ([facility]) Body height 0.00 in Normal (applies to non-numeric resu lts) 0.00 [facility]) Body weight Measured 0.00 lbs Normal (applies to n on-numeric results) 0.00 lbs [facility] ([facility]) Body mass index (BMI) [Ratio] 0.00 kg/m2 No rmal (applies to non-numeric results) 0.00 kg/m2 [facility] ([facility]) Systolic blood pressure 0 mm[Hg] Normal (applies t o non-numeric results) 0 mm[Hg] [facility] ([facility]) Diastolic blood pressure 0 mm[Hg] Normal (applies to non-numeric results) 0 mm[Hg] [facility] ([facility]) Body height 0.00 in Normal (applies to non-numeric resu lts) 0.00 in [facility] ([facility]) Body weight Measured 0.00 lbs Normal (applies to n on-numeric results) 0.00 lbs [facility] ([facility]) Body mass index (BMI) [Ratio] 0.00 kg/m2 No rmal (applies to non-numeric results) 0.00 kg/m2 [facility] ([facility]) Systolic blood pressure 0 mm[Hg] Normal (applies t o non-numeric results) 0 mm[Hg] [facility] ([facility]) Diastolic blood pressure 0 mm[Hg] Normal (applies to non-numeric results) 0 mm[Hg] [facility] ([facility]) Diastolic blood pressure 60 mm[Hg] 60 mm[Hg] [facility] ([facility]) Body height 62 [in_i] 62 [in_i] [facility] ([facility]) 5'2" Systolic blood pressure 112 mm[Hg] 112 mm[Hg] M [facility] ([facility]) Body surface area Derived from formula 1.48 m2 1.48 m2 [facility] ([facility]) Body weight 110.00 [lb_av] 110.00 [lb_av] [facility] T ([facility]) Body mass index (BMI) [Ratio] 20.1 kg/m2 20.1 k g/m2 [facility] ([facility]) [place] body weight 110 [lb_av] 110 [lb_av] [employer] ([facility]) Body weight 49.896 kg 49.896 kg [facility] ([facility]) Body height [Percentile] 19 % 19 % [facility] ([facility]) Body height 0.00 in Normal (applies to non-numeric resu lts) 0.00 in [facility] ([facility]) Body weight Measured 0.00 lbs Normal (applies to n on-numeric results) 0.00 lbs [facility] ([facility]) Body mass index (BMI) [Ratio] 0.00 kg/m2 No rmal (applies to non-numeric results) 0.00 kg/m2 [facility] ([facility]) Systolic blood pressure 0 mm[Hg] Normal (applies t o non-numeric results) 0 mm[Hg] [facility] ([facility]) Diastolic blood pressure 0 mm[Hg] Normal (applies to non-numeric results) 0 mm[Hg] [facility] ([facility]) Body height 0.00 in Normal (applies to non-numeric resu lts) 0.00 in [facility] ([facility]) Body weight Measured 0.00 lbs Normal (applies to n on-numeric results) 0.00 lbs [facility] ([facility]) Body mass index (BMI) [Ratio] 0.00 kg/m2 No rmal (applies to non-numeric results) 0.00 kg/m2 [facility] ([facility]) Systolic blood pressure 0 mm[Hg] Normal (applies t o non-numeric results) 0 mm[Hg] [facility] ([facility]) Diastolic blood pressure 0 mm[Hg] Normal (applies to non-numeric results) 0 mm[Hg] [facility] ([facility])
[2021-07-23 18:58] VITALS: BP 122/68
--- NOTE | 2021-07-24 07:32 | ECGEPIP ---
[facility] - ED Test Date: 2021-07-23 Pat Name: RADHA CAMACHO Department: Room: - Gender: Female Video Tape Editor: NAYANA : 2000 Requested By: LAKSHMI MA PA-C. Order Number: [id number] [place] MD: Veronica Dc Measurements Intervals [place] Rate: 81 P: 61 VA: 130 QRS: 83 QRSD: 86 T: 57 QT: 366 QTc: 425 Interpretive Statements Normal sinus rhythm with sinus arrhythmia irbbb Electronically Signed on 07-24-2021 7:31:49 EST by Veronica Dc
== END 2021-07-23 19:14 | disposition home or self-care (01) ==
LOC: M ED 11:28
DX: R42 Dizziness and giddiness (principal); R11.2 Nausea with vomiting, unspecified; R51.9 Headache, unspecified; T50.995A Adverse effect of other drugs, medicaments and biological substances, initial encounter; Y92.89 Other specified places as the place of occurrence of the external cause; J45.909 Unspecified asthma, uncomplicated; F31.9 Bipolar disorder, unspecified; F33.9 Major depressive disorder, recurrent, unspecified; F41.9 Anxiety disorder, unspecified; R63.0 Anorexia; Z79.899 Other long term (current) drug therapy
CPT/HCPCS: 36415; 80048; 80076; 80175; 84702; 85025; 93005; 99284; Q0162

== ENCOUNTER → 2021-08-07 | Outpatient (CLI) | payer OTHER ==
[~2021-08-07] MED LIST changes: -OMEP-221 PO; +OMEP40CA5 PO; +ONDA4TAB6 PO
== END ==
LOC: M LABSMTC 09:53
PROVIDERS: ATTEND Internal Medicine Gastroenterology
DX: Z11.52 Encounter for screening for COVID-19 (principal)

== ENCOUNTER → 2021-12-16 | Outpatient (CLI) | payer OTHER | LOC: M LABSMTC 11:07 | PROVIDERS: ATTEND Anesthesiology | DX: Z01.818 Encounter for other preprocedural examination (principal); Z11.52 Encounter for screening for COVID-19 ==

== ENCOUNTER 2021-12-21 12:09 | Day surgery (SDC) | payer OTHER ==
[~2021-12-21] VITALS: Ht 157.5 cm; Wt 43.5 kg
[~2021-12-21 12:09] MED LIST changes: +NS 1,000 ML IV ONE
[2021-12-21] MEDS ORDERED: fentaNYL 100 MCG/2 ML INJECTION As Ordered ONE (15:21)
[2021-12-21] MEDS ORDERED: LIDOCAINE 2% 100MG/5ML SDV (FOR ANES.) As Ordered ONE (15:29)
[2021-12-21] MEDS ORDERED: propofoL 200 MG/20 ML VIAL As Ordered ONE (15:29)
[2021-12-21 15:58] VITALS: BP 102/55
== END 2021-12-21 16:15 | disposition home or self-care (01) ==
LOC: M OPP 12:09
PROVIDERS: ATTEND Internal Medicine Gastroenterology
DX: R13.10 Dysphagia, unspecified (principal); K31.89 Other diseases of stomach and duodenum; K22.0 Achalasia of cardia; Z79.899 Other long term (current) drug therapy
CPT/HCPCS: 43249; 81025; 88305; J3010

== ENCOUNTER 2022-03-26 23:31 | Emergency (ER) | payer OTHER ==
[~2022-03-26] VITALS: Ht 157.5 cm; Wt 52.3 kg
[~2022-03-26 23:31] MED LIST changes: -NS 1,000 ML IV ONE
[2022-03-26 23:34] VITALS: BP 106/65
[2022-03-27 00:49] LABS: RSV AMPLIFICATION NEGATIVE (NEGATIVE)
== END 2022-03-27 02:39 | disposition left against medical advice (07) ==
LOC: M ED 23:31
DX: Z53.9 Procedure and treatment not carried out, unspecified reason (principal)

== ENCOUNTER → 2022-04-13 | Outpatient (CLI) | payer OTHER | LOC: M RAD 09:45 | PROVIDERS: ATTEND Internal Medicine Gastroenterology | DX: R10.31 Right lower quadrant pain (principal) ==

== ENCOUNTER → 2022-06-02 | Outpatient (CLI) | payer OTHER | LOC: M RAD 12:02 | PROVIDERS: ATTEND Internal Medicine Gastroenterology | DX: R13.10 Dysphagia, unspecified (principal); R10.13 Epigastric pain | CPT/HCPCS: 78264; A9541 ==

== ENCOUNTER 2022-07-03 06:30 | Emergency (ER) | payer OTHER ==
[2022-07-03 06:56] LABS: HEMATOCRIT 41.5 % (36.0-47.0); HEMOGLOBIN 13.9 g/dl (12.0-15.5); MEAN CORPUSCULAR HGB CONC 33.5 g/dl (32.0-36.5); MEAN CORPUSCULAR VOLUME 92.6 fl (80.0-96.0); PLATELET COUNT, AUTOMATED 254 10^3/uL (150-450); RED BLOOD COUNT 4.48 10^6/uL (4.00-5.40); WHITE BLOOD COUNT 8.2 10^3/uL (4.0-10.0)
[2022-07-03 07:26] LABS: RSV AMPLIFICATION NEGATIVE (NEGATIVE)
[2022-07-03 07:42] LABS: AMPHETAMINES LEVEL URINE NEGATIVE (NEGATIVE); BARBITURATES URINE NEGATIVE (NEGATIVE); BENZODIAZEPINES URINE NEGATIVE (NEGATIVE); CANNABINOIDS URINE NEGATIVE (NEGATIVE); COCAINE METABOLITE URINE NEGATIVE (NEGATIVE); METHADONE URINE NEGATIVE (NEGATIVE); OPIATES URINE NEGATIVE (NEGATIVE); PHENCYCLIDINE URINE NEGATIVE (NEGATIVE)
[2022-07-03 08:17] LABS: ACETAMINOPHEN LEVEL < 2.0 UG/ML (10.0-30.0); ALBUMIN 4.5 GM/DL (3.2-5.2); ALT/SGPT 20 U/L (12-78); BILIRUBIN,DIRECT 0.1 MG/DL (0.0-0.2); BILIRUBIN,TOTAL 0.6 MG/DL (0.2-1.0); BLOOD UREA NITROGEN 11 MG/DL (7-18); CALCIUM LEVEL 9.4 MG/DL (8.5-10.1); CARBON DIOXIDE LEVEL 25 MEQ/L (21-32); CHLORIDE LEVEL 106 MEQ/L (98-107); CREATININE FOR GFR 0.77 MG/DL (0.55-1.30); ETHYL ALCOHOL (ETHANOL) < 0.003 % (0.000-0.010); GLUCOSE, FASTING 97 MG/DL (70-100); HCG, SERUM QUALITATIVE NEGATIVE (NEGATIVE); POTASSIUM SERUM 3.2 MEQ/L (3.5-5.1); SALICYLATE LEVEL < 1.7 MG/DL (5.0-30.0); SODIUM LEVEL 137 MEQ/L (136-145); TOTAL PROTEIN 8.1 GM/DL (6.4-8.2)
[2022-07-03] MEDS ORDERED: POTASSIUM CHLORIDE 10MEQ SR TABLET PO ONE (11:15)
[2022-07-03] MEDS ORDERED: SERT25TA21 PO (14:42)
[2022-07-03] MEDS ORDERED: HOME MED LIST COMPLETE! XX SCH (14:45)
[2022-07-04] MEDS ORDERED: SERTRALINE HCL 25 MG TABLET PO SCH (09:00)
[2022-07-04] MEDS ORDERED: POTASSIUM CHLORIDE 10MEQ SR TABLET PO ONE (15:35)
[2022-07-04 15:39] VITALS: BP 128/62
== END 2022-07-04 16:45 | disposition home or self-care (01) ==
LOC: M ED 06:30
DX: F43.21 Adjustment disorder with depressed mood (principal); F41.1 Generalized anxiety disorder; E87.6 Hypokalemia; R94.6 Abnormal results of thyroid function studies; J45.909 Unspecified asthma, uncomplicated; K31.84 Gastroparesis; F50.00 Anorexia nervosa, unspecified; F50.2 Bulimia nervosa; Z79.899 Other long term (current) drug therapy

== ENCOUNTER → 2022-09-01 | Outpatient (REF) | payer OTHER, MEDICAID ==
[~2022-09-01] MED LIST changes: +SERT25TA21 PO
== END ==
LOC: M PLALAB 11:59
PROVIDERS: ATTEND Nurse Practitioner Family
DX: R39.15 Urgency of urination (principal)

== ENCOUNTER 2022-10-12 22:24 | Emergency (ER) | payer OTHER, MEDICAID ==
[~2022-10-12] VITALS: Ht 157.5 cm; Wt 45.1 kg
[2022-10-12 22:25] VITALS: BP 131/81
== END 2022-10-13 02:19 | disposition left against medical advice (07) ==
LOC: M ED 22:24
DX: Z53.21 Procedure and treatment not carried out due to patient leaving prior to being seen by health care provider (principal)

== ENCOUNTER 2022-12-12 17:50 | Emergency (ER) | payer MEDICAID, OTHER ==
[~2022-12-12] VITALS: Ht 157.5 cm; Wt 46.1 kg
[2022-12-12 17:51] VITALS: BP 130/76
== END 2022-12-12 20:35 | disposition home or self-care (01) ==
LOC: M ED 17:50
DX: R07.9 Chest pain, unspecified (principal); F41.9 Anxiety disorder, unspecified; F31.9 Bipolar disorder, unspecified; J45.909 Unspecified asthma, uncomplicated; Z88.6 Allergy status to analgesic agent

== ENCOUNTER → 2023-01-12 | Outpatient (REF) | payer OTHER ==
[2023-01-12 13:41] LABS: APPEARANCE, URINE HAZY (CLEAR); BACTERIA, URINE AUTO NEGATIVE (NEGATIVE); BILIRUBIN, URINE AUTO NEGATIVE (NEGATIVE); BLOOD, URINE BLOOD 2+ (NEGATIVE); COLOR, URINE YELLOW (YELLOW); GLUCOSE, URINE (UA) AUTO NEGATIVE (NEGATIVE); KETONE, URINE AUTO NEGATIVE (NEGATIVE); LEUKOCYTE ESTERASE, URINE AUTO 2+ (NEGATIVE); MUCUS, URINE SMALL (NEGATIVE); NITRITE, URINE AUTO NEGATIVE (NEGATIVE); PROTEIN, URINE AUTO 2+ mg/dL (NEGATIVE); RBC, URINE AUTO TNTC /HPF (0-3); SPECIFIC GRAVITY URINE AUTO 1.025 (1.002-1.035); SQUAMOUS EPITHELIAL CELL UR AU 6 /HPF (0-6); UROBILINOGEN, URINE AUTO 0.2 mg/dL (0.0-2.0); WBC, URINE AUTO 110 /HPF (0-3)
== END ==
LOC: M LAB REF 12:34
PROVIDERS: ATTEND Physician Assistant
DX: N39.0 Urinary tract infection, site not specified (principal)

== ENCOUNTER 2023-08-03 13:30 | Day surgery (SDC) | payer OTHER ==
[~2023-08-03] VITALS: Ht 157.5 cm; Wt 44.5 kg
[~2023-08-03 13:30] MED LIST changes: +KYLE19.5 IU; +NS 1,000 ML IV ONE
[2023-08-03] MEDS ORDERED: LR 1,000 ML IV SCH (14:00)
[2023-08-03] MEDS ORDERED: propofoL 200 MG/20 ML VIAL As Ordered ONE ×2 (14:54→15:28)
[2023-08-03] MEDS ORDERED: LIDOCAINE 2% 100MG/5ML SDV (FOR ANES.) As Ordered ONE (14:55)
[2023-08-03] MEDS ORDERED: GLYCOPYRROLATE INJ 0.2 MG/ML 2 ML VIAL As Ordered ONE (14:55)
[2023-08-03] MEDS ORDERED: ISOVUE-300 61% 100ML VIAL As Ordered ONE (15:01)
[2023-08-03 16:26] VITALS: BP 112/65; TEMP 98.2; O2SAT 98
== END 2023-08-03 16:33 | disposition home or self-care (01) ==
LOC: M SDC 13:30
PROVIDERS: ATTEND Internal Medicine Gastroenterology
DX: K22.0 Achalasia of cardia (principal); K31.89 Other diseases of stomach and duodenum; R13.10 Dysphagia, unspecified; Z97.5 Presence of (intrauterine) contraceptive device; Z88.5 Allergy status to narcotic agent; J45.909 Unspecified asthma, uncomplicated
CPT/HCPCS: 43233; 76000; Q9967

== ENCOUNTER 2023-10-10 01:38 | Emergency (ER) | payer MEDICAID, OTHER ==
[~2023-10-10] VITALS: Ht 157.5 cm; Wt 45.1 kg
[~2023-10-10 01:38] MED LIST changes: -NS 1,000 ML IV ONE
[2023-10-10] MEDS: ACETAMINOPHEN TAB 650MG DOSE (2X325MG) PO ONE (02:21)
[2023-10-10] MEDS: NS 500 ML IV ONE (02:21)
[2023-10-10 02:42] LABS: BASO % 0.2 % (0.0-1.0); EOS # 0.1 10^3/uL (0.0-0.5); EOS % 0.7 % (0.0-3.0); HEMATOCRIT 41.4 % (36.0-47.0); LYMPH # 1.1 10^3/uL (1.5-5.0); LYMPH % 8.4 % (24.0-44.0); MEAN CORPUSCULAR HEMOGLOBIN 31.3 pg (27.0-33.0); MEAN CORPUSCULAR HGB CONC 33.8 g/dl (32.0-36.5); MEAN CORPUSCULAR VOLUME 92.4 fl (80.0-96.0); MONO # 0.8 10^3/uL (0.0-0.8); MONO % 6.1 % (2.0-8.0); NEUTROPHILS # 11.2 10^3/uL (1.5-8.5); NEUTROPHILS % 84.2 % (36.0-66.0); PLATELET COUNT, AUTOMATED 202 10^3/uL (150-450); RED BLOOD COUNT 4.48 10^6/uL (4.00-5.40); WHITE BLOOD COUNT 13.3 10^3/uL (4.0-10.0)
[2023-10-10 02:54] LABS: INR 1.12; PROTHROMBIN TIME 14.1 SECONDS (12.5-14.5)
[2023-10-10 02:55] LABS: PARTIAL THROMBOPLASTIN TIME 28.8 SECONDS (24.8-34.2)
[2023-10-10 03:01] LABS: LIPASE 43 U/L (12-53)
[2023-10-10 03:03] LABS: ALBUMIN 4.4 G/DL (3.2-5.2); ALKALINE PHOSPHATASE 73 U/L (46-116); ALT/SGPT 15 U/L (7.0-40); AST/SGOT 9 U/L (<34); BILIRUBIN,DIRECT 0.2 MG/DL (<0.4); BILIRUBIN,TOTAL 0.5 MG/DL (0.3-1.2); BLOOD UREA NITROGEN 13 MG/DL (9-23); CARBON DIOXIDE LEVEL 28 MMOL/L (20-31); CHLORIDE LEVEL 104 MMOL/L (98-107); CK-MB VALUE MASS < 1.0 NG/ML (<3.6); CPK CREATINE PHOSPHOKINASE 108 U/L (34-145); CREATININE FOR GFR 0.66 MG/DL (0.55-1.30); GLOMERULAR FILTRATION RATE > 60.0 (>60); GLUCOSE, FASTING 104 MG/DL (60-100); MB/CK RELATIVE INDEX 0.92 (< OR =4); POTASSIUM SERUM 3.6 MMOL/L (3.5-5.1); SODIUM LEVEL 138 MMOL/L (136-145); TOTAL PROTEIN 7.2 G/DL (5.7-8.2)
[2023-10-10 03:05] LABS: FREE T4 1.01 NG/DL (0.89-1.76); THYROID STIMULATING HORMONE 1.925 uIU/ML (0.55-4.78)
[2023-10-10 03:06] LABS: HCG, SERUM QUALITATIVE NEGATIVE (NEGATIVE)
[2023-10-10] MEDS ORDERED: ISOVUE-370 76% 100ML VIAL As Ordered ONE (03:17)
[2023-10-10 05:07] LABS: CK-MB VALUE MASS < 1.0 NG/ML (<3.6)
[2023-10-10 05:34] VITALS: TEMP 98.9
[2023-10-10 05:38] LABS: CPK CREATINE PHOSPHOKINASE 66 U/L (34-145); MB/CK RELATIVE INDEX 1.51 (< OR =4)
[2023-10-10 05:59] VITALS: BP 104/54; O2SAT 99
== END 2023-10-10 06:03 | disposition home or self-care (01) ==
LOC: M ED 01:38
DX: R00.2 Palpitations (principal); R50.9 Fever, unspecified; F32.A Depression, unspecified; F41.9 Anxiety disorder, unspecified; K21.9 Gastro-esophageal reflux disease without esophagitis; G90.A Postural orthostatic tachycardia syndrome [POTS]; Z98.84 Bariatric surgery status; Z88.8 Allergy status to other drugs, medicaments and biological substances; J45.909 Unspecified asthma, uncomplicated; F31.9 Bipolar disorder, unspecified
CPT/HCPCS: 36415; 71275; 74177; 80048; 80076; 81001; 82550; 82553; 83605; 83690; 84439; 84443; 84703; 85025; 85610; 85730; 87040; 87486; 87581; 87633; 87798; 93005; 93041; 94760; 99285; Q9967

== ENCOUNTER → 2024-04-22 | Outpatient (CLI) | payer OTHER ==
[~2024-04-22] MED LIST changes: -ARIP1TAB43 PO; +ARIP20TA51 PO; +FLUO-365 PO; -FLUO20CA22 PO; +ONDA-282 PO; -ONDA4TAB6 PO
[2024-04-30 02:53] LABS: CALPROTECTIN STOOL 37 mcg/g (<50)
== END ==
LOC: M LAB 15:44
PROVIDERS: ATTEND Nurse Practitioner Family
DX: R19.7 Diarrhea, unspecified (principal)

== ENCOUNTER → 2024-05-06 | Outpatient (REF) | payer OTHER | LOC: M LAB REF 17:43 | PROVIDERS: ATTEND Internal Medicine Nephrology | DX: R80.9 Proteinuria, unspecified (principal) ==